=== PATIENT | female | born 1970 | race Caucasian/White ===

== ENCOUNTER 2018-05-22 12:04 | Inpatient (IN) | payer MEDICAID, OTHER, SELFPAY ==
[2018-05-22 13:53] LABS: BASO # 0.1 10^3/uL (0.0-0.2); BASO % 0.5 % (0.0-1.0); EOS # 0.2 10^3/uL (0.0-0.50); EOS % 2.1 % (0.0-3.0); HEMATOCRIT 34.9 % (36.0-47.0); HEMOGLOBIN 10.9 g/dl (12.0-15.5); IMMATURE GRANULOCYTE % 0.3 % (0-3.0); LYMPH # 2.8 10^3/uL (1.5-4.5); LYMPH % 29.3 % (24.0-44.0); MEAN CORPUSCULAR HEMOGLOBIN 23.6 pg (27.0-33.0); MEAN CORPUSCULAR HGB CONC 31.2 g/dl (32.0-36.5); MEAN CORPUSCULAR VOLUME 75.5 fl (80.0-96.0); MONO # 0.7 10^3/uL (0.0-0.8); MONO % 7.2 % (0.0-5.0); NEUTROPHILS # 5.9 10^3/uL (1.8-7.7); NEUTROPHILS % 60.6 % (36.0-66.0); PLATELET COUNT, AUTOMATED 479 10^3/uL (150-450); RED BLOOD COUNT 4.62 10^6/uL (4.00-5.40); RED CELL DISTRIBUTION WIDTH 15.3 % (11.5-14.5); WHITE BLOOD COUNT 9.7 10^3/uL (4.0-10.0)
[2018-05-22 14:07] LABS: INR 1.09; PARTIAL THROMBOPLASTIN TIME 25.3 SECONDS (25.4-37.6); PROTHROMBIN TIME 14.2 SECONDS (12.1-14.4)
[2018-05-22 14:31] LABS: ANION GAP 9 MEQ/L (8-16); BLOOD UREA NITROGEN 8 MG/DL (7-18); CALCIUM LEVEL 8.9 MG/DL (8.5-10.1); CARBON DIOXIDE LEVEL 25 MEQ/L (21-32); CHLORIDE LEVEL 106 MEQ/L (98-107); CPK CREATINE PHOSPHOKINASE 117 U/L (26-192); CREATININE FOR GFR 0.84 MG/DL (0.55-1.30); GLOMERULAR FILTRATION RATE > 60.0 (>58); GLUCOSE, FASTING 288 MG/DL (70-100); MB/CK RELATIVE INDEX 1.71 (< OR =4); POTASSIUM SERUM 4.2 MEQ/L (3.5-5.1); SODIUM LEVEL 140 MEQ/L (136-145); TROPONIN I < 0.02 NG/ML (< 0.10)
[2018-05-22 15:21] LABS: KETONE, URINE AUTO RFX NEGATIVE (NEGATIVE); LEUKOCYTE ESTERASE UR AUTO RFX NEGATIVE (NEGATIVE); NITRITE, URINE AUTO RFX NEGATIVE (NEGATIVE); RBC, URINE AUTO RFX 2 /HPF (0-3); SPECIFIC GRAVITY UR AUTO RFX 1.027 (1.002-1.035); SQUAM EPITHELIAL CELL UR AURFX 0 /HPF (0-6); WBC, URINE AUTO RFX 2 /HPF (0-3)
[2018-05-22] MEDS: ATORVASTATIN 20 MG TAB PO (16:07)
[2018-05-22] MEDS: ASPIRIN 81 MG CHEW TABLET PO (16:07)
[2018-05-22] MEDS: CLOPIDOGREL 75 MG TAB PO (16:07)
[2018-05-22] MEDS ORDERED: GLUCAGON FOR INJ 1 MG VIAL (J1610) SC (17:15)
[2018-05-22] MEDS ORDERED: GLUCOSE 4 GM CHEW TABLET PO (17:15)
[2018-05-22] MEDS ORDERED: DEXTROSE 50% 50 ML SYRINGE IV (17:15)
[2018-05-22] MEDS ORDERED: HumaLOG INSULIN (NovoLOG) PER UNIT SC (17:30)
[2018-05-22 18:03] LABS: BEDSIDE GLUCOSE 276 MG/DL (70-105)
[2018-05-22] MEDS: NS 1,000 ML IV (18:24)
[2018-05-22] MEDS: HumaLOG INSULIN (NovoLOG) PER UNIT SC (18:25)
[2018-05-22] MEDS ORDERED: ENOXAPARIN 40 MG/0.4 ML SYRINGE (J1650) SC (21:00)
[2018-05-22] MEDS: ENOXAPARIN 40 MG/0.4 ML SYRINGE (J1650) SC (22:38)
[2018-05-23 00:18] LABS: BEDSIDE GLUCOSE 255 MG/DL (70-105)
[2018-05-23] MEDS: HumaLOG INSULIN (NovoLOG) PER UNIT SC ×4 (00:22→18:02)
[2018-05-23 05:39] LABS: BEDSIDE GLUCOSE 244 MG/DL (70-105)
[2018-05-23] MEDS: NS 1,000 ML IV ×2 (05:57→17:54)
[2018-05-23 05:58] LABS: HEMOGLOBIN 9.9 g/dl (12.0-15.5); MEAN CORPUSCULAR HEMOGLOBIN 23.1 pg (27.0-33.0); MEAN CORPUSCULAR VOLUME 76.9 fl (80.0-96.0); PLATELET COUNT, AUTOMATED 470 10^3/uL (150-450); RED BLOOD COUNT 4.29 10^6/uL (4.00-5.40); RED CELL DISTRIBUTION WIDTH 15.5 % (11.5-14.5); WHITE BLOOD COUNT 10.2 10^3/uL (4.0-10.0)
[2018-05-23 06:24] LABS: ANION GAP 8 MEQ/L (8-16); BLOOD UREA NITROGEN 9 MG/DL (7-18); CALCIUM LEVEL 8.3 MG/DL (8.5-10.1); CARBON DIOXIDE LEVEL 26 MEQ/L (21-32); CHLORIDE LEVEL 109 MEQ/L (98-107); CHOLESTEROL LEVEL 181 MG/DL (<200); CHOLESTEROL RISK RATIO 5.323 (<5); GLOMERULAR FILTRATION RATE > 60.0 (>58); GLUCOSE, FASTING 235 MG/DL (70-100); HDL CHOLESTEROL 34 MG/DL (>40); LDL CHOLESTEROL 91 MG/DL (<100); NON-HDL-C 147 MG/DL; POTASSIUM SERUM 3.7 MEQ/L (3.5-5.1); SODIUM LEVEL 143 MEQ/L (136-145); TRIGLYCERIDES LEVEL 281 MG/DL (<150)
[2018-05-23 07:22] LABS: THYROID STIMULATING HORMONE 0.844 uIU/ML (0.358-3.740)
[2018-05-23 08:25] LABS: ESTIMATED AVERAGE GLUCOSE 315 MG/DL (60-110); HEMOGLOBIN A1c 12.6 %
[2018-05-23] MEDS: ASPIRIN 81 MG CHEW TABLET PO (09:00)
[2018-05-23] MEDS: ATORVASTATIN 20 MG TAB PO (09:00)
[2018-05-23] MEDS ORDERED: ASPIRIN 325 MG TAB PO (09:00)
[2018-05-23] MEDS: CLOPIDOGREL 75 MG TAB PO (09:00)
[2018-05-23 11:55] LABS: BEDSIDE GLUCOSE 190 MG/DL (70-105)
[2018-05-23] MEDS ORDERED: PILL CRUSHER/CUTTER 1 EACH XX (14:15)
[2018-05-23 15:30] LABS: RETIC HEMOGLOBIN EQUIVALENT 24.7 pg (24-36); RETICULOCYTE # 68.5 10^9/L (17-77); RETICULOCYTE % 1.5 % (0.5-1.5)
[2018-05-23 15:32] LABS: REASON FOR REVIEW RBC MORPHOLOGY; SLIDE REVIEW Report; SOURCE PERIPHERAL SMEAR
[2018-05-23] MEDS: ASPIRIN 81 MG CHEW TABLET NG (16:00)
[2018-05-23] MEDS: CLOPIDOGREL 75 MG TAB NG (16:00)
[2018-05-23] MEDS: ATORVASTATIN 20 MG TAB NG ×2 (16:00→20:21)
[2018-05-23 16:06] LABS: FERRITIN 7 NG/ML (8-252); IRON (FE) 20 UG/DL (50-170); PERCENT SATURATION 4.6 % (13.2-45.0); TOTAL IRON BINDING CAPACITY 437 UG/DL (250-450)
[2018-05-23 18:01] LABS: BEDSIDE GLUCOSE 220 MG/DL (70-105)
[2018-05-23] MEDS: ENOXAPARIN 40 MG/0.4 ML SYRINGE (J1650) SC (20:20)
[2018-05-24 00:20] LABS: BEDSIDE GLUCOSE 212 MG/DL (70-105)
[2018-05-24] MEDS: HumaLOG INSULIN (NovoLOG) PER UNIT SC ×5 (00:22→21:00)
[2018-05-24 05:51] LABS: HEMATOCRIT 31.6 % (36.0-47.0); HEMOGLOBIN 9.4 g/dl (12.0-15.5); MEAN CORPUSCULAR HEMOGLOBIN 22.7 pg (27.0-33.0); MEAN CORPUSCULAR HGB CONC 29.7 g/dl (32.0-36.5); MEAN CORPUSCULAR VOLUME 76.3 fl (80.0-96.0); PLATELET COUNT, AUTOMATED 437 10^3/uL (150-450); RED BLOOD COUNT 4.14 10^6/uL (4.00-5.40); RED CELL DISTRIBUTION WIDTH 14.9 % (11.5-14.5); WHITE BLOOD COUNT 10.3 10^3/uL (4.0-10.0)
[2018-05-24 06:18] LABS: ANION GAP 8 MEQ/L (8-16); BLOOD UREA NITROGEN 8 MG/DL (7-18); CALCIUM LEVEL 8.2 MG/DL (8.5-10.1); CARBON DIOXIDE LEVEL 24 MEQ/L (21-32); CHLORIDE LEVEL 112 MEQ/L (98-107); CREATININE FOR GFR 0.72 MG/DL (0.55-1.30); GLOMERULAR FILTRATION RATE > 60.0 (>58); GLUCOSE, FASTING 198 MG/DL (70-100); POTASSIUM SERUM 3.4 MEQ/L (3.5-5.1); SODIUM LEVEL 144 MEQ/L (136-145)
[2018-05-24] MEDS: NS 1,000 ML IV ×2 (06:32→22:02)
[2018-05-24] MEDS: KCL 10MEQ/100ML SWI (KRUN) 10 MEQ in APPROPRIATE DILUENT 1 EA IV (06:57)
[2018-05-24] MEDS: CLOPIDOGREL 75 MG TAB NG (09:47)
[2018-05-24] MEDS: ASPIRIN 81 MG CHEW TABLET NG (09:47)
[2018-05-24 12:33] LABS: BEDSIDE GLUCOSE 188 MG/DL (70-105)
[2018-05-24] MEDS: FERROUS SULFATE 300MG/5ML UDC LIQUID NG ×2 (13:59→22:02)
[2018-05-24 17:59] LABS: BEDSIDE GLUCOSE 231 MG/DL (70-105)
[2018-05-24 20:58] LABS: BEDSIDE GLUCOSE 230 MG/DL (70-105)
[2018-05-24] MEDS: ENOXAPARIN 40 MG/0.4 ML SYRINGE (J1650) SC (22:02)
[2018-05-24] MEDS: ATORVASTATIN 20 MG TAB NG (22:03)
[2018-05-25] MEDS: NYSTATIN 100,000 UNITS/GM TOPICAL PWD 15 GM TOP (05:40)
[2018-05-25 06:02] LABS: HEMATOCRIT 33.4 % (36.0-47.0); HEMOGLOBIN 10.2 g/dl (12.0-15.5); MEAN CORPUSCULAR HEMOGLOBIN 22.9 pg (27.0-33.0); MEAN CORPUSCULAR HGB CONC 30.5 g/dl (32.0-36.5); MEAN CORPUSCULAR VOLUME 75.1 fl (80.0-96.0); PLATELET COUNT, AUTOMATED 455 10^3/uL (150-450); RED BLOOD COUNT 4.45 10^6/uL (4.00-5.40); RED CELL DISTRIBUTION WIDTH 14.6 % (11.5-14.5); WHITE BLOOD COUNT 9.1 10^3/uL (4.0-10.0)
[2018-05-25 06:22] LABS: ANION GAP 9 MEQ/L (8-16); BLOOD UREA NITROGEN 7 MG/DL (7-18); CALCIUM LEVEL 7.8 MG/DL (8.5-10.1); CARBON DIOXIDE LEVEL 23 MEQ/L (21-32); CHLORIDE LEVEL 106 MEQ/L (98-107); CREATININE FOR GFR 0.75 MG/DL (0.55-1.30); GLOMERULAR FILTRATION RATE > 60.0 (>58); GLUCOSE, FASTING 218 MG/DL (70-100); POTASSIUM SERUM 3.6 MEQ/L (3.5-5.1); SODIUM LEVEL 138 MEQ/L (136-145)
[2018-05-25] MEDS: HumaLOG INSULIN (NovoLOG) PER UNIT SC ×4 (08:52→20:22)
[2018-05-25] MEDS: NS 1,000 ML IV ×2 (08:52→14:10)
[2018-05-25] MEDS: ASPIRIN 81 MG CHEW TABLET NG (10:01)
[2018-05-25] MEDS: CLOPIDOGREL 75 MG TAB NG (10:02)
[2018-05-25] MEDS: FERROUS SULFATE 300MG/5ML UDC LIQUID NG ×2 (10:02→21:38)
[2018-05-25 12:12] LABS: BEDSIDE GLUCOSE 234 MG/DL (70-105)
[2018-05-25] MEDS ORDERED: PROPOFOL 500 MG/50 ML VIAL As Ordered (16:32)
[2018-05-25] MEDS ORDERED: MIDAZOLAM INJ 2 MG/2 ML VIAL (J2250) As Ordered (16:32)
[2018-05-25] MEDS ORDERED: fentaNYL 100 MCG/2 ML INJECTION (J3010) As Ordered (16:32)
[2018-05-25] MEDS: CETACAINE SPRAY 5GM As Ordered (17:05)
[2018-05-25 17:46] LABS: BEDSIDE GLUCOSE 174 MG/DL (70-105)
[2018-05-25] MEDS: LR 1,000 ML IV (18:00)
[2018-05-25 18:38] LABS: BEDSIDE GLUCOSE 170 MG/DL (70-105)
[2018-05-25 20:20] LABS: BEDSIDE GLUCOSE 226 MG/DL (70-105)
[2018-05-25] MEDS: ATORVASTATIN 20 MG TAB NG (21:38)
[2018-05-25] MEDS: ENOXAPARIN 40 MG/0.4 ML SYRINGE (J1650) SC (21:38)
[2018-05-26] MEDS ORDERED: SLF 3 ML SYR IV ×2 (00:15→11:45)
[2018-05-26] MEDS: NS 1,000 ML IV (04:22)
[2018-05-26 05:10] LABS: HEMATOCRIT 33.5 % (36.0-47.0); HEMOGLOBIN 10.1 g/dl (12.0-15.5); MEAN CORPUSCULAR HEMOGLOBIN 23.1 pg (27.0-33.0); MEAN CORPUSCULAR HGB CONC 30.1 g/dl (32.0-36.5); MEAN CORPUSCULAR VOLUME 76.5 fl (80.0-96.0); PLATELET COUNT, AUTOMATED 423 10^3/uL (150-450); RED BLOOD COUNT 4.38 10^6/uL (4.00-5.40); RED CELL DISTRIBUTION WIDTH 14.9 % (11.5-14.5); WHITE BLOOD COUNT 9.7 10^3/uL (4.0-10.0)
[2018-05-26 05:33] LABS: ANION GAP 9 MEQ/L (8-16); BLOOD UREA NITROGEN 8 MG/DL (7-18); CALCIUM LEVEL 7.7 MG/DL (8.5-10.1); CARBON DIOXIDE LEVEL 23 MEQ/L (21-32); CHLORIDE LEVEL 107 MEQ/L (98-107); CREATININE FOR GFR 0.85 MG/DL (0.55-1.30); GLOMERULAR FILTRATION RATE > 60.0 (>58); GLUCOSE, FASTING 234 MG/DL (70-100); POTASSIUM SERUM 3.5 MEQ/L (3.5-5.1); SODIUM LEVEL 139 MEQ/L (136-145)
[2018-05-26] MEDS: SLF 3 ML SYR IV ×5 (05:42→22:06)
[2018-05-26] MEDS: HumaLOG INSULIN (NovoLOG) PER UNIT SC ×4 (07:59→22:05)
[2018-05-26] MEDS: CLOPIDOGREL 75 MG TAB NG (09:42)
[2018-05-26] MEDS: ASPIRIN 81 MG CHEW TABLET NG (09:42)
[2018-05-26] MEDS: FERROUS SULFATE 300MG/5ML UDC LIQUID NG (09:42)
[2018-05-26 11:12] LABS: BEDSIDE GLUCOSE 226 MG/DL (70-105)
[2018-05-26] MEDS ORDERED: PILL CRUSHER/CUTTER 1 EACH XX (16:15)
[2018-05-26 16:33] LABS: BEDSIDE GLUCOSE 155 MG/DL (70-105)
[2018-05-26 21:04] LABS: BEDSIDE GLUCOSE 264 MG/DL (70-105)
[2018-05-26] MEDS: ENOXAPARIN 40 MG/0.4 ML SYRINGE (J1650) SC (22:04)
[2018-05-26] MEDS: ATORVASTATIN 20 MG TAB PO (22:05)
[2018-05-26] MEDS: FERROUS SULFATE 325MG TAB PO (22:08)
[2018-05-27] MEDS: SLF 3 ML SYR IV ×6 (05:12→21:24)
[2018-05-27 06:21] LABS: HEMATOCRIT 32.8 % (36.0-47.0); HEMOGLOBIN 10.1 g/dl (12.0-15.5); MEAN CORPUSCULAR HEMOGLOBIN 23.1 pg (27.0-33.0); MEAN CORPUSCULAR HGB CONC 30.8 g/dl (32.0-36.5); MEAN CORPUSCULAR VOLUME 74.9 fl (80.0-96.0); PLATELET COUNT, AUTOMATED 442 10^3/uL (150-450); RED BLOOD COUNT 4.38 10^6/uL (4.00-5.40); WHITE BLOOD COUNT 8.1 10^3/uL (4.0-10.0)
[2018-05-27 06:39] LABS: ANION GAP 7 MEQ/L (8-16); BLOOD UREA NITROGEN 8 MG/DL (7-18); CALCIUM LEVEL 7.8 MG/DL (8.5-10.1); CARBON DIOXIDE LEVEL 25 MEQ/L (21-32); CHLORIDE LEVEL 106 MEQ/L (98-107); CREATININE FOR GFR 0.79 MG/DL (0.55-1.30); GLOMERULAR FILTRATION RATE > 60.0 (>58); GLUCOSE, FASTING 228 MG/DL (70-100); POTASSIUM SERUM 3.4 MEQ/L (3.5-5.1); SODIUM LEVEL 138 MEQ/L (136-145)
[2018-05-27] MEDS: ASPIRIN 81 MG CHEW TABLET PO (08:26)
[2018-05-27] MEDS: FERROUS SULFATE 325MG TAB PO ×2 (08:27→21:23)
[2018-05-27] MEDS: HumaLOG INSULIN (NovoLOG) PER UNIT SC ×4 (08:27→21:00)
[2018-05-27] MEDS: CLOPIDOGREL 75 MG TAB PO (08:27)
[2018-05-27 12:20] LABS: BEDSIDE GLUCOSE 252 MG/DL (70-105)
[2018-05-27] MEDS: POTASSIUM CHLORIDE 10% LIQ 20 MEQ/15 ML UDC PO (15:16)
[2018-05-27] MEDS: amLODIPine 5 MG TAB PO (15:17)
[2018-05-27] MEDS: LISINOPRIL 10 MG TAB PO (15:17)
[2018-05-27 16:29] LABS: BEDSIDE GLUCOSE 263 MG/DL (70-105)
[2018-05-27 21:16] LABS: BEDSIDE GLUCOSE 229 MG/DL (70-105)
[2018-05-27] MEDS: ENOXAPARIN 40 MG/0.4 ML SYRINGE (J1650) SC (21:22)
[2018-05-27] MEDS: ATORVASTATIN 20 MG TAB PO (21:23)
[2018-05-28] MEDS: SLF 3 ML SYR IV ×6 (05:06→22:00)
[2018-05-28 06:29] LABS: HEMATOCRIT 32.2 % (36.0-47.0); HEMOGLOBIN 9.9 g/dl (12.0-15.5); MEAN CORPUSCULAR HEMOGLOBIN 23.1 pg (27.0-33.0); MEAN CORPUSCULAR HGB CONC 30.7 g/dl (32.0-36.5); MEAN CORPUSCULAR VOLUME 75.2 fl (80.0-96.0); PLATELET COUNT, AUTOMATED 429 10^3/uL (150-450); RED BLOOD COUNT 4.28 10^6/uL (4.00-5.40); RED CELL DISTRIBUTION WIDTH 15.3 % (11.5-14.5); WHITE BLOOD COUNT 8.7 10^3/uL (4.0-10.0)
[2018-05-28 06:53] LABS: ANION GAP 8 MEQ/L (8-16); BLOOD UREA NITROGEN 10 MG/DL (7-18); CALCIUM LEVEL 8.3 MG/DL (8.5-10.1); CARBON DIOXIDE LEVEL 24 MEQ/L (21-32); CHLORIDE LEVEL 105 MEQ/L (98-107); CREATININE FOR GFR 0.82 MG/DL (0.55-1.30); GLOMERULAR FILTRATION RATE > 60.0 (>58); GLUCOSE, FASTING 229 MG/DL (70-100); POTASSIUM SERUM 3.5 MEQ/L (3.5-5.1); SODIUM LEVEL 137 MEQ/L (136-145)
[2018-05-28] MEDS: FERROUS SULFATE 325MG TAB PO ×2 (08:34→21:38)
[2018-05-28] MEDS: LISINOPRIL 10 MG TAB PO (08:34)
[2018-05-28] MEDS: amLODIPine 5 MG TAB PO (08:36)
[2018-05-28] MEDS: HumaLOG INSULIN (NovoLOG) PER UNIT SC ×4 (08:37→21:39)
[2018-05-28] MEDS: CLOPIDOGREL 75 MG TAB PO (08:37)
[2018-05-28] MEDS: ASPIRIN 81 MG CHEW TABLET PO (08:37)
[2018-05-28] MEDS: SENNA 8.6 MG TAB (SENOKOT) PO ×2 (09:00→21:38)
[2018-05-28 11:33] LABS: BEDSIDE GLUCOSE 300 MG/DL (70-105)
[2018-05-28] MEDS ORDERED: MOM 30ML SUSPENSION UDC PO (13:30)
[2018-05-28] MEDS ORDERED: BISACODYL 10 MG SUPP PR (13:30)
[2018-05-28 16:50] LABS: BEDSIDE GLUCOSE 269 MG/DL (70-105)
[2018-05-28 20:36] LABS: BEDSIDE GLUCOSE 326 MG/DL (70-105)
[2018-05-28] MEDS: ATORVASTATIN 20 MG TAB PO (21:38)
[2018-05-28] MEDS: LEVEMIR (INSULIN DETEMIR) 1 UNITS/0.01ML SC (21:39)
[2018-05-28] MEDS: ENOXAPARIN 40 MG/0.4 ML SYRINGE (J1650) SC (21:39)
[2018-05-29] MEDS: SLF 3 ML SYR IV ×6 (05:06→21:25)
[2018-05-29 06:13] LABS: HEMATOCRIT 33.6 % (36.0-47.0); HEMOGLOBIN 10.3 g/dl (12.0-15.5); MEAN CORPUSCULAR HEMOGLOBIN 23.3 pg (27.0-33.0); MEAN CORPUSCULAR HGB CONC 30.7 g/dl (32.0-36.5); PLATELET COUNT, AUTOMATED 439 10^3/uL (150-450); RED BLOOD COUNT 4.42 10^6/uL (4.00-5.40); RED CELL DISTRIBUTION WIDTH 15.4 % (11.5-14.5); WHITE BLOOD COUNT 9.9 10^3/uL (4.0-10.0)
[2018-05-29 06:36] LABS: ANION GAP 7 MEQ/L (8-16); BLOOD UREA NITROGEN 12 MG/DL (7-18); CALCIUM LEVEL 8.7 MG/DL (8.5-10.1); CARBON DIOXIDE LEVEL 25 MEQ/L (21-32); CHLORIDE LEVEL 107 MEQ/L (98-107); CREATININE FOR GFR 0.85 MG/DL (0.55-1.30); GLOMERULAR FILTRATION RATE > 60.0 (>58); GLUCOSE, FASTING 260 MG/DL (70-100); POTASSIUM SERUM 3.6 MEQ/L (3.5-5.1); SODIUM LEVEL 139 MEQ/L (136-145)
[2018-05-29] MEDS: LISINOPRIL 10 MG TAB PO (09:58)
[2018-05-29] MEDS: CLOPIDOGREL 75 MG TAB PO (09:58)
[2018-05-29] MEDS: FERROUS SULFATE 325MG TAB PO ×2 (09:58→20:51)
[2018-05-29] MEDS: ASPIRIN 81 MG CHEW TABLET PO (09:58)
[2018-05-29] MEDS: SENNA 8.6 MG TAB (SENOKOT) PO ×2 (09:58→20:51)
[2018-05-29] MEDS: amLODIPine 5 MG TAB PO (09:58)
[2018-05-29] MEDS: HumaLOG INSULIN (NovoLOG) PER UNIT SC ×4 (10:01→20:50)
[2018-05-29 10:25] LABS: DRVV SCREEN 41.1 SEC
[2018-05-29 11:42] LABS: BEDSIDE GLUCOSE 343 MG/DL (70-105)
[2018-05-29 12:04] LABS: BEDSIDE GLUCOSE 285 MG/DL (70-105)
[2018-05-29 19:56] LABS: BEDSIDE GLUCOSE 299 MG/DL (70-105)
[2018-05-29 20:32] LABS: BEDSIDE GLUCOSE 322 MG/DL (70-105)
[2018-05-29] MEDS: LEVEMIR (INSULIN DETEMIR) 1 UNITS/0.01ML SC (20:50)
[2018-05-29] MEDS: ATORVASTATIN 20 MG TAB PO (20:51)
[2018-05-29] MEDS: ENOXAPARIN 40 MG/0.4 ML SYRINGE (J1650) SC (20:52)
[2018-05-30 00:11] LABS: PHOSPHOLIPIDS LEVEL 222 mg/dL (150-250)
[2018-05-30 00:11] LABS: ANTI THROMBIN 3 ANTIGEN IMMUNO 123 % (72-124); ANTI THROMBIN 3 FUNCT ACTIVITY 139 % (75-135); CARDIOLIPIN IGA ANTIBODY <9 APL U/mL (0-11); CARDIOLIPIN IGG ANTIBODY <9 GPL U/mL (0-14); CARDIOLIPIN IGM ANTIBODY <9 MPL U/mL (0-12); PROTEIN C FUNCTIONAL ACTIVITY 194 % (73-180); PROTEIN S FUNCTIONAL ACTIVITY 114 % (63-140)
[2018-05-30] MEDS: SLF 3 ML SYR IV ×6 (05:09→20:54)
[2018-05-30 07:53] LABS: BEDSIDE GLUCOSE 249 MG/DL (70-105)
[2018-05-30] MEDS: HumaLOG INSULIN (NovoLOG) PER UNIT SC ×4 (08:54→20:55)
[2018-05-30] MEDS: ASPIRIN 81 MG CHEW TABLET PO (08:54)
[2018-05-30] MEDS: amLODIPine 5 MG TAB PO (08:55)
[2018-05-30] MEDS: LISINOPRIL 10 MG TAB PO (08:55)
[2018-05-30] MEDS: SENNA 8.6 MG TAB (SENOKOT) PO ×2 (08:55→20:50)
[2018-05-30] MEDS: CLOPIDOGREL 75 MG TAB PO (08:55)
[2018-05-30] MEDS: FERROUS SULFATE 325MG TAB PO ×2 (08:55→20:50)
[2018-05-30 11:35] LABS: BEDSIDE GLUCOSE 280 MG/DL (70-105)
[2018-05-30 16:36] LABS: BEDSIDE GLUCOSE 263 MG/DL (70-105)
[2018-05-30 20:38] LABS: BEDSIDE GLUCOSE 256 MG/DL (70-105)
[2018-05-30] MEDS: ATORVASTATIN 20 MG TAB PO (20:50)
[2018-05-30] MEDS: LEVEMIR (INSULIN DETEMIR) 1 UNITS/0.01ML SC (20:54)
[2018-05-30] MEDS: ENOXAPARIN 40 MG/0.4 ML SYRINGE (J1650) SC (20:54)
[2018-05-31] MEDS: SLF 3 ML SYR IV ×6 (06:01→22:00)
[2018-05-31] MEDS: HumaLOG INSULIN (NovoLOG) PER UNIT SC ×4 (08:56→21:34)
[2018-05-31] MEDS: FERROUS SULFATE 325MG TAB PO ×2 (08:57→21:33)
[2018-05-31] MEDS: ASPIRIN 81 MG CHEW TABLET PO (08:57)
[2018-05-31] MEDS: LISINOPRIL 10 MG TAB PO (08:59)
[2018-05-31] MEDS: amLODIPine 5 MG TAB PO (08:59)
[2018-05-31] MEDS: CLOPIDOGREL 75 MG TAB PO (09:00)
[2018-05-31] MEDS: SENNA 8.6 MG TAB (SENOKOT) PO ×2 (09:00→21:34)
[2018-05-31 11:23] LABS: BEDSIDE GLUCOSE 263 MG/DL (70-105)
[2018-05-31 16:47] LABS: BEDSIDE GLUCOSE 257 MG/DL (70-105)
[2018-05-31 20:09] LABS: BEDSIDE GLUCOSE 277 MG/DL (70-105)
[2018-05-31] MEDS: ENOXAPARIN 40 MG/0.4 ML SYRINGE (J1650) SC (21:33)
[2018-05-31] MEDS: ATORVASTATIN 20 MG TAB PO (21:33)
[2018-05-31] MEDS: LEVEMIR (INSULIN DETEMIR) 1 UNITS/0.01ML SC (21:34)
[2018-06-01] MEDS: SLF 3 ML SYR IV ×2 (04:57)
[2018-06-01 06:26] LABS: BEDSIDE GLUCOSE 235 MG/DL (70-105)
[2018-06-01] MEDS: LISINOPRIL 10 MG TAB PO (08:08)
[2018-06-01] MEDS: HumaLOG INSULIN (NovoLOG) PER UNIT SC ×2 (08:08→12:18)
[2018-06-01] MEDS: ASPIRIN 81 MG CHEW TABLET PO (08:08)
[2018-06-01] MEDS: amLODIPine 5 MG TAB PO (08:09)
[2018-06-01] MEDS: SENNA 8.6 MG TAB (SENOKOT) PO (08:09)
[2018-06-01] MEDS: CLOPIDOGREL 75 MG TAB PO (08:09)
[2018-06-01] MEDS: FERROUS SULFATE 300MG/5ML UDC LIQUID PO (10:00)
[2018-06-01 11:55] LABS: BEDSIDE GLUCOSE 260 MG/DL (70-105)
== END 2018-06-01 14:05 | DRG 45 ==
LOC: M MSPAV 05-26 15:26 → M ED 12:04 → M ED INP 15:12 → M PCU 17:13
PROC: B246ZZ4 Ultrasonography of Right and Left Heart, Transesophageal (ICD-10-PCS; principal; 2018-05-25 16:15)
DX: I63.412 Cerebral infarction due to embolism of left middle cerebral artery (principal); I10 Essential (primary) hypertension; G81.91 Hemiplegia, unspecified affecting right dominant side; E11.65 Type 2 diabetes mellitus with hyperglycemia; B35.1 Tinea unguium; D47.3 Essential (hemorrhagic) thrombocythemia; R47.01 Aphasia; Z68.41 Body mass index [BMI] 40.0-44.9, adult; M54.9 Dorsalgia, unspecified; R41.82 Altered mental status, unspecified; D50.9 Iron deficiency anemia, unspecified; R29.810 Facial weakness; E78.5 Hyperlipidemia, unspecified; E66.9 Obesity, unspecified; F48.2 Pseudobulbar affect; Z91.14 Patient's other noncompliance with medication regimen; Z79.4 Long term (current) use of insulin; Z79.899 Other long term (current) drug therapy

== ENCOUNTER 2018-06-01 14:10 | Inpatient (IN) | payer MEDICAID, SELFPAY ==
[~2018-06-01 14:10] MED LIST: DEXTROSE 50% 50 ML SYRINGE IV; GLUCAGON FOR INJ 1 MG VIAL (J1610) SC; GLUCOSE 4 GM CHEW TABLET PO; SENNA 8.6 MG TAB (SENOKOT) PO
[2018-06-01 16:50] LABS: BEDSIDE GLUCOSE 260 MG/DL (70-105)
[2018-06-01] MEDS: HumaLOG INSULIN (NovoLOG) PER UNIT SC (18:00)
[2018-06-01 19:48] LABS: BEDSIDE GLUCOSE 310 MG/DL (70-105)
[2018-06-01] MEDS: DOCUSATE SODIUM 100 MG CAP PO (21:18)
[2018-06-01] MEDS: ATORVASTATIN 20 MG TAB PO (21:18)
[2018-06-01] MEDS: FERROUS GLUCONATE 324 MG TAB PO (21:19)
[2018-06-01] MEDS: ENOXAPARIN 40 MG/0.4 ML SYRINGE (J1650) SC (21:19)
[2018-06-01] MEDS: LEVEMIR (INSULIN DETEMIR) 1 UNITS/0.01ML SC (21:19)
[2018-06-02 05:13] LABS: BEDSIDE GLUCOSE 255 MG/DL (70-105)
[2018-06-02 07:11] LABS: BASO % 0.5 % (0.0-1.0); EOS # 0.2 10^3/uL (0.0-0.50); EOS % 2.9 % (0.0-3.0); HEMATOCRIT 34.5 % (36.0-47.0); HEMOGLOBIN 10.8 g/dl (12.0-15.5); IMMATURE GRANULOCYTE % 0.4 % (0-3.0); LYMPH # 2.3 10^3/uL (1.5-4.5); LYMPH % 27.6 % (24.0-44.0); MEAN CORPUSCULAR HEMOGLOBIN 23.8 pg (27.0-33.0); MEAN CORPUSCULAR HGB CONC 31.3 g/dl (32.0-36.5); MONO # 0.5 10^3/uL (0.0-0.8); NEUTROPHILS # 5.1 10^3/uL (1.8-7.7); NEUTROPHILS % 62.6 % (36.0-66.0); PLATELET COUNT, AUTOMATED 439 10^3/uL (150-450); RED BLOOD COUNT 4.54 10^6/uL (4.00-5.40); RED CELL DISTRIBUTION WIDTH 16.1 % (11.5-14.5); WHITE BLOOD COUNT 8.2 10^3/uL (4.0-10.0)
[2018-06-02 07:41] LABS: ALBUMIN 2.9 GM/DL (3.2-5.2); ALBUMIN/GLOBULIN RATIO 0.83 (1.00-1.93); ALKALINE PHOSPHATASE 116 U/L (45-117); ALT/SGPT 26 U/L (12-78); ANION GAP 9 MEQ/L (8-16); AST/SGOT 18 U/L (7-37); BILIRUBIN,TOTAL 0.4 MG/DL (0.2-1.0); BLOOD UREA NITROGEN 12 MG/DL (7-18); CALCIUM LEVEL 9.1 MG/DL (8.5-10.1); CARBON DIOXIDE LEVEL 26 MEQ/L (21-32); CHLORIDE LEVEL 105 MEQ/L (98-107); CREATININE FOR GFR 0.79 MG/DL (0.55-1.30); GLOMERULAR FILTRATION RATE > 60.0 (>58); GLUCOSE, FASTING 261 MG/DL (70-100); POTASSIUM SERUM 4.4 MEQ/L (3.5-5.1); SODIUM LEVEL 140 MEQ/L (136-145); TOTAL PROTEIN 6.4 GM/DL (6.4-8.2)
[2018-06-02] MEDS: HumaLOG INSULIN (NovoLOG) PER UNIT SC ×4 (08:11→17:00)
[2018-06-02] MEDS: FERROUS GLUCONATE 324 MG TAB PO ×2 (08:11→21:46)
[2018-06-02] MEDS: ASPIRIN 81 MG CHEW TABLET GT (08:11)
[2018-06-02] MEDS: amLODIPine 5 MG TAB PO (08:11)
[2018-06-02] MEDS: FLUoxetine 20 MG CAP PO (08:11)
[2018-06-02] MEDS: CLOPIDOGREL 75 MG TAB PO (08:11)
[2018-06-02] MEDS: LISINOPRIL 10 MG TAB PO (08:11)
[2018-06-02] MEDS: DOCUSATE SODIUM 100 MG CAP PO ×2 (08:11→21:46)
[2018-06-02 11:30] LABS: BEDSIDE GLUCOSE 346 MG/DL (70-105)
[2018-06-02] MEDS: CHLORHEXIDINE ORAL RINSE 0.12%/15ML 120ML BOTTLE SSP ×2 (13:28→21:46)
[2018-06-02 16:27] LABS: BEDSIDE GLUCOSE 315 MG/DL (70-105)
[2018-06-02 20:06] LABS: BEDSIDE GLUCOSE 303 MG/DL (70-105)
[2018-06-02] MEDS: traZODone 25MG PER 1/2 TABLET PO (21:45)
[2018-06-02] MEDS: LEVEMIR (INSULIN DETEMIR) 1 UNITS/0.01ML SC (21:46)
[2018-06-02] MEDS: ATORVASTATIN 20 MG TAB PO (21:46)
[2018-06-02] MEDS: ENOXAPARIN 40 MG/0.4 ML SYRINGE (J1650) SC (21:47)
[2018-06-03 06:04] LABS: BEDSIDE GLUCOSE 247 MG/DL (70-105)
[2018-06-03] MEDS: amLODIPine 10 MG TAB PO (08:10)
[2018-06-03] MEDS: CHLORHEXIDINE ORAL RINSE 0.12%/15ML 120ML BOTTLE SSP ×2 (08:10→20:36)
[2018-06-03] MEDS: FLUoxetine 20 MG CAP PO (08:10)
[2018-06-03] MEDS: CLOPIDOGREL 75 MG TAB PO (08:10)
[2018-06-03] MEDS: FERROUS GLUCONATE 324 MG TAB PO ×2 (08:10→20:36)
[2018-06-03] MEDS: ASPIRIN 81 MG CHEW TABLET GT (08:10)
[2018-06-03] MEDS: LISINOPRIL 10 MG TAB PO (08:10)
[2018-06-03] MEDS: HumaLOG INSULIN (NovoLOG) PER UNIT SC ×6 (08:10→17:18)
[2018-06-03] MEDS: DOCUSATE SODIUM 100 MG CAP PO ×2 (08:11→20:36)
[2018-06-03 11:36] LABS: BEDSIDE GLUCOSE 348 MG/DL (70-105)
[2018-06-03 16:39] LABS: BEDSIDE GLUCOSE 271 MG/DL (70-105)
[2018-06-03 19:43] LABS: BEDSIDE GLUCOSE 235 MG/DL (70-105)
[2018-06-03] MEDS: LEVEMIR (INSULIN DETEMIR) 1 UNITS/0.01ML SC (20:36)
[2018-06-03] MEDS: ATORVASTATIN 20 MG TAB PO (20:36)
[2018-06-03] MEDS: ENOXAPARIN 40 MG/0.4 ML SYRINGE (J1650) SC (20:36)
[2018-06-03] MEDS: traZODone 25MG PER 1/2 TABLET PO (20:36)
[2018-06-04] MEDS: ACETAMINOPHEN TAB 650MG DOSE (2X325MG) PO ×3 (00:07→21:35)
[2018-06-04 06:55] LABS: BEDSIDE GLUCOSE 278 MG/DL (70-105)
[2018-06-04] MEDS: HumaLOG INSULIN (NovoLOG) PER UNIT SC ×6 (08:16→17:33)
[2018-06-04] MEDS: CHLORHEXIDINE ORAL RINSE 0.12%/15ML 120ML BOTTLE SSP ×2 (08:17→20:55)
[2018-06-04] MEDS: FLUoxetine 20 MG CAP PO (08:17)
[2018-06-04] MEDS: FERROUS GLUCONATE 324 MG TAB PO ×2 (08:17→20:55)
[2018-06-04] MEDS: CLOPIDOGREL 75 MG TAB PO (08:17)
[2018-06-04] MEDS: amLODIPine 10 MG TAB PO (08:17)
[2018-06-04] MEDS: LISINOPRIL 10 MG TAB PO (08:17)
[2018-06-04] MEDS: ASPIRIN 81 MG CHEW TABLET GT (08:17)
[2018-06-04] MEDS: DOCUSATE SODIUM 100 MG CAP PO ×2 (08:17→20:55)
[2018-06-04 11:41] LABS: BEDSIDE GLUCOSE 292 MG/DL (70-105)
[2018-06-04 16:39] LABS: BEDSIDE GLUCOSE 225 MG/DL (70-105)
[2018-06-04 17:10] LABS: KETONE, URINE AUTO RFX NEGATIVE (NEGATIVE); NITRITE, URINE AUTO RFX NEGATIVE (NEGATIVE); RBC, URINE AUTO RFX 43 /HPF (0-3); SPECIFIC GRAVITY UR AUTO RFX 1.018 (1.002-1.035); SQUAM EPITHELIAL CELL UR AURFX 1 /HPF (0-6); YEAST LIKE CELL URINE AUTO RFX LARGE
[2018-06-04 17:17] LABS: LEUKOCYTE ESTERASE UR AUTO RFX 2+ (NEGATIVE); WBC, URINE AUTO RFX 66 /HPF (0-3)
[2018-06-04 20:04] LABS: BEDSIDE GLUCOSE 177 MG/DL (70-105)
[2018-06-04] MEDS: ATORVASTATIN 20 MG TAB PO (20:55)
[2018-06-04] MEDS: ENOXAPARIN 40 MG/0.4 ML SYRINGE (J1650) SC (20:55)
[2018-06-04] MEDS: LEVEMIR (INSULIN DETEMIR) 1 UNITS/0.01ML SC (20:56)
[2018-06-05 06:20] LABS: BEDSIDE GLUCOSE 227 MG/DL (70-105)
[2018-06-05] MEDS: FLUoxetine 20 MG CAP PO (09:30)
[2018-06-05] MEDS: DOCUSATE SODIUM 100 MG CAP PO ×2 (09:30→20:09)
[2018-06-05] MEDS: FERROUS GLUCONATE 324 MG TAB PO ×2 (09:30→20:08)
[2018-06-05] MEDS: ASPIRIN 81 MG CHEW TABLET GT (09:30)
[2018-06-05] MEDS: CLOPIDOGREL 75 MG TAB PO (09:30)
[2018-06-05] MEDS: HumaLOG INSULIN (NovoLOG) PER UNIT SC ×6 (09:30→17:48)
[2018-06-05] MEDS: LISINOPRIL 10 MG TAB PO (09:31)
[2018-06-05] MEDS: CHLORHEXIDINE ORAL RINSE 0.12%/15ML 120ML BOTTLE SSP ×2 (09:31→20:09)
[2018-06-05] MEDS: amLODIPine 10 MG TAB PO (09:31)
[2018-06-05] MEDS: ACETAMINOPHEN TAB 650MG DOSE (2X325MG) PO (20:09)
[2018-06-05] MEDS: ATORVASTATIN 20 MG TAB PO (20:09)
[2018-06-05] MEDS: LEVEMIR (INSULIN DETEMIR) 1 UNITS/0.01ML SC (20:11)
[2018-06-05] MEDS: ENOXAPARIN 40 MG/0.4 ML SYRINGE (J1650) SC (20:12)
[2018-06-05 20:16] LABS: BEDSIDE GLUCOSE 233 MG/DL (70-105)
[2018-06-05 20:16] LABS: BEDSIDE GLUCOSE 252 MG/DL (70-105)
[2018-06-06] MEDS: FLUoxetine 20 MG CAP PO (09:06)
[2018-06-06] MEDS: ASPIRIN 81 MG CHEW TABLET GT (09:06)
[2018-06-06] MEDS: DOCUSATE SODIUM 100 MG CAP PO ×2 (09:07→20:48)
[2018-06-06] MEDS: CLOPIDOGREL 75 MG TAB PO (09:07)
[2018-06-06] MEDS: HumaLOG INSULIN (NovoLOG) PER UNIT SC ×6 (09:07→16:52)
[2018-06-06] MEDS: LISINOPRIL 10 MG TAB PO (09:07)
[2018-06-06] MEDS: FERROUS GLUCONATE 324 MG TAB PO ×2 (09:07→20:49)
[2018-06-06] MEDS: amLODIPine 10 MG TAB PO (09:07)
[2018-06-06] MEDS: ACETAMINOPHEN TAB 650MG DOSE (2X325MG) PO ×2 (09:10→20:49)
[2018-06-06] MEDS: CHLORHEXIDINE ORAL RINSE 0.12%/15ML 120ML BOTTLE SSP ×2 (09:11→20:49)
[2018-06-06 14:08] LABS: BEDSIDE GLUCOSE 405 MG/DL (70-105)
[2018-06-06 14:08] LABS: BEDSIDE GLUCOSE 218 MG/DL (70-105)
[2018-06-06 16:46] LABS: BEDSIDE GLUCOSE 165 MG/DL (70-105)
[2018-06-06] MEDS: LIDOCAINE 5% (LIDODERM) PATCH TD (16:48)
[2018-06-06] MEDS: FLUCONAZOLE 50MG TABLET PO (16:52)
[2018-06-06 19:59] LABS: BEDSIDE GLUCOSE 207 MG/DL (70-105)
[2018-06-06] MEDS: ATORVASTATIN 20 MG TAB PO (20:49)
[2018-06-06] MEDS: LEVEMIR (INSULIN DETEMIR) 1 UNITS/0.01ML SC (20:50)
[2018-06-06] MEDS: **NOTE PATIENT COMMENT** MISC XX (20:50)
[2018-06-06] MEDS: ENOXAPARIN 40 MG/0.4 ML SYRINGE (J1650) SC (20:50)
[2018-06-07 06:54] LABS: BEDSIDE GLUCOSE 158 MG/DL (70-105)
[2018-06-07] MEDS: HumaLOG INSULIN (NovoLOG) PER UNIT SC ×6 (07:53→17:23)
[2018-06-07] MEDS: amLODIPine 10 MG TAB PO (09:56)
[2018-06-07] MEDS: CLOPIDOGREL 75 MG TAB PO (09:56)
[2018-06-07] MEDS: LISINOPRIL 10 MG TAB PO (09:56)
[2018-06-07] MEDS: FERROUS GLUCONATE 324 MG TAB PO ×2 (09:56→22:04)
[2018-06-07] MEDS: FLUoxetine 20 MG CAP PO (09:56)
[2018-06-07] MEDS: DOCUSATE SODIUM 100 MG CAP PO ×2 (09:56→22:05)
[2018-06-07] MEDS: ASPIRIN 81 MG CHEW TABLET GT (09:56)
[2018-06-07] MEDS: CHLORHEXIDINE ORAL RINSE 0.12%/15ML 120ML BOTTLE SSP ×2 (09:57→22:06)
[2018-06-07] MEDS: LIDOCAINE 5% (LIDODERM) PATCH TD (09:58)
[2018-06-07] MEDS: ACETAMINOPHEN TAB 650MG DOSE (2X325MG) PO (09:59)
[2018-06-07 11:53] LABS: BEDSIDE GLUCOSE 270 MG/DL (70-105)
[2018-06-07 16:37] LABS: BEDSIDE GLUCOSE 164 MG/DL (70-105)
[2018-06-07 20:06] LABS: BEDSIDE GLUCOSE 213 MG/DL (70-105)
[2018-06-07] MEDS: **NOTE PATIENT COMMENT** MISC XX (22:00)
[2018-06-07] MEDS: ATORVASTATIN 20 MG TAB PO (22:05)
[2018-06-07] MEDS: ENOXAPARIN 40 MG/0.4 ML SYRINGE (J1650) SC (22:06)
[2018-06-07] MEDS: LEVEMIR (INSULIN DETEMIR) 1 UNITS/0.01ML SC (22:06)
[2018-06-08] MEDS: traZODone 25MG PER 1/2 TABLET PO ×2 (00:28→22:35)
[2018-06-08] MEDS: ACETAMINOPHEN TAB 650MG DOSE (2X325MG) PO ×2 (00:28→21:53)
[2018-06-08 05:53] LABS: BEDSIDE GLUCOSE 170 MG/DL (70-105)
[2018-06-08] MEDS: HumaLOG INSULIN (NovoLOG) PER UNIT SC ×6 (08:24→17:30)
[2018-06-08] MEDS: FERROUS GLUCONATE 324 MG TAB PO ×2 (08:25→21:54)
[2018-06-08] MEDS: CLOPIDOGREL 75 MG TAB PO (08:25)
[2018-06-08] MEDS: FLUoxetine 20 MG CAP PO (08:25)
[2018-06-08] MEDS: amLODIPine 10 MG TAB PO (08:25)
[2018-06-08] MEDS: DOCUSATE SODIUM 100 MG CAP PO ×2 (08:25→21:54)
[2018-06-08] MEDS: ASPIRIN 81 MG CHEW TABLET GT (08:25)
[2018-06-08] MEDS: LISINOPRIL 20 MG TAB PO (08:25)
[2018-06-08] MEDS: LIDOCAINE 5% (LIDODERM) PATCH TD (08:26)
[2018-06-08] MEDS: CHLORHEXIDINE ORAL RINSE 0.12%/15ML 120ML BOTTLE SSP ×2 (08:26→22:37)
[2018-06-08 11:32] LABS: BEDSIDE GLUCOSE 229 MG/DL (70-105)
[2018-06-08 16:43] LABS: BEDSIDE GLUCOSE 162 MG/DL (70-105)
[2018-06-08] MEDS: **NOTE PATIENT COMMENT** MISC XX (21:00)
[2018-06-08 21:06] LABS: BEDSIDE GLUCOSE 184 MG/DL (70-105)
[2018-06-08] MEDS: ENOXAPARIN 40 MG/0.4 ML SYRINGE (J1650) SC (21:53)
[2018-06-08] MEDS: ATORVASTATIN 20 MG TAB PO (21:54)
[2018-06-08] MEDS: LEVEMIR (INSULIN DETEMIR) 1 UNITS/0.01ML SC (21:59)
[2018-06-09 06:27] LABS: BEDSIDE GLUCOSE 182 MG/DL (70-105)
[2018-06-09] MEDS: DOCUSATE SODIUM 100 MG CAP PO ×2 (09:00→21:17)
[2018-06-09] MEDS: LIDOCAINE 5% (LIDODERM) PATCH TD (09:26)
[2018-06-09] MEDS: ASPIRIN 81 MG CHEW TABLET GT (09:26)
[2018-06-09] MEDS: amLODIPine 10 MG TAB PO (09:26)
[2018-06-09] MEDS: CLOPIDOGREL 75 MG TAB PO (09:26)
[2018-06-09] MEDS: CHLORHEXIDINE ORAL RINSE 0.12%/15ML 120ML BOTTLE SSP ×2 (09:26→21:17)
[2018-06-09] MEDS: FLUoxetine 20 MG CAP PO (09:26)
[2018-06-09] MEDS: FERROUS GLUCONATE 324 MG TAB PO ×2 (09:26→21:17)
[2018-06-09] MEDS: LISINOPRIL 20 MG TAB PO (09:26)
[2018-06-09] MEDS: HumaLOG INSULIN (NovoLOG) PER UNIT SC ×6 (09:27→17:18)
[2018-06-09 11:50] LABS: BEDSIDE GLUCOSE 188 MG/DL (70-105)
[2018-06-09 16:42] LABS: BEDSIDE GLUCOSE 138 MG/DL (70-105)
[2018-06-09 19:18] LABS: BEDSIDE GLUCOSE 224 MG/DL (70-105)
[2018-06-09] MEDS: LEVEMIR (INSULIN DETEMIR) 1 UNITS/0.01ML SC (21:16)
[2018-06-09] MEDS: ACETAMINOPHEN TAB 650MG DOSE (2X325MG) PO (21:17)
[2018-06-09] MEDS: traZODone 25MG PER 1/2 TABLET PO (21:17)
[2018-06-09] MEDS: **NOTE PATIENT COMMENT** MISC XX (21:18)
[2018-06-09] MEDS: ENOXAPARIN 40 MG/0.4 ML SYRINGE (J1650) SC (21:18)
[2018-06-09] MEDS: ATORVASTATIN 20 MG TAB PO (21:18)
[2018-06-10 08:09] LABS: BEDSIDE GLUCOSE 186 MG/DL (70-105)
[2018-06-10] MEDS: ASPIRIN 81 MG CHEW TABLET GT (09:15)
[2018-06-10] MEDS: FERROUS GLUCONATE 324 MG TAB PO ×2 (09:15→21:25)
[2018-06-10] MEDS: FLUoxetine 20 MG CAP PO (09:15)
[2018-06-10] MEDS: DOCUSATE SODIUM 100 MG CAP PO ×2 (09:18→21:25)
[2018-06-10] MEDS: LIDOCAINE 5% (LIDODERM) PATCH TD (09:18)
[2018-06-10] MEDS: amLODIPine 10 MG TAB PO (09:18)
[2018-06-10] MEDS: LISINOPRIL 20 MG TAB PO (09:18)
[2018-06-10] MEDS: CLOPIDOGREL 75 MG TAB PO (09:18)
[2018-06-10] MEDS: HumaLOG INSULIN (NovoLOG) PER UNIT SC ×6 (09:19→16:44)
[2018-06-10] MEDS: CHLORHEXIDINE ORAL RINSE 0.12%/15ML 120ML BOTTLE SSP ×2 (09:19→21:25)
[2018-06-10 11:50] LABS: BEDSIDE GLUCOSE 279 MG/DL (70-105)
[2018-06-10 16:17] LABS: BEDSIDE GLUCOSE 159 MG/DL (70-105)
[2018-06-10 20:02] LABS: BEDSIDE GLUCOSE 145 MG/DL (70-105)
[2018-06-10] MEDS: LEVEMIR (INSULIN DETEMIR) 1 UNITS/0.01ML SC (21:24)
[2018-06-10] MEDS: ENOXAPARIN 40 MG/0.4 ML SYRINGE (J1650) SC (21:25)
[2018-06-10] MEDS: ATORVASTATIN 20 MG TAB PO (21:26)
[2018-06-10] MEDS: ACETAMINOPHEN TAB 650MG DOSE (2X325MG) PO (21:26)
[2018-06-10] MEDS: **NOTE PATIENT COMMENT** MISC XX (21:26)
[2018-06-11 07:04] LABS: BEDSIDE GLUCOSE 159 MG/DL (70-105)
[2018-06-11] MEDS: DOCUSATE SODIUM 100 MG CAP PO ×2 (08:23→20:38)
[2018-06-11] MEDS: FLUoxetine 20 MG CAP PO (08:23)
[2018-06-11] MEDS: HumaLOG INSULIN (NovoLOG) PER UNIT SC ×6 (08:23→17:43)
[2018-06-11] MEDS: CLOPIDOGREL 75 MG TAB PO (08:23)
[2018-06-11] MEDS: LISINOPRIL 20 MG TAB PO (08:24)
[2018-06-11] MEDS: amLODIPine 10 MG TAB PO (08:24)
[2018-06-11] MEDS: ASPIRIN 81 MG CHEW TABLET GT (08:24)
[2018-06-11] MEDS: FERROUS GLUCONATE 324 MG TAB PO ×2 (08:24→20:40)
[2018-06-11] MEDS: ACETAMINOPHEN TAB 650MG DOSE (2X325MG) PO ×2 (08:24→20:40)
[2018-06-11] MEDS: CHLORHEXIDINE ORAL RINSE 0.12%/15ML 120ML BOTTLE SSP ×2 (08:25→20:41)
[2018-06-11] MEDS: LIDOCAINE 5% (LIDODERM) PATCH TD (08:25)
[2018-06-11 11:25] LABS: BEDSIDE GLUCOSE 213 MG/DL (70-105)
[2018-06-11 16:45] LABS: BEDSIDE GLUCOSE 147 MG/DL (70-105)
[2018-06-11 20:09] LABS: BEDSIDE GLUCOSE 226 MG/DL (70-105)
[2018-06-11] MEDS: traZODone 25MG PER 1/2 TABLET PO (20:38)
[2018-06-11] MEDS: ATORVASTATIN 20 MG TAB PO (20:40)
[2018-06-11] MEDS: LEVEMIR (INSULIN DETEMIR) 1 UNITS/0.01ML SC (20:41)
[2018-06-11] MEDS: **NOTE PATIENT COMMENT** MISC XX (20:41)
[2018-06-11] MEDS: ENOXAPARIN 40 MG/0.4 ML SYRINGE (J1650) SC (20:41)
[2018-06-12 06:16] LABS: BEDSIDE GLUCOSE 180 MG/DL (70-105)
[2018-06-12 07:00] LABS: BASO % 0.5 % (0.0-1.0); EOS # 0.2 10^3/uL (0.0-0.50); EOS % 2.4 % (0.0-3.0); HEMATOCRIT 35.5 % (36.0-47.0); HEMOGLOBIN 10.7 g/dl (12.0-15.5); IMMATURE GRANULOCYTE % 0.5 % (0-3.0); LYMPH # 1.6 10^3/uL (1.5-4.5); LYMPH % 25.9 % (24.0-44.0); MEAN CORPUSCULAR HEMOGLOBIN 24.2 pg (27.0-33.0); MEAN CORPUSCULAR HGB CONC 30.1 g/dl (32.0-36.5); MEAN CORPUSCULAR VOLUME 80.1 fl (80.0-96.0); MONO # 0.3 10^3/uL (0.0-0.8); MONO % 5.1 % (0.0-5.0); NEUTROPHILS # 4.2 10^3/uL (1.8-7.7); NEUTROPHILS % 65.6 % (36.0-66.0); PLATELET COUNT, AUTOMATED 438 10^3/uL (150-450); RED BLOOD COUNT 4.43 10^6/uL (4.00-5.40); RED CELL DISTRIBUTION WIDTH 17.6 % (11.5-14.5); WHITE BLOOD COUNT 6.3 10^3/uL (4.0-10.0)
[2018-06-12 07:29] LABS: ANION GAP 7 MEQ/L (8-16); BLOOD UREA NITROGEN 19 MG/DL (7-18); CALCIUM LEVEL 8.8 MG/DL (8.5-10.1); CARBON DIOXIDE LEVEL 26 MEQ/L (21-32); CHLORIDE LEVEL 105 MEQ/L (98-107); CREATININE FOR GFR 0.96 MG/DL (0.55-1.30); GLOMERULAR FILTRATION RATE > 60.0 (>58); GLUCOSE, FASTING 179 MG/DL (70-100); SODIUM LEVEL 138 MEQ/L (136-145)
[2018-06-12] MEDS: HumaLOG INSULIN (NovoLOG) PER UNIT SC ×6 (09:14→17:33)
[2018-06-12] MEDS: FLUoxetine 20 MG CAP PO (09:15)
[2018-06-12] MEDS: CLOPIDOGREL 75 MG TAB PO (09:15)
[2018-06-12] MEDS: ASPIRIN 81 MG CHEW TABLET GT (09:15)
[2018-06-12] MEDS: FERROUS GLUCONATE 324 MG TAB PO ×2 (09:15→20:18)
[2018-06-12] MEDS: LIDOCAINE 5% (LIDODERM) PATCH TD (09:15)
[2018-06-12] MEDS: ACETAMINOPHEN TAB 650MG DOSE (2X325MG) PO ×3 (09:16→20:19)
[2018-06-12] MEDS: DOCUSATE SODIUM 100 MG CAP PO ×2 (09:16→20:18)
[2018-06-12] MEDS: LISINOPRIL 20 MG TAB PO (09:16)
[2018-06-12] MEDS: CHLORHEXIDINE ORAL RINSE 0.12%/15ML 120ML BOTTLE SSP ×2 (09:17→20:19)
[2018-06-12] MEDS: amLODIPine 10 MG TAB PO (09:17)
[2018-06-12 11:34] LABS: BEDSIDE GLUCOSE 241 MG/DL (70-105)
[2018-06-12 16:27] LABS: BEDSIDE GLUCOSE 188 MG/DL (70-105)
[2018-06-12] MEDS ORDERED: PILL CRUSHER/CUTTER 1 EACH XX (18:15)
[2018-06-12 19:33] LABS: BEDSIDE GLUCOSE 186 MG/DL (70-105)
[2018-06-12] MEDS: ATORVASTATIN 20 MG TAB PO (20:19)
[2018-06-12] MEDS: LEVEMIR (INSULIN DETEMIR) 1 UNITS/0.01ML SC (20:19)
[2018-06-12] MEDS: ENOXAPARIN 40 MG/0.4 ML SYRINGE (J1650) SC (20:20)
[2018-06-12] MEDS: **NOTE PATIENT COMMENT** MISC XX (20:20)
[2018-06-13 06:19] LABS: BEDSIDE GLUCOSE 175 MG/DL (70-105)
[2018-06-13] MEDS: CHLORHEXIDINE ORAL RINSE 0.12%/15ML 120ML BOTTLE SSP ×2 (09:00→20:13)
[2018-06-13] MEDS: ASPIRIN 81 MG CHEW TABLET GT (09:02)
[2018-06-13] MEDS: CLOPIDOGREL 75 MG TAB PO (09:02)
[2018-06-13] MEDS: LIDOCAINE 5% (LIDODERM) PATCH TD (09:02)
[2018-06-13] MEDS: MODAFINIL 200MG TABLET PO (09:02)
[2018-06-13] MEDS: LISINOPRIL 20 MG TAB PO (09:02)
[2018-06-13] MEDS: FERROUS GLUCONATE 324 MG TAB PO ×2 (09:02→20:11)
[2018-06-13] MEDS: FLUoxetine 20 MG CAP PO (09:03)
[2018-06-13] MEDS: DOCUSATE SODIUM 100 MG CAP PO ×2 (09:03→20:11)
[2018-06-13] MEDS: amLODIPine 10 MG TAB PO (09:03)
[2018-06-13] MEDS: HumaLOG INSULIN (NovoLOG) PER UNIT SC ×6 (09:04→17:37)
[2018-06-13 12:01] LABS: BEDSIDE GLUCOSE 197 MG/DL (70-105)
[2018-06-13 17:08] LABS: BEDSIDE GLUCOSE 182 MG/DL (70-105)
[2018-06-13 19:51] LABS: BEDSIDE GLUCOSE 203 MG/DL (70-105)
[2018-06-13] MEDS: ACETAMINOPHEN TAB 650MG DOSE (2X325MG) PO (20:12)
[2018-06-13] MEDS: ATORVASTATIN 20 MG TAB PO (20:12)
[2018-06-13] MEDS: **NOTE PATIENT COMMENT** MISC XX (20:13)
[2018-06-13] MEDS: ENOXAPARIN 40 MG/0.4 ML SYRINGE (J1650) SC (20:13)
[2018-06-13] MEDS: LEVEMIR (INSULIN DETEMIR) 1 UNITS/0.01ML SC (20:13)
[2018-06-13] MEDS: traZODone 25MG PER 1/2 TABLET PO (20:14)
[2018-06-14 07:01] LABS: BASO % 0.5 % (0.0-1.0); EOS # 0.2 10^3/uL (0.0-0.50); EOS % 2.3 % (0.0-3.0); HEMOGLOBIN 10.6 g/dl (12.0-15.5); IMMATURE GRANULOCYTE % 0.3 % (0-3.0); LYMPH # 2.1 10^3/uL (1.5-4.5); LYMPH % 27.8 % (24.0-44.0); MEAN CORPUSCULAR HEMOGLOBIN 24.3 pg (27.0-33.0); MEAN CORPUSCULAR HGB CONC 30.3 g/dl (32.0-36.5); MEAN CORPUSCULAR VOLUME 80.3 fl (80.0-96.0); MONO # 0.5 10^3/uL (0.0-0.8); MONO % 6.3 % (0.0-5.0); NEUTROPHILS # 4.7 10^3/uL (1.8-7.7); NEUTROPHILS % 62.8 % (36.0-66.0); PLATELET COUNT, AUTOMATED 447 10^3/uL (150-450); RED BLOOD COUNT 4.36 10^6/uL (4.00-5.40); RED CELL DISTRIBUTION WIDTH 18.4 % (11.5-14.5); WHITE BLOOD COUNT 7.5 10^3/uL (4.0-10.0)
[2018-06-14 07:24] LABS: ANION GAP 7 MEQ/L (8-16); BLOOD UREA NITROGEN 26 MG/DL (7-18); CALCIUM LEVEL 8.6 MG/DL (8.5-10.1); CARBON DIOXIDE LEVEL 26 MEQ/L (21-32); CHLORIDE LEVEL 106 MEQ/L (98-107); CREATININE FOR GFR 1.24 MG/DL (0.55-1.30); GLOMERULAR FILTRATION RATE 49.1 (>58); GLUCOSE, FASTING 166 MG/DL (70-100); POTASSIUM SERUM 4.3 MEQ/L (3.5-5.1); SODIUM LEVEL 139 MEQ/L (136-145)
[2018-06-14] MEDS: LISINOPRIL 20 MG TAB PO (07:58)
[2018-06-14] MEDS: CLOPIDOGREL 75 MG TAB PO (07:58)
[2018-06-14] MEDS: FLUoxetine 20 MG CAP PO (07:58)
[2018-06-14] MEDS: ASPIRIN 81 MG CHEW TABLET GT (07:58)
[2018-06-14] MEDS: FERROUS GLUCONATE 324 MG TAB PO ×2 (07:58→20:44)
[2018-06-14] MEDS: amLODIPine 10 MG TAB PO (07:58)
[2018-06-14] MEDS: ACETAMINOPHEN TAB 650MG DOSE (2X325MG) PO ×2 (07:58→20:43)
[2018-06-14] MEDS: LIDOCAINE 5% (LIDODERM) PATCH TD (07:59)
[2018-06-14] MEDS: HumaLOG INSULIN (NovoLOG) PER UNIT SC ×6 (07:59→16:41)
[2018-06-14] MEDS: CHLORHEXIDINE ORAL RINSE 0.12%/15ML 120ML BOTTLE SSP ×2 (08:00→20:45)
[2018-06-14] MEDS: MODAFINIL 200MG TABLET PO (08:00)
[2018-06-14] MEDS: DOCUSATE SODIUM 100 MG CAP PO ×2 (08:00→20:44)
[2018-06-14] MEDS: guaiFENesin ER 600 MG TAB PO ×2 (10:24→20:44)
[2018-06-14 11:48] LABS: BEDSIDE GLUCOSE 201 MG/DL (70-105)
[2018-06-14] MEDS: METOPROLOL TART 12.5 MG PER 1/2 TAB PO ×2 (15:23→20:44)
[2018-06-14 16:32] LABS: BEDSIDE GLUCOSE 203 MG/DL (70-105)
[2018-06-14] MEDS: ATORVASTATIN 20 MG TAB PO (20:43)
[2018-06-14] MEDS: traZODone 25MG PER 1/2 TABLET PO (20:44)
[2018-06-14] MEDS: **NOTE PATIENT COMMENT** MISC XX (20:45)
[2018-06-14] MEDS: ENOXAPARIN 40 MG/0.4 ML SYRINGE (J1650) SC (20:45)
[2018-06-14] MEDS: LEVEMIR (INSULIN DETEMIR) 1 UNITS/0.01ML SC (20:45)
[2018-06-14 20:50] LABS: BEDSIDE GLUCOSE 265 MG/DL (70-105)
[2018-06-15 05:49] LABS: BEDSIDE GLUCOSE 197 MG/DL (70-105)
[2018-06-15] MEDS: ASPIRIN 81 MG CHEW TABLET GT (09:35)
[2018-06-15] MEDS: HumaLOG INSULIN (NovoLOG) PER UNIT SC ×6 (09:39→17:43)
[2018-06-15] MEDS: FLUoxetine 20 MG CAP PO (09:40)
[2018-06-15] MEDS: CLOPIDOGREL 75 MG TAB PO (09:40)
[2018-06-15] MEDS: FERROUS GLUCONATE 324 MG TAB PO ×2 (09:40→21:45)
[2018-06-15] MEDS: DOCUSATE SODIUM 100 MG CAP PO ×2 (09:40→21:45)
[2018-06-15] MEDS: amLODIPine 10 MG TAB PO (09:41)
[2018-06-15] MEDS: guaiFENesin ER 600 MG TAB PO ×2 (09:41→21:45)
[2018-06-15] MEDS: METOPROLOL TART 12.5 MG PER 1/2 TAB PO ×2 (09:42→21:45)
[2018-06-15] MEDS: ACETAMINOPHEN TAB 650MG DOSE (2X325MG) PO ×2 (09:42→21:49)
[2018-06-15] MEDS: MODAFINIL 200MG TABLET PO (09:42)
[2018-06-15] MEDS: CHLORHEXIDINE ORAL RINSE 0.12%/15ML 120ML BOTTLE SSP ×2 (09:43→21:46)
[2018-06-15] MEDS: LIDOCAINE 5% (LIDODERM) PATCH TD (09:43)
[2018-06-15 11:30] LABS: BEDSIDE GLUCOSE 248 MG/DL (70-105)
[2018-06-15] MEDS: NovoLOG MIX 70/30 PER UNIT SC ×2 (13:10→17:42)
[2018-06-15 17:25] LABS: BEDSIDE GLUCOSE 108 MG/DL (70-105)
[2018-06-15 17:35] LABS: KETONE, URINE AUTO RFX NEGATIVE (NEGATIVE); MUCUS, URINE RFX SMALL (NEGATIVE); NITRITE, URINE AUTO RFX NEGATIVE (NEGATIVE); RBC, URINE AUTO RFX 3 /HPF (0-3); SPECIFIC GRAVITY UR AUTO RFX 1.012 (1.002-1.035); SQUAM EPITHELIAL CELL UR AURFX 0 /HPF (0-6); YEAST LIKE CELL URINE AUTO RFX LARGE
[2018-06-15 17:56] LABS: LEUKOCYTE ESTERASE UR AUTO RFX 1+ (NEGATIVE); WBC, URINE AUTO RFX 29 /HPF (0-3)
[2018-06-15 20:26] LABS: BEDSIDE GLUCOSE 148 MG/DL (70-105)
[2018-06-15] MEDS: **NOTE PATIENT COMMENT** MISC XX (21:00)
[2018-06-15] MEDS: FLUCONAZOLE 50MG TABLET PO (21:45)
[2018-06-15] MEDS: ATORVASTATIN 20 MG TAB PO (21:45)
[2018-06-15] MEDS: ENOXAPARIN 40 MG/0.4 ML SYRINGE (J1650) SC (21:46)
[2018-06-15] MEDS: LEVEMIR (INSULIN DETEMIR) 1 UNITS/0.01ML SC (21:46)
[2018-06-15] MEDS: MICONAZOLE-7 VAGINAL 2% CREAM 47.7 GM PV (21:47)
[2018-06-15] MEDS: traZODone 25MG PER 1/2 TABLET PO (21:49)
[2018-06-16 07:01] LABS: BEDSIDE GLUCOSE 147 MG/DL (70-105)
[2018-06-16 07:02] LABS: BASO % 0.4 % (0.0-1.0); EOS # 0.2 10^3/uL (0.0-0.50); EOS % 2.2 % (0.0-3.0); HEMATOCRIT 36.7 % (36.0-47.0); HEMOGLOBIN 11.4 g/dl (12.0-15.5); IMMATURE GRANULOCYTE % 0.4 % (0-3.0); MEAN CORPUSCULAR HEMOGLOBIN 24.9 pg (27.0-33.0); MEAN CORPUSCULAR HGB CONC 31.1 g/dl (32.0-36.5); MEAN CORPUSCULAR VOLUME 80.3 fl (80.0-96.0); MONO # 0.4 10^3/uL (0.0-0.8); MONO % 4.9 % (0.0-5.0); NEUTROPHILS # 6.3 10^3/uL (1.8-7.7); NEUTROPHILS % 70.1 % (36.0-66.0); PLATELET COUNT, AUTOMATED 443 10^3/uL (150-450); RED BLOOD COUNT 4.57 10^6/uL (4.00-5.40); RED CELL DISTRIBUTION WIDTH 18.5 % (11.5-14.5); WHITE BLOOD COUNT 9.1 10^3/uL (4.0-10.0)
[2018-06-16] MEDS: HumaLOG INSULIN (NovoLOG) PER UNIT SC ×6 (08:15→16:57)
[2018-06-16] MEDS: guaiFENesin ER 600 MG TAB PO ×2 (08:16→20:16)
[2018-06-16] MEDS: ASPIRIN 81 MG CHEW TABLET GT (08:16)
[2018-06-16] MEDS: NovoLOG MIX 70/30 PER UNIT SC ×3 (08:16→16:57)
[2018-06-16] MEDS: DOCUSATE SODIUM 100 MG CAP PO ×2 (08:16→20:16)
[2018-06-16] MEDS: CLOPIDOGREL 75 MG TAB PO (08:16)
[2018-06-16] MEDS: METOPROLOL TART 12.5 MG PER 1/2 TAB PO ×2 (08:16→20:17)
[2018-06-16] MEDS: LIDOCAINE 5% (LIDODERM) PATCH TD (08:17)
[2018-06-16] MEDS: amLODIPine 10 MG TAB PO (08:17)
[2018-06-16] MEDS: FERROUS GLUCONATE 324 MG TAB PO ×2 (08:17→20:16)
[2018-06-16] MEDS: CHLORHEXIDINE ORAL RINSE 0.12%/15ML 120ML BOTTLE SSP ×2 (08:17→20:18)
[2018-06-16] MEDS: MODAFINIL 200MG TABLET PO (08:17)
[2018-06-16] MEDS: FLUoxetine 20 MG CAP PO (08:17)
[2018-06-16 11:32] LABS: BEDSIDE GLUCOSE 250 MG/DL (70-105)
[2018-06-16 16:45] LABS: BEDSIDE GLUCOSE 136 MG/DL (70-105)
[2018-06-16 20:08] LABS: BEDSIDE GLUCOSE 182 MG/DL (70-105)
[2018-06-16] MEDS: ENOXAPARIN 40 MG/0.4 ML SYRINGE (J1650) SC (20:16)
[2018-06-16] MEDS: LEVEMIR (INSULIN DETEMIR) 1 UNITS/0.01ML SC (20:16)
[2018-06-16] MEDS: traZODone 25MG PER 1/2 TABLET PO (20:16)
[2018-06-16] MEDS: ATORVASTATIN 20 MG TAB PO (20:17)
[2018-06-16] MEDS: ACETAMINOPHEN TAB 650MG DOSE (2X325MG) PO (20:17)
[2018-06-16] MEDS: **NOTE PATIENT COMMENT** MISC XX (20:18)
[2018-06-16] MEDS: MICONAZOLE-7 VAGINAL 2% CREAM 47.7 GM PV (20:18)
[2018-06-17 06:15] LABS: BEDSIDE GLUCOSE 133 MG/DL (70-105)
[2018-06-17] MEDS: METOPROLOL TART 12.5 MG PER 1/2 TAB PO ×2 (08:57→20:14)
[2018-06-17] MEDS: FLUoxetine 20 MG CAP PO (08:57)
[2018-06-17] MEDS: LIDOCAINE 5% (LIDODERM) PATCH TD (08:58)
[2018-06-17] MEDS: CLOPIDOGREL 75 MG TAB PO (08:58)
[2018-06-17] MEDS: guaiFENesin ER 600 MG TAB PO ×2 (08:58→20:13)
[2018-06-17] MEDS: FERROUS GLUCONATE 324 MG TAB PO ×2 (08:58→20:13)
[2018-06-17] MEDS: ASPIRIN 81 MG CHEW TABLET GT (08:58)
[2018-06-17] MEDS: amLODIPine 10 MG TAB PO (08:58)
[2018-06-17] MEDS: DOCUSATE SODIUM 100 MG CAP PO ×2 (08:58→20:13)
[2018-06-17] MEDS: MODAFINIL 200MG TABLET PO (08:58)
[2018-06-17] MEDS: HumaLOG INSULIN (NovoLOG) PER UNIT SC ×6 (08:59→17:52)
[2018-06-17] MEDS: CHLORHEXIDINE ORAL RINSE 0.12%/15ML 120ML BOTTLE SSP ×2 (08:59→20:14)
[2018-06-17] MEDS: NovoLOG MIX 70/30 PER UNIT SC ×3 (09:00→17:50)
[2018-06-17 11:38] LABS: BEDSIDE GLUCOSE 141 MG/DL (70-105)
[2018-06-17 16:47] LABS: BEDSIDE GLUCOSE 159 MG/DL (70-105)
[2018-06-17 20:11] LABS: BEDSIDE GLUCOSE 185 MG/DL (70-105)
[2018-06-17] MEDS: ATORVASTATIN 20 MG TAB PO (20:13)
[2018-06-17] MEDS: MICONAZOLE-7 VAGINAL 2% CREAM 47.7 GM PV (20:14)
[2018-06-17] MEDS: ENOXAPARIN 40 MG/0.4 ML SYRINGE (J1650) SC (20:14)
[2018-06-17] MEDS: LEVEMIR (INSULIN DETEMIR) 1 UNITS/0.01ML SC (20:15)
[2018-06-17] MEDS: **NOTE PATIENT COMMENT** MISC XX (20:15)
[2018-06-18] MEDS: traZODone 25MG PER 1/2 TABLET PO ×2 (00:13→20:59)
[2018-06-18] MEDS: ACETAMINOPHEN TAB 650MG DOSE (2X325MG) PO ×2 (00:14→21:00)
[2018-06-18 05:57] LABS: BEDSIDE GLUCOSE 137 MG/DL (70-105)
[2018-06-18 07:13] LABS: ANION GAP 8 MEQ/L (8-16); BLOOD UREA NITROGEN 18 MG/DL (7-18); CALCIUM LEVEL 9.1 MG/DL (8.5-10.1); CARBON DIOXIDE LEVEL 23 MEQ/L (21-32); CHLORIDE LEVEL 105 MEQ/L (98-107); CREATININE FOR GFR 0.93 MG/DL (0.55-1.30); GLOMERULAR FILTRATION RATE > 60.0 (>58); GLUCOSE, FASTING 140 MG/DL (70-100); POTASSIUM SERUM 4.4 MEQ/L (3.5-5.1); SODIUM LEVEL 136 MEQ/L (136-145)
[2018-06-18] MEDS: HumaLOG INSULIN (NovoLOG) PER UNIT SC ×6 (07:42→17:09)
[2018-06-18] MEDS: NovoLOG MIX 70/30 PER UNIT SC ×3 (07:44→17:07)
[2018-06-18] MEDS: ASPIRIN 81 MG CHEW TABLET GT (07:48)
[2018-06-18] MEDS: FERROUS GLUCONATE 324 MG TAB PO ×2 (07:48→21:00)
[2018-06-18] MEDS: METOPROLOL TART 12.5 MG PER 1/2 TAB PO (07:49)
[2018-06-18] MEDS: amLODIPine 10 MG TAB PO (07:49)
[2018-06-18] MEDS: CLOPIDOGREL 75 MG TAB PO (07:49)
[2018-06-18] MEDS: FLUoxetine 20 MG CAP PO (07:49)
[2018-06-18] MEDS: guaiFENesin ER 600 MG TAB PO ×2 (07:49→21:00)
[2018-06-18] MEDS: CHLORHEXIDINE ORAL RINSE 0.12%/15ML 120ML BOTTLE SSP ×2 (07:50→21:02)
[2018-06-18] MEDS: MODAFINIL 200MG TABLET PO (07:50)
[2018-06-18] MEDS: LIDOCAINE 5% (LIDODERM) PATCH TD (07:50)
[2018-06-18] MEDS: DOCUSATE SODIUM 100 MG CAP PO ×2 (09:00→21:00)
[2018-06-18 11:48] LABS: BEDSIDE GLUCOSE 164 MG/DL (70-105)
[2018-06-18] MEDS: FLUTICASONE PROP 0.05% NASAL SPRAY 16 GM (FLONASE) NARES ×2 (15:02→21:01)
[2018-06-18] MEDS: SODIUM CHLORIDE NASAL 0.65% SPRAY BTL (OCEAN) ×3 (15:02→21:01)
[2018-06-18 16:38] LABS: BEDSIDE GLUCOSE 116 MG/DL (70-105)
[2018-06-18 20:01] LABS: BEDSIDE GLUCOSE 148 MG/DL (70-105)
[2018-06-18] MEDS: ENOXAPARIN 40 MG/0.4 ML SYRINGE (J1650) SC (20:58)
[2018-06-18] MEDS: ATORVASTATIN 20 MG TAB PO (21:00)
[2018-06-18] MEDS: METOPROLOL TART 25 MG TABLET PO (21:00)
[2018-06-18] MEDS: LEVEMIR (INSULIN DETEMIR) 1 UNITS/0.01ML SC (21:02)
[2018-06-18] MEDS: MICONAZOLE-7 VAGINAL 2% CREAM 47.7 GM PV (21:03)
[2018-06-18] MEDS: **NOTE PATIENT COMMENT** MISC XX (21:04)
[2018-06-19 06:08] LABS: BEDSIDE GLUCOSE 134 MG/DL (70-105)
[2018-06-19] MEDS: LIDOCAINE 5% (LIDODERM) PATCH TD (08:47)
[2018-06-19] MEDS: ASPIRIN 81 MG CHEW TABLET GT (08:48)
[2018-06-19] MEDS: FERROUS GLUCONATE 324 MG TAB PO ×2 (08:48→20:05)
[2018-06-19] MEDS: FLUoxetine 20 MG CAP PO (08:48)
[2018-06-19] MEDS: MODAFINIL 200MG TABLET PO (08:48)
[2018-06-19] MEDS: guaiFENesin ER 600 MG TAB PO ×2 (08:48→20:05)
[2018-06-19] MEDS: ACETAMINOPHEN TAB 650MG DOSE (2X325MG) PO ×2 (08:48→22:37)
[2018-06-19] MEDS: amLODIPine 10 MG TAB PO (08:48)
[2018-06-19] MEDS: METOPROLOL TART 25 MG TABLET PO ×2 (08:49→20:06)
[2018-06-19] MEDS: CLOPIDOGREL 75 MG TAB PO (08:50)
[2018-06-19] MEDS: DOCUSATE SODIUM 100 MG CAP PO ×2 (08:50→20:05)
[2018-06-19] MEDS: CHLORHEXIDINE ORAL RINSE 0.12%/15ML 120ML BOTTLE SSP ×2 (08:50→20:07)
[2018-06-19] MEDS: NovoLOG MIX 70/30 PER UNIT SC ×3 (08:51→17:49)
[2018-06-19] MEDS: HumaLOG INSULIN (NovoLOG) PER UNIT SC ×6 (08:51→17:50)
[2018-06-19] MEDS: FLUTICASONE PROP 0.05% NASAL SPRAY 16 GM (FLONASE) NARES ×2 (08:52→20:08)
[2018-06-19] MEDS: SODIUM CHLORIDE NASAL 0.65% SPRAY BTL (OCEAN) ×3 (08:52→20:07)
[2018-06-19 12:14] LABS: BEDSIDE GLUCOSE 243 MG/DL (70-105)
[2018-06-19 17:07] LABS: BEDSIDE GLUCOSE 103 MG/DL (70-105)
[2018-06-19 19:45] LABS: BEDSIDE GLUCOSE 127 MG/DL (70-105)
[2018-06-19] MEDS: ATORVASTATIN 20 MG TAB PO (20:06)
[2018-06-19] MEDS: LEVEMIR (INSULIN DETEMIR) 1 UNITS/0.01ML SC (20:07)
[2018-06-19] MEDS: ENOXAPARIN 40 MG/0.4 ML SYRINGE (J1650) SC (20:07)
[2018-06-19] MEDS: **NOTE PATIENT COMMENT** MISC XX (20:08)
[2018-06-19] MEDS: MICONAZOLE-7 VAGINAL 2% CREAM 47.7 GM PV (20:08)
[2018-06-19] MEDS: traZODone 25MG PER 1/2 TABLET PO (22:37)
[2018-06-20 05:13] LABS: BEDSIDE GLUCOSE 126 MG/DL (70-105)
[2018-06-20] MEDS: MODAFINIL 200MG TABLET PO (08:21)
[2018-06-20] MEDS: NovoLOG MIX 70/30 PER UNIT SC ×3 (08:47→18:03)
[2018-06-20] MEDS: HumaLOG INSULIN (NovoLOG) PER UNIT SC ×6 (08:49→18:04)
[2018-06-20] MEDS: LIDOCAINE 5% (LIDODERM) PATCH TD (09:36)
[2018-06-20] MEDS: FLUTICASONE PROP 0.05% NASAL SPRAY 16 GM (FLONASE) NARES ×2 (09:36→22:24)
[2018-06-20] MEDS: DOCUSATE SODIUM 100 MG CAP PO ×2 (09:36→22:23)
[2018-06-20] MEDS: CHLORHEXIDINE ORAL RINSE 0.12%/15ML 120ML BOTTLE SSP ×2 (09:36→22:25)
[2018-06-20] MEDS: ASPIRIN 81 MG CHEW TABLET GT (09:36)
[2018-06-20] MEDS: SODIUM CHLORIDE NASAL 0.65% SPRAY BTL (OCEAN) ×3 (09:36→22:25)
[2018-06-20] MEDS: guaiFENesin ER 600 MG TAB PO ×2 (09:36→22:23)
[2018-06-20] MEDS: FLUoxetine 20 MG CAP PO (09:37)
[2018-06-20] MEDS: FERROUS GLUCONATE 324 MG TAB PO ×2 (09:37→22:22)
[2018-06-20] MEDS: CLOPIDOGREL 75 MG TAB PO (09:37)
[2018-06-20] MEDS: amLODIPine 10 MG TAB PO (09:40)
[2018-06-20] MEDS: METOPROLOL TART 25 MG TABLET PO ×2 (09:41→22:23)
[2018-06-20 11:27] LABS: BEDSIDE GLUCOSE 157 MG/DL (70-105)
[2018-06-20 16:34] LABS: BEDSIDE GLUCOSE 112 MG/DL (70-105)
[2018-06-20 20:58] LABS: BEDSIDE GLUCOSE 139 MG/DL (70-105)
[2018-06-20] MEDS: **NOTE PATIENT COMMENT** MISC XX (21:00)
[2018-06-20] MEDS: traZODone 25MG PER 1/2 TABLET PO (22:23)
[2018-06-20] MEDS: ATORVASTATIN 20 MG TAB PO (22:23)
[2018-06-20] MEDS: LEVEMIR (INSULIN DETEMIR) 1 UNITS/0.01ML SC (22:24)
[2018-06-20] MEDS: ENOXAPARIN 40 MG/0.4 ML SYRINGE (J1650) SC (22:24)
[2018-06-20] MEDS: ACETAMINOPHEN TAB 650MG DOSE (2X325MG) PO (22:24)
[2018-06-20] MEDS: MICONAZOLE-7 VAGINAL 2% CREAM 47.7 GM PV (22:25)
[2018-06-21 06:39] LABS: BEDSIDE GLUCOSE 140 MG/DL (70-105)
[2018-06-21] MEDS: guaiFENesin ER 600 MG TAB PO ×2 (08:41→22:05)
[2018-06-21] MEDS: CLOPIDOGREL 75 MG TAB PO (08:41)
[2018-06-21] MEDS: FERROUS GLUCONATE 324 MG TAB PO ×2 (08:41→22:05)
[2018-06-21] MEDS: ASPIRIN 81 MG CHEW TABLET GT (08:41)
[2018-06-21] MEDS: FLUoxetine 20 MG CAP PO (08:42)
[2018-06-21] MEDS: DOCUSATE SODIUM 100 MG CAP PO ×2 (08:42→22:06)
[2018-06-21] MEDS: METOPROLOL TART 25 MG TABLET PO ×2 (08:45→22:05)
[2018-06-21] MEDS: amLODIPine 10 MG TAB PO (08:45)
[2018-06-21] MEDS: HumaLOG INSULIN (NovoLOG) PER UNIT SC ×6 (08:46→16:52)
[2018-06-21] MEDS: NovoLOG MIX 70/30 PER UNIT SC ×3 (08:47→16:53)
[2018-06-21] MEDS: LIDOCAINE 5% (LIDODERM) PATCH TD (08:48)
[2018-06-21] MEDS: CHLORHEXIDINE ORAL RINSE 0.12%/15ML 120ML BOTTLE SSP ×2 (08:48→22:04)
[2018-06-21] MEDS: FLUTICASONE PROP 0.05% NASAL SPRAY 16 GM (FLONASE) NARES ×2 (08:48→22:07)
[2018-06-21] MEDS: SODIUM CHLORIDE NASAL 0.65% SPRAY BTL (OCEAN) ×3 (08:49→22:06)
[2018-06-21 11:38] LABS: BEDSIDE GLUCOSE 224 MG/DL (70-105)
[2018-06-21 16:50] LABS: BEDSIDE GLUCOSE 76 MG/DL (70-105)
[2018-06-21 20:28] LABS: BEDSIDE GLUCOSE 212 MG/DL (70-105)
[2018-06-21] MEDS: **NOTE PATIENT COMMENT** MISC XX (21:00)
[2018-06-21] MEDS: ENOXAPARIN 40 MG/0.4 ML SYRINGE (J1650) SC (22:04)
[2018-06-21] MEDS: traZODone 25MG PER 1/2 TABLET PO (22:04)
[2018-06-21] MEDS: ATORVASTATIN 20 MG TAB PO (22:04)
[2018-06-21] MEDS: LEVEMIR (INSULIN DETEMIR) 1 UNITS/0.01ML SC (22:04)
[2018-06-21] MEDS: ACETAMINOPHEN TAB 650MG DOSE (2X325MG) PO (22:06)
[2018-06-21] MEDS: MICONAZOLE-7 VAGINAL 2% CREAM 47.7 GM PV (22:07)
[2018-06-22 05:14] LABS: BEDSIDE GLUCOSE 144 MG/DL (70-105)
[2018-06-22] MEDS: amLODIPine 10 MG TAB PO (08:23)
[2018-06-22] MEDS: CLOPIDOGREL 75 MG TAB PO (08:23)
[2018-06-22] MEDS: FERROUS GLUCONATE 324 MG TAB PO (08:23)
[2018-06-22] MEDS: LIDOCAINE 5% (LIDODERM) PATCH TD (08:23)
[2018-06-22] MEDS: DOCUSATE SODIUM 100 MG CAP PO (08:23)
[2018-06-22] MEDS: ASPIRIN 81 MG CHEW TABLET GT (08:23)
[2018-06-22] MEDS: FLUoxetine 20 MG CAP PO (08:24)
[2018-06-22] MEDS: METOPROLOL TART 25 MG TABLET PO (08:24)
[2018-06-22] MEDS: guaiFENesin ER 600 MG TAB PO (08:24)
[2018-06-22] MEDS: HumaLOG INSULIN (NovoLOG) PER UNIT SC ×2 (08:26→08:27)
[2018-06-22] MEDS: FLUTICASONE PROP 0.05% NASAL SPRAY 16 GM (FLONASE) NARES (11:32)
[2018-06-22] MEDS: SODIUM CHLORIDE NASAL 0.65% SPRAY BTL (OCEAN) (11:32)
[2018-06-22] MEDS: CHLORHEXIDINE ORAL RINSE 0.12%/15ML 120ML BOTTLE SSP (11:32)
== END 2018-06-22 11:50 | DRG 58 ==
LOC: M PM&R 14:10
PROVIDERS: Physical Medicine & Rehabilitation
DX: I69.391 Dysphagia following cerebral infarction (principal); L89.151 Pressure ulcer of sacral region, stage 1; I69.351 Hemiplegia and hemiparesis following cerebral infarction affecting right dominant side; I10 Essential (primary) hypertension; B37.3 Candidiasis of vulva and vagina; E11.9 Type 2 diabetes mellitus without complications; I69.398 Other sequelae of cerebral infarction; R26.9 Unspecified abnormalities of gait and mobility; M54.5 Low back pain; Z66 Do not resuscitate; I69.392 Facial weakness following cerebral infarction; R15.9 Full incontinence of feces; R32 Unspecified urinary incontinence; M21.371 Foot drop, right foot; Z79.82 Long term (current) use of aspirin; Z79.4 Long term (current) use of insulin; Z79.899 Other long term (current) drug therapy

== ENCOUNTER → 2018-08-27 | Outpatient (REF) | payer MEDICAID ==
[~2018-08-27] MED LIST changes: +AMLO10TA5 PO; +AMLO5TAB6 PO; +ATOR1TAB21 PO; +Acetaminophen Tab PO; +CHIL81CH2 GT; +CHIL81CH2 PO; +CLOP75TA2 PO; +COLA100C5 PO; +DEXT50IN6 IV; -DEXTROSE 50% 50 ML SYRINGE IV; +FERR32TA PO; +FERR5MLUD PO; +FLUO20CA19 PO; +FLUTISP NARES; +GLUC1INJ21 SC; -GLUCAGON FOR INJ 1 MG VIAL (J1610) SC; -GLUCOSE 4 GM CHEW TABLET PO; +INSUDET SC; +INSUHUMDS SC; +LANTINJ4 SC; +LIDO5TD TD; +LISI10TA4 PO; +LOVE1INJ SC; +METO1TAB87 PO; +MILK120011 PO; +MUCI600T37 PO; +NYAM10003 TOP; +OCEA0.654; +SENN18TA PO; -SENNA 8.6 MG TAB (SENOKOT) PO; +TRAZ25TA PO
[2018-08-27 08:05] LABS: ALBUMIN 2.6 GM/DL (3.2-5.2); ALT/SGPT 25 U/L (12-78); BILIRUBIN,TOTAL 0.3 MG/DL (0.2-1.0); BLOOD UREA NITROGEN 18 MG/DL (7-18); CALCIUM LEVEL 8.9 MG/DL (8.5-10.1); CARBON DIOXIDE LEVEL 25 MEQ/L (21-32); CHLORIDE LEVEL 105 MEQ/L (98-107); CREATININE FOR GFR 0.72 MG/DL (0.55-1.30); GLOMERULAR FILTRATION RATE > 60.0 (>58); GLUCOSE, FASTING 135 MG/DL (70-100); POTASSIUM SERUM 4.2 MEQ/L (3.5-5.1); SODIUM LEVEL 140 MEQ/L (136-145); TOTAL PROTEIN 6.2 GM/DL (6.4-8.2)
== END ==
LOC: SKLAB3 13:34
PROVIDERS: ATTEND Internal Medicine
DX: I63.9 Cerebral infarction, unspecified (principal); I10 Essential (primary) hypertension

== ENCOUNTER → 2018-09-24 | Outpatient (REF) | payer MEDICAID ==
[2018-09-24 08:59] LABS: HEMATOCRIT 37.6 % (36.0-47.0); MEAN CORPUSCULAR HEMOGLOBIN 25.7 pg (27.0-33.0); MEAN CORPUSCULAR HGB CONC 31.9 g/dl (32.0-36.5); MEAN CORPUSCULAR VOLUME 80.5 fl (80.0-96.0); PLATELET COUNT, AUTOMATED 527 10^3/uL (150-450); RED BLOOD COUNT 4.67 10^6/uL (4.00-5.40); WHITE BLOOD COUNT 10.5 10^3/uL (4.0-10.0)
== END ==
LOC: SKLAB3 12:47
PROVIDERS: ATTEND Family Medicine
DX: I10 Essential (primary) hypertension (principal)

== ENCOUNTER → 2018-10-05 | Outpatient (REF) | payer MEDICAID | LOC: SKLAB3 07:18 | PROVIDERS: ATTEND Internal Medicine | DX: K08.89 Other specified disorders of teeth and supporting structures (principal) ==

== ENCOUNTER 2018-10-22 12:00 | Day surgery (SDC) | payer MEDICAID ==
[~2018-10-22] VITALS: Ht 165.1 cm; Wt 121.5 kg
[~2018-10-22 12:00] MED LIST changes: +ATOR40TA75 PO; +LIDOCAINE 2% INJ 100 MG/5 ML SDV (FOR ANES.) As Ordered ONE; +MELA3TAB49 PO; +MIDAZOLAM INJ 2 MG/2 ML VIAL (J2250) As Ordered ONE; +NUED20CA PO; +OSEL75CA PO; +PROPOFOL 200 MG/20 ML VIAL As Ordered ONE; +fentaNYL 100 MCG/2 ML INJECTION (J3010) As Ordered ONE
[2018-10-22] MEDS ORDERED: LR 1,000 ML IV ONE (12:30)
[2018-10-22] MEDS ORDERED: LIDOCAINE 1% SDV INJ 30 ML VIAL As Ordered ONE ×2 (12:45→13:30)
--- NOTE | 2018-10-22 14:45 | RO ---
DATE OF PROCEDURE: 10/22/2018 PREOPERATIVE DIAGNOSIS: Cryptogenic stroke. POSTOPERATIVE DIAGNOSIS: Cryptogenic stroke. PROCEDURE PERFORMED: Implantation of [employer] implantable loop recorder. SURGEON: Suleman Lopez MD FILM BOOKER: None. ANESTHESIA: Lidocaine 1% local/monitored anesthetic care. FINDINGS: Cryptogenic stroke. No specimens. Estimated blood loss less than 1 mL. No blood products replaced. No drains. No complications. PROCEDURE DESCRIPTION: Patient was prepped and draped over the sternum and left anterior chest. Lidocaine 1% was used for local anesthetic. An incision was made approximately 1 cm in length with a #15 blade through the skin, roughly the left 4th interspace 1 inch lateral to the left parasternal border. The guide on the insertion tool was then placed into the incision and advanced in the subcuticular layer/breast tissue parallel to the chest wall and in a caudal-left lateral direction. The insertion tool was rotated 180 degrees. The plunger was placed into the insertion tool and used to advance the loop recorder into the subcutaneous tissue/breast tissue. The plunger was then removed and then insertion tool was removed leaving the loop recorder in place. The skin was then approximated with a temporary stitch consisting of #4-0 Biosyn used subcuticular to approximate the skin edges. Next, two layers of Dermabond was applied over the incision. The #4-0 Biosyn suture was then pulled through the incision and removed in its entirety. Once the Dermabond was dry, Mastisol was placed to either side of the incision perpendicular to the incision and being careful not to get the Mastisol on the surgical glue. Next, two half inch Steri-Strips cut in half were placed crosswise across the incision (perpendicular to the incision line). Patient tolerated the procedure well without any immediate complications. The implantable loop recorder implanted was a [employer] Reveal LINQ, model LNQ11 with serial number [id number]. The initial R wave amplitude at the time of implant was 1.10 mV.
[2018-10-22 15:10] VITALS: BP 184/81
== END 2018-10-22 15:38 | disposition home or self-care (01) ==
LOC: M SDC 12:00
PROVIDERS: ATTEND Internal Medicine Cardiovascular Disease
DX: I63.9 Cerebral infarction, unspecified (principal); E10.9 Type 1 diabetes mellitus without complications; Z79.4 Long term (current) use of insulin; I10 Essential (primary) hypertension; E78.5 Hyperlipidemia, unspecified; Z79.899 Other long term (current) drug therapy
CPT/HCPCS: 33285; C1764; J0690; J2250; J3010

== ENCOUNTER → 2018-10-31 | Outpatient (REF) | payer MEDICAID ==
[~2018-10-31] MED LIST changes: -LIDOCAINE 2% INJ 100 MG/5 ML SDV (FOR ANES.) As Ordered ONE; -MIDAZOLAM INJ 2 MG/2 ML VIAL (J2250) As Ordered ONE; -PROPOFOL 200 MG/20 ML VIAL As Ordered ONE; -fentaNYL 100 MCG/2 ML INJECTION (J3010) As Ordered ONE
[2018-10-31 08:00] LABS: HEMATOCRIT 37.3 % (36.0-47.0); HEMOGLOBIN 11.9 g/dl (12.0-15.5); MEAN CORPUSCULAR HEMOGLOBIN 25.3 pg (27.0-33.0); MEAN CORPUSCULAR HGB CONC 31.9 g/dl (32.0-36.5); MEAN CORPUSCULAR VOLUME 79.4 fl (80.0-96.0); PLATELET COUNT, AUTOMATED 470 10^3/uL (150-450)
[2018-10-31 08:25] LABS: BLOOD UREA NITROGEN 19 MG/DL (7-18); CALCIUM LEVEL 9.1 MG/DL (8.5-10.1); CARBON DIOXIDE LEVEL 27 MEQ/L (21-32); CHLORIDE LEVEL 104 MEQ/L (98-107); CREATININE FOR GFR 0.85 MG/DL (0.55-1.30); GLOMERULAR FILTRATION RATE > 60.0 (>58); GLUCOSE, FASTING 184 MG/DL (70-100); POTASSIUM SERUM 4.8 MEQ/L (3.5-5.1); SODIUM LEVEL 138 MEQ/L (136-145)
== END ==
LOC: SKLAB3 07:03
PROVIDERS: ATTEND Internal Medicine
DX: E11.9 Type 2 diabetes mellitus without complications (principal); D75.89 Other specified diseases of blood and blood-forming organs

== ENCOUNTER → 2018-11-19 | Outpatient (REF) | payer MEDICAID ==
[~2018-11-19] MED LIST changes: +ASPI-286 GT; +ASPI-286 PO; -CHIL81CH2 GT; -CHIL81CH2 PO
[2018-11-19 08:30] LABS: ALT/SGPT 29 U/L (12-78); BILIRUBIN,TOTAL 0.5 MG/DL (0.2-1.0); BLOOD UREA NITROGEN 19 MG/DL (7-18); CALCIUM LEVEL 8.9 MG/DL (8.5-10.1); CARBON DIOXIDE LEVEL 30 MEQ/L (21-32); CHLORIDE LEVEL 105 MEQ/L (98-107); CHOLESTEROL LEVEL 151 MG/DL (<200); CHOLESTEROL RISK RATIO 3.682 (<5); CREATININE FOR GFR 0.85 MG/DL (0.55-1.30); GLOMERULAR FILTRATION RATE > 60.0 (>58); GLUCOSE, FASTING 124 MG/DL (70-100); HDL CHOLESTEROL 41 MG/DL (>40); LDL CHOLESTEROL 70 MG/DL (<100); NON-HDL-C 110 MG/DL; POTASSIUM SERUM 4.5 MEQ/L (3.5-5.1); SODIUM LEVEL 141 MEQ/L (136-145); TOTAL PROTEIN 6.3 GM/DL (6.4-8.2); TRIGLYCERIDES LEVEL 201 MG/DL (<150)
[2018-11-19 10:10] LABS: HEMOGLOBIN A1c 9.2 %
== END ==
LOC: SKLAB3 07:00
PROVIDERS: ATTEND Internal Medicine
DX: E11.9 Type 2 diabetes mellitus without complications (principal); I10 Essential (primary) hypertension

== ENCOUNTER → 2018-12-24 | Outpatient (REF) | payer MEDICAID ==
[2018-12-24 08:15] LABS: HEMOGLOBIN 11.7 g/dl (12.0-15.5); MEAN CORPUSCULAR HGB CONC 31.6 g/dl (32.0-36.5); MEAN CORPUSCULAR VOLUME 79.1 fl (80.0-96.0); PLATELET COUNT, AUTOMATED 473 10^3/uL (150-450); RED BLOOD COUNT 4.68 10^6/uL (4.00-5.40); WHITE BLOOD COUNT 9.5 10^3/uL (4.0-10.0)
== END ==
LOC: SKLAB3 07:00
PROVIDERS: ATTEND Internal Medicine
DX: Z79.01 Long term (current) use of anticoagulants (principal)

== ENCOUNTER → 2019-01-11 | Outpatient (REF) ==
[~2019-01-11] MED LIST changes: +TRAZ1TAB11 PO; -TRAZ25TA PO
[2019-01-11 15:28] LABS: HEMOGLOBIN A1c 9.4 %
[2019-01-11 15:37] LABS: BLOOD UREA NITROGEN 14 MG/DL (7-18); CALCIUM LEVEL 9.5 MG/DL (8.5-10.1); CARBON DIOXIDE LEVEL 24 MEQ/L (21-32); CHLORIDE LEVEL 103 MEQ/L (98-107); CREATININE FOR GFR 0.88 MG/DL (0.55-1.30); GLOMERULAR FILTRATION RATE > 60.0 (>58); GLUCOSE, FASTING 247 MG/DL (70-100); SODIUM LEVEL 138 MEQ/L (136-145)
--- NOTE | 2019-01-11 15:49 | REP ---
Abdomen two views History: Abdominal pain The examination is limited as the upper abdomen is not well seen in the present radiographs. A small amount of air is present in the intestine. There are no air-fluid levels or dilated loops of intestine. There is no pneumoperitoneum. Impression: Limited examination demonstrating a nonspecific bowel gas pattern. Electronically Signed by Alfred Navas MD 01/11/2019 03:40 P
[2019-01-11 18:59] LABS: HEMATOCRIT 38.3 % (36.0-47.0); HEMOGLOBIN 12.8 g/dl (12.0-15.5); MEAN CORPUSCULAR HEMOGLOBIN 26.1 pg (27.0-33.0); MEAN CORPUSCULAR HGB CONC 33.4 g/dl (32.0-36.5); MEAN CORPUSCULAR VOLUME 78.2 fl (80.0-96.0); PLATELET COUNT, AUTOMATED 447 10^3/uL (150-450); WHITE BLOOD COUNT 13.5 10^3/uL (4.0-10.0)
== END ==
LOC: SKLAB3 14:20
PROVIDERS: ATTEND Internal Medicine
DX: R10.9 Unspecified abdominal pain (principal)

== ENCOUNTER → 2019-02-12 | Outpatient (REF) | payer MEDICAID ==
[2019-02-12 13:27] LABS: HEMATOCRIT 35.5 % (36.0-47.0); HEMOGLOBIN 11.4 g/dl (12.0-15.5); MEAN CORPUSCULAR HEMOGLOBIN 26.3 pg (27.0-33.0); MEAN CORPUSCULAR HGB CONC 32.1 g/dl (32.0-36.5); PLATELET COUNT, AUTOMATED 429 10^3/uL (150-450); RED BLOOD COUNT 4.33 10^6/uL (4.00-5.40)
[2019-02-12 14:32] LABS: BLOOD UREA NITROGEN 17 MG/DL (7-18); CALCIUM LEVEL 8.9 MG/DL (8.5-10.1); CARBON DIOXIDE LEVEL 25 MEQ/L (21-32); CHLORIDE LEVEL 105 MEQ/L (98-107); CREATININE FOR GFR 0.79 MG/DL (0.55-1.30); GLOMERULAR FILTRATION RATE > 60.0 (>58); GLUCOSE, FASTING 191 MG/DL (70-100); POTASSIUM SERUM 3.8 MEQ/L (3.5-5.1); SODIUM LEVEL 138 MEQ/L (136-145)
== END ==
LOC: SKLAB3 10:45
PROVIDERS: ATTEND Nurse Practitioner Family
DX: R29.6 Repeated falls (principal)

== ENCOUNTER → 2019-02-18 | Outpatient (REF) | payer MEDICAID ==
[2019-02-18 09:39] LABS: ALT/SGPT 21 U/L (12-78); BILIRUBIN,TOTAL 0.3 MG/DL (0.2-1.0); BLOOD UREA NITROGEN 15 MG/DL (7-18); CALCIUM LEVEL 8.6 MG/DL (8.5-10.1); CARBON DIOXIDE LEVEL 26 MEQ/L (21-32); CHLORIDE LEVEL 104 MEQ/L (98-107); CREATININE FOR GFR 0.89 MG/DL (0.55-1.30); GLOMERULAR FILTRATION RATE > 60.0 (>58); GLUCOSE, FASTING 191 MG/DL (70-100); POTASSIUM SERUM 4.6 MEQ/L (3.5-5.1); SODIUM LEVEL 138 MEQ/L (136-145); TOTAL PROTEIN 6.7 GM/DL (6.4-8.2)
== END ==
LOC: SKLAB3 12:45
PROVIDERS: ATTEND Internal Medicine
DX: I67.9 Cerebrovascular disease, unspecified (principal)

== ENCOUNTER → 2019-04-01 | Outpatient (REF) | payer MEDICAID ==
[2019-04-01 07:59] LABS: HEMATOCRIT 31.8 % (36.0-47.0); HEMOGLOBIN 9.9 g/dl (12.0-15.5); MEAN CORPUSCULAR HEMOGLOBIN 25.2 pg (27.0-33.0); MEAN CORPUSCULAR HGB CONC 31.1 g/dl (32.0-36.5); MEAN CORPUSCULAR VOLUME 80.9 fl (80.0-96.0); PLATELET COUNT, AUTOMATED 430 10^3/uL (150-450); RED BLOOD COUNT 3.93 10^6/uL (4.00-5.40); WHITE BLOOD COUNT 8.2 10^3/uL (4.0-10.0)
== END ==
LOC: SKLAB3 07:00
PROVIDERS: ATTEND Internal Medicine
DX: Z79.899 Other long term (current) drug therapy (principal)

== ENCOUNTER → 2019-04-08 | Outpatient (REF) | payer MEDICAID ==
[2019-04-08 09:06] LABS: HEMATOCRIT 34.8 % (36.0-47.0); MEAN CORPUSCULAR HEMOGLOBIN 25.2 pg (27.0-33.0); MEAN CORPUSCULAR HGB CONC 31.6 g/dl (32.0-36.5); MEAN CORPUSCULAR VOLUME 79.6 fl (80.0-96.0); PLATELET COUNT, AUTOMATED 403 10^3/uL (150-450); RED BLOOD COUNT 4.37 10^6/uL (4.00-5.40); WHITE BLOOD COUNT 10.7 10^3/uL (4.0-10.0)
== END ==
LOC: SKLAB3 07:00
PROVIDERS: ATTEND Internal Medicine
DX: D64.9 Anemia, unspecified (principal)

== ENCOUNTER → 2019-04-09 | Outpatient (REF) | payer MEDICAID | LOC: M LAB 22:15 | PROVIDERS: ATTEND Internal Medicine | DX: D64.9 Anemia, unspecified (principal) ==

== ENCOUNTER → 2019-04-10 | Outpatient (REF) | LOC: SKLAB3 13:16 | PROVIDERS: ATTEND Internal Medicine | DX: D64.9 Anemia, unspecified (principal) ==

== ENCOUNTER → 2019-04-14 | Outpatient (REF) | payer MEDICAID | LOC: SKLAB3 14:37 | PROVIDERS: ATTEND Internal Medicine | DX: D64.9 Anemia, unspecified (principal) ==

== ENCOUNTER → 2019-06-03 | Outpatient (REF) ==
[2019-06-03 08:31] LABS: ALT/SGPT 30 U/L (12-78); BILIRUBIN,TOTAL 0.3 MG/DL (0.2-1.0); BLOOD UREA NITROGEN 22 MG/DL (7-18); CARBON DIOXIDE LEVEL 27 MEQ/L (21-32); CHLORIDE LEVEL 105 MEQ/L (98-107); CHOLESTEROL LEVEL 143 MG/DL (<200); CHOLESTEROL RISK RATIO 3.108 (<5); CREATININE FOR GFR 0.96 MG/DL (0.55-1.30); GLOMERULAR FILTRATION RATE > 60.0 (>58); GLUCOSE, FASTING 203 MG/DL (70-100); HDL CHOLESTEROL 46 MG/DL (>40); LDL CHOLESTEROL 63 MG/DL (<100); NON-HDL-C 97 MG/DL; POTASSIUM SERUM 4.3 MEQ/L (3.5-5.1); SODIUM LEVEL 137 MEQ/L (136-145); TOTAL PROTEIN 6.9 GM/DL (6.4-8.2); TRIGLYCERIDES LEVEL 172 MG/DL (<150)
[2019-06-03 09:29] LABS: HEMOGLOBIN A1c 9.9 %
== END ==
LOC: SKLAB3 07:00
PROVIDERS: ATTEND Internal Medicine
DX: I63.9 Cerebral infarction, unspecified (principal); E11.9 Type 2 diabetes mellitus without complications; I10 Essential (primary) hypertension; Z79.899 Other long term (current) drug therapy

== ENCOUNTER → 2019-07-16 | Outpatient (CLI) | payer MEDICAID, MEDICARE ==
--- NOTE | 2019-07-16 14:43 | REP ---
CT brain: 07/16/2019. Indication: Head trauma. Comparison: 05/23/2018. Findings: There is no acute intracranial hemorrhage, acute cortical infarction, mass effect, hydrocephalus or acute calvarial fracture. Small right periorbital/supraorbital soft tissue hematoma is present. There are multiple areas of encephalomalacia/gliosis within the cerebral hemispheres, more pronounced on the left superiorly. Diffuse volume loss is present. Impression: No acute intracranial process. Volume loss and multifocal bilateral MCA chronic infarctions. Electronically Signed by uLis Fine DO 07/16/2019 02:34 P
== END ==
LOC: M RAD 13:31
PROVIDERS: ATTEND Internal Medicine
DX: R29.6 Repeated falls (principal); Z79.01 Long term (current) use of anticoagulants

== ENCOUNTER → 2019-07-22 | Outpatient (REF) ==
[2019-07-22 09:06] LABS: HEMATOCRIT 32.2 % (36.0-47.0); HEMOGLOBIN 9.3 g/dl (12.0-15.5); MEAN CORPUSCULAR HEMOGLOBIN 22.2 pg (27.0-33.0); MEAN CORPUSCULAR HGB CONC 28.9 g/dl (32.0-36.5); PLATELET COUNT, AUTOMATED 442 10^3/uL (150-450); RED BLOOD COUNT 4.18 10^6/uL (4.00-5.40)
== END ==
LOC: SKLAB3 14:27
PROVIDERS: ATTEND Internal Medicine
DX: D64.9 Anemia, unspecified (principal)

== ENCOUNTER → 2019-08-26 | Outpatient (REF) ==
[2019-08-26 08:47] LABS: ALBUMIN 3.2 GM/DL (3.2-5.2); ALT/SGPT 28 U/L (12-78); BILIRUBIN,TOTAL 0.3 MG/DL (0.2-1.0); BLOOD UREA NITROGEN 23 MG/DL (7-18); CALCIUM LEVEL 8.8 MG/DL (8.5-10.1); CARBON DIOXIDE LEVEL 28 MEQ/L (21-32); CHLORIDE LEVEL 107 MEQ/L (98-107); GLOMERULAR FILTRATION RATE > 60.0 (>51); GLUCOSE, FASTING 128 MG/DL (70-100); POTASSIUM SERUM 4.4 MEQ/L (3.5-5.1); SODIUM LEVEL 141 MEQ/L (136-145); TOTAL PROTEIN 7.2 GM/DL (6.4-8.2)
== END ==
LOC: SKLAB3 11:51
PROVIDERS: ATTEND Internal Medicine
DX: I63.9 Cerebral infarction, unspecified (principal); E11.9 Type 2 diabetes mellitus without complications

== ENCOUNTER → 2019-09-23 | Outpatient (REF) ==
[~2019-09-23] MED LIST changes: -FLUO20CA19 PO; +FLUO20CA22 PO
[2019-09-23 08:39] LABS: HEMOGLOBIN 9.5 g/dl (12.0-15.5); MEAN CORPUSCULAR HEMOGLOBIN 21.4 pg (27.0-33.0); MEAN CORPUSCULAR HGB CONC 29.7 g/dl (32.0-36.5); MEAN CORPUSCULAR VOLUME 72.2 fl (80.0-96.0); PLATELET COUNT, AUTOMATED 415 10^3/uL (150-450); RED BLOOD COUNT 4.43 10^6/uL (4.00-5.40); WHITE BLOOD COUNT 9.5 10^3/uL (4.0-10.0)
[2019-09-23 09:44] LABS: HEMOGLOBIN A1c 10.1 %
== END ==
LOC: SKLAB3 06:54
PROVIDERS: ATTEND Internal Medicine
DX: D64.9 Anemia, unspecified (principal); E11.9 Type 2 diabetes mellitus without complications

== ENCOUNTER → 2019-10-21 | Outpatient (REF) ==
[2019-10-21 09:04] LABS: HEMATOCRIT 35.1 % (36.0-47.0); HEMOGLOBIN 10.4 g/dl (12.0-15.5); MEAN CORPUSCULAR HGB CONC 29.6 g/dl (32.0-36.5); MEAN CORPUSCULAR VOLUME 77.5 fl (80.0-96.0); PLATELET COUNT, AUTOMATED 378 10^3/uL (150-450); RED BLOOD COUNT 4.53 10^6/uL (4.00-5.40); WHITE BLOOD COUNT 7.7 10^3/uL (4.0-10.0)
== END ==
LOC: SKLAB3 07:00
PROVIDERS: ATTEND Internal Medicine
DX: D64.9 Anemia, unspecified (principal)

== ENCOUNTER → 2019-11-25 | Outpatient (REF) | LOC: SKLAB3 11:13 | PROVIDERS: ATTEND Internal Medicine | DX: L02.31 Cutaneous abscess of buttock (principal) ==

== ENCOUNTER → 2019-11-26 | Outpatient (REF) ==
[~2019-11-26] MED LIST changes: +ACET1TAB55 PO; +ASPI81CH33 PO; +BASA100I SC; +BISA10SU27 PR; +CEFT1INJ5 IM; +ENEMENE PR; +FERR325T16 PO; +FLUO20CA20 PO; +GLUC1KIT IM; +GNP8.6TA PO; +GUAI5EL PO; +MAGN400O53 PO; +MELA10CA2 PO; +METO25TA4 PO; +MIRA3350 PO; +ONDA-83 PO; +SORB70SO36 PO; +TRAD5TAB PO
[2019-11-26 12:01] LABS: ALBUMIN 2.2 GM/DL (3.2-5.2); BILIRUBIN,TOTAL 0.8 MG/DL (0.2-1.0); CALCIUM LEVEL 8.1 MG/DL (8.5-10.1); CHOLESTEROL RISK RATIO 3.9 (<5); CREATININE FOR GFR 1.16 MG/DL (0.55-1.30); GLOMERULAR FILTRATION RATE 52.6 (>51); POTASSIUM SERUM 4.6 MEQ/L (3.5-5.1); TOTAL PROTEIN 6.4 GM/DL (6.4-8.2)
== END ==
LOC: SKLAB3 15:00
PROVIDERS: ATTEND Internal Medicine
DX: E11.9 Type 2 diabetes mellitus without complications (principal); I10 Essential (primary) hypertension

== ENCOUNTER → 2019-11-27 | Outpatient (REF) ==
[2019-11-27 11:14] LABS: HEMATOCRIT 29.6 % (36.0-47.0); HEMOGLOBIN 9.2 g/dl (12.0-15.5); MEAN CORPUSCULAR HEMOGLOBIN 24.6 pg (27.0-33.0); MEAN CORPUSCULAR HGB CONC 31.1 g/dl (32.0-36.5); MEAN CORPUSCULAR VOLUME 79.1 fl (80.0-96.0); PLATELET COUNT, AUTOMATED 414 10^3/uL (150-450); RED BLOOD COUNT 3.74 10^6/uL (4.00-5.40); WHITE BLOOD COUNT 21.9 10^3/uL (4.0-10.0)
== END ==
LOC: SKLAB3 10:14
PROVIDERS: ATTEND Internal Medicine
DX: R50.9 Fever, unspecified (principal); L02.31 Cutaneous abscess of buttock

== ENCOUNTER → 2019-11-27 | Outpatient (REF) ==
[2019-11-27 15:07] LABS: APPEARANCE, URINE CLOUDY (CLEAR); BACTERIA, URINE AUTO 1+ (NEGATIVE); BILIRUBIN, URINE AUTO NEGATIVE (NEGATIVE); BLOOD, URINE BLOOD 1+ (NEGATIVE); COLOR, URINE YELLOW (YELLOW); GLUCOSE, URINE (UA) AUTO 3+ mg/dL (NEGATIVE); KETONE, URINE AUTO NEGATIVE (NEGATIVE); LEUKOCYTE ESTERASE, URINE AUTO NEGATIVE (NEGATIVE); MUCUS, URINE SMALL (NEGATIVE); NITRITE, URINE AUTO NEGATIVE (NEGATIVE); PROTEIN, URINE AUTO 2+ mg/dL (NEGATIVE); RBC, URINE AUTO 12 /HPF (0-3); SPECIFIC GRAVITY URINE AUTO 1.026 (1.002-1.035); SQUAMOUS EPITHELIAL CELL UR AU 1 /HPF (0-6); UROBILINOGEN, URINE AUTO 0.2 mg/dL (0.0-2.0); WBC, URINE AUTO 17 /HPF (0-3)
== END ==
LOC: SKLAB3 14:12
PROVIDERS: ATTEND Internal Medicine
DX: D72.829 Elevated white blood cell count, unspecified (principal)

== ENCOUNTER 2019-11-28 09:59 | Inpatient (IN) | payer MEDICAID, MEDICARE ==
[~2019-11-28] VITALS: Ht 165.1 cm; Wt 132.8 kg
[~2019-11-28 09:59] MED LIST changes: -ACET1TAB55 PO; -ASPI81CH33 PO; -BASA100I SC; -BISA10SU27 PR; -CEFT1INJ5 IM; -ENEMENE PR; -FERR325T16 PO; -FLUO20CA20 PO; -GLUC1KIT IM; -GNP8.6TA PO; -GUAI5EL PO; -MAGN400O53 PO; -MELA10CA2 PO; -METO25TA4 PO; -MIRA3350 PO; -ONDA-83 PO; -SORB70SO36 PO; -TRAD5TAB PO
[2019-11-28] MEDS ORDERED: MIDAZOLAM INJ 2MG/2ML VIAL (J2250 PER 1MG) As Ordered ONE (11:21)
[2019-11-28] MEDS ORDERED: KETAMINE HCL 200 MG/20 ML VIAL As Ordered ONE (11:21)
[2019-11-28] MEDS ORDERED: ROCURONIUM BROMIDE 50 MG/5 ML VIAL As Ordered ONE ×2 (11:22→12:45)
[2019-11-28] MEDS ORDERED: dexameTHASONE 4 MG/ML 1ML VIAL (J1100 PER 1MG) As Ordered ONE (11:22)
[2019-11-28] MEDS ORDERED: LIDOCAINE 2% 100MG/5ML SDV (FOR ANES.) As Ordered ONE (11:22)
[2019-11-28] MEDS ORDERED: ONDANSETRON 4MG/2ML VIAL As Ordered ONE (11:22)
[2019-11-28] MEDS ORDERED: fentaNYL 100 MCG/2 ML INJECTION (J3010) As Ordered ONE ×2 (11:22→13:34)
[2019-11-28] MEDS ORDERED: propofoL 200 MG/20 ML VIAL As Ordered ONE (11:25)
[2019-11-28] MEDS ORDERED: ZOSYN 3.375GM VIAL (J2543) As Ordered ONE (11:41)
[2019-11-28] MEDS ORDERED: NS 1,000 ML IV SCH (11:43)
[2019-11-28] MEDS ORDERED: GLUCOSE 4GM CHEW TABLET PO PRN (11:45)
[2019-11-28] MEDS ORDERED: DEXTROSE 50% 50 ML SYRINGE IV PRN (11:45)
[2019-11-28] MEDS ORDERED: GLUCAGON INJ 1MG VIAL SC PRN (11:45)
[2019-11-28] MEDS: PIPERACILLIN/TAZOBACTAM SOD 3.375 GM in D5W MINI-BAG PLUS 50 ML IV SCH ×2 (11:50→19:15)
[2019-11-28] MEDS ORDERED: ACETAMINOPHEN 1000MG 100ML IV BTL (OFIRMEV) (J0131 PER 10MG) As Ordered ONE (12:42)
[2019-11-28] MEDS ORDERED: SUGAMMADEX SODIUM 500 MG/5 ML VIAL (BRIDION) As Ordered ONE (12:53)
[2019-11-28] MEDS ORDERED: KETOROLAC 30 MG/ML 1ML VIAL IV PRN (13:45)
[2019-11-28] MEDS ORDERED: fentaNYL 100 MCG/2 ML INJECTION (J3010) IV PRN ×2 (14:30→14:45)
[2019-11-28] MEDS ORDERED: ONDANSETRON 4MG/2ML VIAL IV PRN ×2 (14:30→14:45)
[2019-11-28] MEDS ORDERED: LR 1,000 ML IV SCH ×2 (14:30→14:45)
[2019-11-28] MEDS ORDERED: METOCLOPRAMIDE INJ 10MG/2ML VIAL (J2765 PER 1) IV PRN ×2 (14:30→14:45)
[2019-11-28 14:40] VITALS: BP 155/84
[2019-11-28] MEDS ORDERED: HumaLOG INSULIN (NovoLOG) PER UNIT SC SCH (14:45)
--- NOTE | 2019-11-28 15:33 | HPEPDOC ---
General Date of Admission Nov 28, 2019 at 11:43 Date of Service: Nov 28, 2019 Other Providers JENNIFER Attending Physician: HAVEN JAMES MD Chief Complaint The patient is a 49-year-old female admitted with a reason for visit of Sepsis. Source: Patient Exam Limitations: No limitations History of Present Illness 49 yo W with a pertinent history of morbid obesity, prior CVA, DM, HTN, HLD, recent of [facility] who presented for follow up with Dr. Brian and was found to be febrile to 101 and on examination had an extensive sacral decubitus wound that was c/f necrotizing fasciitis and sent for direct admission for surgical debridement and treatment of sepsis. I briefly met her prior to transfer to the OR for debridement and she awake, alert and reporting 7/10 buttock pain. She was taken to the OR where Dr. Brian reports that she had extensive left buttock necrotizing fasciitis and will like require future permanent colostomy which he will be discussing with her shortly. In the meantime, he recommended brewster and rectal tube placement and started her on adequate pain management and agreed with jaredsyn (was recently MRSA negative on 11/24) and continuing fluids at 150cc.hr. She will remain NPO per his recommendation as she may require more OR time for further debridement. She is now being admitted to the PCU for sepsis 2/2 sacral necrotizing fasciiitis. Home Medications Scheduled Aspirin (Children's Aspirin) 81 Mg Chew, 81 MG PO DAILY Atorvastatin Calcium (Atorvastatin Calcium) 40 Mg Tab, 40 MG PO DAILY, (Reported) Clopidogrel Bisulfate (Clopidogrel) 75 Mg Tab, 75 MG PO DAILY Dextromethorphan HBr/Quinidine (Nuedexta 20-10 mg Capsule) 1 Cap Cap, 1 CAP PO BID, (Reported) Docusate Sodium (Colace) 100 Mg Cap, 100 MG PO BID Fluticasone Propionate (Fluticasone Propionate) 50 Mcg/Act Spr, 1 SPRAY NARES BID Guaifenesin (Mucinex) 600 Mg Tab, 600 MG PO BID Insulin Detemir (Levemir) 1 Units/0.01 Ml Susp, 2 UNITS SC BID, (Reported) Insulin Human Lispro (Humalog) 1 Units/0.01 Ml Inj, 5 UNITS SC AC, (Reported) Melatonin (Melatonin) 3 Mg Tab, 3 MG PO QHS, (Reported) Metoprolol Tartrate (Metoprolol Tartrate) 25 Mg Tab, 25 MG PO BID Oseltamivir Phosphate (Tamiflu) 75 Mg Cap, 75 MG PO DAILY, (Reported) Sodium Chloride (Mcminn) 0.65 % Spr, 2 SPRAY NA TID Scheduled PRN Glucagon,Human Recombinant (Glucagen) 1 Mg Inj, 1 MG SC ASDIRECTED PRN for SEE LABEL COMMENTS Milk Of Magnesia (Milk of Magnesia) 1,200 Mg/15 Ml Cassie, 30 ML PO DAILYPRN PRN for CONSTIPATION Nystatin (Nyamyc) 100,000 Unit/Gm Pow, 1 DOSE TOP BIDP PRN for RASH Senna (Senna Lax) 8.6 Mg Tab, 1 TAB PO Q12HP PRN for CONSTIPATION [Acetaminophen Tab] 325 MG/TAB TAB, 650 MG PO Q4HP PRN for fever/MILD PAIN (PS 1-4) Allergies Coded Allergies: No Known Allergies (Unverified , 10/19/18) Past Medical History Medical History HTN HLN CVA DM morbid obesity Family History Significant Family History: No pertinent family hx Social History * Smoker: Denies Alcohol: Denies Drugs: denies Recent Travel/Sick Contacts: Denies: Recent travel, Recent sick contacts Lives at [facility] A-FIB/CHADSVASC A-FIB History Current/History of A-Fib/PAF?: No Current PO Anticoag Therapy: No Age/Risk Factor Scoring CHADSVASC: CHADSVASC Response (Comments) Value Age Risk Factor Age < 65 years old 0 Gender Risk Factor Female 1 Hx of CHF No 0 Hx of HTN Yes 1 Hx of Stroke/TIA/or VTE Yes 2 Hx of Diabetes Yes 1 Hx of Vascular Disease No 0 Total 5 Treatment Treatment ordered: NONE Reason Anticoagulant not given: Not indicated/[id number] Review of Systems Constitutional: Reports: Chills, Fever Eyes: Denies: Pain, Vision change ENT: Denies: Head Aches, Ear Pain, Dysphagia Skin: Reports: Rash, Breakdown (has sacral pressure ulcer); Denies: Lesions Pulmonary: Denies: Dyspnea, Cough Cardiovascular: Denies: Chest Pain, Palpitations, Orthopnea, Paroxysmal Noc. Dyspnea, Lt Headedness Gastrointestinal: Denies: Nausea, Vomiting, Abdominal Pain, Diarrhea Genitourinary: Denies: Dysuria, Frequency Hematologic: Denies: Bruising, Bleeding Excessively Endocrine: Denies: Polydipsia, Polyphagia, Polyuria, Heat Intolerance, Cold Intolerance, Other Endocrine Sx Musculoskeletal: Reports: Other Symptoms (buttock pain) Neurological: Denies: Change in speech, Confusion Psych: Reports: Mood Normal; Denies: Depression, Memory Issues Physical Examination General Exam: Positive: Alert, Mild Distress, Other (morbidly obese ) Eye Exam: Positive: PERRLA, Conjunctiva & lids normal, EOMI; Negative: Sclera icteric ENT Exam: Positive: Atraumatic, Mucous membr. moist/pink, Pharynx Normal Neck Exam: Positive: Other (thick, prominent facial hair) Chest Exam: Positive: Clear to auscultation, Normal air movement Heart Exam: Positive: Rate Normal, Regular Rhythm, Normal S1, Normal S2; Negative: Murmurs, Rubs Abdomen Exam: Positive: Normal bowel sounds, Soft, Other (obese); Negative: Tenderness Extremity Exam: Positive: Normal pulses, Other (WWP); Negative: Edema, Tenderness, Swelling Skin Exam: Positive: Breakdown (Did not have an opportunity to examine her sacral wound pre-surgery, will doocument on my next examination) Neuro Exam: Positive: Normal Speech, Strength at 5/5 X4 ext (R sided hemiparesis per baseline.), Cranial Nerves 3-12 NL Psych Exam: Positive: Mental status NL, Mood NL, Oriented x 3 Vital Signs hemodynamically stable and afebrile at this time. Was on room air during my assessment, now on 2L NC. Assessment/Plan 49 yo W with morbid obesity, DM, HTN, HLD, history of CVA, who is being admitted directly Dr. Brian with sacral necrotizing fasciitis c/b sepsis with noted fever, tachycardiac, leukocytosis, now s/p debridement on empiric zosyn and fluids. L buttock/sacral necrotizing fasciitis arising from sacral pressure ulcer: -s/p debridement -continue empiric zosyn -f/u blood and wound cultures -was MRSA negative on 11/24, recheck today for broadening if indicated -continue fluids at 150cc/hr -per Dr. Brian, will place PICC line for TPN. Will likely require further debridement in the near future and likely permanent colostomy likely to be done on 12/01 -per Dr. Brian, recommending brewster and rectal tube -pain control per surgical team: morphine 2Q4PRN, Ketoralac [id number] Sepsis: fever, tachycardia, leukocytosis, ongoing soft tissue infection -s/p debridement of sacral wound with necrotizing fasciitis, surgery onboard -continue empiric zosyn -f/u blood and wound cultures -MRSA PCR, was recently MRSA negative on 11/24 -admit to PCU HTN: -hold home metoprolol while septic HLD: -continue lipitor DM: -FSBG Q6H while NPO -hypoglycemia protocol -SSI Q6H -hold home long acting insulin history of CVA: with R sided paralysis -hold ASA and plavix for now DVT ppx: lovenox 40 QD Diet: NPO per surgical team GI ppx: was placed on IV PPI once daily, on senna+ BID Plan / VTE VTE Prophylaxis Ordered?: Yes HAVEN JAMES MD Nov 28, 2019 15:32
[2019-11-28 15:40] VITALS: BP 140/63
[2019-11-28 15:51] LABS: ALBUMIN 1.7 GM/DL (3.2-5.2); BILIRUBIN,TOTAL 0.4 MG/DL (0.2-1.0); CALCIUM LEVEL 8.1 MG/DL (8.5-10.1); CREATININE FOR GFR 1.35 MG/DL (0.55-1.30); GLOMERULAR FILTRATION RATE 44.2 (>51); MAGNESIUM LEVEL 1.6 MG/DL (1.8-2.4); PHOSPHORUS LEVEL 2.7 MG/DL (2.5-4.9); POTASSIUM SERUM 4.7 MEQ/L (3.5-5.1); TOTAL PROTEIN 5.9 GM/DL (6.4-8.2)
[2019-11-28] MEDS: HumaLOG INSULIN (NovoLOG) PER UNIT SC SCH ×2 (16:38→19:08)
[2019-11-28 16:40] VITALS: BP 145/70
[2019-11-28] MEDS: NS 1,000 ML IV SCH (17:14)
[2019-11-28] MEDS ORDERED: SORB70SO36 PO (17:28)
[2019-11-28] MEDS ORDERED: FLUO20CA20 PO (17:28)
[2019-11-28] MEDS ORDERED: CEFT1INJ5 IM (17:28)
[2019-11-28] MEDS ORDERED: GNP8.6TA PO (17:28)
[2019-11-28] MEDS ORDERED: MELA10CA2 PO (17:28)
[2019-11-28] MEDS ORDERED: ASPI81CH33 PO (17:28)
[2019-11-28] MEDS ORDERED: FERR325T16 PO (17:28)
[2019-11-28] MEDS ORDERED: ENEMENE PR (17:28)
[2019-11-28] MEDS ORDERED: ONDA-83 PO (17:28)
[2019-11-28] MEDS ORDERED: TRAD5TAB PO (17:28)
[2019-11-28] MEDS ORDERED: GUAI5EL PO (17:28)
[2019-11-28] MEDS ORDERED: MAGN400O53 PO (17:28)
[2019-11-28] MEDS ORDERED: MIRA3350 PO (17:28)
[2019-11-28] MEDS ORDERED: GLUC1KIT IM (17:28)
[2019-11-28] MEDS ORDERED: BISA10SU27 PR (17:28)
[2019-11-28] MEDS ORDERED: CLOP75TA2 PO (17:28)
[2019-11-28] MEDS ORDERED: INSUHUMDS SC (17:28)
[2019-11-28] MEDS ORDERED: ATOR40TA75 PO (17:28)
[2019-11-28] MEDS ORDERED: ACET1TAB55 PO (17:28)
[2019-11-28] MEDS ORDERED: METO25TA4 PO (17:28)
[2019-11-28] MEDS ORDERED: BASA100I SC (17:28)
[2019-11-28 18:40] VITALS: BP 134/61
[2019-11-28] MEDS: SENOKOT S TAB PO SCH (20:07)
[2019-11-28 20:40] VITALS: BP 169/76
[2019-11-29] VITALS (7 sets, daily range): BP systolic 145–184; BP diastolic 65–102
[2019-11-29] MEDS: NS 1,000 ML IV SCH ×3 (00:08→13:34)
[2019-11-29] MEDS: PIPERACILLIN/TAZOBACTAM SOD 3.375 GM in D5W MINI-BAG PLUS 50 ML IV SCH ×4 (00:18→18:24)
[2019-11-29] MEDS: HumaLOG INSULIN (NovoLOG) PER UNIT SC SCH ×4 (00:23→18:23)
[2019-11-29] MEDS ORDERED: METOPROLOL TART 25 MG TABLET PO ONE (04:15)
[2019-11-29 04:39] LABS: HEMATOCRIT 25.7 % (36.0-47.0); HEMOGLOBIN 8.1 g/dl (12.0-15.5); MEAN CORPUSCULAR HEMOGLOBIN 24.8 pg (27.0-33.0); MEAN CORPUSCULAR HGB CONC 31.5 g/dl (32.0-36.5); MEAN CORPUSCULAR VOLUME 78.6 fl (80.0-96.0); PLATELET COUNT, AUTOMATED 443 10^3/uL (150-450); RED BLOOD COUNT 3.27 10^6/uL (4.00-5.40); WHITE BLOOD COUNT 20.7 10^3/uL (4.0-10.0)
[2019-11-29 04:57] LABS: ERYTHROCYTE SEDIMENTATION RATE 126 mm/hr (0-30)
[2019-11-29 05:14] LABS: C REACTIVE PROTEIN QUANTITATIV 28.8 MG/DL (0.00-0.30); CALCIUM LEVEL 7.8 MG/DL (8.5-10.1); CREATININE FOR GFR 1.25 MG/DL (0.55-1.30); GLOMERULAR FILTRATION RATE 48.3 (>51); POTASSIUM SERUM 4.6 MEQ/L (3.5-5.1)
[2019-11-29] MEDS: ONDANSETRON 4MG/2ML VIAL IV PRN (05:57)
[2019-11-29] MEDS ORDERED: MAG SULF 1GM/100ML (MAG RUN) 1 GM in IV 1 EA IV ONE (08:00)
[2019-11-29] MEDS: PANTOPRAZOLE 40MG VIAL (C9113 PER 1) IV SCH (08:17)
[2019-11-29] MEDS: ENOXAPARIN 40MG/0.4ML SYRINGE (J1650 PER 10MG) SC SCH (08:17)
[2019-11-29] MEDS: SENOKOT S TAB PO SCH ×2 (08:17→20:15)
--- NOTE | 2019-11-29 09:06 | IPNPDOC ---
Text Note Date of Service The patient was seen on 11/29/19. NOTE No acute events overnight. Her pain is much improved today. Denies any fevers, chills, or cough. She had a little emesis overnight, and has already had the dressing changed twice. VSSAF NAD skin - left medial gluteal and perineal wound is clean and dry. There is a little duskiness around the edges only, no signs of spreading infection that will require further debridement labs - below A) 49y/o female POD#1 s/p excisional debridement for necrotizing fasciitis. sepsis secondary to above P) increase IVF increase abx coverage PICC line start TPN clq diet rectal tube and brewster plan for diverting colostomy on Monday 730am. Efrem Brian DO VS,Tiffany, I+O VSTiffany, I+O Laboratory Tests 11/28/19 14:58 11/29/19 04:23 Vital Signs Date Time Temp Pulse Resp B/P (MAP) Pulse Ox O2 Delivery O2 Flow Rate FiO2 11/29/19 08:22 2.0 11/29/19 08:00 96.9 68 17 158/78 (104) 95 Nasal Cannula I&O- Last 24 Hours up to 6 AM 11/29/19 05:59 Intake Total 2700 ml Output Total 1025 ml Balance 1675 ml WILLIAM BRIAN DO Nov 29, 2019 09:06
--- NOTE | 2019-11-29 14:27 | IPNPDOC ---
Text Note Date of Service The patient was seen on 11/29/19. NOTE Subjective: Sitting up in chair, without complaints this morning Physical Examination General: morbidly obese, NAD, sitting up in chair, on room air ENT: anicteric, no injection, PERRLA, EOMI, MMM, Neck: thick, otherwise supple, hirsute Chest: Clear to auscultation anterior field, no wheezing, rales or rhonchi Heart: Rate Normal, Regular Rhythm, Normal S1, Normal S2, no murmurs Abdomen: Hyperactive bowel sounds, obese, soft, no TTP Extremity: WWP, no LE pitting edema Skin: has L buttock/sacral dressing that per nursing is extensive and was packed and dressed this AM Neuro: Normal Speech, stable R sided hemiparesis per baseline, CN 3-12 WNL Psych Exam: AOx3 Labs: WBC 20.7 Hgb 8.1 na 135 K 4.6 Cr 1.25 mag 1.6 ESR 126 CRP 28.8 T protein 5.9 Alb 1.7 Assessment 49 yo W with morbid obesity, DM, HTN, HLD, history of CVA, who is being admitted directly Dr. Brian with sacral necrotizing fasciitis c/b sepsis with noted fever, tachycardiac, leukocytosis, now s/p debridement on empiric zosyn and fluids. L buttock necrotizing fasciitis arising from pressure ulcer: -s/p debridement x 1 on 11/27 -continue empiric zosyn, day 2 -f/u blood cultures -11/28 MRSA negative -continue fluids currently NS at 75cc/hr -per Dr. Brian, getting PICC line for TPN, TPN ordered per nutrition recs. -Tentatively planning for permanent colostomy on 12/02 -brewster and rectal tube per surgery recs -pain control per surgical team: morphine 2Q4PRN, Ketoralac [id number] Sepsis: fever, tachycardia, leukocytosis, ongoing soft tissue infection -s/p debridement of L buttock necrotizing fasciitis x 1 on 11/27, surgery onboard -continue empiric zosyn, day 2 -f/u blood cultures, NGTD -MRSA negative on 11/28 HTN: -hold home metoprolol while septic HLD: -continue lipitor DM: -switch FSBG to AC/HS -hypoglycemia protocol -SSI AC/HS -hold home long acting insulin -now on clear liquid diet per surgery team -NS fluids history of CVA: with R sided paralysis -will ask surgery team about timing for restarting her ASA/plavix? DVT ppx: lovenox 40 QD Diet: clear liquid diet GI ppx: was placed on IV PPI once daily, on senna+ BID VS,Fishbone, I+O VS, Fishbone, I+O Laboratory Tests 11/28/19 14:58 11/29/19 04:23 Vital Signs Date Time Temp Pulse Resp B/P (MAP) Pulse Ox O2 Delivery O2 Flow Rate FiO2 11/29/19 05:30 150/70 (96) 11/29/19 04:20 76 11/29/19 04:00 2.0 11/29/19 04:00 96.7 18 91 Nasal Cannula I&O- Last 24 Hours up to 6 AM 11/29/19 06:00 Intake Total 3000 ml Output Total 1025 ml Balance 1975 ml HAVEN JAMES MD Nov 29, 2019 07:27
[2019-11-29] MEDS ORDERED: LIDOCAINE 1% MDV 20ML VIAL As Ordered ONE (15:13)
[2019-11-29] MEDS ORDERED: GLUCAGON INJ 1MG VIAL SC PRN (15:30)
[2019-11-29] MEDS ORDERED: GLUCOSE 4GM CHEW TABLET PO PRN (15:30)
[2019-11-29] MEDS ORDERED: DEXTROSE 50% 50 ML SYRINGE IV PRN (15:30)
[2019-11-29] MEDS ORDERED: SODIUM CHLORIDE 0.9% INJ 10 ML SYR IV PRN (16:45)
[2019-11-29] MEDS: SODIUM CHLORIDE 0.9% INJ 10 ML SYR IV SCH (17:28)
[2019-11-29] MEDS ORDERED: HumaLOG INSULIN (NovoLOG) PER UNIT SC SCH ×3 (17:30→21:00)
[2019-11-29] MEDS ORDERED: FAT EMULSION IV 20% 500 ML IV SCH (18:00)
[2019-11-29] MEDS ORDERED: MULTIVITAMIN -ADULT INJECTION 10 ML, CR/CU/SE/MN/ZN INJ 1 ML in AMINO AC/ELECTROLYTE/DE... IV SCH (18:00)
[2019-11-29] MEDS ORDERED: AMINO AC/ELECTROLYTE/DEX/CALC 2,000 ML IV SCH (18:00)
--- NOTE | 2019-11-29 19:33 | REP ---
Procedure: PICC line insertion with Juliette The procedure was performed under the direct supervision of Dr. Ashby. The risks and benefits of the procedure were explained to the patient and informed consent was obtained. The left basilic vein was localized using ultrasound guidance. The skin was prepped and draped in a sterile fashion. 2% lidocaine was used as a local anesthetic. Using ultrasound guidance the basilic vein was cannulated and a 0.018 guidewire was inserted and advanced to the SVC using fluoroscopic guidance. The needle was removed and a 5.5 Georgian dilator and peel-away sheath was inserted over the guide wire. A 5.5 Georgian dual lumen catheter was cut to length of 47 cm. The dilator was removed and the catheter was inserted over the guide wire with the tip ending in the SVC. The peel-away sheath was removed and the catheter was flushed with heparinized saline as per Hospital protocol. The catheter was affixed to the skin and a sterile dressing was applied. The patient tolerated the procedure well and there were no immediate complications. 0.5 minutes of fluoro time was utilized for this procedure. Electronically Signed by DAVID Delgado 11/29/2019 04:08 P Electronically Signed by James Ashby MD 11/29/2019 07:24 P
[2019-11-29] MEDS: ATORVASTATIN 20 MG TAB PO SCH (20:15)
[2019-11-30] VITALS: BP 148/72
[2019-11-30] MEDS: PIPERACILLIN/TAZOBACTAM SOD 3.375 GM in D5W MINI-BAG PLUS 50 ML IV SCH ×4 (00:13→18:09)
[2019-11-30] MEDS: HumaLOG INSULIN (NovoLOG) PER UNIT SC SCH ×4 (00:13→18:10)
[2019-11-30 04:00] VITALS: BP 146/72
[2019-11-30 05:12] LABS: HEMATOCRIT 26.2 % (36.0-47.0); HEMOGLOBIN 8.1 g/dl (12.0-15.5); MEAN CORPUSCULAR HEMOGLOBIN 24.7 pg (27.0-33.0); MEAN CORPUSCULAR HGB CONC 30.9 g/dl (32.0-36.5); MEAN CORPUSCULAR VOLUME 79.9 fl (80.0-96.0); PLATELET COUNT, AUTOMATED 519 10^3/uL (150-450); RED BLOOD COUNT 3.28 10^6/uL (4.00-5.40); WHITE BLOOD COUNT 13.5 10^3/uL (4.0-10.0)
[2019-11-30 05:34] LABS: CALCIUM LEVEL 8.3 MG/DL (8.5-10.1); CREATININE FOR GFR 1.19 MG/DL (0.55-1.30); GLOMERULAR FILTRATION RATE 51.1 (>51); POTASSIUM SERUM 4.4 MEQ/L (3.5-5.1)
[2019-11-30] MEDS: SODIUM CHLORIDE 0.9% INJ 10 ML SYR IV SCH ×2 (05:40→18:09)
--- NOTE | 2019-11-30 07:12 | CR ---
DATE OF CONSULTATION: 11/28/2019 REASON FOR CONSULTATION: Gluteal abscess. HISTORY OF PRESENT ILLNESS: The patient is a 49-year-old female from [facility] who presented to my office for an abscess on her bottom. Prior to visiting me in the office, she already had labs obtained showing that she had a white count of 21.9 on the and a repeat of 21.6 just prior to visiting me this morning. By the time she came into my office, she also had a fever of overall 101. I took 1 look at her wound and was concerned that there were some crepitus there. This abscess was also highly suspicious for a necrotizing fasciitis. Because of that, I called and had her directly admitted to the hospitalist service and plan to take her to the operating room for either an incision and drainage versus debridement depending on whether this was a large abscess versus necrotizing fasciitis. To save time on the admission process, I had her get a stat CT prior to being officially admitted into the billing. CT did confirm that it was necrotizing fasciitis. Therefore, I had her sent directly up to the operating room for an emergent surgery. She says that all of her pain symptoms started around Monday this week as a little bit of a pimple and got progressively worse throughout the week. She was already taking Keflex by mouth, but she felt like she was continuing to get worse. She denies any other trauma to the area. She has never had any pressure wounds there prior or previous abscesses in the area. She is in the [facility] due to a history of a stroke, but she is able to walk with assistance and move around in bed with assistance. PAST MEDICAL HISTORY: 1. Hypertension. 2. Diabetes. 3. History of recent stroke. 4. Obesity. 5. Hyperlipidemia. PAST SURGICAL HISTORY: None. ALLERGIES: None. HOME MEDICATIONS: Please see med record. SOCIAL HISTORY: Denies drugs, alcohol or tobacco abuse. FAMILY HISTORY: Noncontributory. REVIEW OF SYSTEMS: Pertinent positives and negatives as stated in HPI. PHYSICAL EXAMINATION: General: The patient is awake, alert, oriented x3. HEENT: Pupils equally round, react to light and accommodation. Heart: S1, S2. Regular rate and rhythm. Lungs: Clear to auscultation bilaterally. Abdomen: Soft, obese, nontender. Extremities: Bilateral lower extremity pitting edema. On the skin on her bottom of the left side of her medial buttock, there is a area about 3 x 3 cm of necrotic tissue with significant surrounding induration and erythema. There is some slight crepitus to palpation. It is very foul-smelling and very tender to palpation. LABORATORY DATA: White count was 21.6. Hemoglobin was 9.4. Creatinine was 1.35. IMAGING STUDIES: The CT of abdomen and pelvis that was done shows extensive inflammation and air in the soft tissues in the inferior medial left gluteal soft tissues. Findings compatible with necrotizing fasciitis. No fluid collections are seen in the area. Mildly enlarged left inguinal lymph nodes. The CT was also reviewed in person with myself and Dr. Ashby prior to her operation. ASSESSMENT/PLAN: The patient is a 49-year-old female currently with sepsis secondary to a left medial gluteal necrotizing fasciitis. Recommendation at this time is emergent surgery, which was just completed. She also will be kept on IV fluids and antibiotics. Will keep her on a clear liquid diet and start total parenteral nutrition (TPN). Will plan for likely diverting colostomy in the next few days, I will discuss that with her when she wakes up.
[2019-11-30 08:00] VITALS: BP 139/65
[2019-11-30] MEDS: PANTOPRAZOLE 40MG VIAL (C9113 PER 1) IV SCH (08:23)
[2019-11-30] MEDS: NS 1,000 ML IV SCH (08:23)
[2019-11-30] MEDS: SENOKOT S TAB PO SCH ×2 (08:23→21:30)
[2019-11-30] MEDS: ENOXAPARIN 40MG/0.4ML SYRINGE (J1650 PER 10MG) SC SCH (08:23)
[2019-11-30] MEDS ORDERED: LEVEMIR (INSULIN DETEMIR) 1 UNITS/0.01ML SC SCH (09:00)
[2019-11-30] MEDS: FLUoxetine 20 MG CAP PO SCH (09:30)
[2019-11-30] MEDS: FERROUS GLUCONATE 324 MG TAB PO SCH (09:30)
[2019-11-30] MEDS: ACETAMINOPHEN TAB 650MG DOSE (2X325MG) PO PRN ×2 (09:30→18:22)
--- NOTE | 2019-11-30 10:49 | RO ---
DATE OF PROCEDURE: 11/28/2019 PREOPERATIVE DIAGNOSIS: Necrotizing fasciitis. POSTOPERATIVE DIAGNOSIS: Necrotizing fasciitis. PROCEDURE: Sharp excisional debridement of left medial buttock and perineum all way through into the muscle and fascia including some blood vessels. SURGEON: Dr. James Brian DUPLIGRAPH OPERATOR: Dr. Lul Apple (who assisted with retraction, mobilization and dissection of the area). ANESTHESIA: General. ESTIMATED BLOOD LOSS: 50. COMPLICATIONS: None. INDICATIONS FOR PROCEDURE: The patient is 49-year-old female who presented to my office with extensive wound on her bottom concern for necrotizing fasciitis. It was confirmed with a stat CT and she was brought emergently to the operating room for surgery. Recommendation was excisional debridement. Risks and benefits of the procedure, not limited to, but including bleeding, infection, damage to surrounding structures, and need for further surgery were discussed in detail with the patient. Informed consent was obtained and the procedure was planned. DESCRIPTION OF PROCEDURE: The patient brought back to operating room one after sufficient sedation and the perineum was sterilely prepped and draped with Betadine. Next, a time out was done to confirm proper patient and proper procedure. Following that, using a 10 blade scalpel, a large elliptical incision was made around the entire area that appeared to be necrotic. Cautery was then used for dissection through the subcutaneous tissues. The large wound extended all way to the lateral wall of the rectum as well as the lateral wall of the vagina and extending anteriorly all way up into the labia majora encompassing about half of the gluteal subcutaneous tissues on the left side. There was some muscle involvement as well. This area was all excised. Once it was all removed, there did still appear to be some necrotic areas anteriorly. These were dissected free and excised as well. Once that was completed, some #2-0 Vicryl sutures were used to suture ligate some venous plexus on the lateral wall of the rectum. Once that was completed, the area was irrigated and packed with 4x4s, gauze and covered with ABDs. The patient then had a Johns catheter placed prior to waking up. She also had orders in for a rectal tube once she reached the floor.
--- NOTE | 2019-11-30 11:51 | IPNPDOC ---
Text Note Date of Service The patient was seen on 11/30/19. NOTE Interim events: -Had PICC line placed and started on TPN, also on clear liquid diet with ensure clear. -Hyperglycemic to 400c this early AM Subjective: No acute issues overnight -Pain is well controlled Physical Examination Vitals: HDS, afebrile General: morbidly obese, NAD, sitting up in chair, on room air ENT: anicteric, no injection, PERRLA, EOMI, MMM, Neck: thick, otherwise supple, hirsute Chest: Clear to auscultation anterior field, no wheezing, rales or rhonchi Heart: Rate Normal, Regular Rhythm, Normal S1, Normal S2, no murmurs Abdomen: Hyperactive bowel sounds, obese, soft, no TTP Extremity: WWP, no LE pitting edema Skin: has L buttock/sacral dressing that per nursing is packed and dressed per surgery recs Neuro: Normal Speech, stable R sided hemiparesis per baseline, CN 3-12 WNL Psych Exam: AOx3 Labs: WBC 13.5 Hgb 8.1 na 135 K 4.4 Cr 1.19 glucose 421 Assessment 49 yo W with morbid obesity, DM, HTN, HLD, history of CVA, who was admitted directly Dr. Brian with L buttock necrotizing fasciitis c/b sepsis with noted fever, tachycardiac, leukocytosis, now s/p debridement doing well on zosyn now afebrile and HDS, pending colostomy. L buttock necrotizing fasciitis: -s/p debridement x 1 on 11/27 -continue empiric zosyn, day 3 -f/u blood cultures -11/28 MRSA negative -continue fluids currently NS at 75cc/hr -s/p PICC and now started on TPN, per Dr. Brian -Planning for permanent colostomy on 12/02 -brewster and rectal tube per surgery recs -pain control per surgical team: morphine 2Q4PRN, Ketoralac [id number] Sepsis: fever, tachycardia, leukocytosis, ongoing soft tissue infection -s/p debridement of L buttock necrotizing fasciitis x 1 on 11/27, surgery onboard -continue empiric zosyn, day 3 -f/u blood cultures, NGTD -MRSA negative on 11/28 HTN: -resume home metoprolol HLD: -continue lipitor DM: -Start levemir at 1/2 home dose of 40u this AM, as she starts to have nutrition and was hyperglycemic this AM -continue FSBG AC/HS -SSI AC/HS -hypoglycemia protocol -continue clear liquid diet, diet per surgical team history of CVA: with R sided paralysis -discuss ASA/plavix w/ surgeon DVT ppx: lovenox 40 QD Diet: clear liquid diet, on TPN GI ppx: was placed on IV PPI once daily, on senna+ BID VS,Fishbone, I+O VS, Fishbone, I+O Laboratory Tests 11/30/19 04:42 Vital Signs Date Time Temp Pulse Resp B/P (MAP) Pulse Ox O2 Delivery O2 Flow Rate FiO2 11/30/19 08:00 96.8 76 18 139/65 (89) 97 Nasal Cannula 11/30/19 04:00 2.0 I&O- Last 24 Hours up to 6 AM 11/30/19 06:00 Intake Total 1960 ml Output Total 2400 ml Balance -440 ml HAVEN JAMES MD Nov 30, 2019 08:53
[2019-11-30] MEDS ORDERED: HumuLIN R (REGULAR) INSULIN (NovoLIN R) **100U/ML** PER UNIT IV STA (12:03)
[2019-11-30] MEDS ORDERED: HumaLOG INSULIN (NovoLOG) PER UNIT SC ONE ×2 (12:15→21:30)
[2019-11-30] MEDS ORDERED: LEVEMIR (INSULIN DETEMIR) 1 UNITS/0.01ML SC ONE (14:00)
[2019-11-30 16:00] VITALS: BP 152/78
[2019-11-30] MEDS ORDERED: AMINO AC IV SCH (18:00)
[2019-11-30] MEDS ORDERED: CALC IV SCH (18:00)
[2019-11-30] MEDS ORDERED: DEX IV SCH (18:00)
[2019-11-30] MEDS ORDERED: INSULIN HUMAN REGULAR IV SCH (18:00)
[2019-11-30] MEDS ORDERED: FAT EMULSION IV 20% 500 ML IV SCH (18:00)
[2019-11-30] MEDS ORDERED: ELECTROLYTE IV SCH (18:00)
[2019-11-30 20:00] VITALS: BP 148/78
[2019-11-30] MEDS: METOPROLOL TART 25 MG TABLET PO SCH (21:30)
[2019-11-30] MEDS: ATORVASTATIN 20 MG TAB PO SCH (21:30)
[2019-12-01] VITALS (8 sets, daily range): BP systolic 133–242; BP diastolic 66–104
[2019-12-01] MEDS: HumaLOG INSULIN (NovoLOG) PER UNIT SC SCH ×5 (00:16→23:41)
[2019-12-01] MEDS: PIPERACILLIN/TAZOBACTAM SOD 3.375 GM in D5W MINI-BAG PLUS 50 ML IV SCH ×5 (00:16→23:41)
[2019-12-01 05:16] LABS: HEMATOCRIT 27.5 % (36.0-47.0); HEMOGLOBIN 8.5 g/dl (12.0-15.5); MEAN CORPUSCULAR HEMOGLOBIN 24.5 pg (27.0-33.0); MEAN CORPUSCULAR HGB CONC 30.9 g/dl (32.0-36.5); MEAN CORPUSCULAR VOLUME 79.3 fl (80.0-96.0); PLATELET COUNT, AUTOMATED 573 10^3/uL (150-450); RED BLOOD COUNT 3.47 10^6/uL (4.00-5.40); WHITE BLOOD COUNT 14.7 10^3/uL (4.0-10.0)
[2019-12-01 05:32] LABS: BLOOD UREA NITROGEN 19 MG/DL (7-18); CALCIUM LEVEL 8.5 MG/DL (8.5-10.1); CARBON DIOXIDE LEVEL 26 MEQ/L (21-32); CHLORIDE LEVEL 102 MEQ/L (98-107); CREATININE FOR GFR 0.93 MG/DL (0.55-1.30); GLOMERULAR FILTRATION RATE > 60.0 (>51); GLUCOSE, FASTING 281 MG/DL (70-100); POTASSIUM SERUM 3.8 MEQ/L (3.5-5.1); SODIUM LEVEL 133 MEQ/L (136-145)
[2019-12-01] MEDS: MORPHINE 2 MG/ML 1ML VIAL (J2270) IV PRN (05:46)
[2019-12-01] MEDS: SODIUM CHLORIDE 0.9% INJ 10 ML SYR IV SCH ×2 (06:00→18:19)
[2019-12-01] MEDS: FERROUS GLUCONATE 324 MG TAB PO SCH (08:19)
[2019-12-01] MEDS: FLUoxetine 20 MG CAP PO SCH (08:19)
[2019-12-01] MEDS: METOPROLOL TART 25 MG TABLET PO SCH (08:19)
[2019-12-01] MEDS: ENOXAPARIN 40MG/0.4ML SYRINGE (J1650 PER 10MG) SC SCH (08:19)
[2019-12-01] MEDS: LEVEMIR (INSULIN DETEMIR) 1 UNITS/0.01ML SC SCH (08:19)
[2019-12-01] MEDS: PANTOPRAZOLE 40MG VIAL (C9113 PER 1) IV SCH (08:20)
[2019-12-01] MEDS: SENOKOT S TAB PO SCH ×3 (08:20→20:11)
[2019-12-01] MEDS ORDERED: GOLYTELY SOLN 4000 ML BTL PO ONE (10:00)
[2019-12-01] MEDS: ONDANSETRON 4MG/2ML VIAL IV PRN (10:14)
--- NOTE | 2019-12-01 12:09 | IPNPDOC ---
Text Note Date of Service The patient was seen on 12/01/19. NOTE Interim events: -Copious stool output this AM and rectal tube came out --> nursing thus far unable to replace rectal tube and requiring frequent irrigation. Dr. Doty aware. Recommended holding off the golytely prep that was due per surgery today. Otherwise patient without complaints -Yesterday had period of severe hyperglycemia shortly after restarting a diet and TPN, requiring PRN regular insulin and adjustment of her SSI, as well as restarting her daily levemir 80U. This AM much improved. Subjective: -No acute issues overnight -Pain is well controlled except during jayy Physical Examination Vitals: HDS, afebrile General: morbidly obese, NAD, laying in bed, on room air ENT: anicteric, no injection, PERRLA, EOMI, MMM Neck: thick, otherwise supple, hirsute Chest: Clear to auscultation anterior field, no wheezing, rales or rhonchi Heart: Rate Normal, Regular Rhythm, Normal S1, Normal S2, no murmurs Abdomen: Hyperactive bowel sounds, obese, soft, no TTP Extremity: WWP, no LE pitting edema Skin: has L buttock/sacral dressing that per nursing is packed and dressed Neuro: Normal Speech, stable R sided hemiparesis per baseline, CN 3-12 WNL Psych Exam: AOx3 Labs: WBC 14.7 Hgb 8.5 na 133 K 3.8 Cr 0.93 glucose 281 Assessment 49 yo W with morbid obesity, DM, HTN, HLD, history of CVA, who was admitted directly Dr. Brian with L buttock necrotizing fasciitis c/b sepsis with noted fever, tachycardiac, leukocytosis, now s/p debridement doing well on zosyn now afebrile and HDS, pending colostomy. L buttock necrotizing fasciitis: -s/p debridement x 1 on 11/27 -continue empiric zosyn, day 4 -f/u blood cultures -11/28 MRSA negative -discontinue fluids at this time -s/p PICC, on TPN, per surgery -Planning for permanent colostomy on 12/02 -brewster and rectal tube per surgery recs, will replace rectal tube that came out, nursing has been unable to replace it this AM. Surgery aware -pain control per surgical team: morphine 2Q4PRN, Ketoralac [id number] Sepsis: fever, tachycardia, leukocytosis, ongoing soft tissue infection -s/p debridement of L buttock necrotizing fasciitis x 1 on 11/27, surgery onboard -continue empiric zosyn, day 4 -f/u blood cultures, NGTD -MRSA negative on 11/28 HTN: severe this AM -Switch from home metoprolol 25 BID to labetalol 100 BID HLD: -continue lipitor DM: -continue levemir 80U -Has 12U of regular insulin in her TPN formulation per surgery -SSI AC/HS -continue FSBG AC/HS -hypoglycemia protocol -continue clear liquid diet and ensure clear, as well as TPN per surgical team, history of CVA: with R sided paralysis -Holding ASA/plavix, pending recs from surgery DVT ppx: lovenox 40 QD Diet: clear liquid diet, ensure clear, on TPN GI ppx: was placed on IV PPI once daily, on senna+ BID VS,Fishbone, I+O VS, Fishbone, I+O Laboratory Tests 12/01/19 04:32 Vital Signs Date Time Temp Pulse Resp B/P (MAP) Pulse Ox O2 Delivery O2 Flow Rate FiO2 12/01/19 05:56 18 12/01/19 04:00 97.1 66 146/74 (98) 96 Room Air 11/30/19 04:00 2.0 I&O- Last 24 Hours up to 6 AM 12/01/19 06:00 Intake Total 1370 ml Output Total 3750 ml Balance -2380 ml HAVEN JAMES MD Dec 01, 2019 08:15
[2019-12-01] MEDS: LABETALOL 100 MG TAB PO SCH ×2 (12:55→20:13)
[2019-12-01] MEDS ORDERED: MORPHINE 4 MG/ML 1ML VIAL/SYRINGE (J2270) IV ONE (14:30)
[2019-12-01] MEDS ORDERED: DIAPER RELIEF PASTE (DESITIN) 60GM TOP PRN (17:00)
[2019-12-01] MEDS ORDERED: FAT EMULSION IV 20% 500 ML IV SCH (18:00)
[2019-12-01] MEDS ORDERED: ELECTROLYTE IV SCH (18:00)
[2019-12-01] MEDS ORDERED: DEX IV SCH (18:00)
[2019-12-01] MEDS ORDERED: INSULIN HUMAN REGULAR IV SCH (18:00)
[2019-12-01] MEDS ORDERED: CALC IV SCH (18:00)
[2019-12-01] MEDS ORDERED: AMINO AC IV SCH (18:00)
[2019-12-01] MEDS: ATORVASTATIN 20 MG TAB PO SCH (20:10)
[2019-12-02] VITALS (17 sets, daily range): BP systolic 141–162; BP diastolic 63–78; O2SAT 86–97
[2019-12-02] MEDS: ONDANSETRON 4MG/2ML VIAL IV PRN (00:10)
[2019-12-02] MEDS: NORCO, ANEXSIA 5/325MG TABLET (HYDROcodone/ACETAMINOPHEN) PO PRN ×2 (00:10→20:46)
[2019-12-02 05:13] LABS: HEMATOCRIT 26.9 % (36.0-47.0); HEMOGLOBIN 8.2 g/dl (12.0-15.5); MEAN CORPUSCULAR HEMOGLOBIN 24.8 pg (27.0-33.0); MEAN CORPUSCULAR HGB CONC 30.5 g/dl (32.0-36.5); MEAN CORPUSCULAR VOLUME 81.3 fl (80.0-96.0); PLATELET COUNT, AUTOMATED 500 10^3/uL (150-450); RED BLOOD COUNT 3.31 10^6/uL (4.00-5.40); WHITE BLOOD COUNT 15.7 10^3/uL (4.0-10.0)
[2019-12-02 05:29] LABS: BLOOD UREA NITROGEN 18 MG/DL (7-18); CALCIUM LEVEL 7.8 MG/DL (8.5-10.1); CARBON DIOXIDE LEVEL 24 MEQ/L (21-32); CHLORIDE LEVEL 102 MEQ/L (98-107); CREATININE FOR GFR 0.98 MG/DL (0.55-1.30); GLOMERULAR FILTRATION RATE > 60.0 (>51); GLUCOSE, FASTING 414 MG/DL (70-100); POTASSIUM SERUM 4.6 MEQ/L (3.5-5.1); SODIUM LEVEL 135 MEQ/L (136-145)
[2019-12-02] MEDS: HumaLOG INSULIN (NovoLOG) PER UNIT SC SCH ×3 (05:41→17:45)
[2019-12-02] MEDS: PIPERACILLIN/TAZOBACTAM SOD 3.375 GM in D5W MINI-BAG PLUS 50 ML IV SCH ×3 (05:42→17:45)
[2019-12-02] MEDS: SODIUM CHLORIDE 0.9% INJ 10 ML SYR IV SCH ×2 (05:42→17:45)
[2019-12-02] MEDS: FERROUS GLUCONATE 324 MG TAB PO SCH (08:22)
[2019-12-02] MEDS: LABETALOL 100 MG TAB PO SCH ×2 (08:22→20:46)
[2019-12-02] MEDS: SENOKOT S TAB PO SCH ×2 (08:22→20:35)
[2019-12-02] MEDS: FLUoxetine 20 MG CAP PO SCH (08:23)
[2019-12-02] MEDS: LEVEMIR (INSULIN DETEMIR) 1 UNITS/0.01ML SC SCH (08:23)
[2019-12-02] MEDS: ENOXAPARIN 40MG/0.4ML SYRINGE (J1650 PER 10MG) SC SCH (08:23)
[2019-12-02] MEDS: PANTOPRAZOLE 40MG VIAL (C9113 PER 1) IV SCH (08:23)
[2019-12-02] MEDS: MORPHINE 2 MG/ML 1ML VIAL (J2270) IV PRN (10:53)
[2019-12-02] MEDS ORDERED: GOLYTELY SOLN 4000 ML BTL PO ONE (11:00)
--- NOTE | 2019-12-02 13:45 | IPNPDOC ---
Text Note Date of Service The patient was seen on 12/02/19. NOTE Subjective: -No issues overnight, rectal tube replaced. Pain is well controlled. Physical Examination Vitals: HDS, afebrile General: morbidly obese, NAD, laying in bed, on room air ENT: anicteric, no injection, PERRLA, EOMI, MMM Neck: thick, otherwise supple, hirsute Chest: Clear to auscultation anterior field, no wheezing, rales or rhonchi Heart: Rate Normal, Regular Rhythm, Normal S1, Normal S2, no murmurs Abdomen: Hyperactive bowel sounds, obese, soft, no TTP Extremity: WWP, no LE pitting edema Skin: has L buttock/sacrum with dressing, rectal tube in place Neuro: Normal Speech, stable R sided hemiparesis per baseline, CN 3-12 WNL Psych Exam: AOx3 Labs: WBC q5.7 Hgb 8.2 K 4.6 Assessment 49 yo W with morbid obesity, DM, HTN, HLD, history of CVA, who was admitted directly Dr. Brian with L buttock necrotizing fasciitis c/b sepsis with noted fever, tachycardiac, leukocytosis, now s/p debridement now afebrile and HDS, pending colostomy. L buttock necrotizing fasciitis: -s/p debridement x 1 on 11/27 -continue empiric zosyn, day 5 -blood cultures were negative -11/28 MRSA negative -s/p PICC, on TPN, per surgery team -Planning for permanent colostomy on 12/02 -brewster and rectal tube in place per surgery recs. -pain control per surgical team: morphine 2Q4PRN, Ketoralac [id number] -getting golytely in preparation for colostomy tomorrow, NPO at midnight Sepsis: fever, tachycardia, leukocytosis, ongoing soft tissue infection -s/p debridement of L buttock necrotizing fasciitis x 1 on 11/27, surgery onboard -continue empiric zosyn, day 5 -Blood cultures were negative -MRSA negative on 11/28 HTN: improved since switching from lopressor to labetalol 100 BID -continue labetalol 100 BID HLD: -continue lipitor DM: -continue levemir 80U -Has 12U of regular insulin in her TPN formulation per surgery -SSI AC/HS -continue FSBG AC/HS -hypoglycemia protocol -continue clear liquid diet and ensure clear, as well as TPN per surgical team, history of CVA: with R sided paralysis -Holding ASA/plavix, pending surgery tomorrow DVT ppx: lovenox 40 QD Diet: clear liquid diet, ensure clear, on TPN GI ppx: was placed on IV PPI once daily, on senna+ BID VS,Fishbone, I+O VS, Fishbone, I+O Laboratory Tests 12/02/19 04:30 Vital Signs Date Time Temp Pulse Resp B/P (MAP) Pulse Ox O2 Delivery O2 Flow Rate FiO2 12/02/19 04:00 97.1 72 17 142/63 (89) 94 Room Air 11/30/19 04:00 2.0 I&O- Last 24 Hours up to 6 AM 12/02/19 06:00 Intake Total 2320 ml Output Total 1450 ml Balance 870 ml HAVEN JAMES MD Dec 02, 2019 08:14
[2019-12-02] MEDS ORDERED: FAT EMULSION IV 20% 500 ML IV SCH (18:00)
[2019-12-02] MEDS ORDERED: [UNRECOGNIZED DRUG - MIXTURE] IV SCH ×4 (18:00)
[2019-12-02] MEDS: ATORVASTATIN 20 MG TAB PO SCH (20:46)
[2019-12-03] VITALS (22 sets, daily range): BP systolic 117–165; BP diastolic 53–82; O2SAT 90–98
[2019-12-03] MEDS: HumaLOG INSULIN (NovoLOG) PER UNIT SC SCH ×5 (00:18→23:54)
[2019-12-03] MEDS: PIPERACILLIN/TAZOBACTAM SOD 3.375 GM in D5W MINI-BAG PLUS 50 ML IV SCH ×5 (00:18→23:55)
[2019-12-03] MEDS: ACETAMINOPHEN TAB 650MG DOSE (2X325MG) PO PRN (00:19)
[2019-12-03 04:57] LABS: HEMATOCRIT 25.1 % (36.0-47.0); HEMOGLOBIN 7.8 g/dl (12.0-15.5); MEAN CORPUSCULAR HEMOGLOBIN 24.6 pg (27.0-33.0); MEAN CORPUSCULAR HGB CONC 31.1 g/dl (32.0-36.5); MEAN CORPUSCULAR VOLUME 79.2 fl (80.0-96.0); PLATELET COUNT, AUTOMATED 506 10^3/uL (150-450); RED BLOOD COUNT 3.17 10^6/uL (4.00-5.40)
[2019-12-03] MEDS: SODIUM CHLORIDE 0.9% INJ 10 ML SYR IV SCH (05:09)
[2019-12-03] MEDS: ONDANSETRON 4MG/2ML VIAL IV PRN (05:09)
[2019-12-03 05:16] LABS: BLOOD UREA NITROGEN 17 MG/DL (7-18); CALCIUM LEVEL 7.8 MG/DL (8.5-10.1); CARBON DIOXIDE LEVEL 29 MEQ/L (21-32); CHLORIDE LEVEL 106 MEQ/L (98-107); CREATININE FOR GFR 0.99 MG/DL (0.55-1.30); GLOMERULAR FILTRATION RATE > 60.0 (>51); GLUCOSE, FASTING 178 MG/DL (70-100); POTASSIUM SERUM 4.1 MEQ/L (3.5-5.1); SODIUM LEVEL 139 MEQ/L (136-145)
[2019-12-03] MEDS ORDERED: propofoL 200 MG/20 ML VIAL As Ordered ONE (07:09)
[2019-12-03] MEDS ORDERED: ONDANSETRON 4MG/2ML VIAL As Ordered ONE ×2 (07:09→10:38)
[2019-12-03] MEDS ORDERED: ROCURONIUM BROMIDE 50 MG/5 ML VIAL As Ordered ONE (07:09)
[2019-12-03] MEDS ORDERED: fentaNYL 250 MCG/5 ML INJECTION (J3010) As Ordered ONE (07:09)
[2019-12-03] MEDS ORDERED: LIDOCAINE 2% 100MG/5ML SDV (FOR ANES.) As Ordered ONE (07:09)
[2019-12-03] MEDS ORDERED: dexameTHASONE 4 MG/ML 1ML VIAL (J1100 PER 1MG) As Ordered ONE (07:09)
[2019-12-03] MEDS ORDERED: MIDAZOLAM INJ 2MG/2ML VIAL (J2250 PER 1MG) As Ordered ONE (07:09)
[2019-12-03] MEDS ORDERED: BUPIVACAINE/EPIN 0.25% 30 ML VIAL As Ordered ONE (07:13)
--- NOTE | 2019-12-03 07:28 | IPNPDOC ---
Text Note Date of Service The patient was seen on 12/03/19. NOTE No acute events overnight. Denies any fevers, chills, or cough. She had the d ressing changed 3 times last night due to persistent drainage around the rectal tube. VSSAF NAD skin - will look at wound during surgery labs - below A) 49y/o female POD#5 s/p excisional debridement for necrotizing fasciitis. sepsis secondary to above resolved P) increase abx coverage TPN rectal tube and brewster plan for diverting colostomy today Efrem Brian DO VS,Tiffany, I+O VS, Tiffany, I+O Laboratory Tests 12/03/19 04:36 Vital Signs Date Time Temp Pulse Resp B/P (MAP) Pulse Ox O2 Delivery O2 Flow Rate FiO2 12/03/19 06:54 96.7 85 18 138/82 95 Room Air 12/03/19 04:00 2.0 I&O- Last 24 Hours up to 6 AM 12/03/19 06:00 Intake Total 1328 ml Output Total 2125 ml Balance -797 ml WILLIAM BRIAN DO Dec 03, 2019 07:28
--- NOTE | 2019-12-03 07:33 | IPNPDOC ---
Text Note Date of Service The patient was seen on 12/02/19. NOTE No acute events over the weekend. Denies any fevers, chills, or cough. Pain is controlled, and she is tolerating the clq diet with TPN. She denies any dressing changes over the weekend, but nursing have changed it multiple times a day. She has a very flat affect, and denies any problems with anything. VSSAF NAD skin - dressing c/d/i currently A) 49y/o female POD#4 s/p excisional debridement for necrotizing fasciitis. sepsis secondary to above resolved P) abx TPN golytely NPO after midnight rectal tube and brewster plan for diverting colostomy tomorrow Efrem Brian DO VS,Tiffany, I+O VS, Tiffany, I+O Laboratory Tests 12/03/19 04:36 Vital Signs Date Time Temp Pulse Resp B/P (MAP) Pulse Ox O2 Delivery O2 Flow Rate FiO2 12/03/19 06:54 96.7 85 18 138/82 95 Room Air 12/03/19 04:00 2.0 I&O- Last 24 Hours up to 6 AM 12/03/19 06:00 Intake Total 1328 ml Output Total 2125 ml Balance -797 ml WILLIAM BRIAN DO Dec 03, 2019 07:33
[2019-12-03] MEDS ORDERED: D5W/0.9% SODIUM CHLORIDE 1,000 ML IV SCH (07:45)
[2019-12-03] MEDS ORDERED: SUCCINYLCHOLINE 100 MG/5 ML SYRINGE (J0330) As Ordered ONE (07:49)
[2019-12-03] MEDS: CLINDAMYCIN 600 MG in IV 1 EA IV SCH ×3 (08:50→20:21)
[2019-12-03] MEDS: LABETALOL 100 MG TAB PO SCH ×2 (09:00→20:21)
[2019-12-03] MEDS: SENOKOT S TAB PO SCH ×2 (09:00→20:21)
[2019-12-03] MEDS ORDERED: SUGAMMADEX SODIUM 500 MG/5 ML VIAL (BRIDION) As Ordered ONE (09:17)
[2019-12-03] MEDS ORDERED: ACETAMINOPHEN 1000MG 100ML IV BTL (OFIRMEV) (J0131 PER 10MG) As Ordered ONE (09:17)
[2019-12-03] MEDS ORDERED: KETOROLAC 60 MG/2 ML VIAL As Ordered ONE (09:28)
[2019-12-03] MEDS ORDERED: CLINDAMYCIN 600 MG/50 ML PREMIX BAG As Ordered ONE (09:49)
[2019-12-03] MEDS ORDERED: LABETALOL 100MG/20ML VIAL As Ordered ONE (10:29)
[2019-12-03] MEDS ORDERED: HYDROMORPHONE HCL 0.5 MG/ 0.5 ML SYRINGE (J1170 PER 1) IV PRN (10:30)
[2019-12-03] MEDS ORDERED: LR 1,000 ML IV SCH (10:30)
[2019-12-03] MEDS ORDERED: oxyCODONE 5MG TAB PO PRN (10:30)
[2019-12-03] MEDS ORDERED: fentaNYL 100 MCG/2 ML INJECTION (J3010) IV PRN (10:30)
[2019-12-03] MEDS: LABETALOL 100MG/20ML VIAL IV SCH ×7 (10:30→11:00)
[2019-12-03] MEDS ORDERED: ONDANSETRON 4MG/2ML VIAL IV PRN (10:30)
[2019-12-03] MEDS ORDERED: METOCLOPRAMIDE INJ 10MG/2ML VIAL (J2765 PER 1) As Ordered ONE (11:00)
[2019-12-03] MEDS ORDERED: fentaNYL 100 MCG/2 ML INJECTION (J3010) As Ordered ONE (11:05)
--- NOTE | 2019-12-03 11:24 | IPNPDOC ---
Text Note Date of Service The patient was seen on 12/03/19. NOTE Interim events: -PICC line came out yesterday evening, so I dc'd it, to be replaced after her ongoing surgery, so no TPN was administered last night Subjective: -No issues overnight -Pain well controlled Physical Examination Vitals: HDS, afebrile General: morbidly obese, NAD, laying in bed, on room air ENT: anicteric, no injection, PERRLA, EOMI, MMM Neck: thick, otherwise supple, hirsute Chest: Clear to auscultation anterior field, no wheezing, rales or rhonchi Heart: RRR, no mrg Abdomen: Normoactive bowel sounds, obese, soft, no TTP Extremity: WWP, no LE pitting edema Skin: L buttock/sacrum dressed with rectal tube in place Neuro: Normal Speech, CN 3-12 WNL Psych Exam: AOx3 Labs: WBC 18 Hgb 7.8 (getting 1u pRBCs) K 4.1 Cr 0.99 Assessment: 49 yo W with morbid obesity, DM, HTN, HLD, history of CVA, who was admitted directly Dr. Brian with L buttock necrotizing fasciitis c/b sepsis with noted fever, tachycardiac, leukocytosis, now s/p debridement now afebrile and HDS, pending diverting colostomy today. L buttock necrotizing fasciitis: -s/p debridement x 1 on 11/27 -continue empiric zosyn, day 6 -blood cultures were negative -11/28 MRSA negative -s/p PICC, came out, due for another PICC line to be placed after surgery, to resume TPN, per surgery team -Planning for permanent colostomy this morning, 12/02 -brewster and rectal tube in place per surgery recs. -pain control per surgical team: morphine 2Q4PRN, Ketoralac [id number] -NPO for surgery Sepsis: fever, tachycardia, leukocytosis, ongoing soft tissue infection. Resolved. -s/p debridement of L buttock necrotizing fasciitis x 1 on 11/27, surgery onboard -continue empiric zosyn, day 6 -Blood cultures were negative -MRSA negative on 11/28 HTN: improved since switching from lopressor to labetalol 100 BID -continue labetalol 100 BID HLD: -continue lipitor DM: -continue levemir 80U -Has 12U of regular insulin in her TPN formulation per surgery -SSI AC/HS -continue FSBG AC/HS -hypoglycemia protocol -NPO for surgery,to continue clear liquid diet and ensure clear, as well as TPN per surgical team after surgery history of CVA: with R sided paralysis -Holding ASA/plavix, for surgery DVT ppx: lovenox 40 QD Diet: NPO for surgery, to continue clear liquid diet, ensure clear, on TPN post surgery GI ppx: was placed on IV PPI once daily, on senna+ BID VS,Fishbone, I+O VS, Fishbone, I+O Laboratory Tests 12/03/19 04:36 Vital Signs Date Time Temp Pulse Resp B/P (MAP) Pulse Ox O2 Delivery O2 Flow Rate FiO2 12/03/19 06:54 96.7 85 18 138/82 95 Room Air 12/03/19 04:00 2.0 I&O- Last 24 Hours up to 6 AM 12/03/19 06:00 Intake Total 1328 ml Output Total 2125 ml Balance -797 ml HAVEN JAMES MD Dec 03, 2019 07:55
[2019-12-03] MEDS ORDERED: METOCLOPRAMIDE INJ 10MG/2ML VIAL (J2765 PER 1) IV PRN (11:30)
--- NOTE | 2019-12-03 12:23 | CR.PDOC ---
Plastic Surgery Consultation Date of Consultation 12/03/19 History and Physical CONSULT REPORT FOR: Dr Brian REASON FOR CONSULTATION: Left groin necrotizing fasciatis wound HISTORY OF PRESENT ILLNESS: 49 y/o female with history of morbid obesity, prior CVA, DM, HTN, HLD, recent of [facility] who presented for follow up with Dr. Brian and was found to be febrile to 101 and on examination had an extensive sacral decubitus wound that was c/f necrotizing fasciitis and sent for direct admission for surgical debridement and treatment of sepsis. Patient is scheduled to have a diverting colostomy today due to extensive left groin wound which has constant fecal contamination due to feces. I have met a patient in holding area with the plan to examine her in operating room. She gave us permission to do so. She is feeling well today. No other complains. PAST MEDICAL HISTORY: 1. Obesity, DM, HTN, CVA. PAST SURGICAL HISTORY: INCLUDES: 1. Necrotizing fasciatis debridement, diverting colostomy. PREVIOUS ANESTHESIA REACTIONS: denies ALLERGIES: Please see below. FAMILY HISTORY: none contributory. HOME MEDICATIONS: Please see below. REVIEW OF SYSTEMS: GENERAL: Denies chills, reports weight gain,. HEENT: Denies blurred vision and double vision. Denies ear symptoms. Denies hoarseness. NECK: Denies any neck pain]. CARDIOVASCULAR: Denies chest pain and palpitations. MUSCULOSKELETAL: Denies arthralgias, back pain and thrombophlebitis. SKIN: Denies rash. Open wound left groin. NEUROLOGIC: Denies headache, stroke and transient ischemic attack. PSYCHIATRIC: Denies anxiety and depression. ENDOCRINE: Denies thyroid disease. HEMATOLOGY/ONCOLOGY: Denies bleeding or clotting disorder. HEART: Denies any chest pains, palpitations, paroxysmal dyspnea, orthopnea. PULMONARY: Denies chronic cough, dyspnea and wheezing. GASTROINTESTINAL: Denies rectal bleeding, family history of colon cancer, constipation, diarrhea, dysphagia, heartburn and jaundice. GENITOURINARY: Denies dysuria, frequency, hematuria and nocturia. ENDOCRINE: Denies polydipsia, polyphagia, polyuria, heat or cold intolerance. INFECTIOUS: Denies any recent upper respiratory tract infection, UTI, need for use of antibiotics. NUTRITION: Reports good appetite. PHYSICAL EXAMINATION: VITALS SIGNS: Please see below. GENERAL APPEARANCE:Patient seen, laying in bed, awake, alert, and oriented. Comfortable, in no acute distress. SKIN: Warm and moist. Rectal tube in place. Large open wound left groin extending to left labia majora. Wound grossly contaminated with fecal matter and powder. No drainage. No necrosis. LUNGS: Clear to auscultation bilaterally. No wheezing appreciated. HEART: No chest wall abnormalities. Regular rate and rhythm with no murmurs appreciated. ABDOMEN: Abdomen is soft, non-tender, non-distended. Diverting colostomy left lower abdomen EXTREMITIES: Extremities have no deformities. No edema identified. No calf tenderness. LABORATORY DATA: Please see below. IMPRESSION: Left groin necrotizing fasciatis wound. PLANS: Rectal tube is planned to be in place until tomorrow. Colostomy present Place stay sutures in the left labial part of the wound Pack with Bethadine soaked gauze bid When wound is film cleaner, will attempt with the wound vac application. Will follow the patient. Vital Signs Vital Signs Date Time Temp Pulse Resp B/P (MAP) Pulse Ox O2 Delivery O2 Flow Rate FiO2 12/03/19 11:50 96.6 70 16 141/65 (90) Room Air 91 12/03/19 10:50 4 12/03/19 04:00 2.0 I&Os I&O- Last 24 Hours up to 6 AM 12/03/19 06:00 Intake Total 1328 ml Output Total 2125 ml Balance -797 ml Laboratory Data Labs 24H Laboratory Tests 2 12/02/19 17:26: Bedside Glucose (Misc Panel) 371H 12/02/19 23:38: Bedside Glucose (Misc Panel) 250H 12/03/19 04:36: Nucleated Red Blood Cells % (auto) 0.3H, Anion Gap 4L, Glomerular Filtration Rate > 60.0, Calcium Level 7.8L 12/03/19 04:44: Bedside Glucose (Misc Panel) 175H 12/03/19 10:11: Bedside Glucose (Misc Panel) 197H CBC/BMP Laboratory Tests 12/03/19 04:36 Microbiology Microbiology 11/28/19 Blood Culture - Preliminary, Resulted No Growth after 72 hours. All specime... Home Medications Scheduled Aspirin (Aspirin) 81 Mg Tab.chew, 81 MG PO DAILY, (Reported) Atorvastatin Calcium (Atorvastatin Calcium) 40 Mg Tablet, 40 MG PO QHS, (Reported) Ceftriaxone Sodium (Ceftriaxone) 1 Gm Vial, 1 GM IM DAILY, (Reported) AT 1400, FOR 3 DAYS, STARTED 11/27/19, NO DOSE GIVEN 11/28/19 Clopidogrel Bisulfate (Clopidogrel) 75 Mg Tablet, 75 MG PO DAILY, (Reported) Ferrous Gluconate (Ferrous Gluconate) 324 Mg Tablet, 324 MG PO DAILY, (Reported) Fluoxetine Hcl (Fluoxetine HCl) 20 Mg Capsule, 20 MG PO DAILY, (Reported) Insulin Glargine,Hum.rec.anlog (Basaglar Kwikpen U-100) 100 Unit/1 Ml Insuln.pen, 80 UNIT SC QHS, (Reported) Insulin Human Lispro (Humalog) 100 Unit/1 Ml Vial, 1 DOSE SC AC, (Reported) PER SLIDING SCALE Linagliptin (Tradjenta) 5 Mg Tablet, 5 MG PO DAILY, (Reported) Melatonin (Melatonin) 10 Mg Capsule, 10 MG PO QHS, (Reported) Metoprolol Tartrate (Metoprolol Tartrate) 25 Mg Tablet, 25 MG PO BID, (Reported) Polyethylene Glycol 3350 (Miralax) 119 Gm Powder, 17 GM PO DAILY, (Reported) dilute in 8 ounces of water or juice Sennosides (Senna Lax) 8.6 Mg Tablet, 2 TAB PO BID, (Reported) Sorbitol Solution (Sorbitol 70%) 1 Ml Solution, 30 ML PO Q2D, (Reported) HOLD FOR DIARRHEA Scheduled PRN Acetaminophen (Acetaminophen) 325 Mg Tablet, 650 MG PO Q4H PRN for PAIN, (R eported) Bisacodyl (Bisacodyl) 10 Mg Supp.rect, 10 MG MO DAILY PRN for CONSTIPATION, (Reported) Glucagon,Human Recombinant (Glucagon Emergency Kit) 1 Mg Vial, 1 MG IM ASDIRECTED PRN for LOW BLOOD SUGAR, (Reported) Guaifenesin (Guaifenesin) 100 Mg/5 Ml Liquid, 10 ML PO QID PRN for COUGH, (Reported) Magnesium Hydroxide (Milk of Magnesia) 400 Mg/5 Ml Oral.susp, 30 ML PO DAILY PRN for CONSTIPATION, (Reported) Ondansetron HCl (Ondansetron HCl) 4 Mg Tablet, 4 MG PO Q6H PRN for NAUSEA OR VOMITING, (Reported) Sodium Phosphate,[place]-Dibasic (Enema) 133 Ml Enema, 1 PING MO DAILY PRN for CONSTIPATION, (Reported) Allergies Coded Allergies: No Known Allergies (Unverified , 10/19/18) BLAIR ADAMS DO Dec 03, 2019 12:23
[2019-12-03] MEDS: FLUoxetine 20 MG CAP PO SCH (13:49)
[2019-12-03] MEDS: PANTOPRAZOLE 40MG VIAL (C9113 PER 1) IV SCH (13:49)
[2019-12-03] MEDS: FERROUS GLUCONATE 324 MG TAB PO SCH (13:49)
[2019-12-03] MEDS: ENOXAPARIN 40MG/0.4ML SYRINGE (J1650 PER 10MG) SC SCH (13:49)
[2019-12-03] MEDS: LEVEMIR (INSULIN DETEMIR) 1 UNITS/0.01ML SC SCH (13:50)
--- NOTE | 2019-12-03 14:47 | REP ---
CHEST, PORTABLE: AP portable view of the chest is performed. COMPARISON: 05/23/2018 There is mild cardiomegaly and pulmonary venous hypertension. No infiltrates are seen. Mediastinal silhouette appears unremarkable. Patient is rotated towards the right. IMPRESSION: Cardiomegaly and pulmonary venous hypertension. No acute infiltrate. Electronically Signed by James Ashby MD 12/03/2019 03:23 P
[2019-12-03] MEDS ORDERED: SLF 3 ML SYR IV PRN (16:00)
[2019-12-03] MEDS: NORCO, ANEXSIA 5/325MG TABLET (HYDROcodone/ACETAMINOPHEN) PO PRN ×2 (17:47→23:55)
[2019-12-03] MEDS: ATORVASTATIN 20 MG TAB PO SCH (20:21)
[2019-12-03] MEDS: SLF 3 ML SYR IV SCH (20:22)
[2019-12-04] VITALS (26 sets, daily range): BP systolic 122–183; BP diastolic 65–82; O2SAT 87–100
[2019-12-04] MEDS: CLINDAMYCIN 600 MG in IV 1 EA IV SCH ×4 (01:13→19:41)
[2019-12-04] MEDS: ONDANSETRON 4MG/2ML VIAL IV PRN (03:52)
[2019-12-04 04:29] LABS: HEMATOCRIT 28.1 % (36.0-47.0); HEMOGLOBIN 8.8 g/dl (12.0-15.5); MEAN CORPUSCULAR HEMOGLOBIN 25.8 pg (27.0-33.0); MEAN CORPUSCULAR HGB CONC 31.3 g/dl (32.0-36.5); MEAN CORPUSCULAR VOLUME 82.4 fl (80.0-96.0); PLATELET COUNT, AUTOMATED 545 10^3/uL (150-450); RED BLOOD COUNT 3.41 10^6/uL (4.00-5.40); WHITE BLOOD COUNT 15.5 10^3/uL (4.0-10.0)
[2019-12-04 04:50] LABS: BLOOD UREA NITROGEN 18 MG/DL (7-18); CALCIUM LEVEL 7.8 MG/DL (8.5-10.1); CARBON DIOXIDE LEVEL 28 MEQ/L (21-32); CHLORIDE LEVEL 106 MEQ/L (98-107); CREATININE FOR GFR 1.01 MG/DL (0.55-1.30); GLOMERULAR FILTRATION RATE > 60.0 (>51); GLUCOSE, FASTING 159 MG/DL (70-100); MAGNESIUM LEVEL 1.9 MG/DL (1.8-2.4); POTASSIUM SERUM 4.2 MEQ/L (3.5-5.1); SODIUM LEVEL 139 MEQ/L (136-145)
[2019-12-04] MEDS: PIPERACILLIN/TAZOBACTAM SOD 3.375 GM in D5W MINI-BAG PLUS 50 ML IV SCH ×3 (05:18→18:00)
[2019-12-04] MEDS: HumaLOG INSULIN (NovoLOG) PER UNIT SC SCH ×4 (05:19→21:00)
[2019-12-04] MEDS: SLF 3 ML SYR IV SCH ×3 (05:19→21:09)
--- NOTE | 2019-12-04 08:16 | IPNPDOC ---
Text Note Date of Service The patient was seen on 12/04/19. NOTE No acute events overnight. Denies any fevers, chills, or cough. She is tolera ting the liquid diet, and already has some stool in the ostomy. VSSAF NAD abd - soft, obese, TTP appropriate, ostomy is pink with stool in the bag labs - below A) 49y/o female POD#6 s/p excisional debridement for necrotizing fasciitis. POD#1 s/p diverting colostomy sepsis secondary to above resolved P) abx dc TPN rectal tube dc brewster reg diet dressing changes BID with betadine monitor labs Efrem Brian DO VS,Fishbone, I+O VS, Fishbone, I+O Laboratory Tests 12/04/19 04:12 Vital Signs Date Time Temp Pulse Resp B/P (MAP) Pulse Ox O2 Delivery O2 Flow Rate FiO2 12/04/19 06:00 97 Nasal Cannula 2.0 12/04/19 04:00 96.6 72 18 122/70 (87) 12/03/19 11:50 91 I&O- Last 24 Hours up to 6 AM 12/04/19 06:00 Intake Total 1970 ml Output Total 1425 ml Balance 545 ml WILLIAM BRIAN DO Dec 04, 2019 08:16
[2019-12-04] MEDS: PANTOPRAZOLE 40MG VIAL (C9113 PER 1) IV SCH (08:24)
[2019-12-04] MEDS: LEVEMIR (INSULIN DETEMIR) 1 UNITS/0.01ML SC SCH (08:25)
[2019-12-04] MEDS: ENOXAPARIN 40MG/0.4ML SYRINGE (J1650 PER 10MG) SC SCH (08:25)
[2019-12-04] MEDS: FERROUS GLUCONATE 324 MG TAB PO SCH (08:26)
[2019-12-04] MEDS: SENOKOT S TAB PO SCH ×2 (08:26→21:08)
[2019-12-04] MEDS: FLUoxetine 20 MG CAP PO SCH (08:26)
[2019-12-04] MEDS: LABETALOL 100 MG TAB PO SCH ×2 (08:48→21:08)
--- NOTE | 2019-12-04 13:23 | IPNPDOC ---
Text Note Date of Service The patient was seen on 12/04/19. NOTE Interim events: -She had colostomy surgery -was started on clindamycin? while on zosyn, despite being MRSA negative Subjective: -No issues overnight -Pain well controlled Physical Examination Vitals: HDS, afebrile General: morbidly obese, NAD, laying in bed, on room air ENT: anicteric, no injection, PERRLA, EOMI, MMM Neck: thick, otherwise supple, hirsute Chest: Clear to auscultation anterior field, no wheezing, rales or rhonchi Heart: RRR, no mrg Abdomen: Normoactive bowel sounds, obese, soft, no TTP, new ostomy in place. Extremity: WWP, no LE pitting edema Skin: L buttock/sacrum dressed Neuro: Normal Speech, CN 3-12 WNL Psych Exam: AOx3 Labs: WBC 15.5 Hgb 8.8 K 4.2 Cr 1.01 mag 1.9 Assessment: 49 yo W with morbid obesity, DM, HTN, HLD, history of CVA, who was admitted directly Dr. Brian with L buttock necrotizing fasciitis c/b sepsis with noted fever, tachycardiac, leukocytosis, now s/p debridement and diverting colostomy. L buttock necrotizing fasciitis: -s/p debridement x 1 on 11/27 -s/p diverting colostomy on 12/02 -continue empiric zosyn, day 7 -was started on clindamycin on 12/02, per surgery, discontinued, was MRSA negative on 11/28 -blood cultures were negative -11/28 MRSA negative -brewster and rectal tube remain in place -Plastics now onboard -pain control per surgical team: morphine 2Q4PRN, Ketoralac [id number] Sepsis: fever, tachycardia, leukocytosis, ongoing soft tissue infection. Resolved. -s/p debridement of L buttock necrotizing fasciitis x 1 on 11/27 and diverting colostomy on 12/02, surgery onboard -continue empiric zosyn, day 7 -Blood cultures were negative -MRSA negative on 11/28 HTN: improved since switching from lopressor to labetalol 100 BID -continue labetalol 100 BID HLD: -continue lipitor DM: -continue levemir 80U -SSI AC/HS -continue FSBG AC/HS -hypoglycemia protocol -Currently on clear liquid diet and ensure clear, per surgery team history of CVA: with R sided paralysis -Holding ASA/plavix, in the setting of recent surgeries DVT ppx: lovenox 40 QD Diet: Clear liquid diet, ensure clear GI ppx: IV PPI once daily, on senna+ BID VS,Fishbone, I+O VS, Fishbone, I+O Laboratory Tests 12/04/19 04:12 Vital Signs Date Time Temp Pulse Resp B/P (MAP) Pulse Ox O2 Delivery O2 Flow Rate FiO2 12/04/19 06:00 97 Nasal Cannula 2.0 12/04/19 04:00 96.6 72 18 122/70 (87) 12/03/19 11:50 91 I&O- Last 24 Hours up to 6 AM 12/04/19 06:00 Intake Total 1970 ml Output Total 1425 ml Balance 545 ml HAVEN JAMES MD Dec 04, 2019 07:25
[2019-12-04] MEDS: NORCO, ANEXSIA 5/325MG TABLET (HYDROcodone/ACETAMINOPHEN) PO PRN (16:29)
[2019-12-04] MEDS ORDERED: guaiFENesin ER 600 MG TAB PO SCH (21:00)
[2019-12-04] MEDS: ACETAMINOPHEN TAB 650MG DOSE (2X325MG) PO PRN (21:08)
[2019-12-04] MEDS: ATORVASTATIN 20 MG TAB PO SCH (21:08)
[2019-12-05] MEDS: PIPERACILLIN/TAZOBACTAM SOD 3.375 GM in D5W MINI-BAG PLUS 50 ML IV SCH ×3 (01:00→12:52)
[2019-12-05] MEDS: CLINDAMYCIN 600 MG in IV 1 EA IV SCH ×2 (02:00→07:15)
[2019-12-05] MEDS: NORCO, ANEXSIA 5/325MG TABLET (HYDROcodone/ACETAMINOPHEN) PO PRN ×2 (05:01→14:55)
[2019-12-05 06:00] VITALS: BP 166/85
[2019-12-05] MEDS: SLF 3 ML SYR IV SCH ×3 (06:00→21:08)
[2019-12-05 06:15] LABS: HEMATOCRIT 28.1 % (36.0-47.0); HEMOGLOBIN 8.4 g/dl (12.0-15.5); MEAN CORPUSCULAR HEMOGLOBIN 25.1 pg (27.0-33.0); MEAN CORPUSCULAR HGB CONC 29.9 g/dl (32.0-36.5); MEAN CORPUSCULAR VOLUME 83.9 fl (80.0-96.0); PLATELET COUNT, AUTOMATED 459 10^3/uL (150-450); RED BLOOD COUNT 3.35 10^6/uL (4.00-5.40)
[2019-12-05 06:42] LABS: BLOOD UREA NITROGEN 13 MG/DL (7-18); CARBON DIOXIDE LEVEL 25 MEQ/L (21-32); CHLORIDE LEVEL 107 MEQ/L (98-107); CREATININE FOR GFR 0.91 MG/DL (0.55-1.30); GLOMERULAR FILTRATION RATE > 60.0 (>51); GLUCOSE, FASTING 118 MG/DL (70-100); MAGNESIUM LEVEL 1.7 MG/DL (1.8-2.4); POTASSIUM SERUM 4.2 MEQ/L (3.5-5.1); SODIUM LEVEL 140 MEQ/L (136-145)
[2019-12-05] MEDS: LABETALOL 100 MG TAB PO SCH ×2 (08:23→21:07)
[2019-12-05] MEDS: FERROUS GLUCONATE 324 MG TAB PO SCH (08:23)
[2019-12-05] MEDS: FLUoxetine 20 MG CAP PO SCH (08:23)
[2019-12-05] MEDS: ENOXAPARIN 40MG/0.4ML SYRINGE (J1650 PER 10MG) SC SCH (08:24)
[2019-12-05] MEDS: SENOKOT S TAB PO SCH ×2 (08:24→21:07)
[2019-12-05] MEDS: HumaLOG INSULIN (NovoLOG) PER UNIT SC SCH ×5 (08:25→21:00)
[2019-12-05] MEDS: PANTOPRAZOLE 40MG VIAL (C9113 PER 1) IV SCH (08:25)
[2019-12-05] MEDS: LEVEMIR (INSULIN DETEMIR) 1 UNITS/0.01ML SC SCH (08:26)
--- NOTE | 2019-12-05 08:28 | IPNPDOC ---
Text Note Date of Service The patient was seen on 12/05/19. NOTE No acute events overnight. Denies any fevers, chills, or cough. She is tolera ting the regular diet, and is working with PT again. VSSAF NAD abd - soft, obese, TTP appropriate, ostomy is pink with stool in the bag skin - dressing just changed c/d/i labs - below A) 49y/o female POD#7 s/p excisional debridement for necrotizing fasciitis. POD#2 s/p diverting colostomy sepsis secondary to above resolved P) abx brewster reg diet dressing changes BID with Betadine monitor labs PT plan on return to rehab once cleared by PT plan for wound vac placement once infection clears up. Efrem Brian DO VS,Tiffany, I+O VS, Tiffany, I+O Laboratory Tests 12/05/19 05:34 12/05/19 05:35 Vital Signs Date Time Temp Pulse Resp B/P (MAP) Pulse Ox O2 Delivery O2 Flow Rate FiO2 12/05/19 06:00 98.5 82 22 166/85 (112) 94 Room Air 12/04/19 23:00 2.0 12/03/19 11:50 91 I&O- Last 24 Hours up to 6 AM 12/05/19 06:00 Intake Total 746 ml Output Total 1050 ml Balance -304 ml WILLIAM BRIAN DO Dec 05, 2019 08:28
[2019-12-05] MEDS ORDERED: CLOPIDOGREL 75 MG TAB PO SCH (09:00)
[2019-12-05] MEDS ORDERED: ASPIRIN 81 MG CHEW TABLET PO SCH (09:00)
--- NOTE | 2019-12-05 09:27 | RO ---
DATE OF PROCEDURE: 12/03/2019 PREOPERATIVE DIAGNOSIS: Necrotizing fasciitis. POSTOPERATIVE DIAGNOSIS: Necrotizing fasciitis. PROCEDURE: Robotic mobilization of the sigmoid colon with diverting colostomy creation and rectal stump as well as a washout of the perineal wound with partial closure of the anterior portion of the wound. SURGEON: Dr. Brian ARBOREAL SCIENTIST: Sarah Albarran NP ANESTHESIA: General. ESTIMATED BLOOD LOSS (EBL): 10. COMPLICATIONS: None. INDICATIONS FOR PROCEDURE: The patient is a 49-year-old female who presented last week on with necrotizing fasciitis of the peritoneum on the left side into the buttocks. She had extensive debridement then, however it was right up against this wall of the rectum and recommendation was then proceed with a diverting colostomy. Risks and benefits of the procedure not limited but including bleeding, infection, hernia formation, damage to surrounding structure, need for further surgery were discussed in detail with the patient. Informed consent was obtained and the procedure was planned for this morning. DESCRIPTION OF PROCEDURE: Patient brought back to operating room #7. After sufficient sedation, the abdomen was sterilely prepped and draped. Next, a time-out was done to confirm proper patient and proper procedure. Following that 8 mm incision made left lower quadrant, Veress needle inserted and the abdomen was insufflated to 50 mmHg. Veress needle was then removed. An 8 mm OptiView robotic port was placed. Once the abdomen was entered, three more robotic ports were placed diagonally from the left upper quadrant to right lower quadrant. The right inferior one was a 12 mm port large enough to be used for the stapler. Ports were then placed. The site for the ostomy was then located in the left midabdomen. Skin and subcutaneous tissue was all dissected and removed all way down to the anterior fascia using cautery. Once that was done, a 5 mm port was placed through the fascia at that site to long the location of the colostomy. Next, the robot was docked to the ports. Sigmoid colon was identified. It was elevated up in the air. Lateral peritoneal reflection was taken down using the monopolar scissors. Once that was completed from medial to lateral dissection was created through the mesentery creating a window of the rectosigmoid junction. Two loads with the green 45 mm stapler were then used to transect the rectosigmoid. Once that was completed, the mesocolon was dissected proximally for a sufficient distant to be able to bring the sigmoid colon up to the 5 mm port site. Once that was completed, a grasper was placed through the 5 mm port site to grab onto the colon. The robot was then undocked and moved out of the way. The fascia was opened up at the 5 mm port site. The bowel was grabbed with [place]'s and brought out through the incision with minimal resistance. The colostomy was then matured with interrupted #3-0 Vicryl sutures. The skin incisions were then closed with mickey. The abdomen cleaned and dried, 4 x 4's and tape were applied along with a colostomy appliance. Once that was completed, the left leg was elevated anteriorly. The wound was irrigated with some Betadine and saline. Dr. Urias was consulted for wound care and she was able to get a good idea of how large for the location of the wound was. She recommended closure of the anterior portion with some interrupted horizontal mattress sutures. I placed three interrupted nylon horizontal mattresses basically along the left lateral vagina and labia majora. Once that was completed, the wound was packed with Betadine. Zinc oxide dressing was placed around the skin around it and this was all covered with ABDs. The patient was then awakened from anesthesia, sent to postanesthesia care unit (PACU) in stable condition, thus ending procedure.
[2019-12-05 14:00] VITALS: BP 149/67
[2019-12-05] MEDS ORDERED: FLUCONAZOLE 100 MG TAB PO ONE (15:00)
[2019-12-05 15:27] LABS: ANTI-STREPTOLYSIN O QUANT 24.4 IU/ML (<214.0); C REACTIVE PROTEIN QUANTITATIV 6.47 MG/DL (0.00-0.30)
[2019-12-05] MEDS ORDERED: MAG SULF 1GM/100ML (MAG RUN) 1 GM in IV 1 EA IV ONE (16:15)
--- NOTE | 2019-12-05 16:22 | IPNPDOC ---
Text Note Date of Service The patient was seen on 12/05/19. NOTE Interim events: -No acute complaints this morning -Seen by surgery this AM, cleared for discharge from a surgical standpoint, to follow up outpatient with dressing changed with betadine BID and tentative plan for wound van once infection is resolved. -Consulted infectious disease for antibiotic planning for nec fasc, given she did not have wound culture data to inform selection Subjective: -No issues overnight -Pain well controlled Physical Examination Vitals: HDS, afebrile General: morbidly obese, NAD, laying in bed, on room air ENT: poor dentition, most teeth missing, anicteric, no injection, PERRLA, EOMI, MMM Neck: thick, otherwise supple, hirsute Chest: Clear to auscultation anterior field, no wheezing, rales or rhonchi Heart: RRR, no mrg Abdomen: Normoactive bowel sounds, obese, soft, no TTP, new ostomy in place, midline wound dressing c/d/i Extremity: WWP, no LE pitting edema Skin: L buttock/sacrum dressed Neuro: Normal Speech, CN 3-12 WNL Psych Exam: AOx3 Labs: WBC 12 Hgb 8.4 K 4.2 Cr 0.91 mag 1.7 Assessment: 49 yo W with morbid obesity, DM, HTN, HLD, history of CVA, who was admitted directly Dr. Brian with L buttock necrotizing fasciitis c/b sepsis with noted fever, tachycardiac, leukocytosis, now s/p debridement and diverting colostomy pending infectious disease consult for nec fasc antibiotic treatment plan. L buttock necrotizing fasciitis: -s/p debridement x 1 on 11/27 -s/p diverting colostomy on 12/02 -s/p 7d of zosyn, switched to ceftin/flagyl + fluconazole per ID -blood cultures were negative -11/28 MRSA negative -pain control per surgical team: morphine [id number], Ketoralac [id number] Sepsis: fever, tachycardia, leukocytosis, ongoing soft tissue infection. Resolved. -s/p debridement of L buttock necrotizing fasciitis x 1 on 11/27 and diverting colostomy on 12/02 -s/p 7d of zosyn, switched to ceftin/flagyl + fluconazole per ID -Blood cultures were negative -MRSA negative on 11/28 HTN: improved since switching from lopressor to labetalol 100 BID -continue labetalol 100 BID HLD: -continue lipitor DM: -continue levemir 80U -SSI AC/HS -continue FSBG AC/HS -hypoglycemia protocol -consistent carb diet with ensure history of CVA: with R sided paralysis -Resume ASA/plavix DVT ppx: lovenox 40 QD Diet: Consistent carb, ensure clear GI ppx: PO PPI, on senna+ BID VS,Fishbone, I+O VS, Fishbone, I+O Laboratory Tests 12/05/19 05:34 12/05/19 05:35 Vital Signs Date Time Temp Pulse Resp B/P (MAP) Pulse Ox O2 Delivery O2 Flow Rate FiO2 12/05/19 15:25 18 12/05/19 14:00 98.1 86 149/67 (94) 92 Room Air 12/04/19 23:00 2.0 12/03/19 11:50 91 I&O- Last 24 Hours up to 6 AM 12/05/19 06:00 Intake Total 746 ml Output Total 1050 ml Balance -304 ml HAVEN JAMES MD Dec 05, 2019 16:22
[2019-12-05 18:20] VITALS: O2SAT 95
[2019-12-05 21:00] VITALS: BP 176/88
[2019-12-05] MEDS: ATORVASTATIN 20 MG TAB PO SCH (21:06)
[2019-12-05] MEDS: ONDANSETRON 4MG/2ML VIAL IV PRN (21:06)
[2019-12-05] MEDS: CEFDINIR 300 MG CAP (OMNICEF) PO SCH (21:07)
[2019-12-05] MEDS: metroNIDAZOLE (FLAGYL) 500 MG TAB PO SCH (21:08)
[2019-12-05] MEDS: CLOTRIMAZOLE 1% TOPICAL CREAM 30GM TOP SCH (21:08)
[2019-12-05 23:40] VITALS: BP 158/72
[2019-12-06] MEDS: NORCO, ANEXSIA 5/325MG TABLET (HYDROcodone/ACETAMINOPHEN) PO PRN ×2 (00:01→06:46)
[2019-12-06] MEDS: SLF 3 ML SYR IV SCH (05:30)
[2019-12-06] MEDS: metroNIDAZOLE (FLAGYL) 500 MG TAB PO SCH (05:30)
[2019-12-06] MEDS: MORPHINE 2 MG/ML 1ML VIAL (J2270) IV PRN (05:32)
[2019-12-06 06:00] VITALS: BP 158/74; O2SAT 98
[2019-12-06 06:55] LABS: HEMATOCRIT 28.3 % (36.0-47.0); HEMOGLOBIN 8.7 g/dl (12.0-15.5); MEAN CORPUSCULAR HEMOGLOBIN 25.8 pg (27.0-33.0); MEAN CORPUSCULAR HGB CONC 30.7 g/dl (32.0-36.5); PLATELET COUNT, AUTOMATED 505 10^3/uL (150-450); RED BLOOD COUNT 3.37 10^6/uL (4.00-5.40); WHITE BLOOD COUNT 13.9 10^3/uL (4.0-10.0)
[2019-12-06 07:24] LABS: BLOOD UREA NITROGEN 10 MG/DL (7-18); CALCIUM LEVEL 8.1 MG/DL (8.5-10.1); CARBON DIOXIDE LEVEL 28 MEQ/L (21-32); CHLORIDE LEVEL 105 MEQ/L (98-107); CREATININE FOR GFR 0.72 MG/DL (0.55-1.30); GLOMERULAR FILTRATION RATE > 60.0 (>51); GLUCOSE, FASTING 92 MG/DL (70-100); MAGNESIUM LEVEL 1.8 MG/DL (1.8-2.4); POTASSIUM SERUM 4.4 MEQ/L (3.5-5.1); SODIUM LEVEL 138 MEQ/L (136-145)
[2019-12-06] MEDS: HumaLOG INSULIN (NovoLOG) PER UNIT SC SCH (07:30)
--- NOTE | 2019-12-06 07:44 | IPNPDOC ---
Text Note Date of Service The patient was seen on 12/06/19. NOTE No acute events overnight. Denies any fevers, chills, or cough. She is tolerat ing the regular diet, and is working with PT again. VSSAF NAD abd - soft, obese, TTP appropriate, ostomy is pink with stool in the bag skin - dressing just changed c/d/i labs - below A) 49y/o female POD#8 s/p excisional debridement for necrotizing fasciitis. POD#3 s/p diverting colostomy sepsis secondary to above resolved P) abx brewster reg diet dressing changes BID with Betadine monitor labs PT plan on return to rehab once cleared by PT plan for wound vac placement once infection cleared ID consult pending Efrem Brain DO VS,Tiffany, I+O VS, Tiffany I+O Laboratory Tests 12/06/19 05:44 Vital Signs Date Time Temp Pulse Resp B/P (MAP) Pulse Ox O2 Delivery O2 Flow Rate FiO2 12/06/19 06:46 18 Room Air 12/06/19 06:00 97.1 70 158/74 (102) 98 12/04/19 23:00 2.0 12/03/19 11:50 91 I&O- Last 24 Hours up to 6 AM 12/06/19 06:00 Intake Total 1545 ml Output Total 1750 ml Balance -205 ml WILLIAM BRIAN DO December 06, 2019 07:44
[2019-12-06] MEDS: CEFDINIR 300 MG CAP (OMNICEF) PO SCH (08:53)
[2019-12-06] MEDS: FERROUS GLUCONATE 324 MG TAB PO SCH (08:53)
[2019-12-06] MEDS: FLUoxetine 20 MG CAP PO SCH (08:53)
[2019-12-06] MEDS: CLOTRIMAZOLE 1% TOPICAL CREAM 30GM TOP SCH (08:54)
[2019-12-06] MEDS: ENOXAPARIN 40MG/0.4ML SYRINGE (J1650 PER 10MG) SC SCH (08:54)
[2019-12-06] MEDS: SENOKOT S TAB PO SCH (08:55)
[2019-12-06] MEDS: LEVEMIR (INSULIN DETEMIR) 1 UNITS/0.01ML SC SCH (08:55)
[2019-12-06] MEDS ORDERED: FLUCONAZOLE 100 MG TAB PO SCH (09:00)
[2019-12-06] MEDS ORDERED: MICONAZOLE 2 % POWDER (DESENEX) TOP SCH (09:00)
[2019-12-06] MEDS ORDERED: PANTOPRAZOLE 40MG TAB (PROTONIX) PO SCH (09:00)
--- NOTE | 2019-12-06 09:28 | DS.PDOC ---
Discharge Summary General Date of Admission Nov 28, 2019 at 11:43 Date of Discharge 12/06/2019 Attending Physician: HAVEN JAMES MD Specialist/Consultants Involve: WILLIAM BRIAN DO Specialist/Consultants Involve BRYAN BURGER Discharge Summary PROCEDURES PERFORMED DURING STAY: Left gluteal necrotizing fasciitis debridement, diverting colostomy ADMITTING DIAGNOSES: 1. L gluteal necrotizing fasciitis 2. Sepsis 2/2 soft tissue infection DISCHARGE DIAGNOSES: 1. L gluteal necrotizing fasciitis 2. Sepsis 2/2 soft tissue infection 3. HTN 4. HLN 5. History of CVA 6. DM 7. morbid obesity COMPLICATIONS/CHIEF COMPLAINT: Sepsis. HISTORY OF PRESENT ILLNESS: 49 yo W with a pertinent history of morbid obesity, prior CVA, DM, HTN, HLD, resident of [facility] who presented for follow up with Dr. Brian and was found to be febrile to 101 and on examination had an extensive sacral decubitus wound that was c/f necrotizing fasciitis and sent for direct admission for surgical debridement and treatment of sepsis. HOSPITAL COURSE: Her ASA/plavis were held, and she was taken to the OR for debridement on 11/[address] Brian reports that she had extensive left buttock necrotizing fasciitis. She had a brewster and rectal tube placed postop and was started on adequate pain management and zosyn (was MRSA negative) and fluids. She had a PICC line placed and was briefly on TPN during her admission and was on various diet restriction consistent with the surgical plan. Her initial sepsis resolved after debridement and zosyn and she had a diverting colostomy surgery on 12/02 without complications. She was restarted on a diet and ID was consulted and did wound cultures before switching her to ceftin/flagyl and fluconazole. Plastic surgery was also consulted and is planning for a wound vac once the infection has resolved. She is now being discharged back to [facility] where she will have BID dressing changes with betadine per surgery and will follow up with surgery, ID and plastics as an outpatient. She will also complete the antibiotics course. DISCHARGE MEDICATIONS: Please see below. ALLERGIES: Please see below. PHYSICAL EXAMINATION ON DISCHARGE: VITAL SIGNS: Please see below. Vitals: HDS, afebrile General: morbidly obese, NAD, laying in bed, on room air ENT: poor dentition, most teeth missing, anicteric, no injection, PERRLA, EOMI, MMM Neck: thick, otherwise supple, hirsute Chest: Clear to auscultation anterior field, no wheezing, rales or rhonchi Heart: RRR, no mrg Abdomen: Normoactive bowel sounds, obese, soft, no TTP, new ostomy in place, midline wound dressing c/d/i Extremity: WWP, no LE pitting edema Skin: L buttock/sacrum dressed Neuro: Normal Speech, CN 3-12 WNL Psych Exam: AOx3 LABORATORY DATA: Please see below. IMAGING: CXR: Cardiomegaly and pulmonary venous hypertension. No acute infiltrate. PROGNOSIS: Fair, high risk for readmission with extensive wound and mostly bed bound ACTIVITY: As tolerated DIET: Consistent carb DISCHARGE PLAN: [facility] with antibiotic course and surgery, plastics and ID follow up DISPOSITION: [facility] DISCHARGE INSTRUCTIONS: 1. Back to [facility] with antibiotic course and surgery, plastics and ID follow up ITEMS TO FOLLOWUP ON ON OUTPATIENT: 1. Extensive L buttock necrotizing fasciitis DISCHARGE CONDITION: Stable TIME SPENT ON DISCHARGE: 61 minutes. Vital Signs/I&Os Vital Signs Date Time Temp Pulse Resp B/P (MAP) Pulse Ox O2 Delivery O2 Flow Rate FiO2 12/06/19 07:35 17 12/06/19 06:46 Room Air 12/06/19 06:00 98 12/06/19 06:00 97.1 70 158/74 (102) 12/04/19 23:00 2.0 12/03/19 11:50 91 I&O- Last 24 Hours up to 6 AM 12/06/19 06:00 Intake Total 1545 ml Output Total 1750 ml Balance -205 ml Laboratory Data Labs 24H Laboratory Tests 2 12/05/19 11:24: Bedside Glucose (Misc Panel) 205H 12/05/19 16:29: Bedside Glucose (Misc Panel) 133H 12/05/19 20:43: Bedside Glucose (Misc Panel) 109H 12/06/19 05:44: Nucleated Red Blood Cells % (auto) 0.0, Anion Gap 5L, Glomerular Filtration Rate > 60.0, Calcium Level 8.1L, Magnesium Level 1.8 CBC/BMP Laboratory Tests 12/06/19 05:44 FSBS Laboratory Tests Test 12/05/19 11:24 12/05/19 16:29 12/05/19 20:43 Range/Units Bedside Glucose (Misc Panel) 205 133 109 70-105 MG/DL Microbiology Microbiology 12/05/19 Gram Stain - Final, Resulted 12/05/19 Wound Culture - Preliminary, Resulted Yeast Like Organism 11/28/19 Blood Culture - Final, Complete NO GROWTH AFTER 5 DAYS Discharge Medications Scheduled Aspirin (Aspirin) 81 Mg Tab.chew, 81 MG PO DAILY, (Reported) Atorvastatin Calcium (Atorvastatin Calcium) 40 Mg Tablet, 40 MG PO QHS, (Reported) Ceftriaxone Sodium (Ceftriaxone) 1 Gm Vial, 1 GM IM DAILY, (Reported) AT 1400, FOR 3 DAYS, STARTED 11/27/19, NO DOSE GIVEN 11/28/19 Clopidogrel Bisulfate (Clopidogrel) 75 Mg Tablet, 75 MG PO DAILY, (Reported) Ferrous Gluconate (Ferrous Gluconate) 324 Mg Tablet, 324 MG PO DAILY, (Reported) Fluoxetine Hcl (Fluoxetine HCl) 20 Mg Capsule, 20 MG PO DAILY, (Reported) Insulin Glargine,Hum.rec.anlog (Basaglar Kwikpen U-100) 100 Unit/1 Ml Insuln.pen, 80 UNIT SC QHS, (Reported) Insulin Human Lispro (Humalog) 100 Unit/1 Ml Vial, 1 DOSE SC AC, (Reported) PER SLIDING SCALE Linagliptin (Tradjenta) 5 Mg Tablet, 5 MG PO DAILY, (Reported) Melatonin (Melatonin) 10 Mg Capsule, 10 MG PO QHS, (Reported) Metoprolol Tartrate (Metoprolol Tartrate) 25 Mg Tablet, 25 MG PO BID, (Reported) Polyethylene Glycol 3350 (Miralax) 119 Gm Powder, 17 GM PO DAILY, (Reported) dilute in 8 ounces of water or juice Sennosides (Senna Lax) 8.6 Mg Tablet, 2 TAB PO BID, (Reported) Sorbitol Solution (Sorbitol 70%) 1 Ml Solution, 30 ML PO Q2D, (Reported) HOLD FOR DIARRHEA Scheduled PRN Acetaminophen (Acetaminophen) 325 Mg Tablet, 650 MG PO Q4H PRN for PAIN, (Reported) Bisacodyl (Bisacodyl) 10 Mg Supp.rect, 10 MG IL DAILY PRN for CONSTIPATION, (Reported) Glucagon,Human Recombinant (Glucagon Emergency Kit) 1 Mg Vial, 1 MG IM ASDIRECTED PRN for LOW BLOOD SUGAR, (Reported) Guaifenesin (Guaifenesin) 100 Mg/5 Ml Liquid, 10 ML PO QID PRN for COUGH, ( Reported) Magnesium Hydroxide (Milk of Magnesia) 400 Mg/5 Ml Oral.susp, 30 ML PO DAILY PRN for CONSTIPATION, (Reported) Ondansetron HCl (Ondansetron HCl) 4 Mg Tablet, 4 MG PO Q6H PRN for NAUSEA OR VOMITING, (Reported) Sodium Phosphate,[place]-Dibasic (Enema) 133 Ml Enema, 1 PING [place] DAILY PRN for CONSTIPATION, (Reported) Allergies Coded Allergies: No Known Allergies (Unverified , 10/19/18) HAVEN JAMES MD December 06, 2019 09:28
[2019-12-06 09:32] VITALS: BP 164/82
[2019-12-06] MEDS: LABETALOL 100 MG TAB PO SCH (09:32)
[2019-12-06] MEDS ORDERED: FLUC100T PO (09:34)
[2019-12-06] MEDS ORDERED: FLAG500T PO (09:34)
[2019-12-06] MEDS ORDERED: CEFD300CAP PO (09:34)
[2019-12-06] MEDS ORDERED: LABE10TAB PO (09:34)
--- NOTE | 2019-12-06 14:27 | CR ---
DATE: 12/05/2019 I was asked to consult by the hospitalist for antibiotic management in a patient with necrotizing fasciitis of buttock area HISTORY OF PRESENT ILLNESS: Ms. Villalobos is a 49-year-old female with a history of obesity, CVA, diabetes, hypertension and hyperlipidemia, a [facility] resident, who was transferred for evaluation of necrotizing fasciitis from an extensive sacral decubitus with a fever of 101 and sepsis. The patient was complaining of mostly left buttock pain. She had a Johns catheter placed, a rectal tube placed and was taken to the operating room by Dr. Brian for an incision and drainage (I/D) of the wound. No cultures were done. The patient was treated with IV Zosyn and clindamycin short term necrotizing fasciitis and had clinically improved except that she has a very large wound on the left buttock extending from the vagina all the way to the top of the crease. The patient was also seen in consultation with Dr. Urias who recommended a wound Vac at a later time after the wound was less purulent. PAST MEDICAL HISTORY: Hypertension, hyperlipidemia, CVA, diabetes, morbid obesity, insomnia. MEDICATIONS: - Atorvastatin 40 mg daily - Plavix 75 mg daily - aspirin 81 mg daily - Colace 100 mg by mouth twice a day - Flonase 1 spray b.i.d. - insulin sliding scale - melatonin 3 mg p.o. q.h.s. - metoprolol 25 mg b.i.d. - IV Zosyn 3.375 grams q.6 h, currently day #7 - clindamycin 600 mg IV q.6 h, the patient received only four doses ALLERGIES: NO KNOWN DRUG ALLERGIES. LABORATORY DATA: White count on admission was 20.7, today it was 12, hemoglobin 8.4, hematocrit 28.1, platelets 459. ESR 126 on admission. Sodium 140, potassium 4.2, chloride 107, bicarb 25, BUN 13, creatinine 0.92, glucose 118, calcium 8, magnesium 1.7, CRP 6.47 down from 28.8. Methicillin-resistant Staphylococcus aureus MRSA) screen was negative. ASO was 24.4. REVIEW OF SYSTEMS: The patient complains of buttock pain with wound changes. She has no nausea, vomiting or diarrhea. No cough or shortness of breath. No abdominal pain. PHYSICAL EXAMINATION: Temperature is 98.1, pulse 86, respirations 19, blood pressure 149/67, O2 sat 92-95% on room air. The patient has not had a fever since admission. 49-year-old female who looks with much older than stated age. Heart: Normal S1, S2. No murmurs, rubs or gallops. Lungs are clear. No wheezes, rales or rhonchi. Abdomen: Morbidly obese, soft, nontender. Extremities: No clubbing, cyanosis or edema. Left ankle tattoo. The buttock area has a very large incision from the crease of the buttock all the way to the vaginal wall. Deep incision measuring about 10 cm with some slough and some purulent discharge especially around the vaginal wall. There is a Betadine with Kerlix dressing packed in the wound. There is extensive erythema extending on the left butt cheek all the way down to both thighs which looks erythematous with satellite lesions suggestive of candidiasis. Blood cultures two sets were done and were negative. Urine culture was negative on admission on 11/28/2019. IMAGING: Chest x-ray 12/03/2019 shows cardiomegaly and pulmonary venous hypertension with no acute infiltrate. IMPRESSION: This is a 49-year-old female with insulin-dependent diabetes, hypertension, hyperlipidemia, CVA, and morbid obesity who had necrotizing fasciitis of the left buttock. She had an I/D done by Dr. Brian and follows up with Dr. Urias. The patient has received IV Zosyn, and appropriate surgical drainage. No cultures were done intraoperatively. Culture was done today after dressing changes. According to surgery, she is ready for transfer back to the residential. She has also underwent a colostomy to help with wound healing. PLAN: Discontinue IV Zosyn. Switch to Cefdinir 300 mg p.o. b.i.d. for gram-negative coverage along with metronidazole 500 mg p.o. q.8 h for anaerobes, wound culture was done today. If there are pathogens that are not covered by current combination, that could be adjusted. Diffuse rash in the perineal area, some of which is candidiasis, some of it may be contact dermatitis from the tape, would suggest stop using tape and just using gauze for this. Underwear can hold the ABD pad. Use Lotrimin cream b.i.d. to buttock area and Diflucan for 5 days. The patient could be transferred to the residential tomorrow. I would suggest continuing current antibiotics for 10-14 days for broad spectrum and antifungals of 5 days. MTDD
--- NOTE | 2019-12-08 10:57 | IPN ---
DATE: 12/06/2019 Etta was seen before she went back to the detention. She complained of pain in her buttock area, but otherwise she was doing well. She has been afebrile. Temperature is 97.1, pulse 70, respirations 21, blood pressure 158/74, oxygen saturation 98% on room air. Heart: Normal S1, S2, with a systolic ejection murmur 2/6 at the left upper sternal border. Lungs are clear. No wheezes, rales, or rhonchi. Abdomen: Soft, left lower quad with colostomy bag with soft brown stool. Johns catheter in place. Extremities: No clubbing, cyanosis. Trace edema. She has right hemiparesis but is able to lift her right leg and right arm but weak Left buttock area with a large incision all the way from the top of the buttock crease down to the labia. There is erythema of both thighs due to candidiasis. LABS: White count is 13.9, hemoglobin 8.7, hematocrit 28.3, platelets 505. Sodium 138, potassium 4.4, chloride 105, bicarbonate 28, BUN 10, creatinine 0.72, glucose 92, calcium 8.1, magnesium 1.8, CRP 11.2. MEDICATION: - cefdinir 300 mg by mouth twice a day - Flagyl 500 mg by mouth every 8 hours - fluconazole 100 mg by mouth daily IMPRESSION: 1. Polymicrobial necrotizing fasciitis. Wound culture is pending. Currently there is yeast-like organism. 2. Mucocutaneous candidiasis with rash involving the thighs, the buttock, and the upper back. 3. History of CVA with right hemiparesis. PLAN: Continue with current antibiotics, cefdinir, Flagyl, and fluconazole for the next 2 weeks. Please call me to followup on the patient in [address] Urias is to followup and possibly a wound vacuum-assisted closure (VAC) was going to be placed. Monitor with complete blood count (CBC), (CRP), sedimentation rate in 1 week. MTDD
== END 2019-12-06 11:29 | DRG 710 ==
LOC: M RR INP 11:43 → M PCU 15:38 → ENRESERV 15:50 → M MSPAV 12-04 23:01
PROVIDERS: ADMIT Internal Medicine; ATTEND Internal Medicine
PROC: 0KBG0ZZ Excision of Left Trunk Muscle, Open Approach (ICD-10-PCS; 2019-11-28)
PROC: 02HV33Z Insertion of Infusion Device into Superior Vena Cava, Percutaneous Approach (ICD-10-PCS; 2019-11-29)
PROC: 3E0436Z Introduction of Nutritional Substance into Central Vein, Percutaneous Approach (ICD-10-PCS; 2019-11-29)
PROC: 8E0W4CZ Robotic Assisted Procedure of Trunk Region, Percutaneous Endoscopic Approach (ICD-10-PCS; 2019-12-03)
PROC: 30233N1 Transfusion of Nonautologous Red Blood Cells into Peripheral Vein, Percutaneous Approach (ICD-10-PCS; 2019-12-03)
PROC: 0D1N4J4 Bypass Sigmoid Colon to Cutaneous with Synthetic Substitute, Percutaneous Endoscopic Approach (ICD-10-PCS; principal; 2019-12-03 07:30)
DX: A41.9 Sepsis, unspecified organism (principal); M72.6 Necrotizing fasciitis; L89.156 Pressure-induced deep tissue damage of sacral region; E66.01 Morbid (severe) obesity due to excess calories; I69.351 Hemiplegia and hemiparesis following cerebral infarction affecting right dominant side; E11.65 Type 2 diabetes mellitus with hyperglycemia; Z68.41 Body mass index [BMI] 40.0-44.9, adult; E78.5 Hyperlipidemia, unspecified; Z79.82 Long term (current) use of aspirin; Z79.4 Long term (current) use of insulin; Z79.02 Long term (current) use of antithrombotics/antiplatelets; Z79.899 Other long term (current) drug therapy

== ENCOUNTER → 2019-11-28 | Outpatient (REF) ==
[2019-11-28 08:56] LABS: HEMATOCRIT 28.5 % (36.0-47.0); HEMOGLOBIN 9.4 g/dl (12.0-15.5); MEAN CORPUSCULAR HEMOGLOBIN 25.8 pg (27.0-33.0); MEAN CORPUSCULAR VOLUME 78.1 fl (80.0-96.0); PLATELET COUNT, AUTOMATED 428 10^3/uL (150-450); RED BLOOD COUNT 3.65 10^6/uL (4.00-5.40); WHITE BLOOD COUNT 21.6 10^3/uL (4.0-10.0)
== END ==
LOC: SKLAB3 09:12
PROVIDERS: ATTEND Internal Medicine
DX: D72.829 Elevated white blood cell count, unspecified (principal)

== ENCOUNTER → 2019-11-28 | Outpatient (CLI) | payer MEDICAID, MEDICARE ==
--- NOTE | 2019-11-28 11:53 | REP ---
CT ABDOMEN AND PELVIS WITHOUT CONTRAST: CT abdomen and pelvis performed without oral or IV contrast. Sagittal and coronal reconstruction images are performed. Visualized lung bases demonstrate no acute infiltrate. The liver, spleen, adrenals, pancreas and kidneys are grossly unremarkable. There is no hydronephrosis or nephrolithiasis bilaterally. There is mild atherosclerotic calcification of the abdominal aorta without aneurysm. No periaortic adenopathy is seen. There is mildly enlarged left inguinal lymph node measuring 1.5 cm in short axis dimension. There is no free air in the abdomen or pelvis. There is no free fluid or ascites. No bowel wall thickening is seen. The appendix is normal. There is no pelvic mass. Urinary bladder is grossly unremarkable. There are degenerative changes of the spine and hips. In the inferior left gluteal soft tissues, there is diffuse inflammatory change in the soft tissues with diffuse streaky soft tissue density. There is extensive air in these soft tissues suggesting necrotizing fasciitis. No abscess collection is seen. IMPRESSION: Extensive inflammation and air in the soft tissues of the inferior medial left gluteal soft tissues. Findings are compatible with necrotizing fascitis. No fluid collection seen in this region. Mildly enlarged left inguinal lymph nodes. Electronically Signed by James Ashby MD 11/28/2019 12:55 P
== END ==
LOC: M RAD 10:12
PROVIDERS: ATTEND Surgery
DX: L89.159 Pressure ulcer of sacral region, unspecified stage (principal)

== ENCOUNTER → 2019-12-12 | Outpatient (REF) ==
[~2019-12-12] MED LIST changes: +ACET1TAB55 PO; +ASPI81CH33 PO; +BASA100I SC; +BISA10SU27 PR; +CEFD300CAP PO; +CEFT1INJ5 IM; +ENEMENE PR; +FERR325T16 PO; +FLAG500T PO; +FLUC100T PO; +FLUO20CA20 PO; +GLUC1KIT IM; +GNP8.6TA PO; +GUAI5EL PO; +LABE10TAB PO; +MAGN400O53 PO; +MELA10CA2 PO; +METO25TA4 PO; +MIRA3350 PO; +ONDA-83 PO; +SORB70SO36 PO; +TRAD5TAB PO
[2019-12-12 08:28] LABS: BASO # 0.1 10^3/uL (0.0-0.2); BASO % 0.8 % (0.0-1.0); EOS # 0.4 10^3/uL (0.0-0.5); EOS % 4.3 % (0.0-3.0); HEMATOCRIT 31.2 % (36.0-47.0); HEMOGLOBIN 9.9 g/dl (12.0-15.5); LYMPH % 21.7 % (24.0-44.0); MEAN CORPUSCULAR HEMOGLOBIN 25.8 pg (27.0-33.0); MEAN CORPUSCULAR HGB CONC 31.7 g/dl (32.0-36.5); MEAN CORPUSCULAR VOLUME 81.3 fl (80.0-96.0); MONO # 0.8 10^3/uL (0.0-0.8); MONO % 8.7 % (0.0-5.0); NEUTROPHILS # 5.9 10^3/uL (1.5-8.5); NEUTROPHILS % 63.7 % (36.0-66.0); PLATELET COUNT, AUTOMATED 535 10^3/uL (150-450); RED BLOOD COUNT 3.84 10^6/uL (4.00-5.40); WHITE BLOOD COUNT 9.3 10^3/uL (4.0-10.0)
[2019-12-12 08:52] LABS: BLOOD UREA NITROGEN 8 MG/DL (7-18); CALCIUM LEVEL 8.6 MG/DL (8.5-10.1); CARBON DIOXIDE LEVEL 29 MEQ/L (21-32); CHLORIDE LEVEL 101 MEQ/L (98-107); CREATININE FOR GFR 0.72 MG/DL (0.55-1.30); GLOMERULAR FILTRATION RATE > 60.0 (>51); GLUCOSE, FASTING 215 MG/DL (70-100); POTASSIUM SERUM 4.7 MEQ/L (3.5-5.1); SODIUM LEVEL 137 MEQ/L (136-145)
== END ==
LOC: SKLAB3 08:00
PROVIDERS: ATTEND Internal Medicine
DX: E11.9 Type 2 diabetes mellitus without complications (principal); D64.9 Anemia, unspecified

== ENCOUNTER → 2019-12-17 | Outpatient (REF) | LOC: SKLAB3 09:48 | PROVIDERS: ATTEND Internal Medicine | DX: Z03.818 Encounter for observation for suspected exposure to other biological agents ruled out (principal) ==

== ENCOUNTER → 2019-12-19 | Outpatient (REF) ==
[~2019-12-19] MED LIST changes: +BACITAB PO; +HYDR-3713 PO; +LEVA750T7 PO
[2019-12-19 08:09] LABS: HEMATOCRIT 34.2 % (36.0-47.0); HEMOGLOBIN 10.4 g/dl (12.0-15.5); MEAN CORPUSCULAR HEMOGLOBIN 25.3 pg (27.0-33.0); MEAN CORPUSCULAR HGB CONC 30.4 g/dl (32.0-36.5); MEAN CORPUSCULAR VOLUME 83.2 fl (80.0-96.0); PLATELET COUNT, AUTOMATED 497 10^3/uL (150-450); RED BLOOD COUNT 4.11 10^6/uL (4.00-5.40); WHITE BLOOD COUNT 7.9 10^3/uL (4.0-10.0)
[2019-12-19 08:31] LABS: BLOOD UREA NITROGEN 12 MG/DL (7-18); CALCIUM LEVEL 8.8 MG/DL (8.5-10.1); CARBON DIOXIDE LEVEL 31 MEQ/L (21-32); CHLORIDE LEVEL 97 MEQ/L (98-107); CREATININE FOR GFR 0.95 MG/DL (0.55-1.30); GLOMERULAR FILTRATION RATE > 60.0 (>51); GLUCOSE, FASTING 222 MG/DL (70-100); POTASSIUM SERUM 4.8 MEQ/L (3.5-5.1); SODIUM LEVEL 136 MEQ/L (136-145)
== END ==
LOC: SKLAB3 07:00
PROVIDERS: ATTEND Internal Medicine
DX: D64.9 Anemia, unspecified (principal); E11.9 Type 2 diabetes mellitus without complications

== ENCOUNTER → 2019-12-26 | Outpatient (REF) ==
[2019-12-26 08:30] LABS: HEMATOCRIT 34.5 % (36.0-47.0); HEMOGLOBIN 10.7 g/dl (12.0-15.5); MEAN CORPUSCULAR HEMOGLOBIN 25.5 pg (27.0-33.0); MEAN CORPUSCULAR VOLUME 82.1 fl (80.0-96.0); PLATELET COUNT, AUTOMATED 544 10^3/uL (150-450); WHITE BLOOD COUNT 8.8 10^3/uL (4.0-10.0)
[2019-12-26 08:46] LABS: BLOOD UREA NITROGEN 23 MG/DL (7-18); CALCIUM LEVEL 9.2 MG/DL (8.5-10.1); CARBON DIOXIDE LEVEL 28 MEQ/L (21-32); CHLORIDE LEVEL 102 MEQ/L (98-107); CREATININE FOR GFR 0.87 MG/DL (0.55-1.30); GLOMERULAR FILTRATION RATE > 60.0 (>51); GLUCOSE, FASTING 160 MG/DL (70-100); POTASSIUM SERUM 4.4 MEQ/L (3.5-5.1); SODIUM LEVEL 138 MEQ/L (136-145)
== END ==
LOC: SKLAB3 07:00
PROVIDERS: ATTEND Internal Medicine
DX: D64.9 Anemia, unspecified (principal); E11.9 Type 2 diabetes mellitus without complications

== ENCOUNTER 2020-01-02 16:26 | Inpatient (IN) | payer MEDICAID ==
[~2020-01-02] VITALS: Ht 162.6 cm; Wt 121.8 kg
[~2020-01-02 16:26] MED LIST changes: -BACITAB PO; -HYDR-3713 PO; -LEVA750T7 PO
[2020-01-02] MEDS ORDERED: HYDR-3713 PO (17:10)
[2020-01-02] MEDS ORDERED: LANTINJ4 SC (17:10)
[2020-01-02] MEDS ORDERED: LABE10TAB PO (17:10)
[2020-01-02] MEDS ORDERED: NS 500 ML IV ONE (18:00)
[2020-01-02 18:26] LABS: BASO # 0.1 10^3/uL (0.0-0.2); BASO % 0.3 % (0.0-1.0); EOS # 0.2 10^3/uL (0.0-0.5); EOS % 1.1 % (0.0-3.0); HEMATOCRIT 33.4 % (36.0-47.0); HEMOGLOBIN 10.4 g/dl (12.0-15.5); LYMPH # 1.7 10^3/uL (1.5-5.0); LYMPH % 10.7 % (24.0-44.0); MEAN CORPUSCULAR HEMOGLOBIN 25.6 pg (27.0-33.0); MEAN CORPUSCULAR HGB CONC 31.1 g/dl (32.0-36.5); MEAN CORPUSCULAR VOLUME 82.3 fl (80.0-96.0); MONO % 6.5 % (0.0-5.0); NEUTROPHILS # 12.5 10^3/uL (1.5-8.5); NEUTROPHILS % 80.8 % (36.0-66.0); PLATELET COUNT, AUTOMATED 414 10^3/uL (150-450); RED BLOOD COUNT 4.06 10^6/uL (4.00-5.40); WHITE BLOOD COUNT 15.5 10^3/uL (4.0-10.0)
[2020-01-02] MEDS ORDERED: ISOVUE-370 76% 100ML VIAL As Ordered ONE (18:43)
[2020-01-02 18:44] LABS: INR 1.17; PROTHROMBIN TIME 14.6 SECONDS (11.8-14.0)
[2020-01-02 18:45] LABS: PARTIAL THROMBOPLASTIN TIME 32.2 SECONDS (25.0-38.4)
[2020-01-02 18:55] LABS: ALBUMIN 2.6 GM/DL (3.2-5.2); ALT/SGPT 25 U/L (12-78); AMYLASE 12 U/L (25-115); BILIRUBIN,DIRECT 0.2 MG/DL (0.0-0.2); BILIRUBIN,TOTAL 0.5 MG/DL (0.2-1.0); CK-MB VALUE MASS < 1.0 NG/ML (<3.6); CPK CREATINE PHOSPHOKINASE 45 U/L (26-192); LIPASE 37 U/L (73-393); MB/CK RELATIVE INDEX 2.22 (< OR =4); TOTAL PROTEIN 7.4 GM/DL (6.4-8.2); TROPONIN I < 0.02 NG/ML (< 0.10)
[2020-01-02] MEDS ORDERED: cefTRIAXone SOD 1 GM in D5W MINI-BAG PLUS 50 ML IV ONE (20:45)
[2020-01-02] MEDS: HumaLOG INSULIN (NovoLOG) PER UNIT SC SCH (21:00)
[2020-01-02] MEDS ORDERED: LABETALOL 100 MG TAB PO SCH (21:00)
--- NOTE | 2020-01-02 21:14 | ECGEPIP ---
[facility] - ED Test Date: 2020-01-02 Pat Name: ABNER RANKIN Department: Room: - Gender: Female Supervisor Graphite: margie : [id number] Requested By: MARLIN Santizo Order Number: [id number] Reading MD: Reji Ramirez Measurements Intervals [place] Rate: 94 P: 50 MA: 143 QRS: 20 QRSD: 77 T: 81 QT: 348 QTc: 436 Interpretive Statements SINUS RHYTHM POOR R WAVE PROGRESSION NONSPECIFIC T-WAVE ABNORMALITY SIMILAR TO 05/22/18 Electronically Signed on 01-02-2020 21:14:43 EDT by Reji Ramirez
[2020-01-02] MEDS ORDERED: NORCO, ANEXSIA 5/325MG TABLET (HYDROcodone/ACETAMINOPHEN) PO PRN (21:15)
[2020-01-02] MEDS ORDERED: GLUCAGON INJ 1MG VIAL SC PRN (21:15)
[2020-01-02] MEDS ORDERED: guaiFENesin SYRUP 200 MG/10 ML UDC PO PRN (21:15)
[2020-01-02] MEDS ORDERED: GLUCOSE 4GM CHEW TABLET PO PRN (21:15)
[2020-01-02] MEDS ORDERED: ONDANSETRON 4MG/2ML VIAL IV PRN (21:15)
[2020-01-02] MEDS ORDERED: DEXTROSE 50% 50 ML SYRINGE IV PRN (21:15)
--- NOTE | 2020-01-02 21:36 | HPEPDOC ---
[facility] Medical History & Physical Date of Admission January 02, 2020 Date of Service: January 02, 2020 Primary Care Physician: DOC COCHRAN DO Attending Physician: RAMON PRICE MD History and Physical CHIEF COMPLAINT: abdominal pain, vomiting HISTORY OF PRESENT ILLNESS: Etta Villalobos is a 49-year-old female who presented to the emergency department today from [facility]. She states she has been having abdominal pain and vomiting. She cannot recall how long this has been goi ng on. She also had lab work done today and was found to have an elevated CRP level. She describes her abdominal pain as sharp in the suprapubic region. She denies any back pain. She has a chronic Johns catheter in and denies any change to her urine output that she is aware of. No hematuria. She also has a colostomy bag and states her bowel movements have been normal, although she cannot relate when her last bowel movement was. She denies fevers or chills. She does have a chronic wound on her left buttocks, which is status post incision and drainage for necrotizing fasciitis on her prior admission. She does have pain from this wound, especially when she moves but otherwise states the pain has not worsened and she has not noticed any increased drainage. She relates that her poor memory is due to a prior stroke. Most of the following history is obtained from chart review. PAST MEDICAL HISTORY: 1. Hypertension 2. CVA, living in [facility] 3. Diabetes Mellitus 4. Hyperlipidemia 5. Necrotizing fascitis left buttock, s/p I&D PAST SURGICAL HISTORY: 1. I&D left buttock 2. Colostomy SOCIAL HISTORY: No tobacco use, alcohol use, or illicit/IV drug use. Lives at [facility], no recent sick contacts or travel. FAMILY HISTORY: Noncontributory ALLERGIES: Please see below. REVIEW OF SYSTEMS: CONSTITUTIONAL: Denies fevers, chills, night sweats, fatigue, unexpected change in weight. HEENT: Denies change in vision, change in hearing. CARDIOVASCULAR: Denies chest pain, palpitations, shortness of breath, lightheadedness. RESPIRATORY: Denies dyspnea, cough, wheezing. GASTROINTESTINAL: Endorses nausea, vomiting, abdominal pain. Denies diarrhea, constipation, blood in stool. GENITOURINARY: Per HPI SKIN: Denies rash, lesions. MUSCULOSKELETAL: Denies joint pain or muscle aches. NEUROLOGICAL: Denies headache, dizziness, weakness. PSYCHIATRIC: Denies change in mood. HOME MEDICATIONS: Please see below. PHYSICAL EXAMINATION: GENERAL: Alert, comfortable, in no acute distress HEENT: Normocephalic, atraumatic, PERRLA, EOMI, moist mucous membranes NECK: Supple, trachea midline CARDIOVASCULAR: Regular rate and rhythm, normal S1 and S2. No murmurs, rubs, or gallops RESPIRATORY: Clear to auscultation bilaterally with equal air entry bilaterally. No wheezing, rhonchi, or rales. ABDOMEN: Soft, nontender, nondistended, bowel sounds present, obese abdomen EXTREMITIES: No cyanosis or edema. Pulses 2+/4 in bilateral upper and lower extremities SKIN: Large wound on the left buttocks extending into the perineal area. Appears clean without drainage. No erythema, warmth, or swelling surrounding the wound. NEUROLOGIC: Alert and oriented 3 to person, place and time. Right sided hemiparesis, baseline per patient, no additional focal deficits noted PSYCHIATRIC: Mood and affect appropriate. Poor memory secondary to prior CVA per patient. LABORATORY DATA: See below. IMAGING: - CT abdomen/pelvis: report pending from [facility] MICROBIOLOGY: Please see below. ASSESSMENT: 49-year-old female with history of CVA and recent incision and drainage for necrotizing fasciitis, presents with nausea, vomiting, abdominal pain and elevated CRP on outpatient labs. Admitted for treatment of sepsis secondary to pyelonephritis PLAN: 1. Sepsis secondary to UTI/pyelonephritis. SIRS criteria met with elevated WBC count and tachycardia. No tachypnea or fever. No lactic acidosis. UA concerning for infection with WBCs, leukocyte esterase, and nitrates, status post 1 dose ceftriaxone in the ED. CT abdomen/pelvis concerning for pyelonephritis versus renal mass Antibiotic coverage with meropenem, day #1 (pseudomonal coverage, high risk for MDR infection as she lives in a alf) Urine culture pending. Blood cultures 2 pending. Monitor on telemetry for tachycardia. 2. Elevated CRP. Likely secondary to above, expect improvement with treatment of infection. ESR normal. 3. Possible renal mass on CT Obtain renal ultrasound. Consider urology consult in the morning for further work up. 4. Left buttock wound status post I&D on prior admission for necrotizing fasciitis. Wound care daily. No sign of recurrent infection at this time. Continue outpatient pain management with Barry every 6 hours prn 5. Hypertension. Hold home labetalol while septic. 6. Diabetes mellitus Continue basal insulin 80 units daily at bedtime while inpatient. Sliding scale insulin achs, hypoglycemic protocol, consistent carbohydrate diet 7. History of CVA. residual right sided paralysis and difficulty with memory Not currently on aspirin or Plavix. Continue atorvastatin. DVT prophylaxis: Subcutaneous Lovenox. Disposition: Admitted inpatient to PCU for treatment of pyelonephritis and further workup of possible renal mass GME attestation: Patient was independently seen and examined, discussed with resident and agree with resident's assessment, plan and management. Vital Signs Vital Signs Date Time Temp Pulse Resp B/P (MAP) Pulse Ox O2 Delivery O2 Flow Rate FiO2 01/02/20 20:05 95 94 01/02/20 18:35 18 167/72 (103) Room Air 01/02/20 16:40 99.7 Laboratory Data Labs 24H Laboratory Tests 2 01/02/20 18:00: Immature Granulocyte % (Auto) 0.6, Neutrophils (%) (Auto) 80.8H, Lymphocytes (%) (Auto) 10.7L, Monocytes (%) (Auto) 6.5H, Eosinophils (%) (Auto) 1.1, Basophils (%) (Auto) 0.3, Neutrophils # (Auto) 12.5H, Lymphocytes # (Auto) 1.7, Monocytes # (Auto) 1.0H, Eosinophils # (Auto) 0.2, Basophils # (Auto) 0.1, Nucleated Red Blood Cells % (auto) 0.0, Prothrombin Time 14.6H, Prothromb Time International Ratio 1.17, Activated Partial Thromboplast Time 32.2, Lactic Acid Level 1.6, Total Bilirubin 0.5, Direct Bilirubin 0.2, Aspartate Amino Transf (AST/SGOT) 12, Alanine Aminotransferase (ALT/SGPT) 25, Alkaline Phosphatase 156H, Total Creatine Kinase 45, Creatine Kinase MB < 1.0, Creatine Kinase MB Relative Index 2.22, Troponin I < 0.02, Total Protein 7.4, Albumin 2.6L, Albumin/Globulin Ratio 0.5L, Amylase Level 12L, Lipase 37L 01/02/20 18:21: POC Glucose (Misc Panel) 278H, POC Sodium (Misc Panel) 134L, POC Potassium (Misc Panel) 4.6, POC Chloride (Misc Panel) 96L, POC Total CO2 (Misc Panel) 29.0H, POC Blood Urea Nitrogen (Misc Panel 33H, POC Ionized Calcium (Misc Panel) 4.9, POC Creatinine (Misc Panel) 1.1, POC Hematocrit (Misc Panel) 34.0L 01/02/20 19:48: Urine Color YELLOW, Urine Appearance CLOUDYH, Urine pH 5.0, Urine Specific [place] 1.050, Urine Protein 1+H, Urine Glucose (UA) 1+H, Urine Ketones NEGATIVE, Urine Blood 1+H, Urine Nitrite POSITIVEH, Urine Bilirubin NEGATIVE, Urine Urobilinogen 0.2, Urine Leukocyte Esterase 3+H, Urine WBC (Auto) TNTCH, Urine RBC (Auto) 7H, Urine Hyaline Casts (Auto) 0, Urine Bacteria (Auto) NEGATIVE, Urine Squamous Epithelial Cells 0, Urine Mucus (Auto) MODERATE, Urine Sperm (Auto) CBC/BMP Laboratory Tests 01/02/20 18:00 Microbiology Microbiology 01/02/20 Urine Culture, Received Pending 01/02/20 Blood Culture, Received Pending 01/02/20 Blood Culture, Received Pending Home Medications Scheduled Atorvastatin Calcium (Atorvastatin Calcium) 40 Mg Tablet, 40 MG PO QHS Ferrous Gluconate (Ferrous Gluconate) 324 Mg Tablet, 324 MG PO DAILY Fluoxetine Hcl (Fluoxetine HCl) 20 Mg Capsule, 20 MG PO DAILY Insulin Glargine,Hum.rec.anlog (Lantus Solostar) 100 Unit/1 Ml Insuln.pen, 80 UNITS SC QHS Insulin Human Lispro (Humalog) 100 Unit/1 Ml Vial, 1 DOSE SC AC PER SLIDING SCALE Labetalol HCl (Labetalol HCl) 100 Mg Tablet, 100 MG PO BID Linagliptin (Tradjenta) 5 Mg Tablet, 5 MG PO DAILY Melatonin (Melatonin) 10 Mg Capsule, 10 MG PO QHS Polyethylene Glycol 3350 (Miralax) 119 Gm Powder, 17 GM PO DAILY Sennosides (Senna Lax) 8.6 Mg Tablet, 17.2 MG PO BID Sorbitol Solution (Sorbitol 70%) 1 Ml Solution, 30 ML PO Q2D HOLD FOR DIARRHEA Scheduled PRN Acetaminophen (Acetaminophen) 325 Mg Tablet, 650 MG PO Q4H PRN for PAIN Glucagon,Human Recombinant (Glucagon Emergency Kit) 1 Mg Vial, 1 MG IM ASDIRECTED PRN for LOW BLOOD SUGAR Guaifenesin (Guaifenesin) 100 Mg/5 Ml Liquid, 10 ML PO QID PRN for COUGH Hydrocodone/Acetaminophen (Hydrocodone-Acetamin 5-325 mg) 1 Each Tablet, 1 TAB PO Q6H PRN for PAIN Ondansetron HCl (Ondansetron HCl) 4 Mg Tablet, 4 MG PO Q6H PRN for NAUSEA OR VOMITING Allergies Coded Allergies: No Known Allergies (Unverified , 10/19/18) MARLENE CROW D.O. January 02, 2020 21:36 RAMON PRICE MD January 03, 2020 06:39
[2020-01-03] MEDS: ACETAMINOPHEN TAB 650MG DOSE (2X325MG) PO PRN ×3 (00:32→14:00)
[2020-01-03 01:00] VITALS: BP 133/63
[2020-01-03] MEDS: MEROPENEM INJ 1 GM in IV 1 EA IV SCH ×4 (01:49→23:28)
[2020-01-03] MEDS: ATORVASTATIN 20 MG TAB PO SCH ×2 (01:53→21:16)
[2020-01-03] MEDS: SENNA 8.6 MG TAB (SENOKOT) PO SCH ×3 (01:53→21:16)
[2020-01-03] MEDS: LEVEMIR (INSULIN DETEMIR) 1 UNITS/0.01ML SC SCH ×2 (01:58→21:00)
[2020-01-03 06:00] VITALS: BP 166/85
[2020-01-03 06:10] LABS: BASO % 0.3 % (0.0-1.0); EOS # 0.1 10^3/uL (0.0-0.5); EOS % 1.1 % (0.0-3.0); HEMATOCRIT 31.1 % (36.0-47.0); HEMOGLOBIN 9.7 g/dl (12.0-15.5); LYMPH # 1.8 10^3/uL (1.5-5.0); LYMPH % 14.2 % (24.0-44.0); MEAN CORPUSCULAR HEMOGLOBIN 25.4 pg (27.0-33.0); MEAN CORPUSCULAR HGB CONC 31.2 g/dl (32.0-36.5); MEAN CORPUSCULAR VOLUME 81.4 fl (80.0-96.0); MONO # 1.1 10^3/uL (0.0-0.8); MONO % 8.2 % (0.0-5.0); NEUTROPHILS # 9.7 10^3/uL (1.5-8.5); NEUTROPHILS % 75.4 % (36.0-66.0); PLATELET COUNT, AUTOMATED 405 10^3/uL (150-450); RED BLOOD COUNT 3.82 10^6/uL (4.00-5.40); WHITE BLOOD COUNT 12.9 10^3/uL (4.0-10.0)
[2020-01-03 06:28] LABS: CALCIUM LEVEL 9.3 MG/DL (8.5-10.1); CREATININE FOR GFR 1.05 MG/DL (0.55-1.30); GLOMERULAR FILTRATION RATE 59.1 (>51); MAGNESIUM LEVEL 1.4 MG/DL (1.8-2.4); POTASSIUM SERUM 3.9 MEQ/L (3.5-5.1)
[2020-01-03] MEDS ORDERED: MAG SULF 1GM/100ML (MAG RUN) 1 GM in IV 1 EA IV ONE (08:00)
--- NOTE | 2020-01-03 08:26 | REP ---
REPEAT DICTATION URINARY TRACT SONOGRAPHY: HISTORY: Pyelonephritis versus renal mass. Comparison is made with CT study of the abdomen and pelvis January 02, 2020 and November 28, 2019. Preliminary report is provided at the time of the exam by [facility]. SONOGRAPHIC FINDINGS: Scan quality is inhibited by patient body habitus and difficulty suspended breathing and remaining motionless. There is no evidence of hydronephrosis on either side. Right renal dimensions are measured at 11.5 x 5.9 x 4.6 cm. Left kidney measures 12.5 x 5.5 x 5.3 cm. An ill-defined hypoechoic area is seen in the medial aspect of the left kidney lower pole corresponding with the CT findings. This measures 2.8 cm in greatest diameter. Possibilities include focal pyelonephritis and area of renal infarction. Mass cannot be completely excluded. It does not appear to be a cyst. Segmental renal cortical infarction versus pyelonephritis are felt to be most likely etiologies. No right renal abnormality is seen. IMPRESSION: Ill-defined 2.8 cm area of isoechoic to slightly hypoechoic tissue in the posteromedial cortex of the left kidney corresponding with the CT. Differential possibilities include infarct, focal pyelonephritis, and less likely mass. Electronically Signed by Dandre Blanchard MD 01/03/2020 09:12 A
--- NOTE | 2020-01-03 09:04 | REP ---
REASON: Vomiting. Preliminary report given by [facility] at the time the exam was performed. The patient has history of decubitus ulcers. CONTRAST: 100 mL of Isovue 370. The liver, gallbladder, spleen, pancreas, and adrenal glands are unchanged. There is a subtle focal area of decreased density seen in the interpolar region of the left kidney medially. This cannot be compared to the prior exam since the prior exam is a noncontrast enhanced exam. The abdominal aorta and paraaortic regions are within normal limits. Since the last exam, a colostomy has been performed. No free fluid or free air is seen in the abdomen or pelvis. There is no evidence of an intra-abdominal or intrapelvic mass. There is a catheter in the urinary bladder. There is no evidence of intestinal obstruction. Bone window technique throughout the examination shows no change in the osseous structures. There is evidence of a decubitus ulcer in the left gluteal soft tissues communicating with the gluteal cleft. The prior exam showed only a tiny air density in this region. IMPRESSION: 1. Low density area in the left kidney possibly reflecting acute pyelonephritis. This needs to be correlated clinically. 2. Colostomy site unremarkable. 3. Left-sided decubitus ulcer as described above. Electronically Signed by Fred Gonzalez DO 01/03/2020 09:52 A
[2020-01-03] MEDS: MIRALAX *UNIT DOSE* 17GM PACKET PO SCH (09:28)
[2020-01-03] MEDS: HumaLOG INSULIN (NovoLOG) PER UNIT SC SCH ×4 (09:29→20:59)
[2020-01-03] MEDS: FERROUS GLUCONATE 324 MG TAB PO SCH (09:30)
[2020-01-03] MEDS: ENOXAPARIN 40MG/0.4ML SYRINGE (J1650 PER 10MG) SC SCH (09:30)
[2020-01-03] MEDS: FLUoxetine 20 MG CAP PO SCH (09:30)
[2020-01-03] MEDS: LACTOBACILLUS ACIDOPHILUS CAP (BACID) PO SCH ×4 (10:15→21:16)
[2020-01-03 14:00] VITALS: BP 170/86
[2020-01-03] MEDS ORDERED: atenoloL 25 MG TAB PO ONE (17:00)
[2020-01-03 22:00] VITALS: BP 164/82
[2020-01-04] MEDS: ACETAMINOPHEN TAB 650MG DOSE (2X325MG) PO PRN ×2 (05:39→23:17)
[2020-01-04 06:00] VITALS: BP 166/79
[2020-01-04 06:40] LABS: HEMATOCRIT 31.2 % (36.0-47.0); HEMOGLOBIN 9.9 g/dl (12.0-15.5); MEAN CORPUSCULAR HEMOGLOBIN 25.7 pg (27.0-33.0); MEAN CORPUSCULAR HGB CONC 31.7 g/dl (32.0-36.5); PLATELET COUNT, AUTOMATED 394 10^3/uL (150-450); RED BLOOD COUNT 3.85 10^6/uL (4.00-5.40); WHITE BLOOD COUNT 9.7 10^3/uL (4.0-10.0)
[2020-01-04 06:52] LABS: BLOOD UREA NITROGEN 21 MG/DL (7-18); CALCIUM LEVEL 9.2 MG/DL (8.5-10.1); CARBON DIOXIDE LEVEL 28 MEQ/L (21-32); CHLORIDE LEVEL 100 MEQ/L (98-107); CREATININE FOR GFR 0.99 MG/DL (0.55-1.30); GLOMERULAR FILTRATION RATE > 60.0 (>51); GLUCOSE, FASTING 118 MG/DL (70-100); MAGNESIUM LEVEL 1.8 MG/DL (1.8-2.4); POTASSIUM SERUM 3.9 MEQ/L (3.5-5.1); SODIUM LEVEL 135 MEQ/L (136-145)
[2020-01-04 07:12] VITALS: BP 160/72
[2020-01-04] MEDS: HumaLOG INSULIN (NovoLOG) PER UNIT SC SCH ×4 (07:30→20:19)
[2020-01-04] MEDS: SENNA 8.6 MG TAB (SENOKOT) PO SCH ×2 (08:20→20:29)
[2020-01-04] MEDS: FLUoxetine 20 MG CAP PO SCH (08:20)
[2020-01-04] MEDS: MEROPENEM INJ 1 GM in IV 1 EA IV SCH (08:20)
[2020-01-04] MEDS: LACTOBACILLUS ACIDOPHILUS CAP (BACID) PO SCH ×4 (08:20→20:29)
[2020-01-04] MEDS: FERROUS GLUCONATE 324 MG TAB PO SCH (08:20)
[2020-01-04] MEDS: MIRALAX *UNIT DOSE* 17GM PACKET PO SCH (08:20)
[2020-01-04] MEDS: ENOXAPARIN 40MG/0.4ML SYRINGE (J1650 PER 10MG) SC SCH (08:22)
[2020-01-04] MEDS: atenoloL 25 MG TAB PO SCH (08:23)
[2020-01-04] MEDS: SORBITOL 70% 30ML UNIT DOSE CUP PO SCH (08:23)
[2020-01-04] MEDS ORDERED: PROMETHAZINE INJ 25 MG/ML VIAL (J2550) IV PRN (09:15)
[2020-01-04] MEDS ORDERED: PROMETHAZINE INJ 25 MG/ML VIAL (J2550) IV ONE (11:30)
[2020-01-04] MEDS: LevoFLOXacin IV 750 MG in IV 1 EA IV SCH (11:57)
[2020-01-04] MEDS: metroNIDAZOLE 500 MG in IV 1 EA IV SCH ×2 (14:29→20:29)
[2020-01-04] MEDS: FLUCONAZOLE 100 MG in IV 1 EA IV SCH (16:12)
--- NOTE | 2020-01-04 18:30 | IPN ---
DATE: 01/03/2020 Patient currently denies any chest pain, pressure, or tightness, diarrhea, nausea, vomiting. She had a low-grade temperature. No complaint of chills. Denies any urinary urgency or frequency. Patient was noted to have increasing erythema around the colostomy site. Temperature 100.7, current temperature 99.4, pulse 90, respiratory rate 17, blood pressure 170/86, 93% on room air. GENERAL: Patient is awake, alert, oriented to person, place. Patient has no respiratory distress. LUNGS: Clear to auscultation. No wheezes, rales, or rhonchi. HEART: S1, S2, sinus rhythm. ABDOMEN: Soft, nontender, nondistended. Colostomy has erosion and erythema. No rebound or guarding. EXTREMITIES: No cyanosis or edema. Left buttock without erythema. Warmth with a large wound extending into the perineal area. LABORATORY DATA: Microbiology and imaging studies have been reviewed. ASSESSMENT AND PLAN: A 49-year-old female with a history of cerebrovascular accident (CVA), living at [facility], diabetes, hypertension, hyperlipidemia, necrotizing fasciitis of the left buttock, status post incision and drainage (I and D), admitted for nausea, vomiting, abdominal pain. Found to have pyelonephritis. IMPRESSION: 1. Acute pyelonephritis, currently on meropenem, day #2. Blood cultures and urine cultures are pending. Monitor for diarrhea. Increased risk of Clostridium (C) difficile colitis. 2. Eroded colostomy. Surgeon has been consulted to assist in managing the skin erosions around the colostomy bag, Dr. James Brian. 3. History of necrotizing fasciitis in the left lower extremity. Wound care daily. Appears clean and dry. As-needed [place]. 4. Hypertension. Patient has pressures in the 160s. Will go ahead and start on atenolol 25 mg. 5. History of CVA with right-sided paralysis with chronic memory issues.
--- NOTE | 2020-01-04 18:53 | CR ---
DATE OF CONSULTATION: 01/03/2020 REASON FOR CONSULTATION: Ostomy care. HISTORY OF PRESENT ILLNESS: The patient 49-year-old female, well known to me. She had recent necrotizing fasciitis that I have resected, and I also did a diverting colostomy for her. She has been at the intermediate, [facility]. She was recently admitted back to the hospital yesterday for abdominal pain and vomiting and was essentially diagnosed with pyelonephritis. She denies any symptoms or problems from her ostomy. She was not told of any problems while she was in the intermediate; however, when she was evaluated on the floor by the nurses, there appeared to be some irritation surrounding the skin right at the edge of the ostomy itself, and they asked me to re-evaluate it. Again, the patient denies any problems with it. No pains in the area. PAST MEDICAL HISTORY: 1. Hypertension. 2. Cerebrovascular accident (CVA). 3. Diabetes. 4. Hyperlipidemia. 5. Necrotizing fasciitis. PAST SURGICAL HISTORY: 1. Incision and drainage (I and D), left buttock. 2. Diverting colostomy. SOCIAL HISTORY: Denies drug, alcohol, tobacco abuse. FAMILY HISTORY: Noncontributory. ALLERGIES: None. MEDICATIONS: Please see medication reconciliation. REVIEW OF SYSTEMS: Pertinent positives and negatives as stated in the history of present illness (HPI). PHYSICAL EXAMINATION: GENERAL: Alert and oriented times three. No acute stress. VITAL SIGNS: Temperature 100.7, pulse 90, respirations 17, blood pressure 170/86, pulse oximetry 92% on room air. HEENT: Pupils equally round and reactive to light accommodation. HEART: S1, S2, regular rate and rhythm. LUNGS: Clear to auscultation bilaterally. ABDOMEN: Soft, nontender, nondistended, obese. The ostomy is in place in left lower quadrant. There is no erythema. No signs of infection. The inferior side of the ostomy, right where the colonic wall is sutured to the to the skin edge, there is a little bit of dehiscence there, only for about a centimeter deep and about 5 cm in circumference. This is not extending beyond the subcutaneous fat. There are no signs of infection. There is good pink granulation tissue there. LABORATORY DATA: White count 15.5, down to 12.9, hemoglobin 9.7, platelets 405. Magnesium 1.4, creatinine 1.05. ASSESSMENT AND PLAN: The patient is a 49-year-old female, currently being treated for pyelonephritis. Has a little bit of skin dehiscence around the inferior edge of her ostomy. No signs of any infection at this time. Recommendation is to continue with just regular wound care. The nurses are going to just take care of it, apply a barrier cream of some sort to the area to try and prevent the stool from getting in there. Otherwise, there is no other intervention necessary at this time.
[2020-01-04] MEDS: LEVEMIR (INSULIN DETEMIR) 1 UNITS/0.01ML SC SCH (20:29)
[2020-01-04] MEDS: ATORVASTATIN 20 MG TAB PO SCH (20:29)
[2020-01-04 22:00] VITALS: BP 143/60
[2020-01-05] MEDS: metroNIDAZOLE 500 MG in IV 1 EA IV SCH ×3 (05:03→20:55)
[2020-01-05 06:00] VITALS: BP 147/89
[2020-01-05 06:28] LABS: HEMATOCRIT 32.7 % (36.0-47.0); HEMOGLOBIN 10.2 g/dl (12.0-15.5); MEAN CORPUSCULAR HEMOGLOBIN 25.2 pg (27.0-33.0); MEAN CORPUSCULAR HGB CONC 31.2 g/dl (32.0-36.5); MEAN CORPUSCULAR VOLUME 80.7 fl (80.0-96.0); PLATELET COUNT, AUTOMATED 376 10^3/uL (150-450); RED BLOOD COUNT 4.05 10^6/uL (4.00-5.40); WHITE BLOOD COUNT 7.9 10^3/uL (4.0-10.0)
[2020-01-05 06:52] LABS: BLOOD UREA NITROGEN 16 MG/DL (7-18); CALCIUM LEVEL 8.6 MG/DL (8.5-10.1); CARBON DIOXIDE LEVEL 27 MEQ/L (21-32); CHLORIDE LEVEL 102 MEQ/L (98-107); CREATININE FOR GFR 0.88 MG/DL (0.55-1.30); GLOMERULAR FILTRATION RATE > 60.0 (>51); GLUCOSE, FASTING 96 MG/DL (70-100); MAGNESIUM LEVEL 1.7 MG/DL (1.8-2.4); POTASSIUM SERUM 4.7 MEQ/L (3.5-5.1); SODIUM LEVEL 135 MEQ/L (136-145)
[2020-01-05] MEDS: HumaLOG INSULIN (NovoLOG) PER UNIT SC SCH ×4 (07:30→20:56)
[2020-01-05] MEDS: ENOXAPARIN 40MG/0.4ML SYRINGE (J1650 PER 10MG) SC SCH (08:35)
[2020-01-05] MEDS: LACTOBACILLUS ACIDOPHILUS CAP (BACID) PO SCH ×4 (08:35→20:55)
[2020-01-05] MEDS: FERROUS GLUCONATE 324 MG TAB PO SCH (08:36)
[2020-01-05] MEDS: SENNA 8.6 MG TAB (SENOKOT) PO SCH ×2 (08:36→20:55)
[2020-01-05] MEDS: atenoloL 25 MG TAB PO SCH (08:36)
[2020-01-05] MEDS: FLUoxetine 20 MG CAP PO SCH (08:36)
[2020-01-05] MEDS: MIRALAX *UNIT DOSE* 17GM PACKET PO SCH (08:37)
--- NOTE | 2020-01-05 09:36 | IPNPDOC ---
Date Seen The patient was seen on 01/05/20. Progress Note continues to c/o persistent nausea and only ate crushed fruits for dinner. no vomiting. no abd pain, no fever or chills. decreased appetite PE vitals:see below GENERAL: Patient is awake, alert, oriented to person, place. Patient has no respiratory distress. LUNGS: Clear to auscultation. No wheezes, rales, or rhonchi. HEART: S1, S2, sinus rhythm. ABDOMEN: Soft, nontender, nondistended. skin dehiscencse around colostomy. No rebound or guarding. EXTREMITIES: No cyanosis or edema. Left buttock without erythema. Warmth with a large wound extending into the perineal area. LABORATORY DATA: Microbiology and imaging studies have been reviewed. ASSESSMENT AND PLAN: A 49-year-old female with a history of cerebrovascular accident (CVA), living at [facility], diabetes, hypertension, hyper lipidemia, necrotizing fasciitis of the left buttock, status post incision and drainage (I and D), admitted for nausea, vomiting, abdominal pain. Found to have pyelonephritis. IMPRESSION: 1. Acute pyelonephritis,s/p merem. now on levaquin. afebrile decreased wbc. 2.skin dehiscence around colostomy. Surgeon has been consulted Dr. James Brian. 3. History of necrotizing fasciitis in the left lower extremity. Wound care daily. Appears clean and dry. As-needed [place]. 4. Hypertension. Patient has pressures in the 160s. Will go ahead and start on atenolol 25 mg. 5. History of CVA with right-sided paralysis with chronic memory issues 6. persistent nausea with possible gastroparesis. trial of reglan. VS, I&O, 24H, Fishbone Vital Signs/I&O Vital Signs Date Time Temp Pulse Resp B/P (MAP) Pulse Ox O2 Delivery O2 Flow Rate FiO2 01/05/20 06:00 98.4 65 18 147/89 (108) 90 Room Air I&O- Last 24 Hours up to 6 AM 01/05/20 06:00 Intake Total 720 ml Output Total 1325 ml Balance -605 ml Laboratory Data 24H LABS Laboratory Tests 2 01/04/20 12:09: Bedside Glucose (Misc Panel) 133H 01/04/20 16:34: Bedside Glucose (Misc Panel) 125H 01/04/20 20:12: Bedside Glucose (Misc Panel) 198H 01/05/20 06:00: Nucleated Red Blood Cells % (auto) 0.0, Anion Gap 6L, Glomerular Filtration Rate > 60.0, Calcium Level 8.6, Magnesium Level 1.7L CBC/BMP Laboratory Tests 01/05/20 06:00 Microbiology Microbiology 01/04/20 Gram Stain - Final, Resulted 01/04/20 Wound Culture, Resulted Pending 01/02/20 Urine Culture - Final, Complete Klebsiella Pneumoniae Klebsiella Pneumoniae#2 01/02/20 Blood Culture - Preliminary, Resulted No Growth after 48 hours. All Specime... 01/02/20 Blood Culture - Preliminary, Resulted No Growth after 48 hours. All Specime... BLANCHE NDIAYE MD January 05, 2020 07:43
[2020-01-05] MEDS ORDERED: MAG SULF 1GM/100ML (MAG RUN) 1 GM in IV 1 EA IV ONE (10:00)
--- NOTE | 2020-01-05 10:47 | REP ---
KUB ABDOMEN/PELVIS: Three KUB films of abdomen/pelvis are performed. There is scattered air throughout the GI tract with no significant dilatation of bowel loops. There is no evidence of bowel obstruction. No abnormal calcifications are seen. There are mild degenerative changes of the spine. IMPRESSION: No evidence of bowel obstruction. Electronically Signed by James Ashby MD 01/05/2020 11:17 A
[2020-01-05] MEDS: LevoFLOXacin IV 750 MG in IV 1 EA IV SCH (10:55)
[2020-01-05] MEDS: METOCLOPRAMIDE INJ 10MG/2ML VIAL (J2765 PER 1) IV SCH ×3 (12:25→20:55)
[2020-01-05 14:00] VITALS: BP 155/64
--- NOTE | 2020-01-05 14:44 | IPN ---
DATE: 01/04/2020 Patient says she has been increasingly nauseous this morning but has not vomited. No abdominal distention or pain. Patient's colostomy site and decubitus ulcer in the left gluteal soft tissue still to be evaluated by her surgeon, Dr. Brian. The patient has been persistently febrile 100.7. Temperature 98.1, maximum temperature (T max) 100.5, pulse 71, respiratory rate 18, blood pressure 163/80, 91% on room air. Generally, patient is dry heaving at the bedside. Awake, alert, oriented, answer questions appropriately. Patient has a cushingoid appearance with facial hair posterior cervical hump. Lungs are clear to auscultation. No wheezing or rales. Heart: S1, S2, sinus rhythm. Abdomen is soft, nontender, nondistended. Patient has diversion around the colostomy site. Left buttock with a large wound extending into the perineal area. Some minimal serous drainage. Extremities: No pitting edema. Laboratory data reviewed. Microbiology, urine culture growing Klebsiella. ASSESSMENT AND PLAN: This is a 49-year-old female, discharged 12/06/2019 with necrotizing fasciitis, history of obesity, CVA, diabetes, hypertension, hyperlipidemia with extensive sacral decubitus treated by intravenous (IV) Zosyn and surgical drainage, was on cefdinir and Flagyl, was admitted for the following issues: 1. Acute pyelonephritis, currently on Levaquin to continue for 10-14 days. 2. Necrotizing fasciitis of the left buttock requiring colostomy to help with wound healing. Patient had been on IV Zosyn previously. Now with normal white count but persistent fever. Recommendations from infectious disease from previous admission was to continue antibiotics for 10-14 days with Flagyl 500 every 8 hours for anaerobic coverage and gram-negative coverage with cefdinir 300 mg twice a day, Diflucan for 5 days regarding candidiasis in the perineal area. 3. Perineal area candidiasis. Continue on Diflucan for 7 days. 4. Type 2 diabetes, on long-acting insulin, sliding scale, hypoglycemic protocol, and consistent carbohydrate diet. 5 Hypertension. Patient's labetalol was initially held due to sepsis. She had been restarted back on atenolol 25 mg daily. 6. Depression. On chronic Prozac. 7. Bowel regimen. On MiraLAX. 8. History of CVA. On atorvastatin. MTDD
[2020-01-05] MEDS: FLUCONAZOLE 100 MG in IV 1 EA IV SCH (16:00)
[2020-01-05] MEDS: ATORVASTATIN 20 MG TAB PO SCH (20:55)
[2020-01-05] MEDS: LEVEMIR (INSULIN DETEMIR) 1 UNITS/0.01ML SC SCH (20:55)
[2020-01-05 22:00] VITALS: BP 164/88
[2020-01-06] MEDS: ACETAMINOPHEN TAB 650MG DOSE (2X325MG) PO PRN (01:50)
[2020-01-06] MEDS: metroNIDAZOLE 500 MG in IV 1 EA IV SCH ×2 (05:15→13:23)
[2020-01-06 06:00] VITALS: BP 156/82
[2020-01-06 06:05] LABS: HEMATOCRIT 32.6 % (36.0-47.0); HEMOGLOBIN 10.2 g/dl (12.0-15.5); MEAN CORPUSCULAR HEMOGLOBIN 25.3 pg (27.0-33.0); MEAN CORPUSCULAR HGB CONC 31.3 g/dl (32.0-36.5); MEAN CORPUSCULAR VOLUME 80.9 fl (80.0-96.0); PLATELET COUNT, AUTOMATED 396 10^3/uL (150-450); RED BLOOD COUNT 4.03 10^6/uL (4.00-5.40); WHITE BLOOD COUNT 9.1 10^3/uL (4.0-10.0)
[2020-01-06 06:30] LABS: BLOOD UREA NITROGEN 17 MG/DL (7-18); CALCIUM LEVEL 8.2 MG/DL (8.5-10.1); CARBON DIOXIDE LEVEL 27 MEQ/L (21-32); CHLORIDE LEVEL 105 MEQ/L (98-107); CREATININE FOR GFR 0.98 MG/DL (0.55-1.30); GLOMERULAR FILTRATION RATE > 60.0 (>51); GLUCOSE, FASTING 116 MG/DL (70-100); MAGNESIUM LEVEL 1.9 MG/DL (1.8-2.4); SODIUM LEVEL 140 MEQ/L (136-145)
[2020-01-06] MEDS ORDERED: BACITAB PO (08:23)
[2020-01-06] MEDS ORDERED: LEVA750T7 PO (08:23)
[2020-01-06] MEDS: METOCLOPRAMIDE INJ 10MG/2ML VIAL (J2765 PER 1) IV SCH ×2 (08:29→11:46)
[2020-01-06] MEDS: MIRALAX *UNIT DOSE* 17GM PACKET PO SCH ×2 (08:30→08:51)
[2020-01-06] MEDS: SENNA 8.6 MG TAB (SENOKOT) PO SCH ×2 (08:30→21:00)
[2020-01-06] MEDS: FLUoxetine 20 MG CAP PO SCH (08:30)
[2020-01-06] MEDS: LACTOBACILLUS ACIDOPHILUS CAP (BACID) PO SCH ×4 (08:30→21:11)
[2020-01-06] MEDS: FERROUS GLUCONATE 324 MG TAB PO SCH (08:30)
[2020-01-06] MEDS: HumaLOG INSULIN (NovoLOG) PER UNIT SC SCH ×4 (08:31→21:00)
[2020-01-06] MEDS: ENOXAPARIN 40MG/0.4ML SYRINGE (J1650 PER 10MG) SC SCH (08:31)
[2020-01-06] MEDS: SORBITOL 70% 30ML UNIT DOSE CUP PO SCH (08:32)
[2020-01-06] MEDS: atenoloL 25 MG TAB PO SCH (08:35)
--- NOTE | 2020-01-06 11:15 | IPNPDOC ---
Date Seen The patient was seen on 01/06/20. Progress Note "I'm alright." appetite is improved. no n/v/abd pain. tolerating diet. no pain. surgery evaluated skin dehiscence around colostomy with barrier recommendations. pt has no other issues and may be transferred to snf, but awaiting covid 19 testing. no fever, chills, dysuria, urgency, frequency PE vitals: see below Generally: morbidly obese cushingoid appearance with facial hair posterior cervical fat deposit. Lungs are clear to auscultation. No wheezing or rales. AEBE. Heart: S1, S2, sinus rhythm. no m/r/g noted. Abdomen is soft, nontender, nondistended. Patient has skin dehiscencearound the colostomy site.Left buttock with a large wound extending into the perineal area. Extremities: no cyanosis, clubbing Laboratory data reviewed. Microbiology, urine culture growing Klebsiella. ASSESSMENT AND PLAN: This is a 49-year-old female, discharged 12/06/2019 with necrotizing fasciitis, history of obesity, CVA, diabetes, hypertension, hyperlipidemia with extensive sacral decubitus treated by intravenous (IV) Zosyn and surgical drainage, was on cefdinir and Flagyl, was admitted for the [facility] issues: 1. Acute pyelonephritis, currently on Levaquin to continue for 10-14 days. 2. Necrotizing fasciitis of the left buttock requiring colostomy to help with wound healing. Patient had been on IV Zosyn previously. Now with normal white count but persistent fever. Recommendations from infectious disease from previous admission was to continue antibiotics for 10-14 days with Flagyl 500 every 8 hours for anaerobic coverage and gram-negative coverage with cefdinir 300 mg twice a day, Diflucan for 5 days regarding candidiasis in the perineal area. 3. Perineal area candidiasis. Continue on Diflucan for 7 days. 4. skin dehiscence around colostomy. follow recommendations from general surgery. disposition: medically stable for discharge to snf, but awaiting covid 19 testing. VS, I&O, 24H, Fishbone Vital Signs/I&O Vital Signs Date Time Temp Pulse Resp B/P (MAP) Pulse Ox O2 Delivery O2 Flow Rate FiO2 01/06/20 08:35 75 129/55 01/06/20 06:00 98.0 20 93 01/05/20 14:00 Room Air I&O- Last 24 Hours up to 6 AM 01/06/20 06:00 Intake Total 1220 ml Output Total 600 ml Balance 620 ml Laboratory Data 24H LABS Laboratory Tests 2 01/05/20 13:10: Bedside Glucose (Misc Panel) 102 01/05/20 17:29: Bedside Glucose (Misc Panel) 117H 01/06/20 05:50: Nucleated Red Blood Cells % (auto) 0.0, Anion Gap 8, Glomerular Filtration Rate > 60.0, Calcium Level 8.2L, Magnesium Level 1.9 CBC/BMP Laboratory Tests 01/06/20 05:50 Microbiology Microbiology 01/04/20 Gram Stain - Final, Resulted 01/04/20 Wound Culture, Resulted Pending 01/02/20 Urine Culture - Final, Complete Klebsiella Pneumoniae Klebsiella Pneumoniae#2 01/02/20 Blood Culture - Preliminary, Resulted No Growth after 72 hours. All specime... 01/02/20 Blood Culture - Preliminary, Resulted No Growth after 72 hours. All specime... BLANCHE NDIAYE MD Jan 06, 2020 11:14
[2020-01-06] MEDS: LevoFLOXacin IV 750 MG in IV 1 EA IV SCH (11:46)
[2020-01-06 14:00] VITALS: BP 129/60
[2020-01-06] MEDS: FLUCONAZOLE 100 MG in IV 1 EA IV SCH (15:42)
[2020-01-06] MEDS: METOCLOPRAMIDE 10 MG TAB PO SCH ×2 (18:19→21:16)
[2020-01-06] MEDS: metroNIDAZOLE (FLAGYL) 500 MG TAB PO SCH (21:11)
[2020-01-06] MEDS: ATORVASTATIN 20 MG TAB PO SCH (21:11)
[2020-01-06] MEDS: LEVEMIR (INSULIN DETEMIR) 1 UNITS/0.01ML SC SCH (21:13)
[2020-01-06 22:00] VITALS: BP 146/72
[2020-01-07] MEDS: metroNIDAZOLE (FLAGYL) 500 MG TAB PO SCH ×3 (05:46→20:47)
[2020-01-07 06:00] VITALS: BP 157/78
[2020-01-07 06:20] LABS: BLOOD UREA NITROGEN 15 MG/DL (7-18); CALCIUM LEVEL 8.2 MG/DL (8.5-10.1); CARBON DIOXIDE LEVEL 23 MEQ/L (21-32); CHLORIDE LEVEL 108 MEQ/L (98-107); CREATININE FOR GFR 0.85 MG/DL (0.55-1.30); GLOMERULAR FILTRATION RATE > 60.0 (>51); GLUCOSE, FASTING 95 MG/DL (70-100); MAGNESIUM LEVEL 1.6 MG/DL (1.8-2.4); POTASSIUM SERUM 3.7 MEQ/L (3.5-5.1); SODIUM LEVEL 138 MEQ/L (136-145)
[2020-01-07 06:51] LABS: HEMATOCRIT 32.9 % (36.0-47.0); MEAN CORPUSCULAR HGB CONC 30.4 g/dl (32.0-36.5); MEAN CORPUSCULAR VOLUME 82.3 fl (80.0-96.0); PLATELET COUNT, AUTOMATED 407 10^3/uL (150-450)
[2020-01-07] MEDS ORDERED: MAG SULF 1GM/100ML (MAG RUN) 1 GM in IV 1 EA IV ONE (07:15)
[2020-01-07] MEDS: HumaLOG INSULIN (NovoLOG) PER UNIT SC SCH ×4 (07:27→20:50)
[2020-01-07] MEDS: MIRALAX *UNIT DOSE* 17GM PACKET PO SCH (09:00)
[2020-01-07] MEDS ORDERED: MAGNESIUM OXIDE 400 MG TAB (MAG-OX) PO ONE (09:00)
[2020-01-07] MEDS: SENNA 8.6 MG TAB (SENOKOT) PO SCH ×2 (09:00→20:47)
[2020-01-07] MEDS: LACTOBACILLUS ACIDOPHILUS CAP (BACID) PO SCH ×4 (09:45→20:46)
[2020-01-07] MEDS: FLUoxetine 20 MG CAP PO SCH (09:45)
[2020-01-07] MEDS: FLUCONAZOLE 100 MG TAB PO SCH (09:45)
[2020-01-07] MEDS: FERROUS GLUCONATE 324 MG TAB PO SCH (09:45)
[2020-01-07] MEDS: ENOXAPARIN 40MG/0.4ML SYRINGE (J1650 PER 10MG) SC SCH (09:46)
[2020-01-07] MEDS: METOCLOPRAMIDE 10 MG TAB PO SCH ×4 (09:49→20:47)
[2020-01-07] MEDS: atenoloL 25 MG TAB PO SCH (09:53)
--- NOTE | 2020-01-07 13:12 | IPNPDOC ---
Text Note Date of Service The patient was seen on 01/07/20. NOTE Subjective: No acute overnight events reported. Patient has no new medical complaints. Objective: General: NAD, lying comfortably in bed, cushingoid appearance, copious facial h air HEENT: N C/AT Lungs: CTA B/L Heart: +S1S2, RRR Abd: soft, obese, NT, +BS Ext: no edema ASSESSMENT AND PLAN: 49-year-old female, discharged 12/06/2019 with necrotizing fasciitis, history of obesity, CVA, diabetes, hypertension, hyperlipidemia with extensive sacral decubitus treated by intravenous (IV) Zosyn and surgical drainage, was on cefdinir and Flagyl, was admitted for the following issues: # Acute pyelonephritis, currently on Levaquin to continue for day #410-14 days. # Necrotizing fasciitis of the left buttock - s/p colostomy to help with wound healing - Patient had been on IV Zosyn previously. Now with normal white count but persistent fever - Recommendations from infectious disease from previous admission was to continue antibiotics for 10-14 days with Flagyl 500 every 8 hours for anaerobic coverage and gram-negative coverage with cefdinir 300 mg twice a day, Diflucan f or 7 days regarding candidiasis in the perineal area. #Perineal area candidiasis - Continue on Diflucan for day #4/7 #skin dehiscence around colostomy - follow recommendations from general surgery. disposition: medically stable for discharge to snf, but awaiting covid 19 testing results. VS,Fishbone, I+O VS, Fishbone, I+O Laboratory Tests 01/07/20 05:32 Vital Signs Date Time Temp Pulse Resp B/P (MAP) Pulse Ox O2 Delivery O2 Flow Rate FiO2 01/07/20 09:53 69 149/79 01/07/20 06:00 98.6 16 97 Room Air I&O- Last 24 Hours up to 6 AM 01/07/20 06:00 Intake Total 1050 ml Output Total 1300 ml Balance -250 ml CLAUDE GRAHAM MD Jan 07, 2020 13:12
[2020-01-07] MEDS: ATORVASTATIN 20 MG TAB PO SCH (20:47)
[2020-01-07] MEDS: LEVEMIR (INSULIN DETEMIR) 1 UNITS/0.01ML SC SCH (20:50)
[2020-01-07 22:00] VITALS: BP 122/72
[2020-01-08] MEDS: metroNIDAZOLE (FLAGYL) 500 MG TAB PO SCH (05:34)
[2020-01-08 06:00] VITALS: BP 150/79
[2020-01-08] MEDS ORDERED: LevoFLOXacin 750 MG TABLET PO SCH (06:00)
[2020-01-08 06:02] LABS: HEMATOCRIT 32.3 % (36.0-47.0); MEAN CORPUSCULAR HEMOGLOBIN 25.2 pg (27.0-33.0); MEAN CORPUSCULAR VOLUME 81.4 fl (80.0-96.0); PLATELET COUNT, AUTOMATED 442 10^3/uL (150-450); RED BLOOD COUNT 3.97 10^6/uL (4.00-5.40); WHITE BLOOD COUNT 11.3 10^3/uL (4.0-10.0)
[2020-01-08 06:33] LABS: BLOOD UREA NITROGEN 13 MG/DL (7-18); CALCIUM LEVEL 8.5 MG/DL (8.5-10.1); CARBON DIOXIDE LEVEL 29 MEQ/L (21-32); CHLORIDE LEVEL 107 MEQ/L (98-107); CREATININE FOR GFR 0.76 MG/DL (0.55-1.30); GLOMERULAR FILTRATION RATE > 60.0 (>51); GLUCOSE, FASTING 94 MG/DL (70-100); MAGNESIUM LEVEL 1.7 MG/DL (1.8-2.4); POTASSIUM SERUM 4.1 MEQ/L (3.5-5.1); SODIUM LEVEL 141 MEQ/L (136-145)
[2020-01-08] MEDS: HumaLOG INSULIN (NovoLOG) PER UNIT SC SCH (07:30)
[2020-01-08] MEDS ORDERED: MAGNESIUM OXIDE 400 MG TAB (MAG-OX) PO ONE (09:00)
[2020-01-08] MEDS: MIRALAX *UNIT DOSE* 17GM PACKET PO SCH ×2 (09:00→09:29)
[2020-01-08] MEDS: SORBITOL 70% 30ML UNIT DOSE CUP PO SCH ×2 (09:00→09:29)
[2020-01-08] MEDS: ENOXAPARIN 40MG/0.4ML SYRINGE (J1650 PER 10MG) SC SCH (09:29)
[2020-01-08] MEDS: FLUoxetine 20 MG CAP PO SCH (09:30)
[2020-01-08] MEDS: METOCLOPRAMIDE 10 MG TAB PO SCH (09:30)
[2020-01-08] MEDS: LACTOBACILLUS ACIDOPHILUS CAP (BACID) PO SCH (09:30)
[2020-01-08] MEDS: FERROUS GLUCONATE 324 MG TAB PO SCH (09:30)
[2020-01-08] MEDS: SENNA 8.6 MG TAB (SENOKOT) PO SCH (09:30)
[2020-01-08 09:31] VITALS: BP 141/86
[2020-01-08] MEDS: atenoloL 25 MG TAB PO SCH (09:31)
[2020-01-08] MEDS: FLUCONAZOLE 100 MG TAB PO SCH (09:31)
--- NOTE | 2020-01-10 15:19 | DS.PDOC ---
Discharge Summary General Date of Admission January 02, 2020 at 22:18 Date of Discharge 01/08/20 Discharge Summary PROCEDURES PERFORMED DURING STAY: [None]. ADMITTING DIAGNOSES: 1. . DISCHARGE DIAGNOSES: 1. Hypertension 2. CVA, living in [facility] 3. Diabetes Mellitus 4. Hyperlipidemia 5. Necrotizing fascitis left buttock, s/p I&D COMPLICATIONS/CHIEF COMPLAINT: Pyelonephritis Renal Mass Left. HISTORY OF PRESENT ILLNESS: Etta Villalobos is a 49-year-old female who presented to the emergency department today from [facility]. She states she has been having abdominal pain and vomiting. She cannot recall how long this has been going on. She also had lab work done today and was found to have an elevated CRP level. She describes her abdominal pain as sharp in the suprapubic region. She denies any back pain. She has a chronic Johns catheter in and denies any change to her urine output that she is aware of. No hematuria. She also has a colostomy bag and states her bowel movements have been normal, although she cannot relate when her last bowel movement was. She denies fevers or chills. She does have a chronic wound on her left buttocks, which is status post incision and drainage f or necrotizing fasciitis on her prior admission. She does have pain from this wound, especially when she moves but otherwise states the pain has not worsened and she has not noticed any increased drainage. She relates that her poor memory is due to a prior stroke. Most of the following history is obtained from chart review. HOSPITAL COURSE: 49-year-old female, discharged 12/06/2019 with necrotizing fasciitis, history of obesity, CVA, diabetes, hypertension, hyperlipidemia with extensive sacral decubitus treated by intravenous (IV) Zosyn and surgical drainage, was on cefdinir and Flagyl, was admitted for the following issues: # Acute pyelonephritis, currently on Levaquin to continue for day #4/10-14 days. # Necrotizing fasciitis of the left buttock - s/p colostomy to help with wound healing - Patient had been on IV Zosyn previously. Now with normal white count but persistent fever - Recommendations from infectious disease from previous admission was to continue antibiotics for 10-14 days with Flagyl 500 every 8 hours for anaerobic coverage and gram-negative coverage with cefdinir 300 mg twice a day, Diflucan for 7 days regarding candidiasis in the perineal area. #Perineal area candidiasis - Continue on Diflucan for day #4/7 #skin dehiscence around colostomy - follow recommendations from general surgery. DISCHARGE MEDICATIONS: Please see below. ALLERGIES: Please see below. PHYSICAL EXAMINATION ON DISCHARGE: VITAL SIGNS: Please see below. General: NAD, lying comfortably in bed, cushingoid appearance, copious facial hair HEENT: N C/AT Lungs: CTA B/L Heart: +S1S2, RRR Abd: soft, obese, NT, +BS LABORATORY DATA: Please see below. ACTIVITY: [As tolerated]. DISPOSITION: [facility]. DISCHARGE INSTRUCTIONS: 1. PCP in 3-5 days 2. Surgery/ID as recommended by PCP DISCHARGE CONDITION: [Stable]. TIME SPENT ON DISCHARGE: 35 minutes. Vital Signs/I&Os Vital Signs Date Time Temp Pulse Resp B/P (MAP) Pulse Ox O2 Delivery O2 Flow Rate FiO2 01/08/20 09:31 75 141/86 01/08/20 06:00 98.4 16 99 Room Air Microbiology Microbiology 01/06/20 Coronavirus COVID-19 PCR (MYAH) - Final, Complete 01/04/20 Gram Stain - Final, Complete 01/04/20 Wound Culture - Final, Complete Enterobacter Cloacae Complex Pseudomonas Aeruginosa Staphylococcus Sp Coag Neg 01/02/20 Urine Culture - Final, Complete Klebsiella Pneumoniae Klebsiella Pneumoniae#2 01/02/20 Blood Culture - Final, Complete NO GROWTH AFTER 5 DAYS 01/02/20 Blood Culture - Final, Complete NO GROWTH AFTER 5 DAYS Discharge Medications Scheduled Atorvastatin Calcium (Atorvastatin Calcium) 40 Mg Tablet, 40 MG PO QHS, (Reported) Ferrous Gluconate (Ferrous Gluconate) 324 Mg Tablet, 324 MG PO DAILY, (Reported) Fluoxetine Hcl (Fluoxetine HCl) 20 Mg Capsule, 20 MG PO DAILY, (Reported) Insulin Glargine,Hum.rec.anlog (Lantus Solostar) 100 Unit/1 Ml Insuln.pen, 80 UNITS SC QHS, (Reported) Insulin Human Lispro (Humalog) 100 Unit/1 Ml Vial, 1 DOSE SC AC, (Reported) PER SLIDING SCALE L.acidoph/L.bulg/B.bif/S.therm (Bacid Caplet) 1 Each Tablet, 1 TAB PO BIDWM Labetalol HCl (Labetalol HCl) 100 Mg Tablet, 100 MG PO BID, (Reported) Levofloxacin (Levaquin) 750 Mg Tablet, 750 MG PO DAILY Linagliptin (Tradjenta) 5 Mg Tablet, 5 MG PO DAILY, (Reported) Melatonin (Melatonin) 10 Mg Capsule, 10 MG PO QHS, (Reported) Polyethylene Glycol 3350 (Miralax) 119 Gm Powder, 17 GM PO DAILY, (Reported) Sennosides (Senna Lax) 8.6 Mg Tablet, 17.2 MG PO BID, (Reported) Sorbitol Solution (Sorbitol 70%) 1 Ml Solution, 30 ML PO Q2D, (Reported) HOLD FOR DIARRHEA Scheduled PRN Acetaminophen (Acetaminophen) 325 Mg Tablet, 650 MG PO Q4H PRN for PAIN, (Reported) Glucagon,Human Recombinant (Glucagon Emergency Kit) 1 Mg Vial, 1 MG IM ASDIRECTED PRN for LOW BLOOD SUGAR, (Reported) Guaifenesin (Guaifenesin) 100 Mg/5 Ml Liquid, 10 ML PO QID PRN for COUGH, (Reported) Hydrocodone/Acetaminophen (Hydrocodone-Acetamin 5-325 mg) 1 Each Tablet, 1 TAB PO Q6H PRN for PAIN, (Reported) Ondansetron HCl (Ondansetron HCl) 4 Mg Tablet, 4 MG PO Q6H PRN for NAUSEA OR VOMITING, (Reported) Allergies Coded Allergies: No Known Allergies (Unverified , 10/19/18) CLAUDE GRAHAM MD Jan 10, 2020 15:18
== END 2020-01-08 11:08 | DRG 463 ==
LOC: M ED 16:26 → EDBD 16:26 → M ED INP 22:18 → ENRESERV 01-03 → CANRESERV 01-03 → ENRESERV 01-03 00:12 → M MSPAV 01-03 01:02
PROVIDERS: ADMIT Internal Medicine; ATTEND Internal Medicine
DX: N10 Acute pyelonephritis (principal); M72.6 Necrotizing fasciitis; B37.89 Other sites of candidiasis; L89.154 Pressure ulcer of sacral region, stage 4; K31.84 Gastroparesis; E11.43 Type 2 diabetes mellitus with diabetic autonomic (poly)neuropathy; T81.31XA Disruption of external operation (surgical) wound, not elsewhere classified, initial encounter; I69.351 Hemiplegia and hemiparesis following cerebral infarction affecting right dominant side; E24.8 Other Cushing's syndrome; E66.01 Morbid (severe) obesity due to excess calories; Z68.42 Body mass index [BMI] 45.0-49.9, adult; Z66 Do not resuscitate; I69.311 Memory deficit following cerebral infarction; E78.5 Hyperlipidemia, unspecified; I10 Essential (primary) hypertension; Z93.3 Colostomy status; Z79.4 Long term (current) use of insulin; Z79.899 Other long term (current) drug therapy; Y83.3 Surgical operation with formation of external stoma as the cause of abnormal reaction of the patient, or of later complication, without mention of misadventure at the time of the procedure; B96.1 Klebsiella pneumoniae [K. pneumoniae] as the cause of diseases classified elsewhere; Z11.59 Encounter for screening for other viral diseases

== ENCOUNTER → 2020-01-02 | Outpatient (REF) ==
[2020-01-02 09:55] LABS: HEMATOCRIT 33.6 % (36.0-47.0); HEMOGLOBIN 10.4 g/dl (12.0-15.5); MEAN CORPUSCULAR HEMOGLOBIN 25.6 pg (27.0-33.0); MEAN CORPUSCULAR VOLUME 82.8 fl (80.0-96.0); PLATELET COUNT, AUTOMATED 446 10^3/uL (150-450); RED BLOOD COUNT 4.06 10^6/uL (4.00-5.40); WHITE BLOOD COUNT 17.6 10^3/uL (4.0-10.0)
[2020-01-02 10:10] LABS: ALBUMIN 2.4 GM/DL (3.2-5.2); BILIRUBIN,TOTAL 0.5 MG/DL (0.2-1.0); CALCIUM LEVEL 9.5 MG/DL (8.5-10.1); CREATININE FOR GFR 1.15 MG/DL (0.55-1.30); GLOMERULAR FILTRATION RATE 53.2 (>51); POTASSIUM SERUM 4.2 MEQ/L (3.5-5.1); TOTAL PROTEIN 8.1 GM/DL (6.4-8.2)
--- NOTE | 2020-01-02 14:56 | REP ---
REASON: Abdominal pain. There is mild gaseous distention of the stomach. The intestinal gas pattern is nonspecific. Limited portable supine KUB shows no evidence of free intraperitoneal air. Electronically Signed by Fred Gonzalez DO 01/02/2020 05:09 P
[2020-01-02 18:50] LABS: APPEARANCE, URINE TURBID (CLEAR); BACTERIA, URINE AUTO NEGATIVE (NEGATIVE); BILIRUBIN, URINE AUTO NEGATIVE (NEGATIVE); BLOOD, URINE BLOOD 1+ (NEGATIVE); COLOR, URINE AMBER (YELLOW); GLUCOSE, URINE (UA) AUTO NEGATIVE (NEGATIVE); KETONE, URINE AUTO NEGATIVE (NEGATIVE); LEUKOCYTE ESTERASE, URINE AUTO 3+ (NEGATIVE); MUCUS, URINE LARGE (NEGATIVE); NITRITE, URINE AUTO POSITIVE (NEGATIVE); PROTEIN, URINE AUTO 2+ mg/dL (NEGATIVE); RBC, URINE AUTO 18 /HPF (0-3); SPECIFIC GRAVITY URINE AUTO 1.018 (1.002-1.035); SQUAMOUS EPITHELIAL CELL UR AU 1 /HPF (0-6); UROBILINOGEN, URINE AUTO 0.2 mg/dL (0.0-2.0); WBC, URINE AUTO TNTC /HPF (0-3)
== END ==
LOC: SKLAB3 07:00
PROVIDERS: ATTEND Internal Medicine
DX: E11.9 Type 2 diabetes mellitus without complications (principal)

== ENCOUNTER → 2020-01-03 | Outpatient (REF) ==
[~2020-01-03] MED LIST changes: +BACITAB PO; +CEPH500C PO; +FIRV50SO PO; +GUAI100L31 PO; +HYDR-3713 PO; +LEVA750T7 PO; +METO5TAB2 PO; +NITR-67 PO; +ONETAB16 PO; +PANT40TA3 PO; +RA M10TA PO; +VITMTA PO
== END ==
LOC: EEVIPCON → SKLAB3 07:00
PROVIDERS: ATTEND Internal Medicine
DX: D72.829 Elevated white blood cell count, unspecified (principal)

== ENCOUNTER → 2020-01-09 | Outpatient (REF) ==
[~2020-01-09] MED LIST changes: -CEPH500C PO; -FIRV50SO PO; -GUAI100L31 PO; -METO5TAB2 PO; -NITR-67 PO; -ONETAB16 PO; -PANT40TA3 PO; -RA M10TA PO; -VITMTA PO
== END ==
LOC: SKLAB3 10:31
PROVIDERS: ATTEND Internal Medicine
DX: N28.9 Disorder of kidney and ureter, unspecified (principal)

== ENCOUNTER → 2020-01-13 | Outpatient (REF) | LOC: SKLAB3 11:59 | PROVIDERS: ATTEND Internal Medicine | DX: Z86.14 Personal history of Methicillin resistant Staphylococcus aureus infection (principal) ==

== ENCOUNTER → 2020-01-16 | Outpatient (REF) | LOC: SKLAB3 15:10 | PROVIDERS: ATTEND Internal Medicine | DX: N28.89 Other specified disorders of kidney and ureter (principal) ==

== ENCOUNTER → 2020-01-20 | Outpatient (REF) ==
[~2020-01-20] MED LIST changes: +ONETAB16 PO
== END ==
LOC: SKLAB3 09:25
PROVIDERS: ATTEND Internal Medicine
DX: Z86.14 Personal history of Methicillin resistant Staphylococcus aureus infection (principal)

== ENCOUNTER 2020-01-21 15:24 | Inpatient (IN) | payer MEDICAID ==
[~2020-01-21] VITALS: Ht 162.6 cm; Wt 120.3 kg
[~2020-01-21 15:24] MED LIST changes: -AMLO10TA5 PO; +AMLO1TAB24 PO; +AMLO1TAB25 PO; -AMLO5TAB6 PO; +LABE100T4 PO; -LABE10TAB PO; +LISI10TA22 PO; -LISI10TA4 PO; -MAGN400O53 PO; +MILKSUS22 PO; -ONETAB16 PO
[2020-01-21] MEDS ORDERED: NS 1,000 ML IV SCH (15:40)
[2020-01-21 16:46] LABS: BASO % 0.2 % (0.0-1.0); EOS % 0.1 % (0.0-3.0); HEMATOCRIT 32.7 % (36.0-47.0); HEMOGLOBIN 10.4 g/dl (12.0-15.5); MEAN CORPUSCULAR HEMOGLOBIN 25.3 pg (27.0-33.0); MEAN CORPUSCULAR HGB CONC 31.8 g/dl (32.0-36.5); MEAN CORPUSCULAR VOLUME 79.6 fl (80.0-96.0); MONO # 0.9 10^3/uL (0.0-0.8); MONO % 5.7 % (0.0-5.0); NEUTROPHILS # 14.2 10^3/uL (1.5-8.5); NEUTROPHILS % 87.6 % (36.0-66.0); PLATELET COUNT, AUTOMATED 423 10^3/uL (150-450); RED BLOOD COUNT 4.11 10^6/uL (4.00-5.40); WHITE BLOOD COUNT 16.2 10^3/uL (4.0-10.0)
[2020-01-21 16:57] LABS: INR 1.2; PROTHROMBIN TIME 14.9 SECONDS (11.8-14.0)
[2020-01-21] MEDS ORDERED: ONETAB16 PO (17:11)
[2020-01-21 17:16] LABS: ALBUMIN 2.6 GM/DL (3.2-5.2); ALT/SGPT 21 U/L (12-78); BILIRUBIN,DIRECT 0.2 MG/DL (0.0-0.2); BILIRUBIN,TOTAL 0.6 MG/DL (0.2-1.0); BLOOD UREA NITROGEN 20 MG/DL (7-18); CALCIUM LEVEL 9.3 MG/DL (8.5-10.1); CARBON DIOXIDE LEVEL 27 MEQ/L (21-32); CHLORIDE LEVEL 102 MEQ/L (98-107); CK-MB VALUE MASS < 1.0 NG/ML (<3.6); CPK CREATINE PHOSPHOKINASE 41 U/L (26-192); CREATININE FOR GFR 0.93 MG/DL (0.55-1.30); GLOMERULAR FILTRATION RATE > 60.0 (>51); GLUCOSE, FASTING 206 MG/DL (70-100); LIPASE 32 U/L (73-393); MB/CK RELATIVE INDEX 2.44 (< OR =4); POTASSIUM SERUM 3.5 MEQ/L (3.5-5.1); SODIUM LEVEL 137 MEQ/L (136-145); TOTAL PROTEIN 8.2 GM/DL (6.4-8.2); TROPONIN I < 0.02 NG/ML (< 0.10)
[2020-01-21] MEDS ORDERED: IMIPENEM/CILASTATIN 500 MG in D5W MINI-BAG PLUS 100 ML IV ONE (17:30)
[2020-01-21] MEDS ORDERED: ONDANSETRON 4MG/2ML VIAL IV ONE ×2 (18:00→22:45)
[2020-01-21] MEDS ORDERED: ONDANSETRON 4MG/2ML VIAL As Ordered ONE (18:01)
[2020-01-21] MEDS ORDERED: MEROPENEM INJ 2 GM in NS 100 ML IV SCH (19:00)
[2020-01-21] MEDS ORDERED: DEXTROSE 50% 50 ML SYRINGE IV PRN (19:45)
[2020-01-21] MEDS ORDERED: ONDANSETRON 4MG/2ML VIAL IV PRN (19:45)
[2020-01-21] MEDS ORDERED: GLUCOSE 4GM CHEW TABLET PO PRN (19:45)
[2020-01-21] MEDS ORDERED: GLUCAGON INJ 1MG VIAL SC PRN (19:45)
--- NOTE | 2020-01-21 21:32 | HPEPDOC ---
[facility] Medical History & Physical Date of Admission Jan 21, 2020 Date of Service: Jan 21, 2020 Attending Physician: SHASHANK JACKSON MD History and Physical CHIEF COMPLAINT: Abdominal Pain, dysuria HISTORY OF PRESENT ILLNESS: Patient is a 49 year old female who presented to the [facility] ER with complaint of abdominal pain and dysuria. She is a resident of the [facility]. The patient has intellectual disabilities. She states that she has abdominal pain. Additionally, she states she has nausea. She is unable to provide a detailed history of her abdominal pain. She does state that she has burning with urination. She does have a chronic brewster in place. Additionally she has a history of chronic wounds on her sacral region which had once point developed due to necrotizing fasciitis. She states that currently she does not have any pain. She does have a colostomy bag in place and denies any comp lications from this. In the ER the patient was found to be vitally stable. She did have a leukocyt osis. She had received CT imaging of her abdomen and pelvis which demonstrated bilateral hydronephrosis. Hospitalist Service was consulted and the patient was admitted for further evaluation and management PAST MEDICAL HISTORY: 1. Hypertension 2. history of CVA. Currently living in [facility] 3. Diabetes Mellitus 4. Hyperlipidemia 5. Necrotizing fascitis left buttock, s/p I&D PAST SURGICAL HISTORY: 1. I&D left buttock 2. Colostomy SOCIAL HISTORY: Patient is a resident of [facility]. She denies any alcohol use, tobacco use, or illicit drug use FAMILY HISTORY: Patient states that her mother and father have . Her mother had diabetes and from complications of such. She has two sis ters who are alive and well ALLERGIES: Please see below. REVIEW OF SYSTEMS: CONSTITUTIONAL: Denies fevers, chills, unintentional weightloss or weight gain HEENT: Denies dysphagia. Denies pain on swallowing CARDIOVASCULAR: Denies chest pain. Denies palpitations. Denies feelings of the heart racing RESPIRATORY: Denies shortness of breath. Denies cough. Denies wheezes GASTROINTESTINAL: Admits to abdominal pain. Admits to nausea. Denies current vomiting. Denies issues with colostomy GENITOURINARY: Admits to discomfort with urination SKIN: Admits to wound on her backside although she is unsure what it looks like NEUROLOGICAL: Denies changes in speech from her baseline PSYCHIATRIC: Denies depression or anxiety ENDOCRINE: Admits to diabetes HEMATOLOGIC/LYMPHATIC: Denies easy bruising or bleeding. Denies history of DVT or PE HOME MEDICATIONS: Please see below. PHYSICAL EXAMINATION: VITAL SIGNS: Temperature 99.8, pulse 92, respiratory rate 18, blood pressure 138/76, pulse oximetry 94% on room air. GENERAL APPEARANCE: Awake, alert, and oriented. Appears in no acute distress HEENT: Atraumatic, normocephalic eyes are nonicteric. Trachea is midline CARDIOVASCULAR: normal S1, S2. Regular rate and rhythm. No clicks rubs or murmurs LUNGS: Clear vesicular breath sounds bilaterally. Good respiratory effort. No wheezes, rhonchi or rales. ABDOMEN: Morbidly obese. Soft, nondistended. Nontender. no rebound tenderness. Normoactive bowel sounds. Colostomy bag in place and appears well functioning EXTREMITIES: No edema. Full and equal pulses in bilateral upper and lower extremities NEUROLOGICAL: No focal neurological deficits PSYCHIATRIC: Intellectual disability. Flat affect. LABORATORY DATA: See below. IMAGING: REASON: Abdominal pain. COMPARISON: 01/02/2020, the latest prior. Noncontrast enhanced examination 11/28/2019 also reviewed. CONTRAST: 100 mL Isovue-370. Respiratory motion artifact obscures the detail in the lung bases. No gross abnormality is noted. The liver, gallbladder, spleen, pancreas, adrenal glands are essentially unchanged and again seen to be within normal limits. Since the last examination, mild bilateral hydronephrosis and hydroureter has developed. There is a Brewster balloon catheter in the urinary bladder decompressing it. There is air density in the urinary bladder, likely secondary to the catheter. There are no nephroliths or ureteroliths. There is no change in the abdominal aorta or para-aortic regions. The colostomy site is unchanged. There is no significant change in appearance of bowel loops or their mesenteries. There is a tethering effect in the small bowel mesentery on the left at the level of the iliac crests, which is stable. This has the appearance of postoperative scar. There are surgical clips in the region. There is no evidence of free fluid or free air in the abdomen or pelvis. There is no significant change in appearance of the osseous structures. IMPRESSION: The only significant change when today's exam is compared to the prior exam is that there is now unexplained mild to moderate bilateral hydronephrosis. Electronically Signed by Fred Gonzalez DO 01/21/2020 05:03 P MICROBIOLOGY: Please see below. ASSESSMENT: Patient is a 49 year old female who presented to the [facility] ER with complaint of abdominal pain and found to have bilateral hydronephrosis and leukocytosis . PLAN: 1. Abdominal Pain 2/2 pyelonephritis -Patient has a history of pyelonephritis. Chronic indwelling brewster catheter. Today on CT imaging she has bilateral hydronephrosis. She is afebrile. She does have a leukocytosis. She states she has urinary discomfort. -blood cultures x2 -Urinalysis and urine culture -Will start Meropenem and insert brewster catheter (re: Mild-moderate bilateral hydronephrosis) -Will consider ID consult given the chronicity of the patients recurrent pyelonephritis 2. Diabetes Mellitus Type 2 -Levemir QHS -Sliding scale coverage with ACHS coverage -Consistent carbohydrates 3. C. difficile -GI panel positive for C. difficile -Likely 2/2 to numerous antibiotics that she has received. Will start Vancomycin PO 124 mg q6h 4. DVT Prophylaxis -Heparin SQ Vital Signs Vital Signs Date Time Temp Pulse Resp B/P (MAP) Pulse Ox O2 Delivery O2 Flow Rate FiO2 01/21/20 19:24 112 93 01/21/20 18:52 149/69 (95) 01/21/20 18:24 20 Room Air 01/21/20 16:44 99.8 Laboratory Data Labs 24H Laboratory Tests 2 01/21/20 15:40: Immature Granulocyte % (Auto) 0.4, Neutrophils (%) (Auto) 87.6H, Lymphocytes (%) (Auto) 6.0L, Monocytes (%) (Auto) 5.7H, Eosinophils (%) (Auto) 0.1, Basophils (%) (Auto) 0.2, Neutrophils # (Auto) 14.2H, Lymphocytes # (Auto) 1.0L, Monocytes # (Auto) 0.9H, Eosinophils # (Auto) 0.0, Basophils # (Auto) 0.0, Nucleated Red Blood Cells % (auto) 0.0, Prothrombin Time 14.9H, Prothromb Time International Ratio 1.20, Anion Gap 8, Glomerular Filtration Rate > 60.0, Lactic Acid Level 1. 1, Calcium Level 9.3, Total Bilirubin 0.6, Direct Bilirubin 0.2, Aspartate Amino Transf (AST/SGOT) 12, Alanine Aminotransferase (ALT/SGPT) 21, Alkaline Phosphatase 126H, Total Creatine Kinase 41, Creatine Kinase MB < 1.0, Creatine Kinase MB Relative Index 2.44, Troponin I < 0.02, Total Protein 8.2, Albumin 2.6L, Albumin/Globulin Ratio 0.5L, Lipase 32L CBC/BMP Laboratory Tests 01/21/20 15:40 Microbiology Microbiology 01/21/20 Gastrointestinal Tract Panel (PCR) - Final, Complete Clostridium Difficile A/B 01/21/20 Blood Culture, Received Pending 01/21/20 Blood Culture, Received Pending Home Medications Scheduled Atorvastatin Calcium (Atorvastatin Calcium) 40 Mg Tablet, 40 MG PO QHS Ferrous Gluconate (Ferrous Gluconate) 324 Mg Tablet, 324 MG PO DAILY Fluoxetine Hcl (Fluoxetine HCl) 20 Mg Capsule, 20 MG PO DAILY Insulin Glargine,Hum.rec.anlog (Lantus Solostar) 100 Unit/1 Ml Insuln.pen, 80 UNITS SC QHS Insulin Human Lispro (Humalog) 100 Unit/1 Ml Vial, 1 DOSE SC AC PER SLIDING SCALE Labetalol HCl (Labetalol HCl) 100 Mg Tablet, 100 MG PO BID Linagliptin (Tradjenta) 5 Mg Tablet, 5 MG PO DAILY Melatonin (Melatonin) 10 Mg Capsule, 10 MG PO QHS Polyethylene Glycol 3350 (Miralax) 119 Gm Powder, 17 GM PO DAILY Sennosides (Senna Lax) 8.6 Mg Tablet, 17.2 MG PO BID Sorbitol Solution (Sorbitol 70%) 1 Ml Solution, 30 ML PO Q2D HOLD FOR DIARRHEA Scheduled PRN Acetaminophen (Acetaminophen) 325 Mg Tablet, 650 MG PO Q4H PRN for PAIN Glucagon,Human Recombinant (Glucagon Emergency Kit) 1 Mg Vial, 1 MG IM ASDIRECTED PRN for LOW BLOOD SUGAR Guaifenesin (Guaifenesin) 100 Mg/5 Ml Liquid, 10 ML PO QID PRN for COUGH Hydrocodone/Acetaminophen (Hydrocodone-Acetamin 5-325 mg) 1 Each Tablet, 1 TAB PO Q6H PRN for PAIN Ondansetron HCl (Ondansetron HCl) 4 Mg Tablet, 4 MG PO Q6H PRN for NAUSEA OR VOMITING Miscellaneous Medications Multivitamin with Minerals (One Daily Plus Minerals) 1 Each Tablet, 1 TAB PO Allergies Coded Allergies: No Known Allergies (Unverified , 10/19/18) A-FIB/CHADSVASC A-FIB History Current/History of A-Fib/PAF?: No GME ATTESTATION GME ATTESTATION My faculty preceptor for this patient encounter was physically present during the encounter and was fully available. All aspects of the patient interview, examination, medical decision making process, and medical care plan development were reviewed and approved by the faculty preceptor. The faculty preceptor is aware and concurs with the plan as stated in the body of this note and will attest to such by his/her cosignature. ATTENDING NOTE I, Shashank Jackson, have independently examined this patient and performed my own physical exam, as well as reviewed the documentation and edited where necessary. I have discussed in detail with the resident / student the findings and plan of treatment as documented by the resident / student and edited their note. I agree with their findings and treatment plan and have edited their documentation. I will continue to follow the patient during this hospital stay. VLADIMIR FORD DO Jan 21, 2020 21:32 SHASHANK JACKSON MD Jan 21, 2020 21:59
[2020-01-21 21:37] VITALS: BP 103/56
--- NOTE | 2020-01-21 21:46 | ECGEPIP ---
[facility] - ED Test Date: 2020-01-21 Pat Name: ABNER RANKIN Department: Room: - Gender: Female Automation Test Developer: ef : 1970 Requested By: Kendra Liu Order Number: [id number] Reading MD: Reji Ramirez Measurements Intervals [place] Rate: 91 P: 41 NE: 136 QRS: 13 QRSD: 88 T: 76 QT: 366 QTc: 452 Interpretive Statements SINUS RHYTHM NONSPECIFIC ST & T-WAVE ABNORMALITY SIMILAR TO 01/02/20 Electronically Signed on 01-21-2020 21:45:53 EDT by Reji Ramirez
[2020-01-21] MEDS ORDERED: LEVEMIR (INSULIN DETEMIR) 1 UNITS/0.01ML SC ONE (22:45)
[2020-01-21] MEDS: LABETALOL 100MG TAB PO SCH (22:49)
[2020-01-21] MEDS: HumaLOG INSULIN (NovoLOG) PER UNIT SC SCH (22:50)
[2020-01-21] MEDS: LEVEMIR (INSULIN DETEMIR) 1 UNITS/0.01ML SC SCH (22:50)
--- NOTE | 2020-01-21 22:52 | REP ---
REASON: Cough. The latest prior for comparison is a portable examination of 12/03/2019. The technique utilized in obtaining the radiograph has magnified the cardiac silhouette and accentuated the interstitial markings. There is no change from the prior exam. There is cardiomegaly accentuated by technique. The left CP angle has not been included on the radiograph. No acute patchy parenchymal opacities or pleural effusions have developed. There is no change in the osseous structures. IMPRESSION: Cardiomegaly without evidence of acute cardiopulmonary disease or significant change compared to the prior exam, as described above. Electronically Signed by Fred Gonzalez DO 01/22/2020 01:23 P
[2020-01-21] MEDS: ATORVASTATIN 20 MG TAB PO SCH (23:10)
[2020-01-21] MEDS: NS 1,000 ML IV SCH ×2 (23:10→23:45)
[2020-01-21] MEDS: VANCOMYCIN ORAL SOL 250MG/5ML ORAL SYRINGE PO SCH (23:11)
[2020-01-21] MEDS: MEROPENEM INJ 1 GM in IV 1 EA IV SCH (23:11)
[2020-01-21] MEDS: ACETAMINOPHEN TAB 650MG DOSE (2X325MG) PO PRN (23:12)
[2020-01-21] MEDS: POTASSIUM CHLORIDE 10% LIQ 20 MEQ/15 ML UDC PO ONE (23:20)
[2020-01-22] MEDS: MEROPENEM INJ 1 GM in IV 1 EA IV SCH ×5 (01:08→15:40)
[2020-01-22] MEDS: ATORVASTATIN 20 MG TAB PO SCH ×2 (01:08→23:19)
[2020-01-22] MEDS: VANCOMYCIN ORAL SOL 250MG/5ML ORAL SYRINGE PO SCH ×6 (01:09→23:20)
[2020-01-22] MEDS: NORCO, ANEXSIA 5/325MG TABLET (HYDROcodone/ACETAMINOPHEN) PO PRN (02:10)
[2020-01-22 06:00] VITALS: BP 164/84
[2020-01-22 06:31] LABS: HEMATOCRIT 29.6 % (36.0-47.0); HEMOGLOBIN 9.4 g/dl (12.0-15.5); MEAN CORPUSCULAR HEMOGLOBIN 25.9 pg (27.0-33.0); MEAN CORPUSCULAR HGB CONC 31.8 g/dl (32.0-36.5); MEAN CORPUSCULAR VOLUME 81.5 fl (80.0-96.0); PLATELET COUNT, AUTOMATED 371 10^3/uL (150-450); RED BLOOD COUNT 3.63 10^6/uL (4.00-5.40); WHITE BLOOD COUNT 14.8 10^3/uL (4.0-10.0)
[2020-01-22 06:59] LABS: CREATININE FOR GFR 1.11 MG/DL (0.55-1.30); GLOMERULAR FILTRATION RATE 55.4 (>51); POTASSIUM SERUM 3.1 MEQ/L (3.5-5.1)
[2020-01-22] MEDS: HumaLOG INSULIN (NovoLOG) PER UNIT SC SCH ×4 (07:30→21:00)
[2020-01-22] MEDS: POTASSIUM CHLORIDE 10 MEQ SR TABLET PO ONE ×2 (07:45→09:07)
[2020-01-22] MEDS: LABETALOL 100MG TAB PO SCH ×3 (09:00→23:25)
[2020-01-22] MEDS: FLUoxetine 20 MG CAP PO SCH ×2 (09:00→09:07)
[2020-01-22] MEDS: ACETAMINOPHEN TAB 650MG DOSE (2X325MG) PO PRN (09:08)
[2020-01-22] MEDS: PROMETHAZINE INJ 25 MG/ML VIAL (J2550) IV PRN ×3 (10:29→23:47)
[2020-01-22 11:30] VITALS: BP 168/86
[2020-01-22] MEDS: ONDANSETRON 4MG/2ML VIAL IV PRN ×2 (12:35→23:18)
[2020-01-22] MEDS: NS 1,000 ML IV SCH (12:35)
[2020-01-22] MEDS: PANTOPRAZOLE 40MG VIAL (C9113 PER 1) IV SCH ×2 (13:30→23:16)
[2020-01-22 14:00] VITALS: BP 153/77
--- NOTE | 2020-01-22 16:12 | REP ---
REASON: Followup. COMPARISON: 01/05/2020, which showed no bowel obstruction. There is no change from the prior exam. There is no bowel obstruction. Electronically Signed by Fred Gonzalez DO 01/22/2020 05:06 P
--- NOTE | 2020-01-22 18:45 | IPNPDOC ---
Date Seen The patient was seen on 01/22/20. Progress Note SUBJECTIVE: Patient was seen and examined this morning. She currently states that she has abdominal pain. She did test positive for C. difficile yesterday. She has reportedly had increased nausea and vomiting this morning. She otherwise denies any other acute complaints OBJECTIVE PHYSICAL EXAMINATION: VITAL SIGNS: Please see below. GENERAL APPEARANCE: Awake, alert, and oriented. Appears in no acute distress HEENT: Atraumatic, normocephalic eyes are nonicteric. Trachea is midline CARDIOVASCULAR: normal S1, S2. Regular rate and rhythm. No clicks rubs or murmurs LUNGS: Clear vesicular breath sounds bilaterally. Good respiratory effort. No wheezes, rhonchi or rales. ABDOMEN: Morbidly obese. Soft, nondistended. Mild tenderness diffusely. no rebound tenderness. Normoactive bowel sounds. Colostomy bag in place and appears well functioning EXTREMITIES: No edema. Full and equal pulses in bilateral upper and lower extremities NEUROLOGICAL: No focal neurological deficits PSYCHIATRIC: Intellectual disability. Flat affect. LABORATORY DATA, IMAGING STUDIES, MICROBIOLOGY: Please see below. DVT prophylaxis ordered?: Heparin SQ ASSESSMENT AND PLAN: ASSESSMENT: Patient is a 49 year old female who presented to the [facility] ER with complaint of abdominal pain and found to have bilateral hydronephrosis and leukocytosis . PLAN: 1. Abdominal Pain 2/2 pyelonephritis -Patient has a history of pyelonephritis. Chronic indwelling brewster catheter. Today on CT imaging she has bilateral hydronephrosis. She is afebrile. She does have a leukocytosis. She states she has urinary discomfort. -blood cultures x2 -Urinalysis and urine culture from clean brewster are pending. -Will continue Meropenem pending culture data and sensitivities -Patient has had nausea likely associated with her pyelonephritis. Zofran and Phenergan prn for nausea and vomiting. Will order KUB to assess for ilieus given her increasing nausea today 2. Mild Bilateral Hydronephrosis -Imaging was reviewed by Urology who does not feel that there is any indication for inpatient intervention. Patient was recommended to follow-up outpatient if she continues to have retention 3. Diabetes Mellitus Type 2 -Levemir QHS -Sliding scale coverage with ACHS coverage -Consistent carbohydrates 4. C. difficile -GI panel positive for C. difficile -Likely 2/2 to numerous antibiotics that she has received. Will start Vancomycin PO 124 mg q6h 4. DVT Prophylaxis -Heparin SQ Vital Signs VS, I&O, 24H, Fishbone Vital Signs/I&O Vital Signs Date Time Temp Pulse Resp B/P (MAP) Pulse Ox O2 Delivery O2 Flow Rate FiO2 01/22/20 14:00 98.1 83 16 153/77 (102) 96 Room Air I&O- Last 24 Hours up to 6 AM 01/22/20 05:59 Intake Total 1710 ml Output Total 682 ml Balance 1028 ml Laboratory Data 24H LABS Laboratory Tests 2 01/21/20 21:43: Bedside Glucose (Misc Panel) 191H 01/22/20 02:16: Urine Color YELLOW, Urine Appearance TURBIDH, Urine pH 5.0, Urine Specific [place] 1.044, Urine Protein 2+H, Urine Glucose (UA) 1+H, Urine Ketones TRACEH, Urine Blood 2+H, Urine Nitrite NEGATIVE, Urine Bilirubin NEGATIVE, Urine Urobilinogen 0.2, Urine Leukocyte Esterase 3+H, Urine WBC (Auto) TNTCH, Urine RBC (Auto) 45H, Urine Hyaline Casts (Auto) 0, Urine Bacteria (Auto) 1+H, Urine Squamous Epithelial Cells 0, Urine Sperm (Auto) 01/22/20 06:14: Nucleated Red Blood Cells % (auto) 0.0 01/22/20 06:15: Anion Gap 5L, Glomerular Filtration Rate 55.4, Calcium Level 8.0L 01/22/20 11:34: Bedside Glucose (Misc Panel) 179H 01/22/20 17:06: Bedside Glucose (Misc Panel) 155H CBC/BMP Laboratory Tests 01/22/20 06:14 01/22/20 06:15 Microbiology Microbiology 01/22/20 Urine Culture, Received Pending 01/21/20 Gastrointestinal Tract Panel (PCR) - Final, Complete Clostridium Difficile A/B 01/21/20 Blood Culture - Preliminary, Resulted 01/21/20 Blood Culture - Preliminary, Resulted GME ATTESTATION GME ATTESTATION My faculty preceptor for this patient encounter was physically present during the encounter and was fully available. All aspects of the patient interview, examination, medical decision making process, and medical care plan development were reviewed and approved by the faculty preceptor. The faculty preceptor is aware and concurs with the plan as stated in the body of this note and will attest to such by his/her cosignature. ATTENDING NOTE PT WAS SEEN AND EXAMINED BY ME, AGREE WITH THE ABOVE ASSESSMENT AND PLAN. VLADIMIR FORD DO Jan 22, 2020 18:44 ANGELICA ROSS MD Jan 24, 2020 14:20
[2020-01-22] MEDS: LEVEMIR (INSULIN DETEMIR) 1 UNITS/0.01ML SC SCH (21:00)
[2020-01-22 22:00] VITALS: BP 161/84
[2020-01-22] MEDS: POTASSIUM CHLORIDE 10% LIQ 20 MEQ/15 ML UDC PO ONE (23:17)
[2020-01-22] MEDS: KCL 10MEQ/100ML SWI (KRUN) 10 MEQ in IV 1 EA IV SCH (23:18)
[2020-01-23] MEDS: KCL 10MEQ/100ML SWI (KRUN) 10 MEQ in IV 1 EA IV SCH ×3 (01:23→05:04)
[2020-01-23] MEDS: MEROPENEM INJ 1 GM in IV 1 EA IV SCH ×6 (03:50→15:55)
[2020-01-23] MEDS ORDERED: KCL 10MEQ IN STERILE WATER 100ML As Ordered ONE (04:50)
[2020-01-23 06:00] VITALS: BP 140/105
[2020-01-23] MEDS: VANCOMYCIN ORAL SOL 250MG/5ML ORAL SYRINGE PO SCH ×3 (06:00→17:20)
[2020-01-23 07:23] LABS: HEMATOCRIT 32.6 % (36.0-47.0); HEMOGLOBIN 10.2 g/dl (12.0-15.5); MEAN CORPUSCULAR HEMOGLOBIN 25.2 pg (27.0-33.0); MEAN CORPUSCULAR HGB CONC 31.3 g/dl (32.0-36.5); MEAN CORPUSCULAR VOLUME 80.7 fl (80.0-96.0); PLATELET COUNT, AUTOMATED 431 10^3/uL (150-450); RED BLOOD COUNT 4.04 10^6/uL (4.00-5.40)
[2020-01-23 07:48] LABS: BLOOD UREA NITROGEN 17 MG/DL (7-18); CALCIUM LEVEL 8.6 MG/DL (8.5-10.1); CARBON DIOXIDE LEVEL 28 MEQ/L (21-32); CHLORIDE LEVEL 105 MEQ/L (98-107); CREATININE FOR GFR 0.94 MG/DL (0.55-1.30); GLOMERULAR FILTRATION RATE > 60.0 (>51); GLUCOSE, FASTING 178 MG/DL (70-100); POTASSIUM SERUM 3.9 MEQ/L (3.5-5.1); SODIUM LEVEL 139 MEQ/L (136-145)
[2020-01-23] MEDS: PROMETHAZINE INJ 25 MG/ML VIAL (J2550) IV PRN (08:43)
[2020-01-23] MEDS: HumaLOG INSULIN (NovoLOG) PER UNIT SC SCH ×4 (08:43→21:00)
[2020-01-23] MEDS: PANTOPRAZOLE 40MG VIAL (C9113 PER 1) IV SCH ×2 (08:43→21:03)
[2020-01-23] MEDS: HEPARIN SOD (PORCINE) 5000UNITS/ML 1ML VIAL/SYRINGE SQ SCH ×3 (09:29→21:01)
[2020-01-23] MEDS: FLUoxetine 20 MG CAP PO SCH (09:29)
[2020-01-23] MEDS: LABETALOL 100MG TAB PO SCH ×2 (09:31→17:27)
--- NOTE | 2020-01-23 12:16 | IPNPDOC ---
Date Seen The patient was seen on 01/23/20. Progress Note SUBJECTIVE: Patient was seen and examined this morning. She continues to have nausea and vomiting. She has been unable to tolerate oral vancomycin and has refused to take. She continues to have increased output from her ostomy bag and abdominal pain. She has remained afebrile. OBJECTIVE PHYSICAL EXAMINATION: VITAL SIGNS: Please see below. GENERAL APPEARANCE: Awake, alert, and oriented. Appears in no acute distress HEENT: Atraumatic, normocephalic eyes are nonicteric. Trachea is midline CARDIOVASCULAR: normal S1, S2. Regular rate and rhythm. No clicks rubs or murmurs LUNGS: Clear vesicular breath sounds bilaterally. Good respiratory effort. No wheezes, rhonchi or rales. ABDOMEN: Morbidly obese. Soft, nondistended. Mild tenderness diffusely. no rebound tenderness. Normoactive bowel sounds. Colostomy bag in place and appears well functioning. EXTREMITIES: No edema. Full and equal pulses in bilateral upper and lower extremities NEUROLOGICAL: No focal neurological deficits PSYCHIATRIC: Intellectual disability. Flat affect. LABORATORY DATA, IMAGING STUDIES, MICROBIOLOGY: Please see below. ASSESSMENT AND PLAN: ASSESSMENT: Patient is a 49 year old female who presented to the [facility] ER with complaint of abdominal pain and found to have bilateral hydronephrosis and leukocytosis . PLAN: 1. Abdominal Pain 2/2 pyelonephritis -Patient has a history of pyelonephritis. Chronic indwelling brewster catheter. Today on CT imaging she has bilateral hydronephrosis. She is afebrile. She does have a leukocytosis. She states she has urinary discomfort. -blood cultures x2 -Urinalysis and urine culture from clean brewster are pending. -Will continue Meropenem pending culture data and sensitivities -Patient has had nausea likely associated with her pyelonephritis. KUB negative for any sign of ileus -Patient continues to have nausea. Consider possible gastroparesis. Will stop Phenergan and start Reglan. Will add Flagyl for C. diff as patient has been unable to tolerate PO vancomycin. Will continue PO vancomycin with Reglan. If able to tolerate will D/C flagyl 2. Gram Negative Bacteremia -Patient has gram negative rods in her blood culture. She has been on Meropenem. Repeat cultures today. -CRP and Procalcitonin are pending -Awaiting Blood and urine culture and sensitivities. At that time will deescalate antibiotics 3. Mild Bilateral Hydronephrosis -Imaging was reviewed by Urology who does not feel that there is any indication for inpatient intervention. Patient was recommended to follow-up outpatient if she continues to have retention 4. Diabetes Mellitus Type 2 -Levemir QHS -Sliding scale coverage with ACHS coverage -Consistent carbohydrates 5. C. difficile -GI panel positive for C. difficile -Likely 2/2 to numerous antibiotics that she has received. -Patient has been started on PO Vancomycin. She has been unable to tolerate PO intake and is refusing oral vancomycin. Have started patient on Reglan. Will continue PO vancomycin to see if she is able to tolerate -Will start IV flagyl in meantime. Once tolerating PO will D/C IV flagyl and just continue PO Vancomycin 6. DVT Prophylaxis -Heparin SQ VS, I&O, 24H, Fishbone Vital Signs/I&O Vital Signs Date Time Temp Pulse Resp B/P (MAP) Pulse Ox O2 Delivery O2 Flow Rate FiO2 01/23/20 09:31 84 152/72 01/23/20 06:00 98.1 16 94 Room Air I&O- Last 24 Hours up to 6 AM 01/23/20 06:00 Intake Total 1280 ml Output Total 2210 ml Balance -930 ml Laboratory Data 24H LABS Laboratory Tests 2 01/22/20 17:06: Bedside Glucose (Misc Panel) 155H 01/22/20 20:58: Bedside Glucose (Misc Panel) 128H 01/23/20 06:59: Nucleated Red Blood Cells % (auto) 0.0, Anion Gap 6L, Glomerular Filtration Rate > 60.0, Calcium Level 8.6 CBC/BMP Laboratory Tests 01/23/20 06:59 Microbiology Microbiology 01/23/20 Blood Culture, Received Pending 01/23/20 Blood Culture, Received Pending 01/22/20 Urine Culture, Received Pending 01/21/20 Gastrointestinal Tract Panel (PCR) - Final, Complete Clostridium Difficile A/B 01/21/20 Blood Culture - Preliminary, Resulted 01/21/20 Blood Culture - Preliminary, Resulted GME ATTESTATION GME ATTESTATION My faculty preceptor for this patient encounter was physically present during the encounter and was fully available. All aspects of the patient interview, examination, medical decision making process, and medical care plan development were reviewed and approved by the faculty preceptor. The faculty preceptor is aware and concurs with the plan as stated in the body of this note and will attest to such by his/her cosignature. ATTENDING NOTE PT WAS SEEN AND EXAMINED BY ME, AGREE WITH THE ABOVE ASSESSMENT AND PLAN. VLADIMIR FORD DO Jan 23, 2020 12:16 ANGELICA ROSS MD Jan 24, 2020 14:22
[2020-01-23] MEDS: METOCLOPRAMIDE INJ 10MG/2ML VIAL (J2765 PER 1) IV PRN (13:04)
[2020-01-23] MEDS: NS 1,000 ML IV SCH (13:05)
[2020-01-23] MEDS: metroNIDAZOLE 500 MG in IV 1 EA IV SCH ×2 (13:05→21:01)
[2020-01-23] MEDS: ONDANSETRON 4MG/2ML VIAL IV PRN (15:54)
[2020-01-23 16:00] VITALS: BP 210/100
[2020-01-23] MEDS: ACETAMINOPHEN TAB 650MG DOSE (2X325MG) PO PRN (17:21)
[2020-01-23 18:15] VITALS: BP 138/70
[2020-01-23 18:45] VITALS: BP 138/70
[2020-01-23] MEDS: LEVEMIR (INSULIN DETEMIR) 1 UNITS/0.01ML SC SCH (21:02)
[2020-01-23] MEDS: ATORVASTATIN 20 MG TAB PO SCH (21:03)
[2020-01-23] MEDS: NORCO, ANEXSIA 5/325MG TABLET (HYDROcodone/ACETAMINOPHEN) PO PRN (21:19)
[2020-01-23 22:00] VITALS: BP 162/84
[2020-01-24] MEDS: VANCOMYCIN ORAL SOL 250MG/5ML ORAL SYRINGE PO SCH ×4 (00:23→17:58)
[2020-01-24] MEDS: MEROPENEM INJ 1 GM in IV 1 EA IV SCH ×2 (00:23→01:06)
[2020-01-24] MEDS: NS 1,000 ML IV SCH ×2 (01:06→13:48)
[2020-01-24] MEDS: ONDANSETRON 4MG/2ML VIAL IV PRN ×3 (03:35→17:58)
[2020-01-24] MEDS: metroNIDAZOLE 500 MG in IV 1 EA IV SCH ×2 (03:36→12:36)
[2020-01-24] MEDS: HEPARIN SOD (PORCINE) 5000UNITS/ML 1ML VIAL/SYRINGE SQ SCH ×3 (05:23→21:42)
[2020-01-24 06:00] VITALS: BP 160/88
[2020-01-24 06:31] LABS: HEMATOCRIT 33.7 % (36.0-47.0); HEMOGLOBIN 10.8 g/dl (12.0-15.5); MEAN CORPUSCULAR HEMOGLOBIN 25.8 pg (27.0-33.0); MEAN CORPUSCULAR VOLUME 80.6 fl (80.0-96.0); PLATELET COUNT, AUTOMATED 429 10^3/uL (150-450); RED BLOOD COUNT 4.18 10^6/uL (4.00-5.40); WHITE BLOOD COUNT 10.2 10^3/uL (4.0-10.0)
[2020-01-24 06:52] LABS: BLOOD UREA NITROGEN 12 MG/DL (7-18); CALCIUM LEVEL 8.5 MG/DL (8.5-10.1); CARBON DIOXIDE LEVEL 28 MEQ/L (21-32); CHLORIDE LEVEL 102 MEQ/L (98-107); CREATININE FOR GFR 0.81 MG/DL (0.55-1.30); GLOMERULAR FILTRATION RATE > 60.0 (>51); GLUCOSE, FASTING 169 MG/DL (70-100); POTASSIUM SERUM 3.4 MEQ/L (3.5-5.1); SODIUM LEVEL 139 MEQ/L (136-145)
[2020-01-24 08:41] LABS: MAGNESIUM LEVEL 1.4 MG/DL (1.8-2.4)
[2020-01-24] MEDS: FLUoxetine 20 MG CAP PO SCH (09:08)
[2020-01-24] MEDS: HumaLOG INSULIN (NovoLOG) PER UNIT SC SCH ×4 (09:08→21:00)
[2020-01-24] MEDS: KCL 10MEQ/100ML SWI (KRUN) 10 MEQ in IV 1 EA IV SCH ×3 (09:09→12:09)
[2020-01-24] MEDS: cefTRIAXone SOD 2 GM in D5W MINI-BAG PLUS 50 ML IV SCH (09:09)
[2020-01-24] MEDS: PANTOPRAZOLE 40MG VIAL (C9113 PER 1) IV SCH ×2 (09:09→21:41)
[2020-01-24] MEDS: LABETALOL 100MG TAB PO SCH ×2 (09:12→21:42)
[2020-01-24] MEDS: ACETAMINOPHEN TAB 650MG DOSE (2X325MG) PO PRN ×2 (11:17→17:58)
[2020-01-24] MEDS: METOCLOPRAMIDE INJ 10MG/2ML VIAL (J2765 PER 1) IV PRN ×2 (12:36→21:42)
[2020-01-24 14:00] VITALS: BP 160/93
--- NOTE | 2020-01-24 15:53 | IPNPDOC ---
Date Seen The patient was seen on 01/24/20. Progress Note SUBJECTIVE: Patient was seen and examined this morning. She has had improvement in her Nausea since starting reglan. She has been able to tolerate PO vancomycin. Her blood cultures did result positive for E. coli with resistance to Levaquin. This morning the patient states that her abdominal pain has improved. There have otherwise been no adverse events reported overnight. OBJECTIVE PHYSICAL EXAMINATION: VITAL SIGNS: Please see below. GENERAL APPEARANCE: Awake, alert, and oriented. Appears in no acute distress HEENT: Atraumatic, normocephalic eyes are nonicteric. Trachea is midline CARDIOVASCULAR: normal S1, S2. Regular rate and rhythm. No clicks rubs or murmurs LUNGS: Clear vesicular breath sounds bilaterally. Good respiratory effort. No wheezes, rhonchi or rales. ABDOMEN: Morbidly obese. Soft, nondistended. Mild tenderness diffusely. no rebound tenderness. Normoactive bowel sounds. Colostomy bag in place and appears well functioning. EXTREMITIES: No edema. Full and equal pulses in bilateral upper and lower extremities NEUROLOGICAL: No focal neurological deficits PSYCHIATRIC: Flat affect LABORATORY DATA, IMAGING STUDIES, MICROBIOLOGY: Please see below. ASSESSMENT AND PLAN: ASSESSMENT: Patient is a 49 year old female who presented to the [facility] ER with complaint of abdominal pain and found to have bilateral hydronephrosis and leukocytosis . PLAN: 1. Abdominal Pain 2/2 pyelonephritis -Patient has a history of pyelonephritis. Chronic indwelling brewster catheter. -blood cultures x2 positive for E. coli bacteremia with Levaquin resistance -Deescalate therapy to Rocephin 2g Iv daily for E. coli bacteremia -Patients abdominal pain may be due to gastroparesis. She has improved in both abdominal pain and nausea with reglan. For formal diagnosis patient would need a gastric emptying study however that can be completed outpatient if desired. 2. Gram Negative Bacteremia -Patient has gram negative rods in her blood culture. Culture results and sensitivities positive for -CRP and Procalcitonin are pending -Awaiting Blood and urine culture and sensitivities. At that time will deescalate antibiotics 3. Mild Bilateral Hydronephrosis -Imaging was reviewed by Urology who does not feel that there is any indication for inpatient intervention. Patient was recommended to follow-up outpatient if she continues to have retention -Currently has brewster in. Will attempt voiding trial. If continued retention will assess for worsening hydronephrosis however clinically patient reported improvement in pain 4. Diabetes Mellitus Type 2 -Levemir QHS -Sliding scale coverage with ACHS coverage -Consistent carbohydrates 5. C. difficile -GI panel positive for C. difficile -Likely 2/2 to numerous antibiotics that she has received. -Patient currently on PO vancomycin. IV flagyl started yesterday as she was having difficulty tolerating PO. She has been started on reglan and has been able to tolerate PO vancomycin. Will discontinue flagyl and continue PO Vancomycin. 6. DVT Prophylaxis -Heparin SQ VS, I&O, 24H, Fishbone Vital Signs/I&O Vital Signs Date Time Temp Pulse Resp B/P (MAP) Pulse Ox O2 Delivery O2 Flow Rate FiO2 01/24/20 14:00 98.4 76 19 160/93 (115) 97 Room Air I&O- Last 24 Hours up to 6 AM 01/24/20 06:00 Intake Total 2580 ml Output Total 4750 ml Balance -2170 ml Laboratory Data 24H LABS Laboratory Tests 2 01/23/20 16:34: Bedside Glucose (Misc Panel) 215H 01/23/20 20:56: Bedside Glucose (Misc Panel) 202H 01/24/20 02:45: Bedside Glucose (Misc Panel) 168H 01/24/20 05:59: Nucleated Red Blood Cells % (auto) 0.0, Anion Gap 9, Glomerular Filtration Rate > 60.0, Calcium Level 8.5, Magnesium Level 1.4L 01/24/20 11:31: Bedside Glucose (Misc Panel) 183H CBC/BMP Laboratory Tests 01/24/20 05:59 Microbiology Microbiology 01/23/20 Blood Culture - Preliminary, Resulted No growth after 24 hours . All specim... 01/23/20 Blood Culture - Preliminary, Resulted No growth after 24 hours . All specim... 01/22/20 Urine Culture - Final, Complete 01/21/20 Gastrointestinal Tract Panel (PCR) - Final, Complete Clostridium Difficile A/B 01/21/20 Blood Culture - Final, Complete Escherichia Coli 01/21/20 Blood Culture - Final, Complete Escherichia Coli GME ATTESTATION GME ATTESTATION My faculty preceptor for this patient encounter was physically present during the encounter and was fully available. All aspects of the patient interview, examination, medical decision making process, and medical care plan development were reviewed and approved by the faculty preceptor. The faculty preceptor is aware and concurs with the plan as stated in the body of this note and will attest to such by his/her cosignature. ATTENDING NOTE Pt seen and examined by me. Agree with the above assessment and plan. VLADIMIR FORD DO Jan 24, 2020 15:35 ANGELICA ROSS MD Jan 25, 2020 15:12
[2020-01-24] MEDS: ATORVASTATIN 20 MG TAB PO SCH (21:42)
[2020-01-24] MEDS: LEVEMIR (INSULIN DETEMIR) 1 UNITS/0.01ML SC SCH (21:43)
[2020-01-24 22:00] VITALS: BP 174/96
[2020-01-25] MEDS: VANCOMYCIN ORAL SOL 250MG/5ML ORAL SYRINGE PO SCH ×5 (00:19→23:29)
[2020-01-25] MEDS: ACETAMINOPHEN TAB 650MG DOSE (2X325MG) PO PRN (00:57)
[2020-01-25] MEDS: HEPARIN SOD (PORCINE) 5000UNITS/ML 1ML VIAL/SYRINGE SQ SCH ×3 (05:03→21:01)
[2020-01-25 06:00] VITALS: BP 166/90
[2020-01-25] MEDS: NS 1,000 ML IV SCH ×3 (07:00→23:33)
[2020-01-25 07:12] LABS: HEMATOCRIT 34.2 % (36.0-47.0); HEMOGLOBIN 10.9 g/dl (12.0-15.5); MEAN CORPUSCULAR HEMOGLOBIN 25.3 pg (27.0-33.0); MEAN CORPUSCULAR HGB CONC 31.9 g/dl (32.0-36.5); MEAN CORPUSCULAR VOLUME 79.4 fl (80.0-96.0); PLATELET COUNT, AUTOMATED 417 10^3/uL (150-450); RED BLOOD COUNT 4.31 10^6/uL (4.00-5.40); WHITE BLOOD COUNT 8.4 10^3/uL (4.0-10.0)
[2020-01-25] MEDS: HumaLOG INSULIN (NovoLOG) PER UNIT SC SCH ×4 (07:30→21:00)
[2020-01-25 07:35] LABS: BLOOD UREA NITROGEN 9 MG/DL (7-18); CALCIUM LEVEL 8.2 MG/DL (8.5-10.1); CARBON DIOXIDE LEVEL 28 MEQ/L (21-32); CHLORIDE LEVEL 102 MEQ/L (98-107); CREATININE FOR GFR 0.75 MG/DL (0.55-1.30); GLOMERULAR FILTRATION RATE > 60.0 (>51); GLUCOSE, FASTING 163 MG/DL (70-100); POTASSIUM SERUM 3.3 MEQ/L (3.5-5.1); SODIUM LEVEL 138 MEQ/L (136-145)
[2020-01-25] MEDS: PANTOPRAZOLE 40MG VIAL (C9113 PER 1) IV SCH ×2 (11:02→21:00)
[2020-01-25] MEDS: cefTRIAXone SOD 2 GM in D5W MINI-BAG PLUS 50 ML IV SCH (11:03)
[2020-01-25] MEDS: FLUoxetine 20 MG CAP PO SCH (11:03)
[2020-01-25] MEDS: NORCO, ANEXSIA 5/325MG TABLET (HYDROcodone/ACETAMINOPHEN) PO PRN (11:04)
[2020-01-25] MEDS: LABETALOL 100MG TAB PO SCH ×2 (11:07→21:02)
[2020-01-25] MEDS: ONDANSETRON 4MG/2ML VIAL IV PRN (11:21)
--- NOTE | 2020-01-25 11:57 | IPNPDOC ---
Date Seen The patient was seen on 01/25/20. Progress Note SUBJECTIVE: Patient was seen and examined this morning. Currently she states she has some abdominal pain. There continues to be loose stool from her colostomy bag. There have been no adverse events reported overnight OBJECTIVE PHYSICAL EXAMINATION: VITAL SIGNS: Please see below. GENERAL APPEARANCE: Awake, alert, and oriented. Appears in no acute distress HEENT: Atraumatic, normocephalic eyes are nonicteric. Trachea is midline CARDIOVASCULAR: normal S1, S2. Regular rate and rhythm. No clicks rubs or murmurs LUNGS: Clear vesicular breath sounds bilaterally. Good respiratory effort. No wheezes, rhonchi or rales. ABDOMEN: Morbidly obese. Soft, nondistended. Mild tenderness diffusely. no rebound tenderness. Normoactive bowel sounds. Colostomy bag in place and appears well functioning. Patient has a wound on backside. This appears clean EXTREMITIES: No edema. Full and equal pulses in bilateral upper and lower extremities. There is a blister present on the left heel. NEUROLOGICAL: No focal neurological deficits PSYCHIATRIC: Flat affect LABORATORY DATA, IMAGING STUDIES, MICROBIOLOGY: Please see below. Echocardiogram: . DVT prophylaxis ordered?: ASSESSMENT AND PLAN: ASSESSMENT: Patient is a 49 year old female who presented to the [facility] ER with complaint of abdominal pain and found to have bilateral hydronephrosis and leukocytosis . PLAN: 1. Abdominal Pain 2/2 pyelonephritis -Patient has a history of pyelonephritis. Chronic indwelling brewster catheter. -blood cultures x2 positive for E. coli bacteremia with Levaquin resistance -Continue Rocephin 2g Iv daily for E. coli bacteremia. Patients urine culture did not show any growth. This may be concerning for a different source. She does have a history of necrotizing fascitis on her backside. Her wound does not dona ear infected and appears clean at this time. -Patient started on Reglan for possible gastroparesis. This has improved her nausea and vomiting 2. Gram Negative Bacteremia -Patient has gram negative rods in her blood culture. Culture results and sensitivities positive for -CRP ordered for today -Procalcitonin on 01/22 was 2.78 -Blood cultures on 01/23/2020 negative for growth -Continue Rocephin 2g 3. Mild Bilateral Hydronephrosis -Imaging was reviewed by Urology who does not feel that there is any indication for inpatient intervention. Patient was recommended to follow-up outpatient if she continues to have retention -Currently has brewster in. 4. Diabetes Mellitus Type 2 -Levemir QHS -Sliding scale coverage with ACHS coverage -Consistent carbohydrates -Likely has component of gastroparesis. Currently on reglan 5. C. difficile -GI panel positive for C. difficile -Likely 2/2 to numerous antibiotics that she has received. -Continue PO Vancomycin 6. DVT Prophylaxis -Heparin SQ VS, I&O, 24H, Fishbone Vital Signs/I&O Vital Signs Date Time Temp Pulse Resp B/P (MAP) Pulse Ox O2 Delivery O2 Flow Rate FiO2 01/25/20 11:07 87 166/90 01/25/20 11:04 20 01/25/20 06:00 98.2 97 Room Air I&O- Last 24 Hours up to 6 AM 01/25/20 06:00 Intake Total 3210 ml Output Total 2000 ml Balance 1210 ml Laboratory Data 24H LABS Laboratory Tests 2 01/24/20 16:48: Bedside Glucose (Misc Panel) 169H 01/24/20 20:15: Bedside Glucose (Misc Panel) 161H 01/25/20 06:54: Nucleated Red Blood Cells % (auto) 0.0, Anion Gap 8, Glomerular Filtration Rate > 60.0, Calcium Level 8.2L CBC/BMP Laboratory Tests 01/25/20 06:54 Microbiology Microbiology 01/23/20 Blood Culture - Preliminary, Resulted No Growth after 48 hours. All Specime... 01/23/20 Blood Culture - Preliminary, Resulted No Growth after 48 hours. All Specime... 01/22/20 Urine Culture - Final, Complete 01/21/20 Gastrointestinal Tract Panel (PCR) - Final, Complete Clostridium Difficile A/B 01/21/20 Blood Culture - Final, Complete Escherichia Coli 01/21/20 Blood Culture - Final, Complete Escherichia Coli GME ATTESTATION GME ATTESTATION My faculty preceptor for this patient encounter was physically present during the encounter and was fully available. All aspects of the patient interview, examination, medical decision making process, and medical care plan development were reviewed and approved by the faculty preceptor. The faculty preceptor is aware and concurs with the plan as stated in the body of this note and will attest to such by his/her cosignature. ATTENDING NOTE Pt seen and examined by me. Agree with the above assessment and plan. FORD,VLADIMIR DO Jan 25, 2020 11:57 ANGELICA ROSS MD Jan 25, 2020 15:15
[2020-01-25 12:17] LABS: C REACTIVE PROTEIN QUANTITATIV 2.78 MG/DL (0.00-0.30)
[2020-01-25 12:27] VITALS: BP 162/92
[2020-01-25 14:00] VITALS: BP 160/87
[2020-01-25] MEDS: POTASSIUM CHLORIDE 10% LIQ 20 MEQ/15 ML UDC PO ONE ×2 (15:00→15:01)
[2020-01-25] MEDS: METOCLOPRAMIDE INJ 10MG/2ML VIAL (J2765 PER 1) IV PRN (15:11)
[2020-01-25] MEDS: KCL 10MEQ/100ML SWI (KRUN) 10 MEQ in IV 1 EA IV SCH ×3 (16:13→19:34)
[2020-01-25] MEDS: LEVEMIR (INSULIN DETEMIR) 1 UNITS/0.01ML SC SCH (21:00)
[2020-01-25] MEDS: ATORVASTATIN 20 MG TAB PO SCH (21:02)
[2020-01-25 22:00] VITALS: BP 189/82
[2020-01-26 02:20] VITALS: BP 180/70
[2020-01-26] MEDS: HEPARIN SOD (PORCINE) 5000UNITS/ML 1ML VIAL/SYRINGE SQ SCH ×3 (05:30→23:17)
[2020-01-26] MEDS: VANCOMYCIN ORAL SOL 250MG/5ML ORAL SYRINGE PO SCH ×4 (05:31→23:17)
[2020-01-26 06:00] VITALS: BP 110/72
[2020-01-26] MEDS: ACETAMINOPHEN TAB 650MG DOSE (2X325MG) PO PRN (06:58)
[2020-01-26] MEDS: PANTOPRAZOLE 40MG VIAL (C9113 PER 1) IV SCH ×2 (08:45→20:30)
[2020-01-26] MEDS: HumaLOG INSULIN (NovoLOG) PER UNIT SC SCH ×4 (08:46→21:00)
[2020-01-26] MEDS: FLUoxetine 20 MG CAP PO SCH (08:47)
[2020-01-26] MEDS: LABETALOL 100MG TAB PO SCH ×2 (08:49→20:36)
[2020-01-26] MEDS: cefTRIAXone SOD 2 GM in D5W MINI-BAG PLUS 50 ML IV SCH (08:51)
[2020-01-26] MEDS: ONDANSETRON 4MG/2ML VIAL IV PRN (13:07)
[2020-01-26 14:00] VITALS: BP 124/69
[2020-01-26] MEDS: NS 1,000 ML IV SCH ×2 (16:25→20:37)
[2020-01-26] MEDS: METOCLOPRAMIDE INJ 10MG/2ML VIAL (J2765 PER 1) IV PRN (16:47)
--- NOTE | 2020-01-26 19:22 | IPNPDOC ---
Date Seen The patient was seen on 01/26/20. Progress Note SUBJECTIVE: Patient was found lying comfortably in bed. She states that she feels "so so" with no significant change from the day prior. However, states that she feels worse to her family on the phone but after she hung up said she doesn't feel worse. Somewhat strange encounter today. OBJECTIVE PHYSICAL EXAMINATION: VITAL SIGNS: Please see below. General: No acute distress, Alert, obese Eyes: Normal sclera, EOMI HENT: Atraumatic Cardiovascular: Normal rate Pulmonary: Clear to auscultation b/l, no wheezing GI: Soft, nontender, nondistended Skin: Warm and dry Neuro: CN grossly intact. No focal deficits. Psych: oriented x 3, somewhat flat affect LABORATORY DATA, IMAGING STUDIES, MICROBIOLOGY: Please see below. DVT prophylaxis ordered?: HSQ ASSESSMENT AND PLAN: 1. E. coli bacteremia - hx previous pyelonephritis in the past with chronic indwelling brewster catheter, suspect also this time as well. - blood cultures + e. coli bacteremia x2 with levaquin resistance but negative urine culture, UA + for LE and WBC however. On rocephin now. - Repeat blood cultures 01/22 negative to day. 2. Mild hydronephrosis - Reviewed by urology, no need for inpatient intervention at this time. - f/u outpatient if needed. 3. DM - Levemir QHS + ISS ACHS. - Suspect mild gastroparesis. Reglan PRN for nausea. 4. C. diff - On course of Po vancomycin. - Monitor and complete course. VS, I&O, 24H, Lgbone Vital Signs/I&O Vital Signs Date Time Temp Pulse Resp B/P (MAP) Pulse Ox O2 Delivery O2 Flow Rate FiO2 01/26/20 14:00 98.3 89 18 124/69 (87) 100 Room Air I&O- Last 24 Hours up to 6 AM 01/26/20 06:00 Intake Total 4040 ml Output Total 2350 ml Balance 1690 ml Laboratory Data 24H LABS Laboratory Tests 2 01/25/20 20:32: Bedside Glucose (Misc Panel) 92 01/26/20 05:52: Bedside Glucose (Misc Panel) 130H 01/26/20 11:23: Bedside Glucose (Misc Panel) 152H 01/26/20 16:34: Bedside Glucose (Misc Panel) 167H Microbiology Microbiology 01/23/20 Blood Culture - Preliminary, Resulted No Growth after 72 hours. All specime... 01/23/20 Blood Culture - Preliminary, Resulted No Growth after 72 hours. All specime... 01/22/20 Urine Culture - Final, Complete 01/21/20 Gastrointestinal Tract Panel (PCR) - Final, Complete Clostridium Difficile A/B 01/21/20 Blood Culture - Final, Complete Escherichia Coli 01/21/20 Blood Culture - Final, Complete Escherichia Coli IRIS DILLON MD Jan 26, 2020 19:22
[2020-01-26] MEDS: ATORVASTATIN 20 MG TAB PO SCH (20:32)
[2020-01-26] MEDS: LEVEMIR (INSULIN DETEMIR) 1 UNITS/0.01ML SC SCH (21:00)
[2020-01-26 22:00] VITALS: BP_SYST 170; BP_SYST 180; BP_DIAS 82; BP_DIAS 90
[2020-01-27] MEDS: VANCOMYCIN ORAL SOL 250MG/5ML ORAL SYRINGE PO SCH ×4 (05:30→23:47)
[2020-01-27] MEDS: HEPARIN SOD (PORCINE) 5000UNITS/ML 1ML VIAL/SYRINGE SQ SCH ×3 (05:31→21:27)
[2020-01-27 06:00] VITALS: BP 179/84
[2020-01-27] MEDS: FLUoxetine 20 MG CAP PO SCH (08:24)
[2020-01-27] MEDS: LABETALOL 100MG TAB PO SCH ×2 (08:27→21:28)
[2020-01-27] MEDS: cefTRIAXone SOD 2 GM in D5W MINI-BAG PLUS 50 ML IV SCH (08:27)
[2020-01-27] MEDS: PANTOPRAZOLE 40MG VIAL (C9113 PER 1) IV SCH ×2 (08:27→21:27)
[2020-01-27] MEDS: HumaLOG INSULIN (NovoLOG) PER UNIT SC SCH ×4 (08:46→21:00)
[2020-01-27 12:09] LABS: HEMATOCRIT 33.6 % (36.0-47.0); HEMOGLOBIN 10.8 g/dl (12.0-15.5); MEAN CORPUSCULAR HEMOGLOBIN 25.2 pg (27.0-33.0); MEAN CORPUSCULAR HGB CONC 32.1 g/dl (32.0-36.5); MEAN CORPUSCULAR VOLUME 78.5 fl (80.0-96.0); PLATELET COUNT, AUTOMATED 395 10^3/uL (150-450); RED BLOOD COUNT 4.28 10^6/uL (4.00-5.40); WHITE BLOOD COUNT 9.7 10^3/uL (4.0-10.0)
[2020-01-27 13:12] LABS: ALBUMIN 2.7 GM/DL (3.2-5.2); ALT/SGPT 23 U/L (12-78); BILIRUBIN,TOTAL 0.2 MG/DL (0.2-1.0); BLOOD UREA NITROGEN 5 MG/DL (7-18); CALCIUM LEVEL 8.5 MG/DL (8.5-10.1); CARBON DIOXIDE LEVEL 24 MEQ/L (21-32); CHLORIDE LEVEL 102 MEQ/L (98-107); CREATININE FOR GFR 0.66 MG/DL (0.55-1.30); GLOMERULAR FILTRATION RATE > 60.0 (>51); GLUCOSE, FASTING 184 MG/DL (70-100); POTASSIUM SERUM 3.3 MEQ/L (3.5-5.1); SODIUM LEVEL 134 MEQ/L (136-145)
[2020-01-27 14:00] VITALS: BP_SYST 140; BP_SYST 184; BP_DIAS 72; BP_DIAS 91
[2020-01-27] MEDS: ONDANSETRON 4MG/2ML VIAL IV PRN (14:29)
[2020-01-27] MEDS: NS 1,000 ML IV SCH (18:19)
--- NOTE | 2020-01-27 18:41 | IPNPDOC ---
Date Seen The patient was seen on 01/27/20. Progress Note SUBJECTIVE: Patient was seen and examined this morning. She currently has no new complaints. She does have on and off abdominal pain. She has remained afebrile. She does have continued loose stool from her ostomy bag. She denies shortness of breath or chest pain OBJECTIVE PHYSICAL EXAMINATION: VITAL SIGNS: Please see below. GENERAL APPEARANCE: Awake, alert, and oriented. Appears in no acute distress HEENT: Atraumatic, normocephalic eyes are nonicteric. Trachea is midline CARDIOVASCULAR: normal S1, S2. Regular rate and rhythm. No clicks rubs or murmurs LUNGS: Clear vesicular breath sounds bilaterally. Good respiratory effort. No wheezes, rhonchi or rales. ABDOMEN: Morbidly obese. Soft, nondistended. Mild tenderness diffusely. no rebound tenderness. Normoactive bowel sounds. Colostomy bag in place and appears well functioning. Patients sacral wounds appear clean without sign of ongoing infection EXTREMITIES: No edema. Full and equal pulses in bilateral upper and lower extremities. There is a blister present on the left heel. NEUROLOGICAL: No focal neurological deficits PSYCHIATRIC: Flat affect LABORATORY DATA, IMAGING STUDIES, MICROBIOLOGY: Please see below. DVT prophylaxis ordered?: Heparin ASSESSMENT AND PLAN: Patient is a 49 year old female who presented to the [facility] ER with complaint of abdominal pain and found to have bilateral hydronephrosis and leukocytosis . PLAN: 1. Abdominal Pain 2/2 pyelonephritis -Patient has a history of pyelonephritis. Chronic indwelling brewster catheter. -blood cultures x2 positive for E. coli bacteremia with Levaquin resistance. Blood cultures negative on 01/23/2020. -Continue Rocephin 2g Iv daily for E. coli bacteremia. Will need to transition to oral Cefdinir. Patient has stated she is nauseas today. Will likely transition to PO antibiotics tomorrow. Currently on day 4 of 10 for treatment of E. coli bacteremia -Patient started on Reglan for possible gastroparesis. This has improved her nausea and vomiting 2. E. coli bacteremia -E. coli with Levaquin resistance which is the antibiotic she was on for her outpatient UTI. -CRP 2.78. Down from 18.00. -Procalcitonin on 01/22 was 2.78 -Blood cultures on 01/23/2020 negative for growth -Continue Rocephin 2g for 10 days from culture negative. Currently on day 4 3. Mild Bilateral Hydronephrosis -Imaging was reviewed by Urology who does not feel that there is any indication for inpatient intervention. Patient was recommended to follow-up outpatient if she continues to have retention -Currently has brewster in. 4. Diabetes Mellitus Type 2 -Levemir QHS -Sliding scale coverage with ACHS coverage -Consistent carbohydrates -Likely has component of gastroparesis. Currently on reglan 5. C. difficile -GI panel positive for C. difficile -Likely 2/2 to numerous antibiotics that she has received. -Continue PO Vancomycin. Currently day 6 out of 6. DVT Prophylaxis -Heparin SQ VS, I&O, 24H, Fishbone Vital Signs/I&O Vital Signs Date Time Temp Pulse Resp B/P (MAP) Pulse Ox O2 Delivery O2 Flow Rate FiO2 01/27/20 14:00 98.4 74 17 184/91 (122) 99 Room Air I&O- Last 24 Hours up to 6 AM 01/27/20 06:00 Intake Total 2750 ml Output Total 2000 ml Balance 750 ml Laboratory Data 24H LABS Laboratory Tests 2 01/26/20 21:18: Bedside Glucose (Misc Panel) 126H 01/27/20 11:04: Nucleated Red Blood Cells % (auto) 0.0, Anion Gap 8, Glomerular Filtration Rate > 60.0, Calcium Level 8.5, Total Bilirubin 0.2, Aspartate Amino Transf (AST/SGOT) 27, Alanine Aminotransferase (ALT/SGPT) 23, Alkaline Phosphatase 114, Total Protein 7.0, Albumin 2.7L, Albumin/Globulin Ratio 0.6L 01/27/20 11:24: Bedside Glucose (Misc Panel) 208H 01/27/20 16:35: Bedside Glucose (Misc Panel) 154H CBC/BMP Laboratory Tests 01/27/20 11:04 Microbiology Microbiology 01/23/20 Blood Culture - Preliminary, Resulted No Growth after 72 hours. All specime... 01/23/20 Blood Culture - Preliminary, Resulted No Growth after 72 hours. All specime... 01/22/20 Urine Culture - Final, Complete 01/21/20 Gastrointestinal Tract Panel (PCR) - Final, Complete Clostridium Difficile A/B 01/21/20 Blood Culture - Final, Complete Escherichia Coli 01/21/20 Blood Culture - Final, Complete Escherichia Coli ATTENDING NOTE I have personally evaluated and examined the patient. Discussed with resident/student regarding plan of care and agree with the above assessment and plan. VLADIMIR FORD DO Jan 27, 2020 18:41 IRIS DILLON MD Jan 28, 2020 18:30
[2020-01-27] MEDS: ATORVASTATIN 20 MG TAB PO SCH (21:27)
[2020-01-27] MEDS: LEVEMIR (INSULIN DETEMIR) 1 UNITS/0.01ML SC SCH (21:28)
[2020-01-27 22:00] VITALS: BP 142/80
[2020-01-28] MEDS: NS 1,000 ML IV SCH (05:07)
[2020-01-28] MEDS: HEPARIN SOD (PORCINE) 5000UNITS/ML 1ML VIAL/SYRINGE SQ SCH ×3 (05:41→21:05)
[2020-01-28] MEDS: VANCOMYCIN ORAL SOL 250MG/5ML ORAL SYRINGE PO SCH ×3 (05:41→17:09)
[2020-01-28 06:00] VITALS: BP 158/76
[2020-01-28 06:15] LABS: HEMOGLOBIN 10.2 g/dl (12.0-15.5); MEAN CORPUSCULAR HGB CONC 31.9 g/dl (32.0-36.5); MEAN CORPUSCULAR VOLUME 78.4 fl (80.0-96.0); PLATELET COUNT, AUTOMATED 377 10^3/uL (150-450); RED BLOOD COUNT 4.08 10^6/uL (4.00-5.40); WHITE BLOOD COUNT 9.4 10^3/uL (4.0-10.0)
[2020-01-28 07:03] LABS: ALBUMIN 2.4 GM/DL (3.2-5.2); ALT/SGPT 25 U/L (12-78); BILIRUBIN,TOTAL 0.4 MG/DL (0.2-1.0); BLOOD UREA NITROGEN 7 MG/DL (7-18); CALCIUM LEVEL 7.6 MG/DL (8.5-10.1); CARBON DIOXIDE LEVEL 27 MEQ/L (21-32); CHLORIDE LEVEL 105 MEQ/L (98-107); CREATININE FOR GFR 0.79 MG/DL (0.55-1.30); GLOMERULAR FILTRATION RATE > 60.0 (>51); GLUCOSE, FASTING 213 MG/DL (70-100); SODIUM LEVEL 134 MEQ/L (136-145); TOTAL PROTEIN 6.9 GM/DL (6.4-8.2)
[2020-01-28] MEDS: HumaLOG INSULIN (NovoLOG) PER UNIT SC SCH ×4 (07:30→21:00)
[2020-01-28 07:39] LABS: MAGNESIUM LEVEL 1.1 MG/DL (1.8-2.4)
[2020-01-28] MEDS: KCL 10MEQ/100ML SWI (KRUN) 10 MEQ in IV 1 EA IV SCH ×4 (07:51→13:18)
[2020-01-28] MEDS: cefTRIAXone SOD 2 GM in D5W MINI-BAG PLUS 50 ML IV SCH (10:39)
[2020-01-28] MEDS: FLUoxetine 20 MG CAP PO SCH (10:39)
[2020-01-28] MEDS: PANTOPRAZOLE 40MG VIAL (C9113 PER 1) IV SCH (10:40)
[2020-01-28] MEDS: LABETALOL 100MG TAB PO SCH ×2 (10:43→21:04)
[2020-01-28] MEDS: METOCLOPRAMIDE INJ 10MG/2ML VIAL (J2765 PER 1) IV PRN (11:24)
--- NOTE | 2020-01-28 13:34 | IPNPDOC ---
Date Seen The patient was seen on 01/28/20. Progress Note SUBJECTIVE: Patient was seen and examined this morning. She currently states that her nausea and vomiting has improved as well as her abdominal pain. She has been able to tolerate PO intake. There have been no adverse events reported. OBJECTIVE PHYSICAL EXAMINATION: VITAL SIGNS: Please see below. GENERAL APPEARANCE: Awake, alert, and oriented. Appears in no acute distress HEENT: Atraumatic, normocephalic eyes are nonicteric. Trachea is midline CARDIOVASCULAR: normal S1, S2. Regular rate and rhythm. No clicks rubs or murmurs LUNGS: Clear vesicular breath sounds bilaterally. Good respiratory effort. No wheezes, rhonchi or rales. ABDOMEN: Morbidly obese. Soft, nondistended. Mild tenderness diffusely. no rebound tenderness. Normoactive bowel sounds. Colostomy bag in place and appears well functioning EXTREMITIES: No edema. Full and equal pulses in bilateral upper and lower extremities. NEUROLOGICAL: No focal neurological deficits PSYCHIATRIC: Flat affect LABORATORY DATA, IMAGING STUDIES, MICROBIOLOGY: Please see below. DVT prophylaxis ordered?: Heparin ASSESSMENT AND PLAN: Patient is a 49 year old female who presented to the [facility] ER with complaint of abdominal pain and found to have bilateral hydronephrosis and leukocytosis . PLAN: 1. Abdominal Pain 2/2 pyelonephritis -Patient has a history of pyelonephritis. Chronic indwelling brewster catheter. -blood cultures x2 positive for E. coli bacteremia with Levaquin resistance. Blood cultures negative on 01/23/2020. -Continue Rocephin 2g Iv daily for E. coli bacteremia. Will need to transition to oral Cefdinir at discharge. Currently on day 5 for treatment of E. coli bacteremia -Patient started on Reglan for possible gastroparesis. Continue Reglan PO ACHS 2. E. coli bacteremia -E. coli with Levaquin resistance which is the antibiotic she was on for her outpatient UTI. -CRP 2.78. Down from 18.00. -Procalcitonin on 01/22 was 2.78 -Blood cultures on 01/23/2020 negative for growth -Continue Rocephin 2g for 10 days from culture negative. Currently on day 5 10. Will discharge on Cefdinir 3. Hypokalemia and Hypomagnesemia -Secondary to vomiting and decreased oral intake. Will replete prn 4. Mild Bilateral Hydronephrosis -Imaging was reviewed by Urology who does not feel that there is any indication for inpatient intervention. Patient was recommended to follow-up outpatient if she continues to have retention -Currently has brewster in. 5. Diabetes Mellitus Type 2 -Levemir QHS -Sliding scale coverage with ACHS coverage -Consistent carbohydrates -Likely has component of gastroparesis. Currently on reglan 6. C. difficile -GI panel positive for C. difficile -Likely 2/2 to numerous antibiotics that she has received. -Continue PO Vancomycin. Currently day 7 out of 10 7. DVT Prophylaxis -Heparin SQ VS, I&O, 24H, Fishbone Vital Signs/I&O Vital Signs Date Time Temp Pulse Resp B/P (MAP) Pulse Ox O2 Delivery O2 Flow Rate FiO2 01/28/20 10:43 82 140/80 01/28/20 06:00 98.4 20 99 01/27/20 14:00 Room Air I&O- Last 24 Hours up to 6 AM 01/28/20 06:00 Intake Total 3340 ml Output Total 3550 ml Balance -210 ml Laboratory Data 24H LABS Laboratory Tests 2 01/27/20 16:35: Bedside Glucose (Misc Panel) 154H 01/27/20 20:50: Bedside Glucose (Misc Panel) 205H 01/28/20 05:59: Nucleated Red Blood Cells % (auto) 0.0, Anion Gap 2L, Glomerular Filtration Rate > 60.0, Calcium Level 7.6L, Magnesium Level 1.1L, Total Bilirubin 0.4#, Aspartate Amino Transf (AST/SGOT) 23, Alanine Aminotransferase (ALT/SGPT) 25, Alkaline Phosphatase 107, Total Protein 6.9, Albumin 2.4L, Albumin/Globulin Ratio 0.5L CBC/BMP Laboratory Tests 01/28/20 05:59 Microbiology Microbiology 01/23/20 Blood Culture - Final, Complete NO GROWTH AFTER 5 DAYS 01/23/20 Blood Culture - Final, Complete NO GROWTH AFTER 5 DAYS 01/22/20 Urine Culture - Final, Complete 01/21/20 Gastrointestinal Tract Panel (PCR) - Final, Complete Clostridium Difficile A/B 01/21/20 Blood Culture - Final, Complete Escherichia Coli 01/21/20 Blood Culture - Final, Complete Escherichia Coli GME ATTESTATION I have personally evaluated and examined the patient. Discussed with resident/student regarding plan of care and agree with the above assessment and plan. VLADIMIR FORD DO Jan 28, 2020 11:35 IRIS DILLON MD Jan 28, 2020 18:33
[2020-01-28 14:00] VITALS: BP 177/74
[2020-01-28] MEDS: MAG SULF 1GM/100ML (MAG RUN) 1 GM in IV 1 EA IV SCH ×4 (14:34→18:20)
[2020-01-28] MEDS: METOCLOPRAMIDE 5 MG TAB PO SCH ×2 (16:40→21:04)
[2020-01-28] MEDS: CEPHALEXIN 500 MG CAP PO SCH (17:08)
[2020-01-28] MEDS: ATORVASTATIN 20 MG TAB PO SCH (21:03)
[2020-01-28] MEDS: LEVEMIR (INSULIN DETEMIR) 1 UNITS/0.01ML SC SCH (21:05)
[2020-01-28 22:00] VITALS: BP 148/66
[2020-01-29] MEDS: VANCOMYCIN ORAL SOL 250MG/5ML ORAL SYRINGE PO SCH ×4 (00:03→17:21)
[2020-01-29] MEDS: CEPHALEXIN 500 MG CAP PO SCH ×4 (00:04→17:21)
[2020-01-29] MEDS: ACETAMINOPHEN TAB 650MG DOSE (2X325MG) PO PRN ×2 (00:11→20:57)
[2020-01-29] MEDS: HEPARIN SOD (PORCINE) 5000UNITS/ML 1ML VIAL/SYRINGE SQ SCH ×3 (05:47→20:59)
[2020-01-29 06:00] VITALS: BP 130/66
[2020-01-29 06:20] LABS: HEMATOCRIT 32.5 % (36.0-47.0); HEMOGLOBIN 10.3 g/dl (12.0-15.5); MEAN CORPUSCULAR HGB CONC 31.7 g/dl (32.0-36.5); MEAN CORPUSCULAR VOLUME 78.9 fl (80.0-96.0); PLATELET COUNT, AUTOMATED 382 10^3/uL (150-450); RED BLOOD COUNT 4.12 10^6/uL (4.00-5.40); WHITE BLOOD COUNT 8.8 10^3/uL (4.0-10.0)
[2020-01-29 06:44] LABS: ALBUMIN 2.5 GM/DL (3.2-5.2); ALT/SGPT 26 U/L (12-78); BILIRUBIN,TOTAL 0.3 MG/DL (0.2-1.0); BLOOD UREA NITROGEN 7 MG/DL (7-18); CALCIUM LEVEL 8.7 MG/DL (8.5-10.1); CARBON DIOXIDE LEVEL 27 MEQ/L (21-32); CHLORIDE LEVEL 104 MEQ/L (98-107); CREATININE FOR GFR 0.74 MG/DL (0.55-1.30); GLOMERULAR FILTRATION RATE > 60.0 (>51); GLUCOSE, FASTING 202 MG/DL (70-100); SODIUM LEVEL 138 MEQ/L (136-145)
[2020-01-29] MEDS: HumaLOG INSULIN (NovoLOG) PER UNIT SC SCH ×4 (07:30→21:00)
[2020-01-29 07:48] LABS: MAGNESIUM LEVEL 1.9 MG/DL (1.8-2.4)
[2020-01-29] MEDS ORDERED: E-Z-PAQUE 96% w/w SUSP 176GM BTL As Ordered ONE (07:52)
[2020-01-29] MEDS ORDERED: E-Z-GAS II EFFERVESCENT PACKET (SODIUM BICARB./CITRIC ACID/SIMETHICONE) As Ordered ONE (07:53)
[2020-01-29] MEDS ORDERED: E-Z-HD 98% w/w 340GM SUSP BTL As Ordered ONE (07:53)
[2020-01-29] MEDS: FLUoxetine 20 MG CAP PO SCH (08:09)
[2020-01-29] MEDS: KCL 10MEQ/100ML SWI (KRUN) 10 MEQ in IV 1 EA IV SCH ×4 (08:09→11:20)
[2020-01-29] MEDS: METOCLOPRAMIDE 5 MG TAB PO SCH ×4 (08:10→20:58)
[2020-01-29] MEDS: PANTOPRAZOLE 40MG TAB (PROTONIX) PO SCH (08:10)
[2020-01-29] MEDS: LABETALOL 100MG TAB PO SCH ×2 (08:10→20:58)
[2020-01-29 14:00] VITALS: BP 160/82
--- NOTE | 2020-01-29 17:55 | IPNPDOC ---
Date Seen The patient was seen on 01/29/20. Progress Note SUBJECTIVE: Patient was seen and examined this morning. She currently has no new complaints. She denies any abdominal pain. She does have intermittent nausea. Barium swallow was ordered for today as there was concern for potential esophageal stricture. There have otherwise been no reported events overnight OBJECTIVE PHYSICAL EXAMINATION: VITAL SIGNS: Please see below. GENERAL APPEARANCE: Awake, alert, and oriented. Appears in no acute distress HEENT: Atraumatic, normocephalic eyes are nonicteric. Trachea is midline CARDIOVASCULAR: normal S1, S2. Regular rate and rhythm. No clicks rubs or murmurs LUNGS: Clear vesicular breath sounds bilaterally. Good respiratory effort. No wheezes, rhonchi or rales. ABDOMEN: Morbidly obese. Soft, nondistended. Mild tenderness diffusely. no rebound tenderness. Normoactive bowel sounds. Colostomy bag in place and appears well functioning. Stool in colostomy is formed EXTREMITIES: No edema. Full and equal pulses in bilateral upper and lower extre mities. NEUROLOGICAL: No focal neurological deficits PSYCHIATRIC: Flat affect LABORATORY DATA, IMAGING STUDIES, MICROBIOLOGY: Please see below. DVT prophylaxis ordered?: Heparin ASSESSMENT AND PLAN: Patient is a 49 year old female who presented to the [facility] ER with complaint of abdominal pain and found to have bilateral hydronephrosis and leukocytosis . PLAN: 1. Abdominal Pain 2/2 pyelonephritis -Patient has a history of pyelonephritis. Chronic indwelling brewster catheter. -blood cultures x2 positive for E. coli bacteremia with Levaquin resistance. Blood cultures negative on 01/23/2020. -Continue Rocephin 2g Iv daily for E. coli bacteremia. Will need to transition to oral Cefdinir at discharge. Currently on day 6 10 for treatment of E. coli bacteremia. Will transition to oral therapy at discharge -Patient started on Reglan for possible gastroparesis. Continue Reglan PO ACHS 2. E. coli bacteremia -E. coli with Levaquin resistance which is the antibiotic she was on for her outpatient UTI. -Blood cultures on 01/23/2020 negative for growth -Continue Rocephin 2g for 10 days from culture negative. Currently on day 6 10. Will discharge on Cefdinir 3. Nausea/Vomiting -Patient has intermittent nausea vomiting since admission. This appears to have been going on even when at [facility]. This is likely 2/2 gastroparesis. However there was noted to be some regurgitated food and concern for possible stricture or stenosis of esophagus. Barium swallow was ordered for today. Report is pending however does not demonstrate any gross abnormality. -At this time will continue antiemetic. Patient has improved with IV reglan and she has since been changed to PO Reglan ACHS. Will continue this for presumed gastroparesis. She should have a gastric emptying study completed ou tpatient. Additionally patient should not be continued on this medication manager terminal as it does have association with tardive dyskinesia 4. Hypokalemia and Hypomagnesemia -Secondary to vomiting and decreased oral intake, also possibly from poor absorption from gastroparesis. Will replete prn 5. Mild Bilateral Hydronephrosis -Imaging was reviewed by Urology who does not feel that there is any indication for inpatient intervention. Patient was recommended to follow-up outpatient if she continues to have retention -Currently has brewster in. 6. Diabetes Mellitus Type 2 -Levemir QHS -Sliding scale coverage with ACHS coverage -Consistent carbohydrates -Likely has component of gastroparesis. Currently on reglan 7. C. difficile -GI panel positive for C. difficile -Likely 2/2 to numerous antibiotics that she has received. -Continue PO Vancomycin. Currently day 7 out of 10 8. DVT Prophylaxis -Heparin SQ DISPOSITION: Patient will be planned to be discharged to [facility]. She will need an isolation room as she is currently undergoing treatment for C. difficile. When she is ready to be discharged to [facility] will order COVID testing VS, I&O, 24H, Fishbone Vital Signs/I&O Vital Signs Date Time Temp Pulse Resp B/P (MAP) Pulse Ox O2 Delivery O2 Flow Rate FiO2 01/29/20 14:00 97.4 69 17 160/82 (108) 98 Room Air l I&O- Last 24 Hours up to 6 AM 01/29/20 06:00 Intake Total 2130 ml Output Total 3350 ml Balance -1220 ml Laboratory Data 24H LABS Laboratory Tests 2 01/28/20 20:43: Bedside Glucose (Misc Panel) 171H 01/29/20 05:53: Nucleated Red Blood Cells % (auto) 0.0, Anion Gap 7L, Glomerular Filtration Rate > 60.0, Calcium Level 8.7, Magnesium Level 1.9, Total Bilirubin 0.3, Aspartate Amino Transf (AST/SGOT) 25, Alanine Aminotransferase (ALT/SGPT) 26, Alkaline Phosphatase 115, Total Protein 7.0, Albumin 2.5L, Albumin/Globulin Ratio 0.6L 01/29/20 11:25: Bedside Glucose (Misc Panel) 192H 01/29/20 16:35: Bedside Glucose (Misc Panel) 166H CBC/BMP Laboratory Tests 01/29/20 05:53 Microbiology Microbiology 01/23/20 Blood Culture - Final, Complete NO GROWTH AFTER 5 DAYS 01/23/20 Blood Culture - Final, Complete NO GROWTH AFTER 5 DAYS 01/22/20 Urine Culture - Final, Complete 01/21/20 Gastrointestinal Tract Panel (PCR) - Final, Complete Clostridium Difficile A/B 01/21/20 Blood Culture - Final, Complete Escherichia Coli 01/21/20 Blood Culture - Final, Complete Escherichia Coli GME ATTESTATION I have personally evaluated and examined the patient. Discussed with resident/student regarding plan of care and agree with the above assessment and plan. VLADIMIR FORD DO Jan 29, 2020 17:55 IRIS DILLON MD Jan 29, 2020 18:23
--- NOTE | 2020-01-29 20:04 | REP ---
Examination Requested: Esophagram Barium Swallow Reason For Exam/Comment: Esophageal stricture versus dysmotility Esophagram: The procedure was performed DAVID Cramer, under the direct supervision of Dr. Ashby. The images were reviewed with Dr. Ashby. A single PA chest x-ray is submitted as a machine sweeper brush maker film. There is no change compared to the prior chest x-ray dated 01/21/2020. Liquid barium was given in the anterior oblique position. This is a limited study due to the patient's lack of mobility. Oral and pharyngeal stages of the examination were unremarkable. Esophageal transport is efficient and there is no esophagitis, stricture, or mucosal ring noted. However tertiary contractions were visualized during the exam. There is no hiatal hernia noted. Gastroesophageal reflux was not visualized during the exam. Impression: 1. Tertiary contractions were visualized during this limited exam. 0.4 minutes of fluoroscopy time was utilized for this procedure. Some fluoroscopic images are performed with last image hold technology. These images require no additional radiation. Reviewed by DAVID Conklin 01/29/2020 04:07 P Electronically Signed by James Ashby MD 01/29/2020 07:55 P
[2020-01-29] MEDS: ATORVASTATIN 20 MG TAB PO SCH (20:58)
[2020-01-29] MEDS: LEVEMIR (INSULIN DETEMIR) 1 UNITS/0.01ML SC SCH (21:02)
[2020-01-29 22:00] VITALS: BP 156/78
[2020-01-30] MEDS: CEPHALEXIN 500 MG CAP PO SCH ×3 (00:07→12:10)
[2020-01-30] MEDS: VANCOMYCIN ORAL SOL 250MG/5ML ORAL SYRINGE PO SCH ×3 (00:07→12:10)
[2020-01-30 06:00] VITALS: BP 162/84
[2020-01-30] MEDS: HEPARIN SOD (PORCINE) 5000UNITS/ML 1ML VIAL/SYRINGE SQ SCH (06:20)
[2020-01-30 07:01] LABS: HEMATOCRIT 34.9 % (36.0-47.0); HEMOGLOBIN 10.9 g/dl (12.0-15.5); MEAN CORPUSCULAR HEMOGLOBIN 25.2 pg (27.0-33.0); MEAN CORPUSCULAR HGB CONC 31.2 g/dl (32.0-36.5); MEAN CORPUSCULAR VOLUME 80.6 fl (80.0-96.0); PLATELET COUNT, AUTOMATED 395 10^3/uL (150-450); RED BLOOD COUNT 4.33 10^6/uL (4.00-5.40); WHITE BLOOD COUNT 8.9 10^3/uL (4.0-10.0)
[2020-01-30 07:18] LABS: ALBUMIN 2.6 GM/DL (3.2-5.2); ALT/SGPT 27 U/L (12-78); BILIRUBIN,TOTAL 0.3 MG/DL (0.2-1.0); BLOOD UREA NITROGEN 8 MG/DL (7-18); CALCIUM LEVEL 8.6 MG/DL (8.5-10.1); CARBON DIOXIDE LEVEL 26 MEQ/L (21-32); CHLORIDE LEVEL 106 MEQ/L (98-107); CREATININE FOR GFR 0.87 MG/DL (0.55-1.30); GLOMERULAR FILTRATION RATE > 60.0 (>51); GLUCOSE, FASTING 230 MG/DL (70-100); POTASSIUM SERUM 3.5 MEQ/L (3.5-5.1); SODIUM LEVEL 138 MEQ/L (136-145); TOTAL PROTEIN 7.2 GM/DL (6.4-8.2)
[2020-01-30 08:26] VITALS: BP 130/80
[2020-01-30] MEDS: METOCLOPRAMIDE 5 MG TAB PO SCH ×2 (08:26→12:10)
[2020-01-30] MEDS: LABETALOL 100MG TAB PO SCH (08:26)
[2020-01-30] MEDS: FLUoxetine 20 MG CAP PO SCH (08:26)
[2020-01-30] MEDS: PANTOPRAZOLE 40MG TAB (PROTONIX) PO SCH (08:26)
[2020-01-30] MEDS: HumaLOG INSULIN (NovoLOG) PER UNIT SC SCH ×3 (08:27→12:11)
[2020-01-30] MEDS ORDERED: FIRV50SO PO (10:22)
[2020-01-30] MEDS ORDERED: CEPH500C PO (10:22)
[2020-01-30] MEDS ORDERED: METO5TAB2 PO (10:22)
[2020-01-30] MEDS ORDERED: PANT40TA29 PO (10:22)
--- NOTE | 2020-01-30 18:28 | DS.PDOC ---
Discharge Summary General Date of Admission Jan 21, 2020 at 18:27 Date of Discharge 01/30/20 Discharge Summary PROCEDURES PERFORMED DURING STAY: [None]. ADMITTING DIAGNOSES: 1. Abdominal Pain 2. Nausea and Vomiting 3. Pyelonephritis DISCHARGE DIAGNOSES: 1. Abdominal Pain 2/2 C.difficile 2. Nausea and Vomiting 2/2 Gastroparesis 3. Pyelonephritis 4. E. coli Bacteremia COMPLICATIONS/CHIEF COMPLAINT: Pyelonephritis. HISTORY OF PRESENT ILLNESS: Patient is a 49 year old female with a past medical history of CVA, diabetes mellitus type 2, necrotizing fascitis of sacral area with diverting colostomy who presented to the [facility] ER with a complaint of abdominal pain and dysuria. She is a resident of [facility]. The patient had suffered a stroke in 2018 and has baseline cognitive dysfunction. She had stated that she had abdominal pain. Additionally, she has been noticed to have loose stool from her colostomy bag. She had been started on Levaquin for UTI and was noted to not be improving. She was subsequently sent to [facility] ER and admitted to hospitalist service HOSPITAL COURSE: On admission the patient was found to have C. difficile. This was likely secondary to the numerous antibiotics that she had been on while she was being treated for necrotizing fascitis. It was felt her abdominal pain was likely secondary to this. She did have CT abdomen completed which demonstrated some mild hydronephrosis which was new compared to her previous studies. The findings were reviewed by Urology who recommended that if she continues to have issues then to follow-up outpatient. She was started on empiric antibiotics for suspected pyelonephritis. On the second day of her hospitalization her blood cultures resulted positive for E. coli with Levaquin resistance. It was felt to be a urinary source. Her urine culture did not grow anything however she had received antibiotics before culture was completed. Her sacral wound appeared well healed and was felt not to be the source of her bacteremia. The patient was placed on IV rocephin. She was continued on PO Vancomycin for her C. difficile. During her subsequent days she did have significant nausea and vomiting and difficulty keeping food down. She required most of her medications to be received IV. It was felt that given her diabetes history that she may have gastroparesis. She was started on Reglan which improved her nausea and vomiting substantially. Additionally she was started on a PPI. A barium swallow was performed to rule out esophageal stricture gastric outlet obstruction. Results of her barium swallow were unrevealing. The patient was transitioned to oral medications and noted that her symptoms were resolving. She was discharged to [facility] with instructions to complete her antibiotics for e. coli bacteremia and C. difficile colitis. DISCHARGE MEDICATIONS: Please see below. ALLERGIES: Please see below. PHYSICAL EXAMINATION ON DISCHARGE: VITAL SIGNS: Please see below. GENERAL APPEARANCE: Awake, alert, and oriented. Appears in no acute distress HEENT: Atraumatic, normocephalic eyes are nonicteric. Trachea is midline CARDIOVASCULAR: normal S1, S2. Regular rate and rhythm. No clicks rubs or murmurs LUNGS: Clear vesicular breath sounds bilaterally. Good respiratory effort. No wheezes, rhonchi or rales. ABDOMEN: Morbidly obese. Soft, nondistended. Nontender. no rebound tenderness. Normoactive bowel sounds. Colostomy bag in place and appears well functioning. Stool in colostomy is formed EXTREMITIES: No edema. Full and equal pulses in bilateral upper and lower extremities. NEUROLOGICAL: No focal neurological deficits PSYCHIATRIC: Flat affect LABORATORY DATA: Please see below. IMAGING: REASON: Cough. The latest prior for comparison is a portable examination of 12/03/2019. The technique utilized in obtaining the radiograph has magnified the cardiac silhouette and accentuated the interstitial markings. There is no change from the prior exam. There is cardiomegaly accentuated by technique. The left CP angle has not been included on the radiograph. No acute patchy parenchymal opacities or pleural effusions have developed. There is no change in the osseous structures. IMPRESSION: Cardiomegaly without evidence of acute cardiopulmonary disease or significant change compared to the prior exam, as described above. Electronically Signed by Fred Gonzalez DO 01/22/2020 01:23 P REASON: Followup. COMPARISON: 01/05/2020, which showed no bowel obstruction. There is no change from the prior exam. There is no bowel obstruction. Electronically Signed by Fred Gonzalez DO 01/22/2020 05:06 P Examination Requested: Esophagram Barium Swallow Reason For Exam/Comment: Esophageal stricture versus dysmotility Esophagram: The procedure was performed DAVID Cramer, under the direct supervision of Dr. Ashby. The images were reviewed with Dr. Ashby. A single PA chest x-ray is submitted as a food service tray attendant film. There is no change compared to the prior chest x-ray dated 01/21/2020. Liquid barium was given in the anterior oblique position. This is a limited study due to the patient's lack of mobility. Oral and pharyngeal stages of the examination were unremarkable. Esophageal transport is efficient and there is no esophagitis, stricture, or mucosal ring noted. However tertiary contractions were visualized during the exam. There is no hiatal hernia noted. Gastroesophageal reflux was not visualized during the exam. Impression: 1. Tertiary contractions were visualized during this limited exam. 0.4 minutes of fluoroscopy time was utilized for this procedure. Some fluoroscopic images are performed with last image hold technology. These images require no additional radiation. REASON: Abdominal pain. COMPARISON: 01/02/2020, the latest prior. Noncontrast enhanced examination 11/28/2019 also reviewed. CONTRAST: 100 mL Isovue-370. Respiratory motion artifact obscures the detail in the lung bases. No gross abnormality is noted. The liver, gallbladder, spleen, pancreas, adrenal glands are essentially unchanged and again seen to be within normal limits. Since the last examination, mild bilateral hydronephrosis and hydroureter has developed. There is a Johns balloon catheter in the urinary bladder decompressing it. There is air density i n the urinary bladder, likely secondary to the catheter. There are no nephroliths or ureteroliths. There is no change in the abdominal aorta or para-aortic regions. The colostomy site is unchanged. There is no significant change in appearance of bowel loops or their mesenteries. There is a tethering effect in the small bowel mesentery on the left at the level of the iliac crests, which is stable. This has the appearance of postoperative scar. There are surgical clips in the region. There is no evidence of free fluid or free air in the abdomen or pelvis. There is no significant change in appearance of the osseous structures. IMPRESSION: The only significant change when today's exam is compared to the prior exam is that there is now unexplained mild to moderate bilateral hydronephrosis. Electronically Signed by Fred Gonzalez DO 01/21/2020 05:03 P PROGNOSIS: Fair ACTIVITY: [As tolerated]. DIET: Consistent Carbohydrate DISCHARGE PLAN: Patient is to be discharged back to the [facility]. She is to complete her oral vancomycin as prescribed. She is to complete oral Keflex as prescribed for E. coli bacteremia. She has been started on Reglan ACHS for suspected gastroparesis. Recommendations for gastric emptying study outpatient to confirm diagnosis. If continued nausea and vomiting recommend outpatient referral for Gastroenterology. At time of discharge patient denied any abdominal pain, nausea, or vomiting DISPOSITION: [facility]. DISCHARGE CONDITION: [Stable]. TIME SPENT ON DISCHARGE: 40 minutes. I have personally evaluated and examined the patient. Discussed with resident/student regarding plan of care and agree with the above assessment and plan. Vital Signs/I&Os Vital Signs Date Time Temp Pulse Resp B/P (MAP) Pulse Ox O2 Delivery O2 Flow Rate FiO2 01/30/20 08:26 75 130/80 01/30/20 06:00 97.8 15 96 Room Air I&O- Last 24 Hours up to 6 AM 01/30/20 06:00 Intake Total 760 ml Output Total 975 ml Balance -215 ml Laboratory Data Labs 24H Laboratory Tests 2 01/29/20 20:02: Bedside Glucose (Misc Panel) 207H 01/30/20 06:14: Nucleated Red Blood Cells % (auto) 0.0, Anion Gap 6L, Glomerular Filtration Rate > 60.0, Calcium Level 8.6, Total Bilirubin 0.3, Aspartate Amino Transf (AST/SGOT) 23, Alanine Aminotransferase (ALT/SGPT) 27, Alkaline Phosphatase 129H, Total Protein 7.2, Albumin 2.6L, Albumin/Globulin Ratio 0.6L 01/30/20 11:25: Bedside Glucose (Misc Panel) 187H CBC/BMP Laboratory Tests 01/30/20 06:14 FSBS Laboratory Tests Test 01/29/20 20:02 01/30/20 11:25 Range/Units Bedside Glucose (Misc Panel) 207 187 70-105 MG/DL Microbiology Microbiology 01/30/20 Respiratory Virus Panel (PCR) (MYAH) - Final, Complete 01/23/20 Blood Culture - Final, Complete NO GROWTH AFTER 5 DAYS 01/23/20 Blood Culture - Final, Complete NO GROWTH AFTER 5 DAYS 01/22/20 Urine Culture - Final, Complete 01/21/20 Gastrointestinal Tract Panel (PCR) - Final, Complete Clostridium Difficile A/B 01/21/20 Blood Culture - Final, Complete Escherichia Coli 01/21/20 Blood Culture - Final, Complete Escherichia Coli Discharge Medications Scheduled Atorvastatin Calcium (Atorvastatin Calcium) 40 Mg Tablet, 40 MG PO QHS, (Reported) Cephalexin (Cephalexin) 500 Mg Capsule, 500 MG PO Q6H Ferrous Gluconate (Ferrous Gluconate) 324 Mg Tablet, 324 MG PO DAILY, (Reported) Fluoxetine Hcl (Fluoxetine HCl) 20 Mg Capsule, 20 MG PO DAILY, (Reported) Insulin Glargine,Hum.rec.anlog (Lantus Solostar) 100 Unit/1 Ml Insuln.pen, 80 UNITS SC QHS, (Reported) Insulin Human Lispro (Humalog) 100 Unit/1 Ml Vial, 1 DOSE SC AC, (Reported) PER SLIDING SCALE Labetalol HCl (Labetalol HCl) 100 Mg Tablet, 100 MG PO BID, (Reported) Linagliptin (Tradjenta) 5 Mg Tablet, 5 MG PO DAILY, (Reported) Melatonin (Melatonin) 10 Mg Capsule, 10 MG PO QHS, (Reported) Metoclopramide HCl (Metoclopramide HCl) 5 Mg Tablet, 5 MG PO ACHS Pantoprazole Sodium (Pantoprazole Sodium) 40 Mg Tablet.dr, 40 MG PO DAILY Polyethylene Glycol 3350 (Miralax) 119 Gm Powder, 17 GM PO DAILY, (Reported) Sennosides (Senna Lax) 8.6 Mg Tablet, 17.2 MG PO BID, (Reported) Sorbitol Solution (Sorbitol 70%) 1 Ml Solution, 30 ML PO Q2D, (Reported) HOLD FOR DIARRHEA Vancomycin HCl (Firvanq) 50 Mg/1 Ml Soln.recon, 125 MG PO Q6H Scheduled PRN Acetaminophen (Acetaminophen) 325 Mg Tablet, 650 MG PO Q4H PRN for PAIN, (Reported) Glucagon,Human Recombinant (Glucagon Emergency Kit) 1 Mg Vial, 1 MG IM ASDIRECTED PRN for LOW BLOOD SUGAR, (Reported) Guaifenesin (Guaifenesin) 100 Mg/5 Ml Liquid, 10 ML PO QID PRN for COUGH, (Reported) Hydrocodone/Acetaminophen (Hydrocodone-Acetamin 5-325 mg) 1 Each Tablet, 1 TAB PO Q6H PRN for PAIN, (Reported) Ondansetron HCl (Ondansetron HCl) 4 Mg Tablet, 4 MG PO Q6H PRN for NAUSEA OR VOMITING, (Reported) Miscellaneous Medications Multivitamin with Minerals (One Daily Plus Minerals) 1 Each Tablet, 1 TAB PO, (Reported) Allergies Coded Allergies: No Known Allergies (Unverified , 10/19/18) VLADIMIR FORD DO Jan 30, 2020 18:28 IRIS DILOLN MD Jan 31, 2020 08:17
[2020-06-22] MEDS ORDERED: AMLO10TA PO (15:09)
[2020-06-22] MEDS ORDERED: ROZE8TAB16 PO (15:09)
[2020-06-22] MEDS ORDERED: PEPC1TAB5 PO (15:09)
== END 2020-01-30 12:40 | DRG 248 ==
LOC: EDBD 15:24 → M ED 15:24 → M ED INP 18:27 → ENRESERV 19:00 → M MSPAV 21:22
PROVIDERS: ADMIT Internal Medicine; ATTEND Student in an Organized Health Care Education/Training Program
DX: A04.72 Enterocolitis due to Clostridium difficile, not specified as recurrent (principal); K31.84 Gastroparesis; Z93.3 Colostomy status; R78.81 Bacteremia; N13.6 Pyonephrosis; E83.42 Hypomagnesemia; E11.43 Type 2 diabetes mellitus with diabetic autonomic (poly)neuropathy; I10 Essential (primary) hypertension; E87.6 Hypokalemia; Z66 Do not resuscitate; B96.20 Unspecified Escherichia coli [E. coli] as the cause of diseases classified elsewhere; E78.5 Hyperlipidemia, unspecified; Z86.73 Personal history of transient ischemic attack (TIA), and cerebral infarction without residual deficits; Z79.4 Long term (current) use of insulin; Z79.899 Other long term (current) drug therapy; Z11.59 Encounter for screening for other viral diseases

== ENCOUNTER → 2020-01-21 | Outpatient (CLI) | payer MEDICAID ==
[~2020-01-21] MED LIST changes: +GASTROGRAFIN SOLUTION 30ML (Q9963) As Ordered ONE; +ISOVUE-370 76% 100ML VIAL As Ordered ONE
--- NOTE | 2020-01-21 14:14 | REP ---
REASON: Abdominal pain. COMPARISON: 01/02/2020, the latest prior. Noncontrast enhanced examination 11/28/2019 also reviewed. CONTRAST: 100 mL Isovue-370. Respiratory motion artifact obscures the detail in the lung bases. No gross abnormality is noted. The liver, gallbladder, spleen, pancreas, adrenal glands are essentially unchanged and again seen to be within normal limits. Since the last examination, mild bilateral hydronephrosis and hydroureter has developed. There is a Johns balloon catheter in the urinary bladder decompressing it. There is air density in the urinary bladder, likely secondary to the catheter. There are no nephroliths or ureteroliths. There is no change in the abdominal aorta or para-aortic regions. The colostomy site is unchanged. There is no significant change in appearance of bowel loops or their mesenteries. There is a tethering effect in the small bowel mesentery on the left at the level of the iliac crests, which is stable. This has the appearance of postoperative scar. There are surgical clips in the region. There is no evidence of free fluid or free air in the abdomen or pelvis. There is no significant change in appearance of the osseous structures. IMPRESSION: The only significant change when today's exam is compared to the prior exam is that there is now unexplained mild to moderate bilateral hydronephrosis. Electronically Signed by Fred Gonzalez DO 01/21/2020 05:03 P
== END ==
LOC: M RAD 11:17
PROVIDERS: ATTEND Nurse Practitioner Family
DX: R10.9 Unspecified abdominal pain (principal); K59.00 Constipation, unspecified; N13.30 Unspecified hydronephrosis; Z93.3 Colostomy status
CPT/HCPCS: 74177; Q9963; Q9967

== ENCOUNTER → 2020-01-21 | Outpatient (REF) ==
[~2020-01-21] MED LIST changes: -GASTROGRAFIN SOLUTION 30ML (Q9963) As Ordered ONE; -ISOVUE-370 76% 100ML VIAL As Ordered ONE
[2020-01-21 11:07] LABS: HEMATOCRIT 32.2 % (36.0-47.0); MEAN CORPUSCULAR HEMOGLOBIN 25.3 pg (27.0-33.0); MEAN CORPUSCULAR HGB CONC 31.1 g/dl (32.0-36.5); MEAN CORPUSCULAR VOLUME 81.3 fl (80.0-96.0); PLATELET COUNT, AUTOMATED 413 10^3/uL (150-450); RED BLOOD COUNT 3.96 10^6/uL (4.00-5.40); WHITE BLOOD COUNT 14.8 10^3/uL (4.0-10.0)
[2020-01-21 11:21] LABS: AMORPHOUS SEDIMENT MODERATE (NEGATIVE); APPEARANCE, URINE CLOUDY (CLEAR); BACTERIA, URINE AUTO 3+ (NEGATIVE); BILIRUBIN, URINE AUTO NEGATIVE (NEGATIVE); BLOOD, URINE BLOOD 3+ (NEGATIVE); COLOR, URINE YELLOW (YELLOW); GLUCOSE, URINE (UA) AUTO NEGATIVE (NEGATIVE); KETONE, URINE AUTO NEGATIVE (NEGATIVE); LEUKOCYTE ESTERASE, URINE AUTO 3+ (NEGATIVE); MUCUS, URINE SMALL (NEGATIVE); NITRITE, URINE AUTO NEGATIVE (NEGATIVE); PROTEIN, URINE AUTO 2+ mg/dL (NEGATIVE); RBC, URINE AUTO 152 /HPF (0-3); SPECIFIC GRAVITY URINE AUTO 1.015 (1.002-1.035); SQUAMOUS EPITHELIAL CELL UR AU 1 /HPF (0-6); UROBILINOGEN, URINE AUTO 0.2 mg/dL (0.0-2.0); WBC, URINE AUTO TNTC /HPF (0-3)
[2020-01-21 11:27] LABS: ALBUMIN 2.5 GM/DL (3.2-5.2); ALT/SGPT 21 U/L (12-78); BILIRUBIN,TOTAL 0.5 MG/DL (0.2-1.0); BLOOD UREA NITROGEN 21 MG/DL (7-18); CALCIUM LEVEL 9.5 MG/DL (8.5-10.1); CARBON DIOXIDE LEVEL 28 MEQ/L (21-32); CHLORIDE LEVEL 103 MEQ/L (98-107); CREATININE FOR GFR 0.94 MG/DL (0.55-1.30); GLOMERULAR FILTRATION RATE > 60.0 (>51); GLUCOSE, FASTING 192 MG/DL (70-100); POTASSIUM SERUM 3.7 MEQ/L (3.5-5.1); SODIUM LEVEL 138 MEQ/L (136-145); TOTAL PROTEIN 7.7 GM/DL (6.4-8.2)
== END ==
LOC: SKLAB3 09:44
PROVIDERS: ATTEND Internal Medicine
DX: R10.9 Unspecified abdominal pain (principal)

== ENCOUNTER → 2020-01-31 | Outpatient (REF) ==
[~2020-01-31] MED LIST changes: +AMLO10TA PO; +CEPH500C PO; +FIRV50SO PO; +GUAI100L31 PO; +METO5TAB2 PO; +NITR-67 PO; +ONETAB16 PO; +PANT40TA29 PO; +PEPC1TAB5 PO; +RA M10TA PO; +ROZE8TAB16 PO; +VITMTA PO
== END ==
LOC: SKLAB3 13:14
PROVIDERS: ATTEND Internal Medicine
DX: Z86.14 Personal history of Methicillin resistant Staphylococcus aureus infection (principal)

== ENCOUNTER → 2020-02-20 | Outpatient (REF) | payer MEDICAID ==
[~2020-02-20] MED LIST changes: -AMLO10TA PO; +AMLO10TA5 PO; -AMLO1TAB24 PO; -AMLO1TAB25 PO; +AMLO5TAB6 PO; -LABE100T4 PO; +LABE10TAB PO; -LISI10TA22 PO; +LISI10TA4 PO; +MAGN400O53 PO; -MILKSUS22 PO; -PANT40TA29 PO; +PANT40TA3 PO; -PEPC1TAB5 PO; -ROZE8TAB16 PO
[2020-02-20 13:30] LABS: APPEARANCE, URINE CLOUDY (CLEAR); BACTERIA, URINE AUTO 3+ (NEGATIVE); BILIRUBIN, URINE AUTO NEGATIVE (NEGATIVE); BLOOD, URINE BLOOD NEGATIVE (NEGATIVE); COLOR, URINE YELLOW (YELLOW); GLUCOSE, URINE (UA) AUTO NEGATIVE (NEGATIVE); KETONE, URINE AUTO NEGATIVE (NEGATIVE); LEUKOCYTE ESTERASE, URINE AUTO 3+ (NEGATIVE); NITRITE, URINE AUTO POSITIVE (NEGATIVE); PROTEIN, URINE AUTO 2+ mg/dL (NEGATIVE); RBC, URINE AUTO 30 /HPF (0-3); SPECIFIC GRAVITY URINE AUTO 1.011 (1.002-1.035); SQUAMOUS EPITHELIAL CELL UR AU 0 /HPF (0-6); UROBILINOGEN, URINE AUTO 0.2 mg/dL (0.0-2.0); WBC, URINE AUTO TNTC /HPF (0-3)
== END ==
LOC: SKLAB3 07:00
PROVIDERS: ATTEND Nurse Practitioner Family
DX: I10 Essential (primary) hypertension (principal); E11.9 Type 2 diabetes mellitus without complications

== ENCOUNTER 2020-02-24 07:20 | Emergency (ER) | payer MEDICAID ==
[~2020-02-24 07:20] MED LIST changes: -AMLO10TA5 PO; +AMLO1TAB24 PO; +AMLO1TAB25 PO; -AMLO5TAB6 PO; -GUAI100L31 PO; -MAGN400O53 PO; +MILKSUS22 PO; -NITR-67 PO; +PANT40TA29 PO; -PANT40TA3 PO; -RA M10TA PO; -VITMTA PO
[2020-02-24] MEDS ORDERED: NITR-67 PO (08:22)
[2020-02-24] MEDS ORDERED: RA M10TA PO (08:37)
[2020-02-24] MEDS ORDERED: GUAI100L31 PO (08:37)
[2020-02-24] MEDS ORDERED: METO5TAB2 PO (08:37)
[2020-02-24] MEDS ORDERED: INSUHUMDS SC ×2 (08:37)
--- NOTE | 2020-02-24 09:02 | REP ---
Clinical: Nausea and vomiting. Technique: Semiupright view of the chest/upper abdomen along with supine and cross-table lateral views of the abdomen and pelvis. Findings: No obvious acute cardiopulmonary process is appreciated and no free air below diaphragm is identified to suggest pneumoperitoneum. Supine and cross-table lateral views of the abdomen and pelvis demonstrate moderate fecal stasis. Findings suggesting colostomy over the left dwight pelvis noted. No evidence for obstruction or perforation. Skeletal structures are intact. Impression: 1. Moderate fecal stasis without evidence for obstruction or perforation. Electronically Signed by Mario Blair MD 02/24/2020 08:53 A
[2020-02-24 09:13] LABS: BASO # 0.1 10^3/uL (0.0-0.2); BASO % 0.4 % (0.0-1.0); EOS % 0.2 % (0.0-3.0); HEMATOCRIT 37.8 % (36.0-47.0); HEMOGLOBIN 11.7 g/dl (12.0-15.5); LYMPH # 2.3 10^3/uL (1.5-5.0); LYMPH % 14.5 % (24.0-44.0); MEAN CORPUSCULAR HEMOGLOBIN 24.9 pg (27.0-33.0); MEAN CORPUSCULAR VOLUME 80.6 fl (80.0-96.0); MONO # 0.8 10^3/uL (0.0-0.8); MONO % 4.7 % (0.0-5.0); NEUTROPHILS # 12.9 10^3/uL (1.5-8.5); NEUTROPHILS % 79.8 % (36.0-66.0); PLATELET COUNT, AUTOMATED 564 10^3/uL (150-450); RED BLOOD COUNT 4.69 10^6/uL (4.00-5.40); WHITE BLOOD COUNT 16.2 10^3/uL (4.0-10.0)
[2020-02-24 09:57] LABS: ALT/SGPT 31 U/L (12-78); BILIRUBIN,DIRECT < 0.1 MG/DL (0.0-0.2); BILIRUBIN,TOTAL 0.6 MG/DL (0.2-1.0); LIPASE 13 U/L (73-393); TOTAL PROTEIN 8.4 GM/DL (6.4-8.2)
[2020-02-24 11:48] LABS: CALCIUM LEVEL 10.2 MG/DL (8.5-10.1); CREATININE FOR GFR 1.06 MG/DL (0.55-1.30); GLOMERULAR FILTRATION RATE 58.4 (>51); POTASSIUM SERUM 3.6 MEQ/L (3.5-5.1)
[2020-02-24] MEDS ORDERED: ISOVUE-370 76% 100ML VIAL As Ordered ONE (11:59)
--- NOTE | 2020-02-24 12:44 | REP ---
Clinical: Nausea and vomiting. Technique: Axial contrast enhanced images from the lung bases to the pubic symphysis using 100 ml Isovue 370 intravenous contrast material with coronal and sagittal re-formations. Comparison: 01/21/2020. Findings: Lung bases are clear. Visualized heart and pericardium are within normal limits. Liver, spleen, pancreas, gallbladder, bilateral adrenal glands and kidneys are relatively normal / stable. The enteric system is without obstruction or acute inflammatory process. Evidence for prior sigmoid resection and ostomy via the anterior abdominal wall again noted. Pelvis demonstrates normal bladder and age-appropriate uterus/adnexa along with oversewn Rickie's pouch. No ascites. No free air. No adenopathy. Abdominal aorta and vasculature without aneurysm or dissection. Musculoskeletal structures demonstrate age-related degenerative changes. Impression: 1. No obvious acute abdominopelvic pathology appreciated. 2. Continued pyelonephritis cannot be excluded and should be correlated with urinalysis. Electronically Signed by Mario Blair MD 02/24/2020 12:36 P
[2020-02-24 13:55] VITALS: BP 160/79
[2020-02-25] MEDS ORDERED: BACITAB PO (02:12)
[2020-02-25] MEDS ORDERED: VITMTA PO (02:12)
--- NOTE | 2020-02-25 07:09 | ECGEPIP ---
[facility] - ED Test Date: 2020-02-24 Pat Name: ABNER RANKIN Department: Room: - Gender: Female Help Desk Consultant: asim meza : [id number] Requested By: Reji Matson Order Number: [id number] Reading MD: Suleman Dan Measurements Intervals Luke Rate: 91 P: 48 TX: 139 QRS: 10 QRSD: 85 T: 61 QT: 385 QTc: 475 Interpretive Statements SINUS RHYTHM NONSPECIFIC ST & T-WAVE ABNORMALITY Similar to tracing done 01-21-20 Electronically Signed on 02-25-2020 7:08:46 EDT by Suleman Dan
== END 2020-02-24 15:41 | disposition home or self-care (01) ==
LOC: EDBD 07:20 → M ED 07:20
DX: K59.00 Constipation, unspecified (principal); D72.829 Elevated white blood cell count, unspecified; E78.5 Hyperlipidemia, unspecified; I10 Essential (primary) hypertension; E11.9 Type 2 diabetes mellitus without complications; Z86.73 Personal history of transient ischemic attack (TIA), and cerebral infarction without residual deficits; Z86.14 Personal history of Methicillin resistant Staphylococcus aureus infection; E66.9 Obesity, unspecified; Z93.3 Colostomy status; Z79.899 Other long term (current) drug therapy; Z79.4 Long term (current) use of insulin
CPT/HCPCS: 36415; 74021; 74177; 80048; 80076; 81001; 83605; 83690; 85025; 87086; 93005; 99285; Q9967

== ENCOUNTER 2020-02-24 22:21 | Inpatient (IN) | payer MEDICAID ==
[~2020-02-24] VITALS: Ht 157.5 cm; Wt 140.9 kg
[~2020-02-24 22:21] MED LIST changes: +GUAI100L31 PO; +NITR-67 PO; +RA M10TA PO
[2020-02-24] MEDS ORDERED: NS 1,000 ML IV ONE (23:00)
[2020-02-25 00:06] LABS: BASO # 0.1 10^3/uL (0.0-0.2); BASO % 0.5 % (0.0-1.0); EOS % 0.3 % (0.0-3.0); HEMATOCRIT 40.1 % (36.0-47.0); HEMOGLOBIN 12.5 g/dl (12.0-15.5); LYMPH # 2.6 10^3/uL (1.5-5.0); LYMPH % 17.3 % (24.0-44.0); MEAN CORPUSCULAR HEMOGLOBIN 25.1 pg (27.0-33.0); MEAN CORPUSCULAR HGB CONC 31.2 g/dl (32.0-36.5); MEAN CORPUSCULAR VOLUME 80.4 fl (80.0-96.0); MONO # 0.9 10^3/uL (0.0-0.8); NEUTROPHILS # 11.1 10^3/uL (1.5-8.5); NEUTROPHILS % 74.9 % (36.0-66.0); PLATELET COUNT, AUTOMATED 600 10^3/uL (150-450); RED BLOOD COUNT 4.99 10^6/uL (4.00-5.40); WHITE BLOOD COUNT 14.8 10^3/uL (4.0-10.0)
[2020-02-25 00:12] LABS: ALBUMIN 3.3 GM/DL (3.2-5.2); ALT/SGPT 32 U/L (12-78); AMYLASE 26 U/L (25-115); BILIRUBIN,DIRECT < 0.1 MG/DL (0.0-0.2); BILIRUBIN,TOTAL 0.5 MG/DL (0.2-1.0); LIPASE 45 U/L (73-393); TOTAL PROTEIN 8.6 GM/DL (6.4-8.2)
[2020-02-25] MEDS ORDERED: ONDANSETRON 4MG/2ML VIAL IV ONE (01:45)
[2020-02-25] MEDS ORDERED: cefTRIAXone SOD 2 GM in D5W MINI-BAG PLUS 50 ML IV ONE (01:45)
[2020-02-25] MEDS ORDERED: BACITAB PO (02:12)
[2020-02-25] MEDS ORDERED: VITMTA PO (02:12)
[2020-02-25] MEDS ORDERED: DEXTROSE 50% 50 ML SYRINGE IV PRN (02:30)
[2020-02-25] MEDS ORDERED: guaiFENesin SYRUP 200 MG/10 ML UDC PO PRN (02:30)
[2020-02-25] MEDS ORDERED: NORCO, ANEXSIA 5/325MG TABLET (HYDROcodone/ACETAMINOPHEN) PO PRN (02:30)
[2020-02-25] MEDS ORDERED: GLUCOSE 4GM CHEW TABLET PO PRN (02:30)
[2020-02-25] MEDS ORDERED: GLUCAGON INJ 1MG VIAL SC PRN (02:30)
[2020-02-25] MEDS: NS 1,000 ML IV SCH ×2 (02:30→16:02)
--- NOTE | 2020-02-25 02:44 | HPEPDOC ---
General Date of Admission 02/25/2020 Date of Service: Feb 25, 2020 Chief Complaint The patient is a 49-year-old female Who presented to the hospital with complaints of nausea and vomiting History of Present Illness Patient is a 49-year-old female with a PMHx of Intellectual disability, HTN, Hx of CVA, DM2, DLP, Hx of Necrotizing fasciitis (at L buttock, s/p I&D), Hx of C. diff colitis, who presented to the hospital with complaints of nausea and vomiting. Patient reports that she has been experiencing nausea, vomiting since . Patient reports numerous episodes of vomiting. Denies any blood, also reports associated abdominal pain around the epigastrium. She describes the pain as 8/10, radiating diffusely. No alleviating or aggravating factors.. She denies any urinary discomfort.. She does have a colostomy in place and does report increased output that she describes as watery, which is changed from her usual consistency. Patient denies chest pain, shortness of breath, palpitations. Does report a chronic cough. Denies any fevers, chills. She does report a weight loss because of decreased appetite. Home Medications Scheduled Atorvastatin Calcium (Atorvastatin Calcium) 40 Mg Tablet, 40 MG PO QHS, (Reported) Ferrous Gluconate (Ferrous Gluconate) 324 Mg Tablet, 324 MG PO DAILY, (Reported) Fluoxetine Hcl (Fluoxetine HCl) 20 Mg Capsule, 20 MG PO DAILY, (Reported) Insulin Glargine,Hum.rec.anlog (Lantus Solostar) 100 Unit/1 Ml Insuln.pen, 80 UNITS SC QHS, (Reported) Insulin Human Lispro (Humalog) 100 Unit/1 Ml Vial, 5 UNITS SC DAILY, (Reported) @ NOON Insulin Human Lispro (Humalog) 100 Unit/1 Ml Vial, 4 UNITS SC QPM, (Reported) @ 16:30 L.acidoph/L.bulg/B.bif/S.therm (Bacid Caplet) 1 Each Tablet, 1 TAB PO DAILY, (Reported) Labetalol HCl (Labetalol HCl) 100 Mg Tablet, 100 MG PO BID, (Reported) Linagliptin (Tradjenta) 5 Mg Tablet, 5 MG PO DAILY, (Reported) Melatonin (Melatonin) 10 Mg Tablet, 10 MG PO QHS, (Reported) Metoclopramide HCl (Metoclopramide HCl) 5 Mg Tablet, 2.5 MG PO ACHS, (Reported) 0700, 1100, 1600, 2000 Multivitamins (Thera M Plus Tablet) 1 Each Tablet, 1 TAB PO DAILY, (Reported) Nitrofurantoin Macrocrystal (Nitrofurantoin) 100 Mg Capsule, 100 MG PO BID, (Reported) END ON 02/26/20 Polyethylene Glycol 3350 (Miralax) 119 Gm Powder, 17 GM PO DAILY, (Reported) Sennosides (Senna Lax) 8.6 Mg Tablet, 17.2 MG PO BID, (Reported) Sorbitol Solution (Sorbitol 70%) 1 Ml Solution, 30 ML PO Q2D, (Reported) HOLD FOR DIARRHEA Scheduled PRN Acetaminophen (Acetaminophen) 325 Mg Tablet, 650 MG PO Q4H PRN for PAIN / FEVER, (Reported) Glucagon,Human Recombinant (Glucagon Emergency Kit) 1 Mg Vial, 1 MG IM ASDIRECTED PRN for LOW BLOOD SUGAR, (Reported) Hydrocodone/Acetaminophen (Hydrocodone-Acetamin 5-325 mg) 1 Each Tablet, 1 TAB PO Q6H PRN for PAIN LEVEL 7-10, (Reported) Ondansetron HCl (Ondansetron HCl) 4 Mg Tablet, 4 MG PO Q6H PRN for NAUSEA OR VOMITING, (Reported) guaiFENesin (Cough Syrup) 100 Mg/5 Ml Liquid, 10 ML PO Q6H PRN for EXCESSIVE SECRETIONS, (Reported) Allergies Coded Allergies: No Known Allergies (Unverified , 10/19/18) Past Medical History Medical History Intellectual disability, HTN, Hx of CVA, DM2, DLP, Hx of Necrotizing fasciitis (at L buttock, s/p I&D), Hx of C. diff colitis Surgical History I&D of left buttock Colostomy 2/2 obstruction Family History - Mother with history of diabetes Social History - Denies the use of alcohol, tobacco or illicit drugs - Denies recent travel or sick contacts - Resident of [facility] Home Review of Systems Other systems 10 point review of systems complete, all negative otherwise stated in HPI Vital Signs - Vitals: BP [164/77], HR [92], RR [18], Sat [94%RA], Temp [97.5F] - General: Lying in bed, No acute distress, AAOx3 - HEENT: NC, AT, PERRLA, EOMI - CVS: RRR, +S1S2 - Lungs: Poor inspiratory effort, No wheezing / rales / rhonchi - Abdomen: Soft, Non-distended, tenderness at epigastrium, positive left lower quadrant colostomy - Extremities: No lower extremity edema, No calf tenderness - Neuro: No focal motor or sensory deficit - Skin: No visible rashes Laboratory Data Labs 24H Laboratory Tests 2 02/24/20 23:26: Urine Color YELLOW, Urine Appearance HAZY, Urine pH 5.0, Urine Specific Eclectic 1.039, Urine Protein 2+H, Urine Glucose (UA) NEGATIVE, Urine Ketones TRACEH, Urine Blood NEGATIVE, Urine Nitrite NEGATIVE, Urine Bilirubin NEGATIVE, Urine Urobilinogen 0.2, Urine Leukocyte Esterase 1+H, Urine WBC (Auto) 37H, Urine RBC (Auto) 5H, Urine Hyaline Casts (Auto) 0, Urine Bacteria (Auto) NEGATIVE, Urine Squamous Epithelial Cells 0, Urine Sperm (Auto) 02/24/20 23:34: Immature Granulocyte % (Auto) 1.0, Neutrophils (%) (Auto) 74.9H, Lymphocytes (%) (Auto) 17.3L, Monocytes (%) (Auto) 6.0H, Eosinophils (%) (Auto) 0.3, Basophils (%) (Auto) 0.5, Neutrophils # (Auto) 11.1H, Lymphocytes # (Auto) 2.6, Monocytes # (Auto) 0.9H, Eosinophils # (Auto) 0.0, Basophils # (Auto) 0.1, Nucleated Red Blood Cells % (auto) 0.0, Total Bilirubin 0.5, Direct Bilirubin < 0.1, Aspartate Amino Transf (AST/SGOT) 33, Alanine Aminotransferase (ALT/SGPT) 32, Alkaline Phosphatase 159H, Total Protein 8.6H, Albumin 3.3, Albumin/Globulin Ratio 0.6L, Amylase Level 26, Lipase 45L 02/24/20 23:40: POC Glucose (Misc Panel) 195H, POC Sodium (Misc Panel) 139, POC Potassium (Misc Panel) 4.2, POC Chloride (Misc Panel) 97L, POC Total CO2 (Misc Panel) 33.0H, POC Blood Urea Nitrogen (Misc Panel 35H, POC Ionized Calcium (Misc Panel) 4.4L, POC Creatinine (Misc Panel) 1.2, POC Hematocrit (Misc Panel) 40.0 CBC/BMP Laboratory Tests 02/24/20 23:34 Microbiology Microbiology 02/24/20 Blood Culture, Received Pending 02/24/20 Blood Culture, Received Pending 02/24/20 Urine Culture, Received Pending Plan / VTE VTE Prophylaxis Ordered?: Yes Plan Plan Nausea / Vomiting / Abdominal pain - possibly 2/2 C. diff colitis, - Presented to the emergency room with complaints of nausea and vomiting so she with abdominal pain - Hx of C. diff colitis - Hemodynamically stable and afebrile - Leukocytosis with neutrophil predominance - UA with very mild signs of infection - Lipase not elevated - CT abdomen / pelvis 02/23: 1. No obvious acute abdominopelvic pathology appreciated. 2. Continued pyelonephritis cannot be excluded and should be correlated with urinalysis. - CT abdomen / pelvis 02/24: perinephric stranding of fat which coukd have several possible etiologies including scarring, third spacing of fluid, inflammatory process or infection including pyelonephritis - Will check blood cultures / urine cultures / stool for C. diff / lactic acid / procalcitonin - Has received Ceftriaxone in the ER for suspected UTI; will continue - Will c/w IV fluids and symptomatic control with Artisan Intellectual disability - Resident of [facility] HTN - BP well controlled - c/w Labetalol with holding parameters Hx of CVA IDDM2 - Will start ISS - Will c/w adjust dose of Levemir 50% (re: Nausea and vomiting) DLP - c/w Atorvastatin Hx of Necrotizing fasciitis (at L buttock, s/p I&D) Gastrointestinal prophylaxis - Will start Protonix DVT prophylaxis - Will start Heparin BRANDON DE LA PAZ MD Feb 25, 2020 02:33
[2020-02-25] MEDS ORDERED: METAL LOCK LOOP XX ONE (04:17)
[2020-02-25] MEDS: HumaLOG INSULIN (NovoLOG) PER UNIT SC SCH ×3 (06:00→17:16)
[2020-02-25] MEDS: PANTOPRAZOLE 40MG VIAL (C9113 PER 1) IV SCH ×2 (08:22→21:28)
[2020-02-25] MEDS: FERROUS GLUCONATE 324 MG TAB PO SCH (08:22)
[2020-02-25] MEDS: MULTIVITAMINS/MINERALS THERAP 1 TAB PO SCH (08:22)
[2020-02-25] MEDS: HEPARIN SOD (PORCINE) 5000UNITS/ML 1ML VIAL/SYRINGE SC SCH ×2 (08:22→21:29)
[2020-02-25] MEDS: LACTOBACILLUS ACIDOPHILUS CAP (BACID) PO SCH ×2 (08:22→17:16)
[2020-02-25 08:27] LABS: BASO # 0.1 10^3/uL (0.0-0.2); BASO % 0.5 % (0.0-1.0); EOS % 0.1 % (0.0-3.0); HEMOGLOBIN 11.9 g/dl (12.0-15.5); LYMPH # 2.2 10^3/uL (1.5-5.0); LYMPH % 14.4 % (24.0-44.0); MEAN CORPUSCULAR HEMOGLOBIN 25.4 pg (27.0-33.0); MEAN CORPUSCULAR HGB CONC 31.3 g/dl (32.0-36.5); MEAN CORPUSCULAR VOLUME 81.2 fl (80.0-96.0); MONO # 0.8 10^3/uL (0.0-0.8); NEUTROPHILS # 11.9 10^3/uL (1.5-8.5); NEUTROPHILS % 79.4 % (36.0-66.0); PLATELET COUNT, AUTOMATED 582 10^3/uL (150-450); RED BLOOD COUNT 4.68 10^6/uL (4.00-5.40); WHITE BLOOD COUNT 15.1 10^3/uL (4.0-10.0)
--- NOTE | 2020-02-25 08:34 | REP ---
Clinical: Recurrent abdominal pain. Technique: Axial noncontrast images from the lung bases to the pubic symphysis with coronal and sagittal re-formations. Comparison: 02/24/2020, 01/21/2020. Findings: Lung bases are clear. Visualized heart and pericardium normal. Liver, spleen, pancreas, gallbladder, bilateral adrenal glands and kidneys are essentially normal for noncontrast evaluation and stable when compared to prior exam. The patient is noted to be status post partial sigmoid resection with colostomy via the anterior abdominal wall. There is no evidence for bowel obstruction. Oversewn Rickie's pouch in the pelvis appears relatively normal. Further evaluation of the pelvis demonstrates contrast within collapsed bladder and essentially normal appearing uterus/adnexa. No pelvic fluid or ascites. No free air. No adenopathy. Abdominal aorta without aneurysm. Skeletal structures demonstrate age-related degenerative changes without focal abnormality. Impression: 1. Evidence of prior partial sigmoid resection and colostomy. No acute enteric process appreciated. No ascites. No adenopathy. No focal inflammatory stranding. Electronically Signed by Mario Blair MD 02/25/2020 08:26 A
[2020-02-25 08:53] LABS: ALBUMIN 3.2 GM/DL (3.2-5.2); BILIRUBIN,TOTAL 0.3 MG/DL (0.2-1.0); C REACTIVE PROTEIN QUANTITATIV 2.79 MG/DL (0.00-0.30); CALCIUM LEVEL 9.8 MG/DL (8.5-10.1); CREATININE FOR GFR 1.34 MG/DL (0.55-1.30); GLOMERULAR FILTRATION RATE 44.6 (>51); POTASSIUM SERUM 3.8 MEQ/L (3.5-5.1); TOTAL PROTEIN 8.7 GM/DL (6.4-8.2)
[2020-02-25] MEDS ORDERED: LABETALOL 100 MG TAB PO SCH (09:00)
[2020-02-25 09:52] LABS: ERYTHROCYTE SEDIMENTATION RATE 70 mm/hr (0-30)
[2020-02-25 14:30] VITALS: BP 169/79
--- NOTE | 2020-02-25 15:57 | IPNPDOC ---
Text Note Date of Service The patient was seen on 02/25/20. NOTE Pt seen and examined. No acute changes since admission. N/V subsided. No Abd pain. No CP/palpitations. Started on clears. Cx pending. VS,Fishbone, I+O VS, Fishbone, I+O Laboratory Tests 02/24/20 23:34 02/25/20 08:12 Vital Signs Date Time Temp Pulse Resp B/P (MAP) Pulse Ox O2 Delivery O2 Flow Rate FiO2 02/25/20 13:59 98.1 73 18 169/81 (110) 98 Room Air I&O- Last 24 Hours up to 6 AM 02/25/20 06:00 Intake Total 1000 ml Balance 1000 ml MAXX COWAN MD Feb 25, 2020 15:57
[2020-02-25] MEDS: ACETAMINOPHEN TAB 650MG DOSE (2X325MG) PO PRN (16:02)
[2020-02-25] MEDS: LABETALOL 100 MG TAB PO SCH (18:30)
[2020-02-25] MEDS ORDERED: amLODIPine 5 MG TAB PO ONE (19:00)
[2020-02-25] MEDS: ATORVASTATIN 20 MG TAB PO SCH (21:29)
[2020-02-25] MEDS: RAMELTEON 8 MG TAB (ROZEREM) PO SCH (21:29)
[2020-02-25] MEDS: cefTRIAXone SOD 1 GM in D5W MINI-BAG PLUS 50 ML IV SCH (21:29)
[2020-02-25] MEDS: ONDANSETRON 4MG/2ML VIAL IV PRN (21:29)
[2020-02-25] MEDS: LEVEMIR (INSULIN DETEMIR) 1 UNITS/0.01ML SC SCH (21:30)
[2020-02-25 22:00] VITALS: BP 167/93
[2020-02-26] MEDS: HumaLOG INSULIN (NovoLOG) PER UNIT SC SCH ×5 (00:42→23:54)
[2020-02-26] MEDS: NS 1,000 ML IV SCH ×2 (03:49→17:45)
[2020-02-26] MEDS: ONDANSETRON 4MG/2ML VIAL IV PRN ×2 (03:49→09:02)
[2020-02-26 06:00] VITALS: BP 173/97
[2020-02-26 08:06] LABS: BASO # 0.1 10^3/uL (0.0-0.2); BASO % 0.6 % (0.0-1.0); EOS # 0.2 10^3/uL (0.0-0.5); EOS % 1.5 % (0.0-3.0); HEMATOCRIT 35.7 % (36.0-47.0); HEMOGLOBIN 11.1 g/dl (12.0-15.5); LYMPH # 2.7 10^3/uL (1.5-5.0); LYMPH % 23.5 % (24.0-44.0); MEAN CORPUSCULAR HEMOGLOBIN 25.1 pg (27.0-33.0); MEAN CORPUSCULAR HGB CONC 31.1 g/dl (32.0-36.5); MEAN CORPUSCULAR VOLUME 80.8 fl (80.0-96.0); MONO # 0.8 10^3/uL (0.0-0.8); MONO % 6.5 % (0.0-5.0); NEUTROPHILS # 7.8 10^3/uL (1.5-8.5); NEUTROPHILS % 67.3 % (36.0-66.0); PLATELET COUNT, AUTOMATED 494 10^3/uL (150-450); RED BLOOD COUNT 4.42 10^6/uL (4.00-5.40); WHITE BLOOD COUNT 11.6 10^3/uL (4.0-10.0)
[2020-02-26 08:26] LABS: CREATININE FOR GFR 1.05 MG/DL (0.55-1.30); GLOMERULAR FILTRATION RATE 59.1 (>51); MAGNESIUM LEVEL 1.7 MG/DL (1.8-2.4); POTASSIUM SERUM 3.6 MEQ/L (3.5-5.1)
[2020-02-26] MEDS: LACTOBACILLUS ACIDOPHILUS CAP (BACID) PO SCH ×2 (08:55→17:48)
[2020-02-26] MEDS: MULTIVITAMINS/MINERALS THERAP 1 TAB PO SCH (08:59)
[2020-02-26] MEDS: LABETALOL 100 MG TAB PO SCH ×2 (08:59→22:03)
[2020-02-26] MEDS: NYSTATIN 100,000 UNITS/GM TOPICAL PWD 15 GM TOP SCH ×2 (09:00→23:54)
[2020-02-26] MEDS: amLODIPine 10 MG TAB PO SCH (09:00)
[2020-02-26] MEDS: FERROUS GLUCONATE 324 MG TAB PO SCH (09:00)
[2020-02-26] MEDS: PANTOPRAZOLE 40MG VIAL (C9113 PER 1) IV SCH ×2 (09:00→22:02)
[2020-02-26] MEDS: HEPARIN SOD (PORCINE) 5000UNITS/ML 1ML VIAL/SYRINGE SC SCH ×2 (09:02→22:03)
[2020-02-26] MEDS: VANCOMYCIN HCL 1,000 MG, VIAL MATE ADAPTER 1 EACH in D5W 250 ML IV SCH ×2 (09:08→22:51)
[2020-02-26] MEDS ORDERED: VANCOMYCIN HCL 1,000 MG, VIAL MATE ADAPTER 1 EACH in D5W 250 ML IV ONE (10:00)
--- NOTE | 2020-02-26 10:52 | IPNPDOC ---
Text Note Date of Service The patient was seen on 02/26/20. NOTE Subjective: Pt feeling better. Occasional nonbilious/nonbloody vomiting. No Abd pain. Has rash on right side of her neck from vomiting. Objective: Vitals: (see below) General: No acute distress, laying comfortably in bed. HEENT: Moist mucous membranes. Neck: No JVD or lymphadenopathy Cardiac: RRR, No murmurs Pulm: Diminished at the bases b/l. No wheezing, rhonchi Abd: NT/ND + BS. Colostomy bag Ext: Trace edema BLE. No cyanosis mild erythema right side of neck and shoulder from vomiting on the region. Labs (see below) Nausea / Vomiting / Abdominal pain - Improving - No ostomy outpt; although pt has been npo 02/25 - Presented to the emergency room with complaints of nausea and vomiting so she with abdominal pain - Hx of C. diff colitis - Hemodynamically stable and afebrile - Leukocytosis with neutrophil predominance - UA with very mild signs of infection - Lipase not elevated - CT abdomen / pelvis 02/23: 1. No obvious acute abdominopelvic pathology appreciated. 2. Continued pyelonephritis cannot be excluded and should be correlated with urinalysis. - CT abdomen / pelvis 02/24: perinephric stranding of fat which coukd have several possible etiologies including scarring, third spacing of fluid, inflammatory process or infection including pyelonephritis - Will check blood cultures / urine cultures / stool for C. diff / lactic acid / procalcitonin - Has received Ceftriaxone in the ER for suspected UTI; will continue - Will c/w IV fluids and symptomatic control with Zofran - Upper GI series in am - IVF - CLears for now +bld cx - ? contaminate - Start Vanco - Repeat bld cx Neck/shoulder rash - nystatin - benadryl as needed. Intellectual disability - mild to mod - Resident of [facility] HTN - BP well controlled - c/w Labetalol with holding parameters Hx of CVA baseline right sided hemiparesis IDDM2 - ISS - Levemir 50% (re: Nausea and vomiting) DLP - c/w Atorvastatin Hx of Necrotizing fasciitis (at L buttock, s/p I&D) Gastrointestinal prophylaxis - cont Protonix pressure ulcer coccyx stage 3 POA per nursing - Wound care consult Morbid obesity DVT prophylaxis Heparin SQ VS,Fishbone, I+O VS, Fishbone, I+O Laboratory Tests 02/26/20 07:57 Vital Signs Date Time Temp Pulse Resp B/P (MAP) Pulse Ox O2 Delivery O2 Flow Rate FiO2 02/26/20 09:00 78 153/73 02/26/20 06:00 97.8 16 94 Room Air I&O- Last 24 Hours up to 6 AM 02/26/20 06:00 Intake Total 580 ml Output Total 0 ml Balance 580 ml MAXX COWAN MD Feb 26, 2020 10:52
[2020-02-26 22:00] VITALS: BP 167/95
[2020-02-26] MEDS: LEVEMIR (INSULIN DETEMIR) 1 UNITS/0.01ML SC SCH (22:02)
[2020-02-26] MEDS: RAMELTEON 8 MG TAB (ROZEREM) PO SCH (22:03)
[2020-02-26] MEDS: ATORVASTATIN 20 MG TAB PO SCH (22:03)
[2020-02-26] MEDS: cefTRIAXone SOD 1 GM in D5W MINI-BAG PLUS 50 ML IV SCH (22:03)
[2020-02-26] MEDS: ACETAMINOPHEN TAB 650MG DOSE (2X325MG) PO PRN (23:55)
[2020-02-27 06:00] VITALS: BP 157/84
[2020-02-27] MEDS: HumaLOG INSULIN (NovoLOG) PER UNIT SC SCH (07:01)
[2020-02-27] MEDS: NS 1,000 ML IV SCH (07:01)
[2020-02-27 07:06] LABS: BASO # 0.1 10^3/uL (0.0-0.2); BASO % 0.4 % (0.0-1.0); EOS # 0.2 10^3/uL (0.0-0.5); EOS % 2.2 % (0.0-3.0); HEMATOCRIT 35.3 % (36.0-47.0); HEMOGLOBIN 10.8 g/dl (12.0-15.5); LYMPH % 26.5 % (24.0-44.0); MEAN CORPUSCULAR HEMOGLOBIN 24.9 pg (27.0-33.0); MEAN CORPUSCULAR HGB CONC 30.6 g/dl (32.0-36.5); MEAN CORPUSCULAR VOLUME 81.3 fl (80.0-96.0); MONO # 0.8 10^3/uL (0.0-0.8); MONO % 6.9 % (0.0-5.0); NEUTROPHILS # 7.1 10^3/uL (1.5-8.5); NEUTROPHILS % 63.6 % (36.0-66.0); PLATELET COUNT, AUTOMATED 465 10^3/uL (150-450); RED BLOOD COUNT 4.34 10^6/uL (4.00-5.40); WHITE BLOOD COUNT 11.1 10^3/uL (4.0-10.0)
[2020-02-27 07:26] LABS: BLOOD UREA NITROGEN 17 MG/DL (7-18); CALCIUM LEVEL 8.6 MG/DL (8.5-10.1); CARBON DIOXIDE LEVEL 30 MEQ/L (21-32); CHLORIDE LEVEL 103 MEQ/L (98-107); CREATININE FOR GFR 0.88 MG/DL (0.55-1.30); GLOMERULAR FILTRATION RATE > 60.0 (>51); GLUCOSE, FASTING 119 MG/DL (70-100); MAGNESIUM LEVEL 1.7 MG/DL (1.8-2.4); POTASSIUM SERUM 3.4 MEQ/L (3.5-5.1); SODIUM LEVEL 140 MEQ/L (136-145)
[2020-02-27] MEDS: ONDANSETRON 4MG/2ML VIAL IV PRN (08:24)
[2020-02-27] MEDS: KCL 10MEQ/100ML SWI (KRUN) 10 MEQ in IV 1 EA IV SCH ×2 (08:24→10:28)
[2020-02-27] MEDS ORDERED: MAG SULF 1GM/100ML (MAG RUN) 1 GM in IV 1 EA IV ONE (10:00)
[2020-02-27] MEDS: HEPARIN SOD (PORCINE) 5000UNITS/ML 1ML VIAL/SYRINGE SC SCH (10:28)
[2020-02-27] MEDS: MULTIVITAMINS/MINERALS THERAP 1 TAB PO SCH (10:28)
[2020-02-27 10:29] VITALS: BP 157/84
[2020-02-27] MEDS: FERROUS GLUCONATE 324 MG TAB PO SCH (10:29)
[2020-02-27] MEDS: LABETALOL 100 MG TAB PO SCH (10:29)
[2020-02-27] MEDS: LACTOBACILLUS ACIDOPHILUS CAP (BACID) PO SCH (10:29)
[2020-02-27] MEDS: amLODIPine 10 MG TAB PO SCH (10:29)
[2020-02-27] MEDS: NYSTATIN 100,000 UNITS/GM TOPICAL PWD 15 GM TOP SCH (10:30)
[2020-02-27] MEDS: PANTOPRAZOLE 40MG VIAL (C9113 PER 1) IV SCH (10:30)
[2020-02-27] MEDS ORDERED: E-Z-HD 98% w/w 340GM SUSP BTL As Ordered ONE (10:55)
[2020-02-27] MEDS ORDERED: E-Z-GAS II EFFERVESCENT PACKET (SODIUM BICARB./CITRIC ACID/SIMETHICONE) As Ordered ONE (10:55)
[2020-02-27] MEDS ORDERED: E-Z-PAQUE 96% w/w SUSP 176GM BTL As Ordered ONE (10:55)
[2020-02-29] MEDS ORDERED: MULTIVITAMINS/MINERALS THERAP 1 TAB ONE (11:02)
[2020-02-29] MEDS ORDERED: LACTOBACILLUS ACIDOPHILUS CAP (BACID) ONE (11:02)
[2020-02-29] MEDS ORDERED: amLODIPine 10 MG TAB ONE (11:02)
[2020-02-29] MEDS ORDERED: FERROUS GLUCONATE 324 MG TAB ONE (11:02)
[2020-02-29] MEDS ORDERED: PANTOPRAZOLE 40MG VIAL (C9113 PER 1) ONE ×2 (11:02→22:20)
[2020-02-29] MEDS ORDERED: LABETALOL 100 MG TAB ONE ×3 (11:02→22:20)
[2020-02-29] MEDS ORDERED: HEPARIN SOD (PORCINE) 5000UNITS/ML 1ML VIAL/SYRINGE ONE ×2 (11:02→22:20)
[2020-02-29] MEDS ORDERED: MIRALAX *UNIT DOSE* 17GM PACKET As Ordered ONE (11:03)
[2020-02-29] MEDS ORDERED: HumaLOG INSULIN (NovoLOG) PER UNIT ONE (17:43)
[2020-02-29] MEDS ORDERED: ATORVASTATIN 20 MG TAB ONE (22:20)
[2020-02-29] MEDS ORDERED: RAMELTEON 8 MG TAB (ROZEREM) ONE (22:20)
[2020-02-29] MEDS ORDERED: LEVEMIR (INSULIN DETEMIR) 1 UNITS/0.01ML ONE (22:20)
[2020-03-01] MEDS ORDERED: ACETAMINOPHEN TAB 650MG DOSE (2X325MG) ONE ×2 (03:08→22:24)
[2020-03-01] MEDS ORDERED: HumaLOG INSULIN (NovoLOG) PER UNIT ONE ×3 (06:01→17:58)
[2020-03-01] MEDS ORDERED: amLODIPine 10 MG TAB ONE (09:22)
[2020-03-01] MEDS ORDERED: PANTOPRAZOLE 40MG VIAL (C9113 PER 1) ONE ×2 (09:22→22:24)
[2020-03-01] MEDS ORDERED: LABETALOL 100 MG TAB ONE ×2 (09:22→22:24)
[2020-03-01] MEDS ORDERED: LACTOBACILLUS ACIDOPHILUS CAP (BACID) ONE (09:22)
[2020-03-01] MEDS ORDERED: HEPATITIS B VACCINE 10 MCG/0.5 ML SYRINGE (FOR ALL OTHER PTS) ONE (09:22)
[2020-03-01] MEDS ORDERED: MULTIVITAMINS/MINERALS THERAP 1 TAB ONE (09:22)
[2020-03-01] MEDS ORDERED: MIRALAX *UNIT DOSE* 17GM PACKET ONE (09:22)
[2020-03-01] MEDS ORDERED: FERROUS GLUCONATE 324 MG TAB ONE (09:22)
[2020-03-01] MEDS ORDERED: MIRALAX *UNIT DOSE* 17GM PACKET As Ordered ONE (09:23)
[2020-03-01] MEDS ORDERED: RAMELTEON 8 MG TAB (ROZEREM) ONE (22:24)
[2020-03-01] MEDS ORDERED: HEPARIN SOD (PORCINE) 5000UNITS/ML 1ML VIAL/SYRINGE ONE (22:24)
[2020-03-01] MEDS ORDERED: ATORVASTATIN 20 MG TAB ONE (22:24)
[2020-03-01] MEDS ORDERED: LEVEMIR (INSULIN DETEMIR) 1 UNITS/0.01ML ONE (22:24)
[2020-03-02] MEDS ORDERED: HumaLOG INSULIN (NovoLOG) PER UNIT ONE ×2 (06:04→12:04)
[2020-03-02] MEDS ORDERED: MULTIVITAMINS/MINERALS THERAP 1 TAB ONE (06:04)
[2020-03-02] MEDS ORDERED: PANTOPRAZOLE 40MG VIAL (C9113 PER 1) ONE (06:04)
[2020-03-02] MEDS ORDERED: LABETALOL 100 MG TAB ONE (06:04)
[2020-03-02] MEDS ORDERED: HEPARIN SOD (PORCINE) 5000UNITS/ML 1ML VIAL/SYRINGE ONE (06:04)
[2020-03-02] MEDS ORDERED: amLODIPine 10 MG TAB ONE (06:04)
[2020-03-02] MEDS ORDERED: FERROUS GLUCONATE 324 MG TAB ONE (06:04)
[2020-03-02] MEDS ORDERED: LACTOBACILLUS ACIDOPHILUS CAP (BACID) ONE (06:04)
[2020-03-02] MEDS ORDERED: MIRALAX *UNIT DOSE* 17GM PACKET As Ordered ONE (08:24)
[2020-04-08 10:44] LABS: HEMATOCRIT 32.9 % (36.0-47.0); HEMOGLOBIN 10.3 g/dl (12.0-15.5); MEAN CORPUSCULAR HEMOGLOBIN 25.2 pg (27.0-33.0); MEAN CORPUSCULAR HGB CONC 31.3 g/dl (32.0-36.5); MEAN CORPUSCULAR VOLUME 80.6 fl (80.0-96.0); PLATELET COUNT, AUTOMATED 397 10^3/uL (150-450); RED BLOOD COUNT 4.08 10^6/uL (4.00-5.40); WHITE BLOOD COUNT 9.7 10^3/uL (4.0-10.0)
[2020-04-14 10:33] LABS: BLOOD UREA NITROGEN 13 MG/DL (7-18); CARBON DIOXIDE LEVEL 25 mmol/L (20-29); CHLORIDE LEVEL 106 MEQ/L (98-107); CREATININE FOR GFR 0.88 MG/DL (0.55-1.30); GLOMERULAR FILTRATION RATE > 60.0 (>51); GLUCOSE, FASTING 165 MG/DL (70-100); POTASSIUM SERUM 3.6 MEQ/L (3.5-5.1); SODIUM LEVEL 139 MEQ/L (136-145)
[2020-04-14 10:34] LABS: CALCIUM LEVEL 8.4 MG/DL (8.5-10.1)
== END 2020-03-02 14:30 | disposition home or self-care (01) | DRG 249 ==
LOC: M ED 22:21 → EDBD 22:21 → M ED INP 02-25 02:44 → ENRESERV 02-25 13:42 → M MS5PR 02-25 14:25
PROVIDERS: ADMIT Internal Medicine; ATTEND Internal Medicine
DX: R11.2 Nausea with vomiting, unspecified (principal); L89.153 Pressure ulcer of sacral region, stage 3; I69.351 Hemiplegia and hemiparesis following cerebral infarction affecting right dominant side; E66.01 Morbid (severe) obesity due to excess calories; I10 Essential (primary) hypertension; E11.9 Type 2 diabetes mellitus without complications; D72.829 Elevated white blood cell count, unspecified; E78.5 Hyperlipidemia, unspecified; F71 Moderate intellectual disabilities; Z79.4 Long term (current) use of insulin; Z79.899 Other long term (current) drug therapy; Z93.3 Colostomy status

== ENCOUNTER → 2020-03-13 | Outpatient (CLI) | payer MEDICAID ==
[~2020-03-13] MED LIST changes: +VITMTA PO
--- NOTE | 2020-04-23 11:56 | REP ---
RENAL ULTRASOUND HISTORY: Follow-up left renal mass. COMPARISON: 01/02/2020. TECHNIQUE: Real-time sonographic evaluation of the kidneys performed. FINDINGS: Right kidney measures 11.4 x 5.1 x 5.3 cm and the left kidney 12.5 x 5.3 x 6.6 cm. There is no hydronephrosis bilaterally. Once again in the medial left kidney, there is a hypoechoic nodule, which measures approximately 2.9 x 2.5 x 2.1 cm. This is essentially unchanged. No acute findings are seen. The urinary bladder could not be visualized. IMPRESSION: Stable hypoechoic nodule medial left kidney compared to 01/02/2020. MTDD
== END ==
LOC: M RAD 11:40
PROVIDERS: ATTEND Internal Medicine
DX: N28.89 Other specified disorders of kidney and ureter (principal)

== ENCOUNTER → 2020-05-26 | Outpatient (REF) ==
[2020-05-26 09:08] LABS: ALT/SGPT 37 U/L (12-78); BILIRUBIN,TOTAL 0.4 MG/DL (0.2-1.0); BLOOD UREA NITROGEN 22 MG/DL (7-18); CALCIUM LEVEL 9.6 MG/DL (8.5-10.1); CARBON DIOXIDE LEVEL 29 MEQ/L (21-32); CHLORIDE LEVEL 106 MEQ/L (98-107); CREATININE FOR GFR 0.83 MG/DL (0.55-1.30); GLOMERULAR FILTRATION RATE > 60.0 (>51); GLUCOSE, FASTING 99 MG/DL (70-100); POTASSIUM SERUM 3.7 MEQ/L (3.5-5.1); SODIUM LEVEL 142 MEQ/L (136-145); TOTAL PROTEIN 7.6 GM/DL (6.4-8.2)
[2020-05-26 10:44] LABS: HEMOGLOBIN A1c 7.9 %
== END ==
LOC: SKLAB3 07:00
PROVIDERS: ATTEND Internal Medicine
DX: E11.9 Type 2 diabetes mellitus without complications (principal)

== ENCOUNTER → 2020-06-09 | Outpatient (REF) | payer MEDICAID ==
[2020-06-09 09:04] LABS: HEMATOCRIT 38.6 % (36.0-47.0); HEMOGLOBIN 12.3 g/dl (12.0-15.5); MEAN CORPUSCULAR HEMOGLOBIN 26.8 pg (27.0-33.0); MEAN CORPUSCULAR HGB CONC 31.9 g/dl (32.0-36.5); MEAN CORPUSCULAR VOLUME 84.1 fl (80.0-96.0); PLATELET COUNT, AUTOMATED 361 10^3/uL (150-450); RED BLOOD COUNT 4.59 10^6/uL (4.00-5.40); WHITE BLOOD COUNT 7.6 10^3/uL (4.0-10.0)
[2020-06-09 09:24] LABS: INR 0.98; PROTHROMBIN TIME 13.2 SECONDS (12.5-14.3)
[2020-06-09 09:25] LABS: PARTIAL THROMBOPLASTIN TIME 29.9 SECONDS (24.2-38.5)
--- NOTE | 2020-06-09 14:09 | ECGEPIP ---
[facility] Test Date: 2020-06-09 Pat Name: ABNER RANKIN Department: Room: - Gender: Female Tipple Operator: : 1970 Requested By: Enrique Sargent Order Number: [id number] Reading MD: Suleman Dan Measurements Intervals [place] Rate: 74 P: 50 MS: 156 QRS: 5 QRSD: 87 T: 86 QT: 418 QTc: 464 Interpretive Statements SINUS RHYTHM NONSPECIFIC T-WAVE ABNORMALITY Similar to tracing done 02-24-20 Electronically Signed on 06-09-2020 14:08:57 EST by Suleman Dan
== END ==
LOC: SKLAB3 07:00
PROVIDERS: ATTEND Internal Medicine
DX: Z01.812 Encounter for preprocedural laboratory examination (principal); I10 Essential (primary) hypertension

== ENCOUNTER → 2020-06-11 | Outpatient (REF) | LOC: SKLAB3 14:20 | PROVIDERS: ATTEND Internal Medicine | DX: R09.81 Nasal congestion (principal) ==

== ENCOUNTER → 2020-06-18 | Outpatient (REF) ==
[~2020-06-18] MED LIST changes: +AMLO10TA PO; +PEPC1TAB5 PO; +ROZE8TAB16 PO
== END ==
LOC: SKLAB3 11:39
PROVIDERS: ATTEND Internal Medicine
DX: Z20.828 Contact with and (suspected) exposure to other viral communicable diseases (principal)

== ENCOUNTER 2020-06-23 14:11 | Outpatient (RCR) ==
[~2020-06-23 14:11] MED LIST changes: +LABE100T4 PO; -LABE10TAB PO
== END 2020-07-06 ==
LOC: SKLAB3 14:11
PROVIDERS: ATTEND Internal Medicine
DX: Z20.818 Contact with and (suspected) exposure to other bacterial communicable diseases (principal)

== ENCOUNTER → 2020-06-26 | Outpatient (REF) | LOC: SKLAB3 07:00 | PROVIDERS: ATTEND Internal Medicine | DX: Z01.818 Encounter for other preprocedural examination (principal); Z20.828 Contact with and (suspected) exposure to other viral communicable diseases ==

== ENCOUNTER → 2020-06-30 | Outpatient (REF) | payer MEDICAID | LOC: SKLAB3 08:00 | PROVIDERS: ATTEND Internal Medicine | DX: Z53.9 Procedure and treatment not carried out, unspecified reason (principal) ==

== ENCOUNTER 2020-07-01 08:43 | Day surgery (SDC) | payer MEDICAID ==
[~2020-07-01] VITALS: Ht 162.6 cm; Wt 117.9 kg
[~2020-07-01 08:43] MED LIST changes: -LABE100T4 PO; +LABE10TAB PO; +LIDOCAINE 2% 100MG/5ML SDV (FOR ANES.) As Ordered ONE; +NS 1,000 ML IV ONE; +propofoL 200 MG/20 ML VIAL As Ordered ONE
[2020-07-01] MEDS ORDERED: fentaNYL 100 MCG/2 ML INJECTION (J3010) As Ordered ONE (10:31)
--- NOTE | 2020-07-01 10:45 | ROOR ---
Patient Name: Etta Villalobos Procedure Date: 07/01/2020 10:09 AM Date of : 1970 Age: 49 Room: [facility] Gender: Female Note Status: Finalized Procedure: Colonoscopy Indications: Screening for colorectal malignant neoplasm Providers: DO Veronica Griffin MD: EMILIA BAZZI JR, MD Requesting Provider: Medicines: Propofol per Anesthesia Complications: No immediate complications. Procedure: Pre-Anesthesia Assessment: - Prior to the procedure, a History and Physical was performed, and patient medications and allergies were reviewed. The patient is competent. The risks and benefits of the procedure and the sedation options and risks were discussed with the patient. All questions were answered and informed consent was obtained. Patient identification and proposed procedure were verified by the physician, the nurse, the binding cementer french cord and the infectious disease technician in the endoscopy suite. Mental Status Examination: alert and oriented. Airway Examination: normal oropharyngeal airway and neck mobility. Respiratory Examination: clear to auscultation. CV Examination: normal. Prophylactic Antibiotics: The patient does not require prophylactic antibiotics. Prior Anticoagulants: The patient has taken no previous anticoagulant or antiplatelet agents. ASA Grade Assessment: IV - A patient with severe systemic disease that is a constant threat to life. After reviewing the risks and benefits, the patient was deemed in satisfactory condition to undergo the procedure. The anesthesia plan was to use monitored anesthesia care (MAC). Immediately prior to administration of medications, the patient was re-assessed for adequacy to receive sedatives. The heart rate, respiratory rate, oxygen saturations, blood pressure, adequacy of pulmonary ventilation, and response to care were monitored throughout the procedure. The physical status of the patient was re-assessed after the procedure. The Colonoscope was introduced through the sigmoid colostomy and advanced to the cecum, identified by appendiceal orifice and ileocecal valve. The colonoscopy was performed without difficulty. The patient tolerated the procedure well. Findings: A 10 mm polyp was found in the cecum. The polyp was semi-pedunculated. The polyp was removed with a hot snare. Resection and retrieval were complete. Estimated blood loss was minimal. The exam was otherwise without abnormality. Unable to scope the distal end. Patient was unable to roll onto her side. Estimated blood loss was minimal. Impression: - One 10 mm polyp in the cecum, removed with a hot snare. Resected and retrieved. - The examination was otherwise normal. Recommendation: - Patient has a contact number available for emergencies. The signs and symptoms of potential delayed complications were discussed with the patient. Return to normal activities tomorrow. Written discharge instructions were provided to the patient. - Await pathology results. - Repeat colonoscopy in 3 - 5 years for surveillance based on pathology results. - Telephone my office for pathology results in 1 week. Procedure Code(s): --- Professional --- 48310, Colonoscopy through stoma; with removal of tumor(s), polyp(s), or other lesion(s) by snare technique Diagnosis Code(s): --- Professional --- Z12.11, Encounter for screening for malignant neoplasm of colon K63.5, Polyp of colon CPT copyright 2019 [employer]. All rights reserved. The codes documented in this report are preliminary and upon certified adapted physical educator review may be revised to meet current compliance requirements. James Brian DO 07/01/2020 10:45:17 AM Electronically signed by James Brian DO Number of Addenda: 0 Note Initiated On: 07/01/2020 10:09 AM Estimated Blood Loss: Estimated blood loss was minimal.
[2020-07-01 11:05] VITALS: BP 165/89
== END 2020-07-01 11:07 | disposition home or self-care (01) ==
LOC: M OPP 08:43
PROVIDERS: ATTEND Surgery
DX: Z12.11 Encounter for screening for malignant neoplasm of colon (principal); D12.0 Benign neoplasm of cecum; I10 Essential (primary) hypertension; E11.9 Type 2 diabetes mellitus without complications; Z93.3 Colostomy status; Z79.4 Long term (current) use of insulin; Z79.899 Other long term (current) drug therapy; Z95.818 Presence of other cardiac implants and grafts; Z86.73 Personal history of transient ischemic attack (TIA), and cerebral infarction without residual deficits
CPT/HCPCS: 44394; 88305; J3010

== ENCOUNTER → 2020-07-08 | Outpatient (REF) | payer MEDICAID ==
[~2020-07-08] MED LIST changes: +LABE100T4 PO; -LABE10TAB PO; -LIDOCAINE 2% 100MG/5ML SDV (FOR ANES.) As Ordered ONE; +LISI10TA22 PO; -LISI10TA4 PO; -NS 1,000 ML IV ONE; -propofoL 200 MG/20 ML VIAL As Ordered ONE
== END ==
LOC: SKLAB3 08:00
PROVIDERS: ATTEND Internal Medicine
DX: Z20.828 Contact with and (suspected) exposure to other viral communicable diseases (principal)

== ENCOUNTER → 2020-07-15 | Outpatient (REF) ==
[~2020-07-15] MED LIST changes: -LISI10TA22 PO; +LISI10TA4 PO
== END ==
LOC: SKLAB3 07:14
PROVIDERS: ATTEND Internal Medicine
DX: Z20.828 Contact with and (suspected) exposure to other viral communicable diseases (principal)

== ENCOUNTER → 2020-07-22 | Outpatient (REF) | LOC: SKLAB3 10:24 | PROVIDERS: ATTEND Internal Medicine | DX: Z20.828 Contact with and (suspected) exposure to other viral communicable diseases (principal) ==

== ENCOUNTER → 2020-07-29 | Outpatient (REF) | LOC: SKLAB3 07:00 | PROVIDERS: ATTEND Internal Medicine | DX: Z20.828 Contact with and (suspected) exposure to other viral communicable diseases (principal) ==

== ENCOUNTER → 2020-08-05 | Outpatient (REF) | LOC: SKLAB3 07:15 | PROVIDERS: ATTEND Internal Medicine | DX: Z20.828 Contact with and (suspected) exposure to other viral communicable diseases (principal) ==

== ENCOUNTER → 2020-08-12 | Outpatient (REF) | LOC: SKLAB3 10:00 | PROVIDERS: ATTEND Internal Medicine | DX: Z11.52 Encounter for screening for COVID-19 (principal) ==

== ENCOUNTER → 2020-08-19 | Outpatient (REF) | payer MEDICAID | LOC: SKLAB3 07:00 | PROVIDERS: ATTEND Internal Medicine | DX: Z20.822 Contact with and (suspected) exposure to COVID-19 (principal) ==

== ENCOUNTER → 2020-08-25 | Outpatient (REF) ==
[~2020-08-25] MED LIST changes: +LISI10TA22 PO; -LISI10TA4 PO
[2020-08-25 10:51] LABS: CHOLESTEROL RISK RATIO 2.741 (<5)
== END ==
LOC: SKLAB3 07:01
PROVIDERS: ATTEND Internal Medicine
DX: E78.5 Hyperlipidemia, unspecified (principal); D64.9 Anemia, unspecified; E11.9 Type 2 diabetes mellitus without complications

== ENCOUNTER → 2020-08-26 | Outpatient (REF) | LOC: SKLAB3 07:00 | PROVIDERS: ATTEND Internal Medicine | DX: Z20.822 Contact with and (suspected) exposure to COVID-19 (principal) ==

== ENCOUNTER → 2020-09-02 | Outpatient (REF) | LOC: SKLAB3 15:01 | PROVIDERS: ATTEND Internal Medicine | DX: Z20.822 Contact with and (suspected) exposure to COVID-19 (principal) ==

== ENCOUNTER → 2020-09-09 | Outpatient (REF) | LOC: SKLAB3 07:00 | PROVIDERS: ATTEND Internal Medicine | DX: Z11.52 Encounter for screening for COVID-19 (principal) ==

== ENCOUNTER → 2020-09-16 | Outpatient (REF) | LOC: SKLAB3 11:32 | PROVIDERS: ATTEND Internal Medicine | DX: Z20.822 Contact with and (suspected) exposure to COVID-19 (principal) ==

== ENCOUNTER → 2020-09-23 | Outpatient (REF) | LOC: SKLAB3 15:02 | PROVIDERS: ATTEND Internal Medicine | DX: Z20.822 Contact with and (suspected) exposure to COVID-19 (principal) ==

== ENCOUNTER → 2020-09-30 | Outpatient (REF) | LOC: SKLAB3 07:00 | PROVIDERS: ATTEND Internal Medicine | DX: Z20.822 Contact with and (suspected) exposure to COVID-19 (principal) ==

== ENCOUNTER → 2020-10-14 | Outpatient (REF) | LOC: SKLAB3 07:00 | PROVIDERS: ATTEND Internal Medicine | DX: Z20.822 Contact with and (suspected) exposure to COVID-19 (principal) ==

== ENCOUNTER → 2020-10-21 | Outpatient (REF) | LOC: SKLAB3 07:00 | PROVIDERS: ATTEND Internal Medicine | DX: Z20.822 Contact with and (suspected) exposure to COVID-19 (principal) ==

== ENCOUNTER → 2020-11-06 | Outpatient (REF) | LOC: SKLAB3 07:00 | PROVIDERS: ATTEND Internal Medicine | DX: Z20.822 Contact with and (suspected) exposure to COVID-19 (principal) ==

== ENCOUNTER → 2020-11-24 | Outpatient (REF) ==
[~2020-11-24] MED LIST changes: +FERR324T21 PO; -FERR325T16 PO; -GNP8.6TA PO; +GNP8.6TA7 PO; +MILK24002 PO; -MILKSUS22 PO
[2020-11-24 10:00] LABS: ALBUMIN 3.4 GM/DL (3.2-5.2); ALT/SGPT 41 U/L (12-78); BILIRUBIN,TOTAL 0.6 MG/DL (0.2-1.0); BLOOD UREA NITROGEN 19 MG/DL (7-18); CALCIUM LEVEL 9.3 MG/DL (8.5-10.1); CARBON DIOXIDE LEVEL 26 MEQ/L (21-32); CHLORIDE LEVEL 103 MEQ/L (98-107); CREATININE FOR GFR 0.78 MG/DL (0.55-1.30); GLOMERULAR FILTRATION RATE > 60.0 (>51); GLUCOSE, FASTING 174 MG/DL (70-100); POTASSIUM SERUM 4.5 MEQ/L (3.5-5.1); SODIUM LEVEL 137 MEQ/L (136-145); TOTAL PROTEIN 7.1 GM/DL (6.4-8.2)
[2020-11-24 10:12] LABS: HEMOGLOBIN A1c 10.3 %
== END ==
LOC: SKLAB3 11:43
PROVIDERS: ATTEND Internal Medicine
DX: E11.9 Type 2 diabetes mellitus without complications (principal); Z79.899 Other long term (current) drug therapy

== ENCOUNTER → 2020-12-22 | Outpatient (REF) ==
[2020-12-22 09:14] LABS: HEMATOCRIT 40.1 % (36.0-47.0); HEMOGLOBIN 12.8 g/dl (12.0-15.5); MEAN CORPUSCULAR HEMOGLOBIN 27.9 pg (27.0-33.0); MEAN CORPUSCULAR HGB CONC 31.9 g/dl (32.0-36.5); MEAN CORPUSCULAR VOLUME 87.6 fl (80.0-96.0); PLATELET COUNT, AUTOMATED 352 10^3/uL (150-450); RED BLOOD COUNT 4.58 10^6/uL (4.00-5.40); WHITE BLOOD COUNT 8.3 10^3/uL (4.0-10.0)
== END ==
LOC: SKLAB3 07:00
PROVIDERS: ATTEND Internal Medicine
DX: D64.89 Other specified anemias (principal)

== ENCOUNTER → 2021-02-23 | Outpatient (REF) ==
[2021-02-23 11:02] LABS: CHOLESTEROL RISK RATIO 2.979 (<5)
== END ==
LOC: SKLAB3 11:24
PROVIDERS: ATTEND Internal Medicine
DX: E11.9 Type 2 diabetes mellitus without complications (principal)

== ENCOUNTER → 2021-05-04 | Outpatient (REF) ==
[~2021-05-04] MED LIST changes: -GNP8.6TA7 PO; +SENN-111 PO
[2021-05-04 08:38] LABS: HEMOGLOBIN A1c 6.9 %
== END ==
LOC: SKLAB3 07:05
PROVIDERS: ATTEND Internal Medicine
DX: E11.9 Type 2 diabetes mellitus without complications (principal); R53.83 Other fatigue; E66.9 Obesity, unspecified; I67.9 Cerebrovascular disease, unspecified

== ENCOUNTER → 2021-05-25 | Outpatient (REF) ==
[2021-05-25 10:55] LABS: ALBUMIN 3.2 GM/DL (3.2-5.2); ALT/SGPT 48 U/L (12-78); BILIRUBIN,TOTAL 0.4 MG/DL (0.2-1.0); BLOOD UREA NITROGEN 26 MG/DL (7-18); CALCIUM LEVEL 9.7 MG/DL (8.5-10.1); CARBON DIOXIDE LEVEL 27 MEQ/L (21-32); CHLORIDE LEVEL 108 MEQ/L (98-107); CREATININE FOR GFR 0.87 MG/DL (0.55-1.30); GLOMERULAR FILTRATION RATE > 60.0 (>51); GLUCOSE, FASTING 128 MG/DL (70-100); POTASSIUM SERUM 3.7 MEQ/L (3.5-5.1); SODIUM LEVEL 141 MEQ/L (136-145); TOTAL PROTEIN 7.1 GM/DL (6.4-8.2)
[2021-05-25 13:07] LABS: HEMOGLOBIN A1c 6.3 %
== END ==
LOC: SKLAB3 07:00
PROVIDERS: ATTEND Internal Medicine
DX: E11.9 Type 2 diabetes mellitus without complications (principal)

== ENCOUNTER → 2021-05-27 | Outpatient (REF) | LOC: SKLAB3 08:40 | PROVIDERS: ATTEND Internal Medicine | DX: Z20.822 Contact with and (suspected) exposure to COVID-19 (principal) ==

== ENCOUNTER → 2021-05-31 | Outpatient (REF) | payer MEDICAID | LOC: SKLAB3 07:05 | PROVIDERS: ATTEND Internal Medicine | DX: Z20.822 Contact with and (suspected) exposure to COVID-19 (principal) ==

== ENCOUNTER → 2021-06-03 | Outpatient (REF) | payer MEDICAID | LOC: SKLAB3 06:26 | PROVIDERS: ATTEND Internal Medicine | DX: Z20.822 Contact with and (suspected) exposure to COVID-19 (principal) ==

== ENCOUNTER → 2021-06-07 | Outpatient (REF) | payer MEDICAID | LOC: SKLAB3 06:20 | PROVIDERS: ATTEND Internal Medicine | DX: Z20.822 Contact with and (suspected) exposure to COVID-19 (principal) ==

== ENCOUNTER → 2021-06-10 | Outpatient (REF) | payer MEDICAID | LOC: SKLAB3 11:10 | PROVIDERS: ATTEND Internal Medicine | DX: Z20.822 Contact with and (suspected) exposure to COVID-19 (principal) ==

== ENCOUNTER → 2021-06-16 | Outpatient (REF) | payer MEDICAID | LOC: SKLAB3 08:00 | PROVIDERS: ATTEND Internal Medicine | DX: Z20.822 Contact with and (suspected) exposure to COVID-19 (principal) ==

== ENCOUNTER → 2021-06-21 | Outpatient (REF) ==
[2021-06-21 09:37] LABS: HEMATOCRIT 41.8 % (36.0-47.0); HEMOGLOBIN 13.6 g/dl (12.0-15.5); MEAN CORPUSCULAR HEMOGLOBIN 28.7 pg (27.0-33.0); MEAN CORPUSCULAR HGB CONC 32.5 g/dl (32.0-36.5); MEAN CORPUSCULAR VOLUME 88.2 fl (80.0-96.0); PLATELET COUNT, AUTOMATED 322 10^3/uL (150-450); RED BLOOD COUNT 4.74 10^6/uL (4.00-5.40); WHITE BLOOD COUNT 7.4 10^3/uL (4.0-10.0)
== END ==
LOC: SKLAB3 07:00
PROVIDERS: ATTEND Internal Medicine
DX: D64.9 Anemia, unspecified (principal)

== ENCOUNTER → 2021-06-23 | Outpatient (REF) | LOC: SKLAB3 07:00 | PROVIDERS: ATTEND Internal Medicine | DX: Z20.822 Contact with and (suspected) exposure to COVID-19 (principal) ==

== ENCOUNTER → 2021-07-08 | Outpatient (CLI) | payer MEDICARE, MEDICAID ==
[~2021-07-08] MED LIST changes: -FLUC100T PO; +FLUC100T3 PO; +FLUO-96 PO; -FLUO20CA20 PO
== END ==
LOC: M RAD 11:15
PROVIDERS: ATTEND Nurse Practitioner Family
DX: Z86.73 Personal history of transient ischemic attack (TIA), and cerebral infarction without residual deficits (principal)

== ENCOUNTER → 2021-07-08 | Outpatient (REF) ==
[2021-07-08 11:03] LABS: HEMATOCRIT 39.6 % (36.0-47.0); HEMOGLOBIN 13.1 g/dl (12.0-15.5); MEAN CORPUSCULAR HEMOGLOBIN 29.1 pg (27.0-33.0); MEAN CORPUSCULAR HGB CONC 33.1 g/dl (32.0-36.5); PLATELET COUNT, AUTOMATED 327 10^3/uL (150-450); WHITE BLOOD COUNT 10.5 10^3/uL (4.0-10.0)
[2021-07-08 11:40] LABS: ALBUMIN 3.3 GM/DL (3.2-5.2); ALT/SGPT 53 U/L (12-78); BILIRUBIN,TOTAL 0.6 MG/DL (0.2-1.0); BLOOD UREA NITROGEN 14 MG/DL (7-18); CALCIUM LEVEL 9.3 MG/DL (8.5-10.1); CARBON DIOXIDE LEVEL 26 MEQ/L (21-32); CHLORIDE LEVEL 109 MEQ/L (98-107); CREATININE FOR GFR 0.94 MG/DL (0.55-1.30); GLOMERULAR FILTRATION RATE > 60.0 (>51); GLUCOSE, FASTING 159 MG/DL (70-100); POTASSIUM SERUM 4.1 MEQ/L (3.5-5.1); SODIUM LEVEL 143 MEQ/L (136-145); THYROID STIMULATING HORMONE 0.405 uIU/ML (0.358-3.740); TOTAL PROTEIN 6.8 GM/DL (6.4-8.2)
== END ==
LOC: SKLAB3 09:01
PROVIDERS: ATTEND Internal Medicine
DX: R11.10 Vomiting, unspecified (principal); R41.89 Other symptoms and signs involving cognitive functions and awareness

== ENCOUNTER → 2021-07-14 | Outpatient (REF) ==
[~2021-07-14] MED LIST changes: +FLUC100T PO; -FLUC100T3 PO; -FLUO-96 PO; +FLUO20CA20 PO
== END ==
LOC: SKLAB3 09:01
PROVIDERS: ATTEND Internal Medicine
DX: Z20.822 Contact with and (suspected) exposure to COVID-19 (principal)

== ENCOUNTER → 2021-07-16 | Outpatient (CLI) | payer MEDICARE, MEDICAID ==
[~2021-07-16] MED LIST changes: -FLUC100T PO; +FLUC100T3 PO; +FLUO-96 PO; -FLUO20CA20 PO
== END ==
LOC: M RAD 06:51
PROVIDERS: ATTEND Nurse Practitioner Family
DX: I63.9 Cerebral infarction, unspecified (principal); R47.81 Slurred speech; Z86.73 Personal history of transient ischemic attack (TIA), and cerebral infarction without residual deficits

== ENCOUNTER → 2021-07-21 | Outpatient (REF) ==
[~2021-07-21] MED LIST changes: +FLUC100T PO; -FLUC100T3 PO; -FLUO-96 PO; +FLUO20CA20 PO
[2021-07-21 10:20] LABS: HEMATOCRIT 40.5 % (36.0-47.0); HEMOGLOBIN 13.3 g/dl (12.0-15.5); MEAN CORPUSCULAR HGB CONC 32.8 g/dl (32.0-36.5); MEAN CORPUSCULAR VOLUME 88.4 fl (80.0-96.0); PLATELET COUNT, AUTOMATED 325 10^3/uL (150-450); RED BLOOD COUNT 4.58 10^6/uL (4.00-5.40); WHITE BLOOD COUNT 9.5 10^3/uL (4.0-10.0)
== END ==
LOC: SKLAB3 11:42
PROVIDERS: ATTEND Internal Medicine
DX: Z20.822 Contact with and (suspected) exposure to COVID-19 (principal); Z79.01 Long term (current) use of anticoagulants

== ENCOUNTER → 2021-07-28 | Outpatient (REF) ==
[2021-07-28 06:58] LABS: HEMATOCRIT 39.7 % (36.0-47.0); HEMOGLOBIN 13.1 g/dl (12.0-15.5); MEAN CORPUSCULAR HEMOGLOBIN 29.4 pg (27.0-33.0); PLATELET COUNT, AUTOMATED 369 10^3/uL (150-450); RED BLOOD COUNT 4.46 10^6/uL (4.00-5.40); WHITE BLOOD COUNT 8.2 10^3/uL (4.0-10.0)
== END ==
LOC: SKLAB3 10:56
PROVIDERS: ATTEND Internal Medicine
DX: Z20.822 Contact with and (suspected) exposure to COVID-19 (principal); Z79.01 Long term (current) use of anticoagulants

== ENCOUNTER → 2021-08-04 | Outpatient (REF) ==
[2021-08-04 10:03] LABS: HEMATOCRIT 39.4 % (36.0-47.0); MEAN CORPUSCULAR HEMOGLOBIN 29.5 pg (27.0-33.0); MEAN CORPUSCULAR VOLUME 89.5 fl (80.0-96.0); PLATELET COUNT, AUTOMATED 353 10^3/uL (150-450)
== END ==
LOC: SKLAB3 09:33
PROVIDERS: ATTEND Internal Medicine
DX: Z79.01 Long term (current) use of anticoagulants (principal); Z20.822 Contact with and (suspected) exposure to COVID-19

== ENCOUNTER → 2021-08-19 | Outpatient (REF) ==
[~2021-08-19] MED LIST changes: +FLUO-96 PO; -FLUO20CA20 PO
[2021-08-19 08:07] LABS: HEMATOCRIT 40.3 % (36.0-47.0); HEMOGLOBIN 13.4 g/dl (12.0-15.5); MEAN CORPUSCULAR HEMOGLOBIN 29.5 pg (27.0-33.0); MEAN CORPUSCULAR HGB CONC 33.3 g/dl (32.0-36.5); MEAN CORPUSCULAR VOLUME 88.8 fl (80.0-96.0); PLATELET COUNT, AUTOMATED 325 10^3/uL (150-450); RED BLOOD COUNT 4.54 10^6/uL (4.00-5.40); WHITE BLOOD COUNT 9.4 10^3/uL (4.0-10.0)
[2021-08-19 08:29] LABS: CHOLESTEROL RISK RATIO 2.723 (<5)
== END ==
LOC: SKLAB3 08-19 07:00
PROVIDERS: ATTEND Internal Medicine
DX: D64.9 Anemia, unspecified (principal)

== ENCOUNTER → 2021-09-15 | Outpatient (REF) ==
[~2021-09-15] MED LIST changes: -FLUC100T PO; +FLUC100T3 PO
[2021-09-15 08:20] LABS: HEMATOCRIT 41.4 % (36.0-47.0); HEMOGLOBIN 13.8 g/dl (12.0-15.5); MEAN CORPUSCULAR HEMOGLOBIN 29.7 pg (27.0-33.0); MEAN CORPUSCULAR HGB CONC 33.3 g/dl (32.0-36.5); PLATELET COUNT, AUTOMATED 238 10^3/uL (150-450); RED BLOOD COUNT 4.65 10^6/uL (4.00-5.40)
== END ==
LOC: SKLAB3 10:30
PROVIDERS: ATTEND Internal Medicine
DX: D64.9 Anemia, unspecified (principal)

== ENCOUNTER → 2021-09-22 | Outpatient (REF) ==
[2021-09-22 11:46] LABS: HEMATOCRIT 42.9 % (36.0-47.0); HEMOGLOBIN 14.1 g/dl (12.0-15.5); MEAN CORPUSCULAR HEMOGLOBIN 29.3 pg (27.0-33.0); MEAN CORPUSCULAR HGB CONC 32.9 g/dl (32.0-36.5); MEAN CORPUSCULAR VOLUME 89.2 fl (80.0-96.0); PLATELET COUNT, AUTOMATED 374 10^3/uL (150-450); RED BLOOD COUNT 4.81 10^6/uL (4.00-5.40); WHITE BLOOD COUNT 9.6 10^3/uL (4.0-10.0)
[2021-09-22 11:51] LABS: APPEARANCE, URINE CLEAR (CLEAR); BACTERIA, URINE AUTO NEGATIVE (NEGATIVE); BILIRUBIN, URINE AUTO NEGATIVE (NEGATIVE); BLOOD, URINE BLOOD NEGATIVE (NEGATIVE); COLOR, URINE YELLOW (YELLOW); GLUCOSE, URINE (UA) AUTO NEGATIVE (NEGATIVE); KETONE, URINE AUTO NEGATIVE (NEGATIVE); LEUKOCYTE ESTERASE, URINE AUTO NEGATIVE (NEGATIVE); MUCUS, URINE SMALL (NEGATIVE); NITRITE, URINE AUTO NEGATIVE (NEGATIVE); PROTEIN, URINE AUTO 2+ mg/dL (NEGATIVE); RBC, URINE AUTO 2 /HPF (0-3); SPECIFIC GRAVITY URINE AUTO 1.023 (1.002-1.035); SQUAMOUS EPITHELIAL CELL UR AU 1 /HPF (0-6); UROBILINOGEN, URINE AUTO 0.2 mg/dL (0.0-2.0); WBC, URINE AUTO 2 /HPF (0-3)
[2021-09-22 12:17] LABS: BLOOD UREA NITROGEN 17 MG/DL (7-18); CALCIUM LEVEL 10.2 MG/DL (8.5-10.1); CARBON DIOXIDE LEVEL 30 MEQ/L (21-32); CHLORIDE LEVEL 101 MEQ/L (98-107); CREATININE FOR GFR 1.01 MG/DL (0.55-1.30); GLOMERULAR FILTRATION RATE > 60.0 (>51); GLUCOSE, FASTING 147 MG/DL (70-100); POTASSIUM SERUM 4.1 MEQ/L (3.5-5.1); SODIUM LEVEL 140 MEQ/L (136-145)
== END ==
LOC: SKLAB3 09:46
PROVIDERS: ATTEND Internal Medicine
DX: R11.10 Vomiting, unspecified (principal)

== ENCOUNTER → 2021-11-23 | Outpatient (REF) ==
[~2021-11-23] MED LIST changes: -ASPI-286 GT; -ASPI-286 PO; +SM C81CH2 GT; +SM C81CH2 PO
[2021-11-23 12:02] LABS: ALBUMIN 3.2 GM/DL (3.2-5.2); ALT/SGPT 60 U/L (12-78); BILIRUBIN,TOTAL 0.5 MG/DL (0.2-1.0); BLOOD UREA NITROGEN 18 MG/DL (7-18); CALCIUM LEVEL 9.9 MG/DL (8.5-10.1); CARBON DIOXIDE LEVEL 27 MEQ/L (21-32); CHLORIDE LEVEL 107 MEQ/L (98-107); CREATININE FOR GFR 0.97 MG/DL (0.55-1.30); GLOMERULAR FILTRATION RATE > 60.0 (>51); GLUCOSE, FASTING 278 MG/DL (70-100); POTASSIUM SERUM 4.1 MEQ/L (3.5-5.1); SODIUM LEVEL 141 MEQ/L (136-145); TOTAL PROTEIN 6.4 GM/DL (6.4-8.2)
[2021-11-23 12:18] LABS: HEMOGLOBIN A1c 7.6 %
== END ==
LOC: SKLAB3 11:30
PROVIDERS: ATTEND Internal Medicine
DX: E11.9 Type 2 diabetes mellitus without complications (principal)

== ENCOUNTER → 2021-12-02 | Outpatient (CLI) | payer MEDICARE, MEDICAID | LOC: M RAD 11:19 | PROVIDERS: ATTEND Nurse Practitioner Family | DX: H54.7 Unspecified visual loss (principal) ==

== ENCOUNTER 2021-12-06 14:31 | Emergency (ER) | payer MEDICARE, MEDICAID ==
[~2021-12-06] VITALS: Ht 162.6 cm; Wt 114.0 kg
[2021-12-06 20:30] VITALS: BP 132/72
== END 2021-12-06 21:00 | disposition home or self-care (01) ==
LOC: M ED 14:31
DX: R11.10 Vomiting, unspecified (principal); I12.9 Hypertensive chronic kidney disease with stage 1 through stage 4 chronic kidney disease, or unspecified chronic kidney disease; E78.5 Hyperlipidemia, unspecified; F79 Unspecified intellectual disabilities; E11.9 Type 2 diabetes mellitus without complications; Z86.73 Personal history of transient ischemic attack (TIA), and cerebral infarction without residual deficits; F32.A Depression, unspecified; F41.9 Anxiety disorder, unspecified; Z79.4 Long term (current) use of insulin; Z79.899 Other long term (current) drug therapy

== ENCOUNTER → 2022-02-01 | Outpatient (REF) ==
[2022-02-01 13:01] LABS: HEMATOCRIT 40.3 % (36.0-47.0); HEMOGLOBIN 13.4 g/dl (12.0-15.5); MEAN CORPUSCULAR HEMOGLOBIN 29.1 pg (27.0-33.0); MEAN CORPUSCULAR HGB CONC 33.3 g/dl (32.0-36.5); MEAN CORPUSCULAR VOLUME 87.4 fl (80.0-96.0); PLATELET COUNT, AUTOMATED 373 10^3/uL (150-450); RED BLOOD COUNT 4.61 10^6/uL (4.00-5.40); WHITE BLOOD COUNT 10.4 10^3/uL (4.0-10.0)
[2022-02-01 13:28] LABS: ALBUMIN 3.6 GM/DL (3.2-5.2); ALT/SGPT 40 U/L (12-78); BILIRUBIN,TOTAL 0.5 MG/DL (0.2-1.0); BLOOD UREA NITROGEN 21 MG/DL (7-18); CALCIUM LEVEL 9.3 MG/DL (8.5-10.1); CARBON DIOXIDE LEVEL 27 MEQ/L (21-32); CHLORIDE LEVEL 107 MEQ/L (98-107); CREATININE FOR GFR 1.01 MG/DL (0.55-1.30); GLOMERULAR FILTRATION RATE > 60.0 (>51); GLUCOSE, FASTING 172 MG/DL (70-100); POTASSIUM SERUM 4.1 MEQ/L (3.5-5.1); SODIUM LEVEL 141 MEQ/L (136-145); TOTAL PROTEIN 7.1 GM/DL (6.4-8.2)
[2022-02-01 13:43] LABS: APPEARANCE, URINE CLOUDY (CLEAR); BACTERIA, URINE AUTO 1+ (NEGATIVE); BILIRUBIN, URINE AUTO NEGATIVE (NEGATIVE); BLOOD, URINE BLOOD 3+ (NEGATIVE); COLOR, URINE AMBER (YELLOW); GLUCOSE, URINE (UA) AUTO 1+ mg/dL (NEGATIVE); KETONE, URINE AUTO TRACE mg/dL (NEGATIVE); LEUKOCYTE ESTERASE, URINE AUTO 2+ (NEGATIVE); MUCUS, URINE SMALL (NEGATIVE); NITRITE, URINE AUTO NEGATIVE (NEGATIVE); PROTEIN, URINE AUTO 2+ mg/dL (NEGATIVE); RBC, URINE AUTO 177 /HPF (0-3); SQUAMOUS EPITHELIAL CELL UR AU 7 /HPF (0-6); UROBILINOGEN, URINE AUTO 0.2 mg/dL (0.0-2.0); WBC, URINE AUTO 31 /HPF (0-3)
== END ==
LOC: SKLAB3 11:21
PROVIDERS: ATTEND Nurse Practitioner Family
DX: N39.0 Urinary tract infection, site not specified (principal)

== ENCOUNTER → 2022-02-01 | Outpatient (CLI) | payer MEDICARE, MEDICAID | LOC: M RAD 11:17 | PROVIDERS: ATTEND Nurse Practitioner Family | DX: E11.9 Type 2 diabetes mellitus without complications (principal) ==

== ENCOUNTER → 2022-02-22 | Outpatient (REF) | payer MEDICAID, MEDICARE | LOC: SKLAB3 09:43 | PROVIDERS: ATTEND Nurse Practitioner Family | DX: D64.9 Anemia, unspecified (principal) ==

== ENCOUNTER → 2022-03-04 | Outpatient (REF) | payer MEDICARE, MEDICAID | LOC: SKLAB3 11:33 | PROVIDERS: ATTEND Internal Medicine | DX: Z20.822 Contact with and (suspected) exposure to COVID-19 (principal) ==

== ENCOUNTER → 2022-05-24 | Outpatient (REF) ==
[~2022-05-24] MED LIST changes: -LABE100T4 PO; +LABE100T6 PO
== END ==
LOC: SKLAB3 07:00
PROVIDERS: ATTEND Nurse Practitioner Family
DX: E11.9 Type 2 diabetes mellitus without complications (principal)

== ENCOUNTER → 2022-07-26 | Outpatient (REF) ==
[2022-07-26 08:23] LABS: HEMATOCRIT 38.9 % (36.0-47.0); HEMOGLOBIN 12.7 g/dl (12.0-15.5); MEAN CORPUSCULAR HEMOGLOBIN 28.2 pg (27.0-33.0); MEAN CORPUSCULAR HGB CONC 32.6 g/dl (32.0-36.5); MEAN CORPUSCULAR VOLUME 86.3 fl (80.0-96.0); PLATELET COUNT, AUTOMATED 398 10^3/uL (150-450); RED BLOOD COUNT 4.51 10^6/uL (4.00-5.40); WHITE BLOOD COUNT 12.8 10^3/uL (4.0-10.0)
[2022-07-26 08:59] LABS: ALBUMIN 2.7 G/DL (3.2-5.2); BILIRUBIN,TOTAL 0.8 MG/DL (0.3-1.2); CALCIUM LEVEL 9.3 MG/DL (8.5-10.1); CREATININE FOR GFR 1.4 MG/DL (0.55-1.30); POTASSIUM SERUM 4.1 MMOL/L (3.5-5.1); TOTAL PROTEIN 6.6 G/DL (5.7-8.2)
== END ==
LOC: SKLAB7 15:15
PROVIDERS: ATTEND Nurse Practitioner Family
DX: E11.9 Type 2 diabetes mellitus without complications (principal); D64.9 Anemia, unspecified

== ENCOUNTER → 2022-08-23 | Outpatient (REF) ==
[2022-08-23 08:43] LABS: CHOLESTEROL RISK RATIO 2.68 (<5); HDL CHOLESTEROL 43.5 MG/DL (>40); LDL CHOLESTEROL 53.9 MG/DL (<100)
== END ==
LOC: SKLAB3 13:53
PROVIDERS: ATTEND Internal Medicine
DX: E11.9 Type 2 diabetes mellitus without complications (principal)

== ENCOUNTER → 2022-09-26 | Outpatient (REF) ==
[2022-09-26 15:40] LABS: APPEARANCE, URINE CLEAR (CLEAR); BACTERIA, URINE AUTO NEGATIVE (NEGATIVE); BILIRUBIN, URINE AUTO NEGATIVE (NEGATIVE); BLOOD, URINE BLOOD NEGATIVE (NEGATIVE); COLOR, URINE YELLOW (YELLOW); GLUCOSE, URINE (UA) AUTO 1+ mg/dL (NEGATIVE); KETONE, URINE AUTO TRACE mg/dL (NEGATIVE); LEUKOCYTE ESTERASE, URINE AUTO NEGATIVE (NEGATIVE); MUCUS, URINE SMALL (NEGATIVE); NITRITE, URINE AUTO NEGATIVE (NEGATIVE); PROTEIN, URINE AUTO NEGATIVE (NEGATIVE); RBC, URINE AUTO 8 /HPF (0-3); SPECIFIC GRAVITY URINE AUTO 1.027 (1.002-1.035); SQUAMOUS EPITHELIAL CELL UR AU 1 /HPF (0-6); UROBILINOGEN, URINE AUTO 0.2 mg/dL (0.0-2.0); WBC, URINE AUTO 1 /HPF (0-3)
== END ==
LOC: SKLAB3 14:53
PROVIDERS: ATTEND Internal Medicine
DX: R41.82 Altered mental status, unspecified (principal)

== ENCOUNTER → 2022-09-29 | Outpatient (CLI) | payer MEDICARE, MEDICAID | LOC: M RAD 11:34 | PROVIDERS: ATTEND Internal Medicine | DX: R41.82 Altered mental status, unspecified (principal); Z86.73 Personal history of transient ischemic attack (TIA), and cerebral infarction without residual deficits ==

== ENCOUNTER → 2022-11-22 | Outpatient (REF) | payer MEDICARE, MEDICAID ==
[~2022-11-22] MED LIST changes: +FLUT50SP17 NARES; -FLUTISP NARES; -SENN-111 PO; +SENN-188 PO
[2022-11-22 09:17] LABS: HEMOGLOBIN A1c 5.7 % (4.0-6.0)
== END ==
LOC: SKLAB3 11:40
PROVIDERS: ATTEND Internal Medicine
DX: E11.9 Type 2 diabetes mellitus without complications (principal)

== ENCOUNTER → 2022-12-26 | Outpatient (REF) ==
[2022-12-26 07:44] LABS: HEMATOCRIT 37.4 % (36.0-47.0); HEMOGLOBIN 12.1 g/dl (12.0-15.5); MEAN CORPUSCULAR HEMOGLOBIN 27.5 pg (27.0-33.0); MEAN CORPUSCULAR HGB CONC 32.4 g/dl (32.0-36.5); PLATELET COUNT, AUTOMATED 362 10^3/uL (150-450); WHITE BLOOD COUNT 8.8 10^3/uL (4.0-10.0)
[2022-12-26 08:10] LABS: ALBUMIN 3.4 G/DL (3.2-5.2); BILIRUBIN,TOTAL 0.9 MG/DL (0.3-1.2); CALCIUM LEVEL 9.4 MG/DL (8.5-10.1); CREATININE FOR GFR 1.04 MG/DL (0.55-1.30); POTASSIUM SERUM 3.4 MMOL/L (3.5-5.1); TOTAL PROTEIN 6.5 G/DL (5.7-8.2)
[2022-12-26 08:12] LABS: THYROID STIMULATING HORMONE 0.478 uIU/ML (0.55-4.78)
== END ==
LOC: SKLAB3 06:57
PROVIDERS: ATTEND Internal Medicine
DX: R11.2 Nausea with vomiting, unspecified (principal)

== ENCOUNTER 2022-12-30 11:14 | Emergency (ER) | payer MEDICARE, MEDICAID ==
[~2022-12-30] VITALS: Ht 152.4 cm; Wt 90.9 kg
[2022-12-30] MEDS ORDERED: NS 1,000 ML IV SCH (11:25)
[2022-12-30 11:47] LABS: BASO % 0.4 % (0.0-1.0); EOS % 0.4 % (0.0-3.0); HEMATOCRIT 37.8 % (36.0-47.0); HEMOGLOBIN 12.6 g/dl (12.0-15.5); LYMPH # 2.8 10^3/uL (1.5-5.0); LYMPH % 28.9 % (24.0-44.0); MEAN CORPUSCULAR HEMOGLOBIN 27.8 pg (27.0-33.0); MEAN CORPUSCULAR HGB CONC 33.3 g/dl (32.0-36.5); MEAN CORPUSCULAR VOLUME 83.4 fl (80.0-96.0); MONO # 0.7 10^3/uL (0.0-0.8); MONO % 6.9 % (2.0-8.0); NEUTROPHILS % 63.2 % (36.0-66.0); PLATELET COUNT, AUTOMATED 375 10^3/uL (150-450); RED BLOOD COUNT 4.53 10^6/uL (4.00-5.40); WHITE BLOOD COUNT 9.5 10^3/uL (4.0-10.0)
[2022-12-30 12:19] LABS: LIPASE 27 U/L (12-53)
[2022-12-30 12:21] LABS: ALBUMIN 3.7 G/DL (3.2-5.2); ALKALINE PHOSPHATASE 139 U/L (46-116); ALT/SGPT 44 U/L (7.0-40); AST/SGOT 28 U/L (<34); BILIRUBIN,DIRECT 0.3 MG/DL (<0.4); BILIRUBIN,TOTAL 0.9 MG/DL (0.3-1.2); BLOOD UREA NITROGEN 27 MG/DL (9-23); CALCIUM LEVEL 9.8 MG/DL (8.5-10.1); CARBON DIOXIDE LEVEL 23 MMOL/L (20-31); CHLORIDE LEVEL 112 MMOL/L (98-107); CREATININE FOR GFR 1.01 MG/DL (0.55-1.30); GLOMERULAR FILTRATION RATE > 60.0 (>51); GLUCOSE, FASTING 101 MG/DL (60-100); POTASSIUM SERUM 3.8 MMOL/L (3.5-5.1); SODIUM LEVEL 147 MMOL/L (136-145); TOTAL PROTEIN 6.9 G/DL (5.7-8.2)
[2022-12-30] MEDS ORDERED: ISOVUE-370 76% 100ML VIAL As Ordered ONE (12:39)
[2022-12-30] MEDS ORDERED: CARA1TAB6 PO (13:22)
[2022-12-30] MEDS ORDERED: PROT1TAB2 PO (13:23)
[2022-12-30 14:30] VITALS: BP 156/100
== END 2022-12-30 14:53 | disposition home or self-care (01) ==
LOC: M ED 11:14
DX: K20.90 Esophagitis, unspecified without bleeding (principal); E11.9 Type 2 diabetes mellitus without complications; I10 Essential (primary) hypertension; Z86.73 Personal history of transient ischemic attack (TIA), and cerebral infarction without residual deficits; F79 Unspecified intellectual disabilities; Z79.899 Other long term (current) drug therapy; Z79.4 Long term (current) use of insulin
CPT/HCPCS: 74177; 80048; 80076; 83605; 83690; 85025; 96360; 96361; 99284; Q9967

== ENCOUNTER 2023-01-28 14:58 | Emergency (ER) | payer MEDICARE, MEDICAID ==
[~2023-01-28] VITALS: Ht 149.9 cm; Wt 91.7 kg
[~2023-01-28 14:58] MED LIST changes: +CARA1TAB6 PO; +PROT1TAB2 PO; +SENN-111 PO; -SENN18TA PO
[2023-01-28 15:46] LABS: BASO # 0.1 10^3/uL (0.0-0.2); BASO % 0.5 % (0.0-1.0); EOS # 0.3 10^3/uL (0.0-0.5); EOS % 2.5 % (0.0-3.0); HEMATOCRIT 37.4 % (36.0-47.0); HEMOGLOBIN 12.2 g/dl (12.0-15.5); LYMPH # 2.9 10^3/uL (1.5-5.0); LYMPH % 23.6 % (24.0-44.0); MEAN CORPUSCULAR HEMOGLOBIN 27.5 pg (27.0-33.0); MEAN CORPUSCULAR HGB CONC 32.6 g/dl (32.0-36.5); MEAN CORPUSCULAR VOLUME 84.2 fl (80.0-96.0); NEUTROPHILS # 7.9 10^3/uL (1.5-8.5); NEUTROPHILS % 65.2 % (36.0-66.0); PLATELET COUNT, AUTOMATED 394 10^3/uL (150-450); RED BLOOD COUNT 4.44 10^6/uL (4.00-5.40); WHITE BLOOD COUNT 12.2 10^3/uL (4.0-10.0)
[2023-01-28 15:58] LABS: INR 1.13; PROTHROMBIN TIME 14.7 SECONDS (12.5-14.5)
[2023-01-28 15:59] LABS: PARTIAL THROMBOPLASTIN TIME 31.4 SECONDS (24.8-34.2)
[2023-01-28 16:06] LABS: ALBUMIN 3.5 G/DL (3.2-5.2); BILIRUBIN,DIRECT 0.2 MG/DL (<0.4); BILIRUBIN,TOTAL 0.5 MG/DL (0.3-1.2); TOTAL PROTEIN 6.4 G/DL (5.7-8.2)
[2023-01-28] MEDS ORDERED: ISOVUE-370 76% 100ML VIAL As Ordered ONE (16:07)
[2023-01-28 18:09] VITALS: BP 136/70; TEMP 98; O2SAT 100
== END 2023-01-28 18:23 | disposition home or self-care (01) ==
LOC: EDBD 14:58 → M ED 14:58
DX: K92.2 Gastrointestinal hemorrhage, unspecified (principal); I12.9 Hypertensive chronic kidney disease with stage 1 through stage 4 chronic kidney disease, or unspecified chronic kidney disease; E11.9 Type 2 diabetes mellitus without complications; N18.30 Chronic kidney disease, stage 3 unspecified; F32.9 Major depressive disorder, single episode, unspecified; Z86.73 Personal history of transient ischemic attack (TIA), and cerebral infarction without residual deficits; Z79.899 Other long term (current) drug therapy; Z79.4 Long term (current) use of insulin
CPT/HCPCS: 36415; 74177; 80047; 80076; 83605; 83690; 85025; 85610; 85730; 86850; 86900; 86901; 93041; 99284; Q9967

== ENCOUNTER → 2023-01-29 | Outpatient (REF) | payer MEDICARE, MEDICAID | LOC: SKLAB3 10:16 | PROVIDERS: ATTEND Internal Medicine | DX: K92.2 Gastrointestinal hemorrhage, unspecified (principal); Z53.8 Procedure and treatment not carried out for other reasons ==

== ENCOUNTER → 2023-01-29 | Outpatient (REF) ==
[2023-01-29 10:35] LABS: HEMATOCRIT 35.2 % (36.0-47.0); HEMOGLOBIN 11.4 g/dl (12.0-15.5); MEAN CORPUSCULAR HGB CONC 32.4 g/dl (32.0-36.5); MEAN CORPUSCULAR VOLUME 86.5 fl (80.0-96.0); PLATELET COUNT, AUTOMATED 356 10^3/uL (150-450); RED BLOOD COUNT 4.07 10^6/uL (4.00-5.40)
== END ==
LOC: SKLAB3 11:31
PROVIDERS: ATTEND Internal Medicine
DX: K92.2 Gastrointestinal hemorrhage, unspecified (principal)

== ENCOUNTER → 2023-01-30 | Outpatient (REF) | payer MEDICARE, MEDICAID ==
[2023-01-30 08:32] LABS: HEMATOCRIT 35.2 % (36.0-47.0); HEMOGLOBIN 11.5 g/dl (12.0-15.5); MEAN CORPUSCULAR HEMOGLOBIN 28.2 pg (27.0-33.0); MEAN CORPUSCULAR HGB CONC 32.7 g/dl (32.0-36.5); MEAN CORPUSCULAR VOLUME 86.3 fl (80.0-96.0); PLATELET COUNT, AUTOMATED 330 10^3/uL (150-450); RED BLOOD COUNT 4.08 10^6/uL (4.00-5.40); WHITE BLOOD COUNT 7.8 10^3/uL (4.0-10.0)
== END ==
LOC: SKLAB3 07:04
PROVIDERS: ATTEND Internal Medicine
DX: K92.2 Gastrointestinal hemorrhage, unspecified (principal)

== ENCOUNTER → 2023-01-31 | Outpatient (REF) | payer MEDICARE, MEDICAID ==
[2023-01-31 06:46] LABS: HEMATOCRIT 34.2 % (36.0-47.0); MEAN CORPUSCULAR HEMOGLOBIN 27.5 pg (27.0-33.0); MEAN CORPUSCULAR HGB CONC 32.2 g/dl (32.0-36.5); MEAN CORPUSCULAR VOLUME 85.5 fl (80.0-96.0); PLATELET COUNT, AUTOMATED 385 10^3/uL (150-450); WHITE BLOOD COUNT 7.5 10^3/uL (4.0-10.0)
== END ==
LOC: SKLAB3 11:27
PROVIDERS: ATTEND Internal Medicine
DX: K92.2 Gastrointestinal hemorrhage, unspecified (principal)

== ENCOUNTER → 2023-02-01 | Outpatient (REF) | payer MEDICARE, MEDICAID ==
[2023-02-01 07:04] LABS: HEMATOCRIT 32.8 % (36.0-47.0); HEMOGLOBIN 10.7 g/dl (12.0-15.5)
== END ==
LOC: SKLAB3 07:00
PROVIDERS: ATTEND Internal Medicine
DX: K92.2 Gastrointestinal hemorrhage, unspecified (principal)

== ENCOUNTER → 2023-02-03 | Outpatient (REF) | payer MEDICARE, MEDICAID ==
[2023-02-03 08:24] LABS: HEMATOCRIT 35.5 % (36.0-47.0); HEMOGLOBIN 11.8 g/dl (12.0-15.5)
== END ==
LOC: SKLAB3 13:46
PROVIDERS: ATTEND Internal Medicine
DX: K92.2 Gastrointestinal hemorrhage, unspecified (principal)

== ENCOUNTER → 2023-02-06 | Outpatient (REF) | payer MEDICARE, MEDICAID ==
[2023-02-06 07:16] LABS: HEMOGLOBIN 11.2 g/dl (12.0-15.5)
== END ==
LOC: SKLAB3 02-03 13:50
PROVIDERS: ATTEND Internal Medicine
DX: K92.2 Gastrointestinal hemorrhage, unspecified (principal)

== ENCOUNTER → 2023-02-08 | Outpatient (REF) | payer MEDICARE, MEDICAID ==
[2023-02-08 06:39] LABS: HEMATOCRIT 33.6 % (36.0-47.0); HEMOGLOBIN 10.8 g/dl (12.0-15.5)
== END ==
LOC: SKLAB3 07:00
PROVIDERS: ATTEND Internal Medicine
DX: K92.2 Gastrointestinal hemorrhage, unspecified (principal)

== ENCOUNTER → 2023-02-10 | Outpatient (REF) | payer MEDICARE, MEDICAID ==
[2023-02-10 06:32] LABS: HEMATOCRIT 33.2 % (36.0-47.0); HEMOGLOBIN 10.8 g/dl (12.0-15.5)
== END ==
LOC: SKLAB3 07:00
PROVIDERS: ATTEND Internal Medicine
DX: K92.2 Gastrointestinal hemorrhage, unspecified (principal)

== ENCOUNTER → 2023-02-13 | Outpatient (REF) | payer MEDICARE, MEDICAID ==
[2023-02-13 06:58] LABS: HEMATOCRIT 35.4 % (36.0-47.0); HEMOGLOBIN 11.5 g/dl (12.0-15.5)
== END ==
LOC: SKLAB3 09:49
PROVIDERS: ATTEND Internal Medicine
DX: K92.2 Gastrointestinal hemorrhage, unspecified (principal)

== ENCOUNTER → 2023-02-20 | Outpatient (REF) | payer MEDICARE, MEDICAID ==
[2023-02-20 08:28] LABS: BASO # 0.1 10^3/uL (0.0-0.2); BASO % 0.9 % (0.0-1.0); EOS # 0.3 10^3/uL (0.0-0.5); EOS % 4.8 % (0.0-3.0); HEMATOCRIT 34.7 % (36.0-47.0); HEMOGLOBIN 11.4 g/dl (12.0-15.5); LYMPH # 2.1 10^3/uL (1.5-5.0); MEAN CORPUSCULAR HEMOGLOBIN 28.4 pg (27.0-33.0); MEAN CORPUSCULAR HGB CONC 32.9 g/dl (32.0-36.5); MEAN CORPUSCULAR VOLUME 86.5 fl (80.0-96.0); MONO # 0.5 10^3/uL (0.0-0.8); MONO % 7.8 % (2.0-8.0); NEUTROPHILS # 3.5 10^3/uL (1.5-8.5); NEUTROPHILS % 54.2 % (36.0-66.0); PLATELET COUNT, AUTOMATED 261 10^3/uL (150-450); RED BLOOD COUNT 4.01 10^6/uL (4.00-5.40); WHITE BLOOD COUNT 6.4 10^3/uL (4.0-10.0)
[2023-02-20 09:04] LABS: CHOLESTEROL RISK RATIO 2.86 (<5); HDL CHOLESTEROL 41.6 MG/DL (>40); LDL CHOLESTEROL 56.2 MG/DL (<100); NON-HDL-C 77.4 MG/DL
== END ==
LOC: SKLAB3 07:08
PROVIDERS: ATTEND Internal Medicine
DX: M25.561 Pain in right knee (principal); M77.8 Other enthesopathies, not elsewhere classified; M79.671 Pain in right foot; W19.XXXA Unspecified fall, initial encounter; Y92.129 Unspecified place in nursing home as the place of occurrence of the external cause; Y93.9 Activity, unspecified; K92.2 Gastrointestinal hemorrhage, unspecified; Z79.899 Other long term (current) drug therapy

== ENCOUNTER → 2023-04-25 | Outpatient (REF) | payer MEDICARE, MEDICAID | LOC: SKLAB3 07:00 | PROVIDERS: ATTEND Internal Medicine | DX: E11.9 Type 2 diabetes mellitus without complications (principal); Z53.8 Procedure and treatment not carried out for other reasons ==

== ENCOUNTER → 2023-05-23 | Outpatient (REF) | payer MEDICARE, MEDICAID ==
[2023-05-23 09:48] LABS: HEMOGLOBIN A1c 5.9 % (4.0-6.0)
== END ==
LOC: SKLAB3 07:00
PROVIDERS: ATTEND Internal Medicine
DX: E11.65 Type 2 diabetes mellitus with hyperglycemia (principal)

== ENCOUNTER → 2023-06-27 | Outpatient (REF) | payer MEDICARE, MEDICAID ==
[2023-06-27 08:01] LABS: HEMATOCRIT 34.8 % (36.0-47.0); HEMOGLOBIN 11.4 g/dl (12.0-15.5); MEAN CORPUSCULAR HEMOGLOBIN 27.2 pg (27.0-33.0); MEAN CORPUSCULAR HGB CONC 32.8 g/dl (32.0-36.5); MEAN CORPUSCULAR VOLUME 83.1 fl (80.0-96.0); PLATELET COUNT, AUTOMATED 328 10^3/uL (150-450); RED BLOOD COUNT 4.19 10^6/uL (4.00-5.40); WHITE BLOOD COUNT 7.9 10^3/uL (4.0-10.0)
[2023-06-27 08:32] LABS: ALBUMIN 3.9 G/DL (3.2-5.2); ALKALINE PHOSPHATASE 122 U/L (46-116); ALT/SGPT 66 U/L (7.0-40); AST/SGOT 33 U/L (<34); BILIRUBIN,TOTAL 0.6 MG/DL (0.3-1.2); BLOOD UREA NITROGEN 24 MG/DL (9-23); CARBON DIOXIDE LEVEL 20 MMOL/L (20-31); CHLORIDE LEVEL 109 MMOL/L (98-107); CREATININE FOR GFR 0.79 MG/DL (0.55-1.30); GLOMERULAR FILTRATION RATE > 60.0 (>51); GLUCOSE, FASTING 64 MG/DL (60-100); SODIUM LEVEL 143 MMOL/L (136-145); TOTAL PROTEIN 7.2 G/DL (5.7-8.2)
== END ==
LOC: SKLAB3 07:00
PROVIDERS: ATTEND Internal Medicine
DX: D64.9 Anemia, unspecified (principal)

== ENCOUNTER → 2023-07-04 | Outpatient (REF) | payer MEDICARE, MEDICAID ==
[2023-07-04 15:55] LABS: HEMOGLOBIN 10.6 g/dl (12.0-15.5); MEAN CORPUSCULAR HEMOGLOBIN 27.5 pg (27.0-33.0); MEAN CORPUSCULAR HGB CONC 33.1 g/dl (32.0-36.5); MEAN CORPUSCULAR VOLUME 83.1 fl (80.0-96.0); PLATELET COUNT, AUTOMATED 321 10^3/uL (150-450); RED BLOOD COUNT 3.85 10^6/uL (4.00-5.40); WHITE BLOOD COUNT 8.3 10^3/uL (4.0-10.0)
[2023-07-04 16:23] LABS: ALBUMIN 3.3 G/DL (3.2-5.2); ALKALINE PHOSPHATASE 111 U/L (46-116); ALT/SGPT 59 U/L (7.0-40); AST/SGOT 39 U/L (<34); BILIRUBIN,TOTAL 0.4 MG/DL (0.3-1.2); BLOOD UREA NITROGEN 28 MG/DL (9-23); CALCIUM LEVEL 9.2 MG/DL (8.5-10.1); CARBON DIOXIDE LEVEL 22 MMOL/L (20-31); CHLORIDE LEVEL 110 MMOL/L (98-107); CREATININE FOR GFR 0.87 MG/DL (0.55-1.30); GLOMERULAR FILTRATION RATE > 60.0 (>51); GLUCOSE, FASTING 131 MG/DL (60-100); POTASSIUM SERUM 3.9 MMOL/L (3.5-5.1); SODIUM LEVEL 141 MMOL/L (136-145); TOTAL PROTEIN 6.4 G/DL (5.7-8.2)
== END ==
LOC: SKLAB3 14:30
PROVIDERS: ATTEND Internal Medicine
DX: Z01.818 Encounter for other preprocedural examination (principal)

== ENCOUNTER 2023-08-09 07:46 | Day surgery (SDC) | payer MEDICARE, MEDICAID ==
[~2023-08-09] VITALS: Ht 162.6 cm; Wt 80.0 kg
[~2023-08-09 07:46] MED LIST changes: +ELIQ5TAB PO; +FLUO40CA PO; -FLUT50SP17 NARES; +FLUTISP NARES; +NS 1,000 ML IV ONE; +QC F0.52 PO
[2023-08-09] MEDS ORDERED: propofoL 200 MG/20 ML VIAL As Ordered ONE (08:49)
[2023-08-09 09:05] VITALS: TEMP 97.1
[2023-08-09 09:20] VITALS: BP 140/66; O2SAT 99
== END 2023-08-09 09:26 | disposition home or self-care (01) ==
LOC: M OPP 07:46
PROVIDERS: ATTEND Surgery
DX: K92.1 Melena (principal); Z86.010 Personal history of colon polyps; E11.9 Type 2 diabetes mellitus without complications; Z86.73 Personal history of transient ischemic attack (TIA), and cerebral infarction without residual deficits; Z79.01 Long term (current) use of anticoagulants; Z79.02 Long term (current) use of antithrombotics/antiplatelets; Z79.1 Long term (current) use of non-steroidal anti-inflammatories (NSAID); Z79.4 Long term (current) use of insulin; Z79.899 Other long term (current) drug therapy

== ENCOUNTER → 2023-08-22 | Outpatient (REF) | payer MEDICARE, MEDICAID ==
[~2023-08-22] MED LIST changes: -NS 1,000 ML IV ONE
[2023-08-22 11:00] LABS: CHOLESTEROL RISK RATIO 2.9 (<5); HDL CHOLESTEROL 49.6 MG/DL (>40); LDL CHOLESTEROL 67.4 MG/DL (<100); NON-HDL-C 94.4 MG/DL
== END ==
LOC: SKLAB3 09:26
PROVIDERS: ATTEND Internal Medicine
DX: D64.9 Anemia, unspecified (principal); Z79.899 Other long term (current) drug therapy

== ENCOUNTER → 2023-11-01 | Outpatient (REF) | payer MEDICARE, MEDICAID ==
[2023-11-01 12:07] LABS: HEMATOCRIT 31.6 % (36.0-47.0); HEMOGLOBIN 10.3 g/dl (12.0-15.5); MEAN CORPUSCULAR HEMOGLOBIN 26.8 pg (27.0-33.0); MEAN CORPUSCULAR HGB CONC 32.6 g/dl (32.0-36.5); MEAN CORPUSCULAR VOLUME 82.3 fl (80.0-96.0); PLATELET COUNT, AUTOMATED 314 10^3/uL (150-450); RED BLOOD COUNT 3.84 10^6/uL (4.00-5.40); WHITE BLOOD COUNT 7.7 10^3/uL (4.0-10.0)
[2023-11-01 12:37] LABS: ALBUMIN 3.4 G/DL (3.2-5.2); ALKALINE PHOSPHATASE 114 U/L (46-116); ALT/SGPT 58 U/L (7.0-40); AST/SGOT 36 U/L (<34); BILIRUBIN,TOTAL 0.5 MG/DL (0.3-1.2); BLOOD UREA NITROGEN 26 MG/DL (9-23); CALCIUM LEVEL 9.3 MG/DL (8.5-10.1); CARBON DIOXIDE LEVEL 25 MMOL/L (20-31); CHLORIDE LEVEL 112 MMOL/L (98-107); CHOLESTEROL LEVEL 117 MG/DL (<200); CHOLESTEROL RISK RATIO 2.87 (<5); CREATININE FOR GFR 0.89 MG/DL (0.55-1.30); GLOMERULAR FILTRATION RATE > 60.0 (>51); GLUCOSE, FASTING 108 MG/DL (60-100); HDL CHOLESTEROL 40.7 MG/DL (>40); IRON (FE) 41 UG/DL (50-170); LDL CHOLESTEROL 58.5 MG/DL (<100); NON-HDL-C 76.3 MG/DL; SODIUM LEVEL 144 MMOL/L (136-145); TOTAL PROTEIN 6.4 G/DL (5.7-8.2); TRIGLYCERIDES LEVEL 89 MG/DL (<150)
[2023-11-01 18:47] LABS: HEMOGLOBIN A1c 5.8 % (4.0-6.0)
== END ==
LOC: SKLAB3 09:34
PROVIDERS: ATTEND Nurse Practitioner Family
DX: D64.9 Anemia, unspecified (principal); E11.9 Type 2 diabetes mellitus without complications

== ENCOUNTER 2023-11-04 01:57 | Inpatient (IN) | payer MEDICARE, MEDICAID ==
[2023-11-04] VITALS (20 sets, daily range): BP systolic 113–141; BP diastolic 53–66; TEMP 96.4–98.1; O2SAT 97–100
[~2023-11-04] VITALS: Ht 172.7 cm; Wt 82.0 kg
[2023-11-04 02:43] LABS: VENOUS HCO3 16.6 MMOL/L (23.0-27.0); VENOUS PARTIAL PRESSURE O2 61.5 mmHg (30.0-50.0); VENOUS PH 7.295 UNITS (7.330-7.430); VENOUS STANDARD HCO3 17.1 MMOL/L; VENOUS TOTAL CO2 17.7 MMOL/L (24.0-28.0)
[2023-11-04 02:49] LABS: BASO % 0.5 % (0.0-1.0); EOS % 6.4 % (0.0-3.0); HEMATOCRIT 32.8 % (36.0-47.0); HEMOGLOBIN 10.8 g/dl (12.0-15.5); LYMPH # 1.9 10^3/uL (1.5-5.0); LYMPH % 17.1 % (24.0-44.0); MEAN CORPUSCULAR HEMOGLOBIN 26.9 pg (27.0-33.0); MEAN CORPUSCULAR HGB CONC 32.9 g/dl (32.0-36.5); MEAN CORPUSCULAR VOLUME 81.8 fl (80.0-96.0); MONO # 0.7 10^3/uL (0.0-0.8); MONO % 6.5 % (2.0-8.0); NEUTROPHILS # 7.5 10^3/uL (1.5-8.5); NEUTROPHILS % 69.1 % (36.0-66.0); PLATELET COUNT, AUTOMATED 298 10^3/uL (150-450); RED BLOOD COUNT 4.01 10^6/uL (4.00-5.40); WHITE BLOOD COUNT 10.9 10^3/uL (4.0-10.0)
[2023-11-04 02:50] LABS: BASO # 0.1 10^3/uL (0.0-0.2); EOS # 0.7 10^3/uL (0.0-0.5)
[2023-11-04] MEDS ORDERED: LORazepam 2 MG/ML 1ML VIAL As Ordered ONE (03:17)
[2023-11-04 03:25] LABS: THYROID STIMULATING HORMONE 5.587 uIU/ML (0.55-4.78)
[2023-11-04] MEDS: levETIRAcetam INJection 1,000 MG in D5W 100 ML IV ONE (03:28)
[2023-11-04] MEDS: NS 1,000 ML IV ONE (03:30)
[2023-11-04] MEDS: cefTRIAXone SOD 2 GM in D5W MINI-BAG PLUS 50 ML IV ONE (03:37)
[2023-11-04 03:38] LABS: ALBUMIN 3.9 G/DL (3.2-5.2); BILIRUBIN,DIRECT 0.2 MG/DL (<0.4); BILIRUBIN,TOTAL 0.5 MG/DL (0.3-1.2); CALCIUM LEVEL 9.4 MG/DL (8.5-10.1); CREATININE FOR GFR 1.05 MG/DL (0.55-1.30); GLOMERULAR FILTRATION RATE 58.1 (>51)
[2023-11-04] MEDS: NS 2,370 ML in IV 1 EA IV ONE (03:38)
[2023-11-04] MEDS ORDERED: PANT-23 PO (05:22)
[2023-11-04] MEDS ORDERED: [UNRECOGNIZED DRUG - OTHER] PO (05:22)
[2023-11-04] MEDS ORDERED: CICL0.7739 TOP (05:28)
[2023-11-04] MEDS ORDERED: ACET1TAB55 PO (05:28)
[2023-11-04] MEDS ORDERED: DEXTROSE 50% 50ML SYRINGE IV PRN (05:30)
[2023-11-04] MEDS ORDERED: GLUCOSE 4GM CHEW TABLET PO PRN (05:30)
[2023-11-04] MEDS ORDERED: HOME MED LIST COMPLETE! XX SCH (05:30)
[2023-11-04] MEDS ORDERED: GLUCAGON INJ 1MG VIAL SC PRN (05:30)
[2023-11-04] MEDS ORDERED: levETIRAcetam INJection 1,000 MG in D5W 100 ML IV SCH ×2 (06:00→18:00)
[2023-11-04 06:19] LABS: FREE T4 1.12 NG/DL (0.89-1.76)
[2023-11-04] MEDS: INSULIN LISPRO (NovoLOG) PER UNIT SC SCH ×2 (07:30→18:00)
[2023-11-04] MEDS: LEVEMIR (INSULIN DETEMIR) 1 UNITS/0.01ML SC SCH (09:00)
[2023-11-04 09:41] LABS: C REACTIVE PROTEIN QUANTITATIV < 0.40 MG/DL (<1.0)
[2023-11-04 09:50] LABS: PROCALCITONIN 0.04 ng/ml
[2023-11-04] MEDS: PANTOPRAZOLE 40MG VIAL IV SCH (10:24)
[2023-11-04] MEDS: ENOXAPARIN 80MG/0.8ML SYRINGE (J1650 PER 10MG) SC SCH (10:24)
[2023-11-04] MEDS: VALPROATE SOD INJ 500 MG in D5W MINI-BAG PLUS 50 ML IV SCH (19:05)
[2023-11-04] MEDS ORDERED: DIVALPROEX 500 MG TAB PO SCH (21:00)
[2023-11-04] MEDS ORDERED: DIVALPROEX SPRINKLE 125 MG CAP PO SCH (21:00)
[2023-11-04] MEDS ORDERED: INSULIN LISPRO (NovoLOG) PER UNIT SC SCH (21:00)
[2023-11-05] VITALS (11 sets, daily range): BP systolic 103–141; BP diastolic 54–63; TEMP 96.3–97.1; O2SAT 94–100
[2023-11-05 07:22] LABS: HEMOGLOBIN 10.1 g/dl (12.0-15.5)
[2023-11-05 08:13] LABS: BLOOD UREA NITROGEN 18 MG/DL (9-23); CALCIUM LEVEL 9.4 MG/DL (8.5-10.1); CARBON DIOXIDE LEVEL 26 MMOL/L (20-31); CHLORIDE LEVEL 110 MMOL/L (98-107); CREATININE FOR GFR 0.86 MG/DL (0.55-1.30); GLOMERULAR FILTRATION RATE > 60.0 (>51); GLUCOSE, FASTING 70 MG/DL (60-100); MAGNESIUM LEVEL 1.6 MG/DL (1.8-2.4); SODIUM LEVEL 141 MMOL/L (136-145)
[2023-11-05] MEDS: DIVALPROEX 500 MG TAB PO SCH (10:20)
[2023-11-05] MEDS: MAG SULF 1GM/100ML (MAG RUN) 1 GM in IV 1 EA IV SCH (10:21)
[2023-11-05] MEDS: DIVALPROEX SPRINKLE 125 MG CAP PO SCH (11:13)
[2023-11-05] MEDS: INSULIN LISPRO (NovoLOG) PER UNIT SC SCH ×2 (17:40→21:00)
[2023-11-06 04:02] VITALS: BP 107/60; TEMP 97; O2SAT 98
[2023-11-06 07:56] VITALS: BP 124/61; TEMP 96.8; O2SAT 99
[2023-11-06] MEDS ORDERED: DIVA125C6 PO (10:10)
== END 2023-11-06 11:49 | DRG 101 ==
LOC: M ED 04:27 → M ED INP 05:20 → M PCU 08:00
PROVIDERS: ADMIT Internal Medicine; ATTEND Student in an Organized Health Care Education/Training Program
DX: G40.409 Other generalized epilepsy and epileptic syndromes, not intractable, without status epilepticus (principal); G93.49 Other encephalopathy; I69.351 Hemiplegia and hemiparesis following cerebral infarction affecting right dominant side; E87.20 Acidosis, unspecified; R47.01 Aphasia; F79 Unspecified intellectual disabilities; E11.22 Type 2 diabetes mellitus with diabetic chronic kidney disease; Z93.3 Colostomy status; E78.5 Hyperlipidemia, unspecified; I12.9 Hypertensive chronic kidney disease with stage 1 through stage 4 chronic kidney disease, or unspecified chronic kidney disease; B35.1 Tinea unguium; R74.01 Elevation of levels of liver transaminase levels; N18.30 Chronic kidney disease, stage 3 unspecified; Z66 Do not resuscitate; Z79.01 Long term (current) use of anticoagulants; Z79.4 Long term (current) use of insulin; Z79.899 Other long term (current) drug therapy; E03.9 Hypothyroidism, unspecified

== ENCOUNTER → 2023-11-29 | Outpatient (REF) | payer MEDICARE, MEDICAID ==
[~2023-11-29] MED LIST changes: +CICL0.7739 TOP; +DIVA125C6 PO; +PANT-23 PO; +[UNRECOGNIZED DRUG - OTHER] PO
[2023-11-29 10:05] LABS: HEMOGLOBIN A1c 5.5 % (4.0-6.0)
== END ==
LOC: SKLAB3 07:00
PROVIDERS: ATTEND Nurse Practitioner Family
DX: D64.9 Anemia, unspecified (principal); Z79.899 Other long term (current) drug therapy

== ENCOUNTER → 2024-04-24 | Outpatient (REF) | payer MEDICARE, MEDICAID ==
[~2024-04-24] MED LIST changes: +FLUO-365 PO; -FLUO20CA22 PO; -SENN-111 PO; +SENN-165 PO
[2024-04-24 12:49] LABS: HEMATOCRIT 38.5 % (36.0-47.0); HEMOGLOBIN 12.7 g/dl (12.0-15.5); MEAN CORPUSCULAR HEMOGLOBIN 28.1 pg (27.0-33.0); MEAN CORPUSCULAR VOLUME 85.2 fl (80.0-96.0); PLATELET COUNT, AUTOMATED 230 10^3/uL (150-450); RED BLOOD COUNT 4.52 10^6/uL (4.00-5.40); WHITE BLOOD COUNT 6.7 10^3/uL (4.0-10.0)
[2024-04-24 13:13] LABS: VALPROIC ACID (DEPAKOTE) 76.6 UG/ML (50.0-100.0)
[2024-04-24 13:16] LABS: IRON (FE) 133 UG/DL (50-170)
[2024-04-24 13:28] LABS: ALKALINE PHOSPHATASE 93 U/L (46-116); ALT/SGPT 29 U/L (7.0-40); AST/SGOT 21 U/L (<34); BILIRUBIN,TOTAL 0.4 MG/DL (0.3-1.2); BLOOD UREA NITROGEN 26 MG/DL (9-23); CALCIUM LEVEL 9.3 MG/DL (8.5-10.1); CARBON DIOXIDE LEVEL 27 MMOL/L (20-31); CHLORIDE LEVEL 109 MMOL/L (98-107); CHOLESTEROL LEVEL 122 MG/DL (<200); CHOLESTEROL RISK RATIO 2.81 (<5); CREATININE FOR GFR 0.62 MG/DL (0.55-1.30); GLOMERULAR FILTRATION RATE > 60.0 (>51); GLUCOSE, FASTING 167 MG/DL (60-100); HDL CHOLESTEROL 43.3 MG/DL (>40); LDL CHOLESTEROL 56.5 MG/DL (<100); NON-HDL-C 78.7 MG/DL; POTASSIUM SERUM 4.4 MMOL/L (3.5-5.1); SODIUM LEVEL 139 MMOL/L (136-145); TOTAL PROTEIN 6.6 G/DL (5.7-8.2); TRIGLYCERIDES LEVEL 111 MG/DL (<150)
[2024-04-24 13:36] LABS: HEMOGLOBIN A1c 6.6 % (4.0-6.0)
== END ==
LOC: SKLAB3 04-23 07:00
PROVIDERS: ATTEND Internal Medicine
DX: G40.909 Epilepsy, unspecified, not intractable, without status epilepticus (principal); D64.9 Anemia, unspecified; E78.5 Hyperlipidemia, unspecified; E11.22 Type 2 diabetes mellitus with diabetic chronic kidney disease; N18.9 Chronic kidney disease, unspecified; I12.9 Hypertensive chronic kidney disease with stage 1 through stage 4 chronic kidney disease, or unspecified chronic kidney disease

== ENCOUNTER → 2024-05-06 | Outpatient (REF) | payer MEDICARE, MEDICAID ==
[2024-05-06 07:49] LABS: BLOOD UREA NITROGEN 31 MG/DL (9-23); CALCIUM LEVEL 9.6 MG/DL (8.5-10.1); CARBON DIOXIDE LEVEL 28 MMOL/L (20-31); CHLORIDE LEVEL 114 MMOL/L (98-107); CREATININE FOR GFR 0.72 MG/DL (0.55-1.30); GLOMERULAR FILTRATION RATE > 60.0 (>51); GLUCOSE, FASTING 146 MG/DL (60-100); POTASSIUM SERUM 3.8 MMOL/L (3.5-5.1); SODIUM LEVEL 147 MMOL/L (136-145)
== END ==
LOC: SKLAB3 07:00
PROVIDERS: ATTEND Internal Medicine
DX: E11.9 Type 2 diabetes mellitus without complications (principal)

== ENCOUNTER → 2024-05-13 | Outpatient (REF) | payer MEDICARE, MEDICAID ==
[2024-05-13 13:08] LABS: BASO # 0.1 10^3/uL (0.0-0.2); BASO % 0.6 % (0.0-1.0); EOS % 0.2 % (0.0-3.0); HEMATOCRIT 50.8 % (36.0-47.0); HEMOGLOBIN 15.9 g/dl (12.0-15.5); LYMPH # 2.7 10^3/uL (1.5-5.0); LYMPH % 27.6 % (24.0-44.0); MEAN CORPUSCULAR HEMOGLOBIN 29.2 pg (27.0-33.0); MEAN CORPUSCULAR HGB CONC 31.3 g/dl (32.0-36.5); MEAN CORPUSCULAR VOLUME 93.2 fl (80.0-96.0); MONO % 10.1 % (2.0-8.0); NEUTROPHILS % 60.8 % (36.0-66.0); PLATELET COUNT, AUTOMATED 337 10^3/uL (150-450); RED BLOOD COUNT 5.45 10^6/uL (4.00-5.40); WHITE BLOOD COUNT 9.8 10^3/uL (4.0-10.0)
[2024-05-13 13:31] LABS: THYROID STIMULATING HORMONE 0.648 uIU/ML (0.55-4.78)
[2024-05-13 13:45] LABS: ALBUMIN 3.4 G/DL (3.2-5.2); BILIRUBIN,TOTAL 0.6 MG/DL (0.3-1.2); CALCIUM LEVEL 10.2 MG/DL (8.5-10.1); CREATININE FOR GFR 1.27 MG/DL (0.55-1.30); GLOMERULAR FILTRATION RATE 46.7 (>51); POTASSIUM SERUM 4.3 MMOL/L (3.5-5.1); TOTAL PROTEIN 8.1 G/DL (5.7-8.2)
== END ==
LOC: SKLAB3 11:54
PROVIDERS: ATTEND Internal Medicine
DX: R41.82 Altered mental status, unspecified (principal)

== ENCOUNTER → 2024-05-14 | Outpatient (REF) | payer MEDICARE, MEDICAID ==
[2024-05-14 09:16] LABS: CALCIUM LEVEL 9.7 MG/DL (8.5-10.1); CREATININE FOR GFR 1.08 MG/DL (0.55-1.30); GLOMERULAR FILTRATION RATE 56.3 (>51)
== END ==
LOC: SKLAB3 07:07
PROVIDERS: ATTEND Internal Medicine
DX: E87.0 Hyperosmolality and hypernatremia (principal); R41.82 Altered mental status, unspecified

== ENCOUNTER → 2024-05-14 | Outpatient (REF) | payer MEDICARE, MEDICAID | LOC: SKLAB3 07:00 | PROVIDERS: ATTEND Nurse Practitioner Family | DX: R41.82 Altered mental status, unspecified (principal) ==

== ENCOUNTER → 2024-05-15 | Outpatient (REF) | payer MEDICARE, MEDICAID ==
[2024-05-15 10:44] LABS: BLOOD UREA NITROGEN 39 MG/DL (9-23); CALCIUM LEVEL 8.8 MG/DL (8.5-10.1); CARBON DIOXIDE LEVEL 26 MMOL/L (20-31); CHLORIDE LEVEL 118 MMOL/L (98-107); CREATININE FOR GFR 0.76 MG/DL (0.55-1.30); GLOMERULAR FILTRATION RATE > 60.0 (>51); GLUCOSE, FASTING 330 MG/DL (60-100); POTASSIUM SERUM 4.1 MMOL/L (3.5-5.1); SODIUM LEVEL 153 MMOL/L (136-145)
== END ==
LOC: SKLAB3 07:02
PROVIDERS: ATTEND Internal Medicine
DX: E87.0 Hyperosmolality and hypernatremia (principal)

== ENCOUNTER → 2024-05-16 | Outpatient (REF) | payer MEDICARE, MEDICAID ==
[2024-05-16 13:33] LABS: BLOOD UREA NITROGEN 24 MG/DL (9-23); CALCIUM LEVEL 8.4 MG/DL (8.5-10.1); CARBON DIOXIDE LEVEL 26 MMOL/L (20-31); CHLORIDE LEVEL 108 MMOL/L (98-107); CREATININE FOR GFR 0.66 MG/DL (0.55-1.30); GLOMERULAR FILTRATION RATE > 60.0 (>51); GLUCOSE, FASTING 375 MG/DL (60-100); POTASSIUM SERUM 3.6 MMOL/L (3.5-5.1); SODIUM LEVEL 139 MMOL/L (136-145)
== END ==
LOC: SKLAB3 06:55
PROVIDERS: ATTEND Internal Medicine
DX: E11.9 Type 2 diabetes mellitus without complications (principal)

== ENCOUNTER → 2024-05-20 | Outpatient (REF) | payer MEDICARE, MEDICAID ==
[2024-05-20 10:53] LABS: BLOOD UREA NITROGEN 26 MG/DL (9-23); CALCIUM LEVEL 9.3 MG/DL (8.5-10.1); CARBON DIOXIDE LEVEL 27 MMOL/L (20-31); CHLORIDE LEVEL 105 MMOL/L (98-107); CREATININE FOR GFR 0.58 MG/DL (0.55-1.30); GLOMERULAR FILTRATION RATE > 60.0 (>51); GLUCOSE, FASTING 273 MG/DL (60-100); SODIUM LEVEL 140 MMOL/L (136-145)
== END ==
LOC: SKLAB3 07:22
PROVIDERS: ATTEND Internal Medicine
DX: E87.1 Hypo-osmolality and hyponatremia (principal)

== ENCOUNTER → 2024-07-11 | Outpatient (REF) | payer MEDICARE, MEDICAID ==
[~2024-07-11] MED LIST changes: +MAGN400O77 PO; -MILK24002 PO
== END ==
LOC: SKLAB3 08:11
PROVIDERS: ATTEND Internal Medicine
DX: G40.909 Epilepsy, unspecified, not intractable, without status epilepticus (principal)

== ENCOUNTER → 2024-09-18 | Outpatient (REF) | payer MEDICARE, MEDICAID ==
[~2024-09-18] MED LIST changes: +MAGN400O73 PO; -MAGN400O77 PO
[2024-09-18 14:31] LABS: BASO # 0.1 10^3/uL (0.0-0.2); BASO % 0.6 % (0.0-1.0); EOS # 0.7 10^3/uL (0.0-0.5); EOS % 8.6 % (0.0-3.0); HEMATOCRIT 40.8 % (36.0-47.0); HEMOGLOBIN 13.7 g/dl (12.0-15.5); LYMPH # 3.8 10^3/uL (1.5-5.0); LYMPH % 45.2 % (24.0-44.0); MEAN CORPUSCULAR HEMOGLOBIN 30.3 pg (27.0-33.0); MEAN CORPUSCULAR HGB CONC 33.6 g/dl (32.0-36.5); MEAN CORPUSCULAR VOLUME 90.3 fl (80.0-96.0); MONO # 0.6 10^3/uL (0.0-0.8); MONO % 7.3 % (2.0-8.0); NEUTROPHILS # 3.2 10^3/uL (1.5-8.5); NEUTROPHILS % 38.1 % (36.0-66.0); PLATELET COUNT, AUTOMATED 248 10^3/uL (150-450); RED BLOOD COUNT 4.52 10^6/uL (4.00-5.40); WHITE BLOOD COUNT 8.4 10^3/uL (4.0-10.0)
[2024-09-18 15:04] LABS: ALBUMIN 2.7 G/DL (3.2-5.2); ALKALINE PHOSPHATASE 91 U/L (35-104); ALT/SGPT 24 U/L (7.0-40); AST/SGOT 20 U/L (<34); BILIRUBIN,TOTAL 0.4 MG/DL (0.3-1.2); BLOOD UREA NITROGEN 40 MG/DL (9-23); CALCIUM LEVEL 9.1 MG/DL (8.5-10.1); CARBON DIOXIDE LEVEL 29 MMOL/L (20-31); CHLORIDE LEVEL 102 MMOL/L (98-107); CREATININE FOR GFR 0.71 MG/DL (0.55-1.30); GLOMERULAR FILTRATION RATE > 60.0 (>51); GLUCOSE, FASTING 241 MG/DL (60-100); POTASSIUM SERUM 4.7 MMOL/L (3.5-5.1); SODIUM LEVEL 137 MMOL/L (136-145); TOTAL PROTEIN 6.9 G/DL (5.7-8.2)
== END ==
LOC: SKLAB3 13:37
PROVIDERS: ATTEND Internal Medicine
DX: R19.7 Diarrhea, unspecified (principal)

== ENCOUNTER → 2024-10-22 | Outpatient (REF) | payer MEDICARE, MEDICAID ==
[2024-10-22 07:46] LABS: HEMATOCRIT 42.8 % (36.0-47.0); HEMOGLOBIN 14.3 g/dl (12.0-15.5); MEAN CORPUSCULAR HEMOGLOBIN 30.3 pg (27.0-33.0); MEAN CORPUSCULAR HGB CONC 33.4 g/dl (32.0-36.5); MEAN CORPUSCULAR VOLUME 90.7 fl (80.0-96.0); PLATELET COUNT, AUTOMATED 205 10^3/uL (150-450); RED BLOOD COUNT 4.72 10^6/uL (4.00-5.40)
[2024-10-22 08:03] LABS: HEMOGLOBIN A1c 8.6 % (4.0-6.0)
[2024-10-22 08:07] LABS: VALPROIC ACID (DEPAKOTE) 61.7 UG/ML (50.0-100.0)
[2024-10-22 08:08] LABS: ALBUMIN 2.9 G/DL (3.2-5.2); ALKALINE PHOSPHATASE 87 U/L (35-104); ALT/SGPT 45 U/L (7.0-40); AST/SGOT 34 U/L (<34); BILIRUBIN,TOTAL 0.4 MG/DL (0.3-1.2); BLOOD UREA NITROGEN 28 MG/DL (9-23); CALCIUM LEVEL 8.9 MG/DL (8.5-10.1); CARBON DIOXIDE LEVEL 29 MMOL/L (20-31); CHLORIDE LEVEL 107 MMOL/L (98-107); CHOLESTEROL LEVEL 124 MG/DL (<200); CHOLESTEROL RISK RATIO 2.95 (<5); CREATININE FOR GFR 0.62 MG/DL (0.55-1.30); GLOMERULAR FILTRATION RATE > 60.0 (>51); GLUCOSE, FASTING 130 MG/DL (60-100); HDL CHOLESTEROL 41.9 MG/DL (>40); IRON (FE) 108 UG/DL (50-170); LDL CHOLESTEROL 67.3 MG/DL (<100); NON-HDL-C 82.1 MG/DL; POTASSIUM SERUM 4.3 MMOL/L (3.5-5.1); SODIUM LEVEL 143 MMOL/L (136-145); TOTAL PROTEIN 6.9 G/DL (5.7-8.2); TRIGLYCERIDES LEVEL 74 MG/DL (<150)
== END ==
LOC: SKLAB3 07:00
PROVIDERS: ATTEND Internal Medicine
DX: G40.909 Epilepsy, unspecified, not intractable, without status epilepticus (principal); E11.22 Type 2 diabetes mellitus with diabetic chronic kidney disease; N18.9 Chronic kidney disease, unspecified; E78.5 Hyperlipidemia, unspecified; D63.1 Anemia in chronic kidney disease; I12.9 Hypertensive chronic kidney disease with stage 1 through stage 4 chronic kidney disease, or unspecified chronic kidney disease

== ENCOUNTER → 2024-11-07 | Outpatient (REF) | payer MEDICARE, MEDICAID ==
[2024-11-07 07:30] LABS: BLOOD UREA NITROGEN 21 MG/DL (9-23); CALCIUM LEVEL 8.5 MG/DL (8.5-10.1); CARBON DIOXIDE LEVEL 25 MMOL/L (20-31); CHLORIDE LEVEL 110 MMOL/L (98-107); CREATININE FOR GFR 0.55 MG/DL (0.55-1.30); GLOMERULAR FILTRATION RATE > 60.0 (>51); GLUCOSE, FASTING 88 MG/DL (60-100); POTASSIUM SERUM 3.6 MMOL/L (3.5-5.1); SODIUM LEVEL 143 MMOL/L (136-145)
== END ==
LOC: SKLAB3 07:00
PROVIDERS: ATTEND Internal Medicine
DX: I10 Essential (primary) hypertension (principal)

== ENCOUNTER → 2025-02-04 | Outpatient (REF) | payer MEDICARE, MEDICAID ==
[~2025-02-04] MED LIST changes: +AMLO-751 PO; -AMLO10TA PO; +CVS10CAP8 PO; +FERR300L12 PO; -FERR5MLUD PO; -GLUC1KIT IM; +GLUC1VIA14 IM; -MELA10CA2 PO; +SORB70SO PO; -SORB70SO36 PO
== END ==
LOC: SKLAB3 07:00
PROVIDERS: ATTEND Internal Medicine
DX: R56.9 Unspecified convulsions (principal)

== ENCOUNTER 2025-03-09 17:09 | Inpatient (IN) | payer MEDICARE, MEDICAID ==
[~2025-03-09] VITALS: Ht 172.7 cm; Wt 86.5 kg
[2025-03-09 20:12] LABS: BASO # 0.1 10^3/uL (0.0-0.2); BASO % 0.3 % (0.0-1.0); EOS # 0.0 10^3/uL (0.0-0.5); EOS % 0.0 % (0.0-3.0); LYMPH # 3.2 10^3/uL (1.5-5.0); LYMPH % 16.4 % (24.0-44.0); MONO # 2.1 10^3/uL (0.0-0.8); MONO % 10.9 % (2.0-8.0); NEUTROPHILS # 13.9 10^3/uL (1.5-8.5); NEUTROPHILS % 71.5 % (36.0-66.0); PLATELET COUNT, AUTOMATED 231 10^3/uL (150-450)
[2025-03-09 20:28] LABS: INR 1.02
[2025-03-09 20:51] LABS: ALT/SGPT 15.0 U/L (7.0-40); AST/SGOT 22.0 U/L (<34); CALCIUM LEVEL 9.3 MG/DL (8.5-10.1); CARBON DIOXIDE LEVEL 24.0 MMOL/L (20-31); CHLORIDE LEVEL 106.0 MMOL/L (98-107); CREATININE FOR GFR 1.61 MG/DL (0.55-1.30); GLOMERULAR FILTRATION RATE 37.6 (>51); POTASSIUM SERUM 6.2 MMOL/L (3.5-5.1); SODIUM LEVEL 143.0 MMOL/L (136-145)
[2025-03-09] MEDS ORDERED: ISOVUE-370 76% 100 ML VIAL As Ordered ONE (21:03)
[2025-03-09] MEDS: NS 500 ML IV ONE ×2 (21:45→23:20)
[2025-03-09] MEDS: CALCIUM CHLORIDE 10% 1 GM/10 ML SYR IV ONE (21:54)
[2025-03-09] MEDS: NS (Normal Saline) 0.9% 1,000 ML IV ONE (22:00)
[2025-03-09] MEDS: DEXTROSE 50% 50 ML SYRINGE IV ONE (22:31)
[2025-03-09] MEDS: HumuLIN R (REGULAR) INSULIN (NovoLIN R) **100 U/ML** PER UNIT IV ONE (22:34)
[2025-03-09] MEDS: SODIUM BICARBONATE 8.4% INJ 50ML SYRINGE IV ONE (22:35)
[2025-03-09 22:47] LABS: CALCIUM LEVEL 9.5 MG/DL (8.5-10.1); CARBON DIOXIDE LEVEL 23.0 MMOL/L (20-31); CHLORIDE LEVEL 107.0 MMOL/L (98-107); CREATININE FOR GFR 1.76 MG/DL (0.55-1.30); GLOMERULAR FILTRATION RATE 33.8 (>51); POTASSIUM SERUM 5.6 MMOL/L (3.5-5.1); SODIUM LEVEL 142.0 MMOL/L (136-145)
[2025-03-09] MEDS: LIDOCAINE 2% 5 ML JELLY UROJET TOP ONE (23:24)
[2025-03-10] VITALS (14 sets, daily range): BP systolic 137–182; BP diastolic 59–107; TEMP 97.3–99.4; O2SAT 94–100
[2025-03-10 00:11] LABS: KETONE, URINE AUTO RFX NEGATIVE (NEGATIVE); NITRITE, URINE AUTO RFX NEGATIVE (NEGATIVE); RBC, URINE AUTO RFX 14 /HPF (0-3); SQUAM EPITHELIAL CELL UR AURFX 0 /HPF (0-6); WBC, URINE AUTO RFX 4 /HPF (0-3)
[2025-03-10 00:12] LABS: LEUKOCYTE ESTERASE UR AUTO RFX TRACE (NEGATIVE)
[2025-03-10 00:58] LABS: CALCIUM LEVEL 8.7 MG/DL (8.5-10.1); CARBON DIOXIDE LEVEL 25.0 MMOL/L (20-31); CHLORIDE LEVEL 109.0 MMOL/L (98-107); CREATININE FOR GFR 1.55 MG/DL (0.55-1.30); GLOMERULAR FILTRATION RATE 39.3 (>51); POTASSIUM SERUM 4.5 MMOL/L (3.5-5.1); SODIUM LEVEL 145.0 MMOL/L (136-145)
[2025-03-10] MEDS ORDERED: DEXTROSE 50% 50 ML SYRINGE IV PRN (02:30)
[2025-03-10] MEDS ORDERED: GLUCOSE 4 GM CHEW PO PRN (02:30)
[2025-03-10] MEDS ORDERED: MAALOX 30 ML SUSP *UDC PO PRN (02:30)
[2025-03-10] MEDS ORDERED: GLUCAGON INJ 1 MG VIAL SC PRN (02:30)
[2025-03-10] MEDS: HYDROCORTISONE 100 MG/2 ML VIAL IV ONE (02:45)
[2025-03-10] MEDS: NS 500 ML IV ONE (02:47)
[2025-03-10] MEDS: AZITHROMYCIN INJ 500 MG, VIAL MATE ADAPTER 1 EACH in NS 250 ML IV SCH (02:52)
[2025-03-10 03:05] LABS: BASO # 0.0 10^3/uL (0.0-0.2); BASO % 0.3 % (0.0-1.0); EOS # 0.0 10^3/uL (0.0-0.5); EOS % 0.1 % (0.0-3.0); LYMPH # 3.4 10^3/uL (1.5-5.0); LYMPH % 24.9 % (24.0-44.0); MONO # 1.5 10^3/uL (0.0-0.8); MONO % 11.1 % (2.0-8.0); NEUTROPHILS # 8.4 10^3/uL (1.5-8.5); NEUTROPHILS % 62.6 % (36.0-66.0)
[2025-03-10 03:12] LABS: ERYTHROCYTE SEDIMENTATION RATE 32 mm/hr (0-30)
[2025-03-10 03:21] LABS: ALT/SGPT 12.0 U/L (7.0-40); AST/SGOT 19.0 U/L (<34); CALCIUM LEVEL 9.3 MG/DL (8.5-10.1); CARBON DIOXIDE LEVEL 26.0 MMOL/L (20-31); CHLORIDE LEVEL 107.0 MMOL/L (98-107); CREATININE FOR GFR 1.5 MG/DL (0.55-1.30); GLOMERULAR FILTRATION RATE 40.9 (>51); MAGNESIUM LEVEL 1.5 MG/DL (1.8-2.4); PHOSPHORUS LEVEL 2.6 MG/DL (2.5-4.9); POTASSIUM SERUM 4.9 MMOL/L (3.5-5.1); SODIUM LEVEL 144.0 MMOL/L (136-145)
[2025-03-10 04:07] LABS: C REACTIVE PROTEIN QUANTITATIV 13.75 MG/DL (<1.0)
[2025-03-10] MEDS ORDERED: DIVA125C6 PO (04:26)
[2025-03-10] MEDS ORDERED: GABA-1171 PO (04:26)
[2025-03-10] MEDS ORDERED: ECOT81TA5 PO (04:26)
[2025-03-10] MEDS ORDERED: METF-838 PO (04:26)
[2025-03-10] MEDS ORDERED: FLUO-290 PO (04:26)
[2025-03-10] MEDS ORDERED: HOME MED LIST COMPLETE! XX SCH (04:30)
[2025-03-10] MEDS: NS (Normal Saline) 0.9% 1,000 ML IV ONE (04:36)
[2025-03-10] MEDS: MAG SULF 1GM/100ML (MAG RUN) 1 GM in IV 1 EA IV SCH (04:36)
[2025-03-10] MEDS: LR 1,000 ML IV SCH (05:54)
[2025-03-10] MEDS: CEFEPIME HCL 2 GM in DEXTROSE 5% (D5W) ADV/MINI-BAG 50 ML IV SCH (06:33)
[2025-03-10] MEDS: INSULIN LISPRO (NovoLOG) PER UNIT SC SCH ×2 (08:35→21:00)
[2025-03-10] MEDS: GABAPENTIN 100 MG CAP PO SCH (09:00)
[2025-03-10] MEDS: DIVALPROEX SPRINKLE 125 MG CAP PO SCH (09:00)
[2025-03-10] MEDS ORDERED: BARIUM SULFATE 700 MG TABLET As Ordered ONE (13:36)
[2025-03-10] MEDS ORDERED: E-Z-PAQUE 96% w/w SUSP 176 GM BTL As Ordered ONE (13:36)
[2025-03-10] MEDS ORDERED: VARIBAR NECTAR 40% w/v 240ML SUSP BTL As Ordered ONE (13:37)
[2025-03-10] MEDS ORDERED: VARIBAR PUDDING 40% w/v 230ML TUBE As Ordered ONE (13:37)
[2025-03-10] MEDS: ACETAMINOPHEN 325 MG TAB PO PRN (21:00)
[2025-03-11] VITALS (9 sets, daily range): BP systolic 110–126; BP diastolic 53–56; TEMP 97.8–98.8; O2SAT 96–98
[2025-03-11] MEDS ORDERED: VANCOMYCIN HCL 1,230 MG in IV FLUID PLACE HOLDER 1 EA IV SCH (05:00)
[2025-03-11 06:26] LABS: PLATELET COUNT, AUTOMATED 187 10^3/uL (150-450)
[2025-03-11] MEDS: VANCOMYCIN HCL 1,000 MG, VIAL MATE ADAPTER 1 EACH in NS 250 ML IV ONE (06:29)
[2025-03-11 06:41] LABS: C REACTIVE PROTEIN QUANTITATIV 7.92 MG/DL (<1.0)
[2025-03-11 06:44] LABS: ALT/SGPT 17.0 U/L (7.0-40); AST/SGOT 26.0 U/L (<34); CALCIUM LEVEL 8.4 MG/DL (8.5-10.1); CARBON DIOXIDE LEVEL 24.0 MMOL/L (20-31); CHLORIDE LEVEL 109.0 MMOL/L (98-107); CREATININE FOR GFR 0.86 MG/DL (0.55-1.30); GLOMERULAR FILTRATION RATE 79.7 (>51); MAGNESIUM LEVEL 1.5 MG/DL (1.8-2.4); POTASSIUM SERUM 3.7 MMOL/L (3.5-5.1); SODIUM LEVEL 144.0 MMOL/L (136-145)
[2025-03-11] MEDS: MAG SULF 1GM/100ML (MAG RUN) 1 GM in IV 1 EA IV SCH (08:05)
[2025-03-11] MEDS ORDERED: AZIT-12 PO (11:23)
[2025-03-11] MEDS ORDERED: VANCOMYCIN HCL 1,000 MG, VIAL MATE ADAPTER 1 EACH in NS 250 ML IV SCH (12:00)
[2025-03-12] MEDS ORDERED: AZITHROMYCIN 250 MG TABLET PO ONE (06:00)
== END 2025-03-11 11:58 | DRG 872 ==
LOC: M ED 17:09 → EDBD 17:09 → M ED INP 03-10 02:27 → M ICU 03-10 09:29
PROVIDERS: ADMIT Student in an Organized Health Care Education/Training Program; ATTEND Internal Medicine
DX: A41.89 Other specified sepsis (principal); I69.351 Hemiplegia and hemiparesis following cerebral infarction affecting right dominant side; N17.9 Acute kidney failure, unspecified; A04.5 Campylobacter enteritis; R47.01 Aphasia; F79 Unspecified intellectual disabilities; E87.5 Hyperkalemia; E83.42 Hypomagnesemia; B35.1 Tinea unguium; E11.40 Type 2 diabetes mellitus with diabetic neuropathy, unspecified; I10 Essential (primary) hypertension; F32.A Depression, unspecified; E78.5 Hyperlipidemia, unspecified; G40.909 Epilepsy, unspecified, not intractable, without status epilepticus; Z66 Do not resuscitate; Z93.3 Colostomy status; Z79.82 Long term (current) use of aspirin; Z79.4 Long term (current) use of insulin; Z79.899 Other long term (current) drug therapy

== ENCOUNTER → 2025-05-06 | Outpatient (REF) | payer MEDICARE, MEDICAID ==
[~2025-05-06] MED LIST changes: +AZIT-12 PO; +ECOT81TA5 PO; +FLUO-290 PO; +GABA-1171 PO; +METF-838 PO
[2025-05-06 15:14] LABS: ESTIMATED AVERAGE GLUCOSE 146.0 MG/DL (60-110)
== END ==
LOC: SKLAB3 07:00
PROVIDERS: ATTEND Family Medicine
DX: E11.9 Type 2 diabetes mellitus without complications (principal)

== ENCOUNTER → 2025-05-21 | Outpatient (REF) | payer MEDICARE, MEDICAID ==
[2025-05-21 10:39] LABS: PLATELET COUNT, AUTOMATED 188 10^3/uL (150-450)
[2025-05-21 10:55] LABS: ESTIMATED AVERAGE GLUCOSE 148.0 MG/DL (60-110)
[2025-05-21 11:12] LABS: ALT/SGPT 35 U/L (7.0-40); AST/SGOT 26 U/L (<34); CALCIUM LEVEL 9.6 MG/DL (8.5-10.1); CARBON DIOXIDE LEVEL 29 MMOL/L (20-31); CHLORIDE LEVEL 103 MMOL/L (98-107); CHOLESTEROL LEVEL 128 MG/DL (<200); CHOLESTEROL RISK RATIO 3.19 (<5); CREATININE FOR GFR 0.76 MG/DL (0.55-1.30); GLOMERULAR FILTRATION RATE > 90.0 (>51); LDL CHOLESTEROL 59.9 MG/DL (<100); NON-HDL-C 87.9 MG/DL; POTASSIUM SERUM 4.1 MMOL/L (3.5-5.1); SODIUM LEVEL 144 MMOL/L (136-145); TRIGLYCERIDES LEVEL 140 MG/DL (<150)
== END ==
LOC: SKLAB3 07:00
PROVIDERS: ATTEND Family Medicine
DX: I63.9 Cerebral infarction, unspecified (principal); N18.9 Chronic kidney disease, unspecified; D63.1 Anemia in chronic kidney disease; Z79.899 Other long term (current) drug therapy

== ENCOUNTER → 2025-05-26 | Outpatient (CLI) | payer MEDICARE, MEDICAID ==
[~2025-05-26] MED LIST changes: +BARIUM SULFATE 700 MG TABLET As Ordered ONE; +E-Z-PAQUE 96% w/w SUSP 176 GM BTL As Ordered ONE; +VARIBAR NECTAR 40% w/v 240ML SUSP BTL As Ordered ONE; +VARIBAR PUDDING 40% w/v 230ML TUBE As Ordered ONE
== END ==
LOC: M RAD 13:50
PROVIDERS: ATTEND Nurse Practitioner Adult Health
DX: R13.10 Dysphagia, unspecified (principal)